=== PATIENT | male | born 1955 | race Caucasian/White ===

== ENCOUNTER 2018-08-30 21:04 | Inpatient (IN) | payer MEDICARE ==
[2018-08-30] MEDS ORDERED: IPRATROPIUM-ALBUTEROL 3 ML NEB INHALATION STA (21:11)
[2018-08-30] MEDS ORDERED: SODIUM CHLORIDE 0.9% 1,000 ML IV STA (21:11)
[2018-08-30] MEDS ORDERED: LORazepam 2 MG/ML INJ IV STA (21:30)
[2018-08-30] MEDS ORDERED: ENALAPRILAT 1.25 MG/ML 1 ML VIAL IVP STA (21:30)
[2018-08-30] MEDS ORDERED: NITROGLYCERIN SL TABS 0.4 MG TAB SUBLINGUAL STA (21:30)
[2018-08-30] MEDS ORDERED: MORPHINE SULFATE 2 MG/ML SYRINGE IVP STA (21:30)
[2018-08-30 21:33] LABS: Basophils # (A) 0.1 k/uL (0-0.2); Basophils % (A) 0 %; Eosinophils # (A) 0.4 k/uL (0-0.7); Eosinophils % (A) 1 %; HCT 41.5 % (39.0-53.0); HGB 13.2 gm/dL (13.0-17.5); Hypochromasia Slight; Lymphocytes # (A) 2.8 k/uL (1.0-4.8); Lymphocytes % (A) 11 %; MCH 28.7 pg (25.0-35.0); MCHC 31.8 g/dL (31.0-37.0); MCV 90.4 fL (80.0-100.0); Mean Platelet Volume 6.2; Monocytes % (A) 4 %; Neutrophils # (A) 21.7 k/uL (1.3-7.7); Neutrophils % (A) 83 %; Platelet Count 512 k/uL (150-450); RBC 4.59 m/uL (4.30-5.90); WBC 26.2 k/uL (3.8-10.6)
--- NOTE | 2018-08-30 21:33 | XR ---
EXAMINATION TYPE: XR chest 1V portable DATE OF EXAM: 08/30/2018 COMPARISON: NONE HISTORY: History of hypertension and diabetes with cough for 2 days and difficulty breathing today. TECHNIQUE: Single AP portable frontal upright view of the chest is obtained. FINDINGS: There is reticular interstitial prominence bilaterally with right hilar and left infrahila r opacities, there is silhouetting of both right and left heart borders. No large pleural effusion o r pneumothorax is present bilaterally. The osseous structures are intact. IMPRESSION: Suspect mild to moderate interstitial edema with multifocal bilateral alveolar edema and /or infiltrates. Correlate clinically. Progress study should be considered.
[2018-08-30 21:41] LABS: Partial Thromboplastin Time 22.1 sec (22.0-30.0); Prothrombin Time 9.7 sec (9.0-12.0)
[2018-08-30 21:46] LABS: ALT 41 U/L (21-72); AST 41 U/L (17-59); Albumin 3.9 g/dL (3.5-5.0); Alkaline Phosphatase 77 U/L (38-126); Anion Gap 12 mmol/L; Blood Urea Nitrogen 14 mg/dL (9-20); Calcium 8.7 mg/dL (8.4-10.2); Carbon Dioxide 22 mmol/L (22-30); Chloride 107 mmol/L (98-107); Glucose 240 mg/dL (74-99); Magnesium 1.8 mg/dL (1.6-2.3); Potassium 4.4 mmol/L (3.5-5.1); Sodium 141 mmol/L (137-145); Total Bilirubin 0.6 mg/dL (0.2-1.3); Total Protein 7.6 g/dL (6.3-8.2)
[2018-08-30 21:58] LABS: Creatine Kinase MB 2.9 ng/mL (0.0-2.4); Troponin I 0.02 ng/mL (0.000-0.034)
--- NOTE | 2018-08-30 22:10 | ED ---
SOB HPI - General Chief Complaint: Shortness of Breath Stated Complaint: MARIANA Time Seen by Provider: 08/30/18 21:09 Source: EMS, RN notes reviewed, old records reviewed Mode of arrival: EMS Limitations: no limitations, physical limitation (Clinical condition) - History of Present Illness Initial Comments: This is a 63-year-old male to the ER for evaluation. Patient is today for evaluation regarding significant shortness of breath. Shortness of breath some progressive worsening of shortness of breath. Patient has history of high blood pressure heart disease. Will be severely hypoxic. Patient admits cough 2 days, no fever. No current chest MD Complaint: shortness of breath, cough, pain with inspiration -: hour(s) (2) Severity: severe Severity scale (1-10): 10 Consistency: constant Improves With: oxygen, bronchodilators Worsens With: movement Associated Symptoms: cough, diaphoresis Treatments Prior to Arrival: oxygen, bronchodilator - Related Data Allergies Allergy/AdvReac Type Severity Reaction Status Date / Time Latex, Natural Rubber Allergy Rash/Hives Verified 08/30/18 22:03 Penicillins Allergy Unknown Verified 08/30/18 22:03 Childhood Review of Systems ROS Statement: Those systems with pertinent positive or pertinent negative responses have been documented in the HPI. ROS Other: All systems not noted in ROS Statement are negative. Past Medical History Past Medical History: Diabetes Mellitus, Hypertension History of Any Multi-Drug Resistant Organisms: None Reported Past Psychological History: No Psychological Hx Reported Smoking Status: Former smoker Past Alcohol Use History: None Reported Past Drug Use History: None Reported General Exam Limitations: no limitations General appearance: alert, anxious, in distress, obese Head exam: Present: atraumatic, normocephalic, normal inspection Eye exam: Present: normal appearance, PERRL, EOMI. Absent: scleral icterus, conjunctival injection, periorbital swelling ENT exam: Present: normal exam, mucous membranes moist Neck exam: Present: normal inspection. Absent: tenderness, meningismus, lymphadenopathy Respiratory exam: Present: respiratory distress, wheezes, rales, accessory muscle use, decreased breath sounds, prolonged expiratory. Absent: normal lung sounds bilaterally, rhonchi, stridor Cardiovascular Exam: Present: normal rhythm, tachycardia, normal heart sounds. Absent: systolic murmur, diastolic murmur, rubs, gallop, clicks GI/Abdominal exam: Present: soft, normal bowel sounds. Absent: distended, tenderness, guarding, rebound, rigid Extremities exam: Present: normal inspection, full ROM, normal capillary refill. Absent: tenderness, pedal edema, joint swelling, calf tenderness Back exam: Present: normal inspection Neurological exam: Present: alert, oriented X3, CN II-XII intact Psychiatric exam: Present: normal affect, normal mood Skin exam: Present: warm, dry, intact, normal color. Absent: rash Course Vital Signs 08/30/18 08/30/18 08/30/18 21:05 21:15 21:17 Pulse Rate 92 89 Respiratory 32 H 28 H 32 H Rate Blood Pressure 168/110 O2 Sat by Pulse Oximetry 08/30/18 08/30/18 21:39 21:49 Pulse Rate 86 76 Respiratory 27 H 28 H Rate Blood Pressure 173/115 O2 Sat by Pulse 98 Oximetry - Reevaluation(s) Reevaluation #1: 08/30/18 22:09 Patient is in severe respiratory distress, will given breathing treatment, placed on BiPAP multiple medications and help with significant pulmonary edema secondary to the Reevaluation #2: 08/30/18 22:09 Patient's prior medical records thoroughly reviewed Medical Decision Making - Medical Decision Making 63 male the ER for evaluation, patient comes in hypertensive emergency, CHF. Patient be admitted for diuresis, continued BiPAP and monitoring of cardiopulmonary status - Lab Data Result diagrams: 08/30/18 21:20 08/30/18 21:20 Lab Results 08/30/18 08/30/18 08/30/18 Range/Units 21:20 21:20 21:20 WBC 26.2 H (3.8-10.6) k/uL RBC 4.59 (4.30-5.90) m/uL Hgb 13.2 (13.0-17.5) gm/dL Hct 41.5 (39.0-53.0) % MCV 90.4 (80.0-100.0) fL MCH 28.7 (25.0-35.0) pg MCHC 31.8 (31.0-37.0) g/dL RDW 14.0 (11.5-15.5) % Plt Count 512 H (150-450) k/uL Neutrophils % 83 % Lymphocytes % 11 % Monocytes % 4 % Eosinophils % 1 % Basophils % 0 % Neutrophils # 21.7 H (1.3-7.7) k/uL Lymphocytes # 2.8 (1.0-4.8) k/uL Monocytes # 1.0 (0-1.0) k/uL Eosinophils # 0.4 (0-0.7) k/uL Basophils # 0.1 (0-0.2) k/uL Hypochromasia Slight PT (9.0-12.0) sec INR (<1.2) APTT (22.0-30.0) sec Sodium 141 (137-145) mmol/L Potassium 4.4 (3.5-5.1) mmol/L Chloride 107 (98-107) mmol/L Carbon Dioxide 22 (22-30) mmol/L Anion Gap 12 mmol/L BUN 14 (9-20) mg/dL Creatinine 0.72 (0.66-1.25) mg/dL Est GFR (CKD-EPI)AfAm >90 (>60 ml/min/1.73 sqM) Est GFR (CKD-EPI)NonAf >90 (>60 ml/min/1.73 sqM) Glucose 240 H (74-99) mg/dL Calcium 8.7 (8.4-10.2) mg/dL Magnesium 1.8 (1.6-2.3) mg/dL Total Bilirubin 0.6 (0.2-1.3) mg/dL AST 41 (17-59) U/L ALT 41 (21-72) U/L Alkaline Phosphatase 77 (38-126) U/L Total Creatine Kinase 201 H (55-170) U/L CK-MB (CK-2) 2.9 H (0.0-2.4) ng/mL CK-MB (CK-2) Rel Index 1.4 Troponin I 0.020 (0.000-0.034) ng/mL Total Protein 7.6 (6.3-8.2) g/dL Albumin 3.9 (3.5-5.0) g/dL 08/30/18 Range/Units 21:20 WBC (3.8-10.6) k/uL RBC (4.30-5.90) m/uL Hgb (13.0-17.5) gm/dL Hct (39.0-53.0) % MCV (80.0-100.0) fL MCH (25.0-35.0) pg MCHC (31.0-37.0) g/dL RDW (11.5-15.5) % Plt Count (150-450) k/uL Neutrophils % % Lymphocytes % % Monocytes % % Eosinophils % % Basophils % % Neutrophils # (1.3-7.7) k/uL Lymphocytes # (1.0-4.8) k/uL Monocytes # (0-1.0) k/uL Eosinophils # (0-0.7) k/uL Basophils # (0-0.2) k/uL Hypochromasia PT 9.7 (9.0-12.0) sec INR 1.0 (<1.2) APTT 22.1 (22.0-30.0) sec Sodium (137-145) mmol/L Potassium (3.5-5.1) mmol/L Chloride (98-107) mmol/L Carbon Dioxide (22-30) mmol/L Anion Gap mmol/L BUN (9-20) mg/dL Creatinine (0.66-1.25) mg/dL Est GFR (CKD-EPI)AfAm (>60 ml/min/1.73 sqM) Est GFR (CKD-EPI)NonAf (>60 ml/min/1.73 sqM) Glucose (74-99) mg/dL Calcium (8.4-10.2) mg/dL Magnesium (1.6-2.3) mg/dL Total Bilirubin (0.2-1.3) mg/dL AST (17-59) U/L ALT (21-72) U/L Alkaline Phosphatase (38-126) U/L Total Creatine Kinase (55-170) U/L CK-MB (CK-2) (0.0-2.4) ng/mL CK-MB (CK-2) Rel Index Troponin I (0.000-0.034) ng/mL Total Protein (6.3-8.2) g/dL Albumin (3.5-5.0) g/dL - Radiology Data Radiology results: report reviewed (Chest x-ray is positive for CHF), image reviewed Critical Care Time Critical Care Time: Yes Total Critical Care Time: 31 Disposition Clinical Impression: Congestive heart failure, Acute pulmonary edema, Hypoxia, Acute respiratory failure, Hypertensive emergency Disposition: ADMITTED IP TO THIS [facility] Condition: Serious Is patient prescribed a controlled substance at d/c from ED?: No Referrals: Nonstaff,Physician [Primary Care Provider] - 1-2 days
[2018-08-31] MEDS ORDERED: IPRATROPIUM-ALBUTEROL 3 ML NEB INHALATION PRN (00:27)
[2018-08-31] MEDS ORDERED: VANCOMYCIN IV PER PHARMACY 1 EACH MISC MISCELLANE PRN (00:58)
[2018-08-31] MEDS ORDERED: LEVOFLOXACIN 750MG-D5W PMX 750 MG in DEXTROSE/WATER 1 150ML.BAG IVPB SCH (01:00)
--- NOTE | 2018-08-31 01:04 | P.HPIM ---
History of Present Illness H&P Date: 08/31/18 Chief Complaint: Shortness of air and cough The patient is a 63-year-old morbidly obese male with a past with a history of essential hypertension, type 2 diabetes with peripheral neuropathy who presents to the ER via EMS with chief complaint of shortness of breath. The patient reports increasing shortness of breath over the last 2 days with a nonproductive cough during this time, with subjective fevers and chills. The patient denies any chest pain, nausea vomiting or diaphoresis. Patient denies any sick contacts, he reports being up-to-date on his flu and pneumonia shot which she took approximately 2 weeks ago. The patient denies any history of smoking, or COPD. He denies history of heart failure Patient reports a history of chronic lower extremity lymphedema and reports increasing redness and swelling with weeping of his lower extremities over the last 3-4 weeks. Per ER records it appears the patient was noted to be severely hypoxic with saturations in the 80s on arrival of the EMS he was subsequently placed on supplemental oxygen and brought to the ER where he was placed on BiPAP. And given Lasix and recommended for admission. Admission labs WBC count of 26.4, chest x-ray suggesting mild to moderate incisional edema with multiple focal bilateral alveolar edema and/or infiltrates. Review of Systems Pertinent positives per HPI, all other review of systems are otherwise negative Past Medical History Past Medical History: Diabetes Mellitus, Hypertension History of Any Multi-Drug Resistant Organisms: None Reported Past Psychological History: No Psychological Hx Reported Smoking Status: Former smoker Past Alcohol Use History: None Reported Past Drug Use History: None Reported - Past Family History Mother Family Medical History: Cancer Medications and Allergies Home Medications Medication Instructions Recorded Confirmed Type Aspirin EC [Ecotrin] 325 mg PO DAILY 08/30/18 08/30/18 History Ergocalciferol [Vitamin D2] 50,000 unit PO FR 08/30/18 08/30/18 History Gabapentin [Neurontin] 100 mg PO BID 08/30/18 08/30/18 History Insulin Aspart [NovoLOG 31 units IM AC-TID 08/30/18 08/30/18 History (formulary)] Insulin Glargine,Hum.rec.anlog 46 units IM DAILY 08/30/18 08/30/18 History [Lantus Solostar] Lisinopril 40 mg PO DAILY 08/30/18 08/30/18 History Multivitamins, Thera [Multivitamin 1 tab PO DAILY 08/30/18 08/30/18 History (formulary)] [place]-3 Fatty Acids/Fish Oil [Fish 1 cap PO DAILY 08/30/18 08/30/18 History Oil 1,000 mg Softgel] Vitamin E 1,000 units PO BID 08/30/18 08/30/18 History amLODIPine [Norvasc] 10 mg PO DAILY 08/30/18 08/30/18 History cloNIDine HCL [Catapres] 0.2 mg PO TID 08/30/18 08/30/18 History metFORMIN HCL 1,000 mg PO BID 08/30/18 08/30/18 History Allergies Allergy/AdvReac Type Severity Reaction Status Date / Time Latex, Natural Rubber Allergy Rash/Hives Verified 08/30/18 22:03 Penicillins Allergy Unknown Verified 08/30/18 22:03 Childhood Physical Exam Vitals: Vital Signs Temp Pulse Resp BP Pulse Ox 08/30/18 23:03 92 26 H 158/65 97 08/30/18 22:02 90 26 H 153/64 99 08/30/18 21:49 76 28 H 173/115 98 08/30/18 21:39 86 27 H 08/30/18 21:17 32 H 08/30/18 21:15 89 28 H 08/30/18 21:05 98.7 F 92 32 H 168/110 Intake and Output 08/30/18 08/30/18 08/31/18 14:59 22:59 06:59 Intake Total 100 Balance 100 Intake: Amount of Fluid Infused ( 100 ml) Other: Weight 121.109 kg Constitutional: Mild to moderate respiratory distress, conversant, pleasant Eyes: Anicteric sclerae, moist conjunctiva, no lid-lag, PERRLA ENMT: NC/AT,Oropharynx clear, no erythema, exudates Neck:Supple, FROM, no masses, or JVD, No carotid bruits; No thyromegaly Lungs: Clear to auscultation, faint wheezes, Clear to percussion, Normal respiratory effort, tachypnea increased work of breathing when off, speaking in incomplete sentences without BiPAP Cardiovascular: Heart regular in rate and rhythm, No murmurs, gallops, or rubs no peripheral edema Abdominal: Soft Nontender, nom distended, no guarding, no rebound or rigidity, Normoactive bowel sounds No hepatomegaly, No splenomegaly, No palpable mass No abdominal wall hernia noted Skin: Erythematous weeping vesicles, warmth to touch on bilateral lower extremities from ankles to the proximal one third of the tibia bilaterally Extremities:No digital cyanosis No clubbing, Pedal pulses intact and symmetrical Radial pulses intact and symmetrical Normal gait and station, No calf tenderness Psychiatric: Alert and oriented to person, place and time, Appropriate affect Intact judgement Neuro: Muscles Strength 5/5 in all 4 extremities, Sensation to light touch grossly present throughout, Cranial nerves II-XII grossly intact. No focal sensory deficits Results CBC & Chem 7: 08/31/18 09:10 08/31/18 09:10 Labs: Abnormal Lab Results - Last 24 Hours (Table) 08/30/18 08/30/18 08/30/18 Range/Units 21:20 21:20 21:20 WBC 26.2 H (3.8-10.6) k/uL Plt Count 512 H (150-450) k/uL Neutrophils # 21.7 H (1.3-7.7) k/uL Glucose 240 H (74-99) mg/dL Total Creatine Kinase 201 H (55-170) U/L CK-MB (CK-2) 2.9 H (0.0-2.4) ng/mL Assessment and Plan (1) Acute respiratory failure with hypoxia Current Visit: Yes Status: Acute Code(s): J96.01 - ACUTE RESPIRATORY FAILURE WITH HYPOXIA SNOMED Code(s): 46668830 (2) Sepsis Current Visit: Yes Status: Acute Code(s): A41.9 - SEPSIS, UNSPECIFIED ORGANISM SNOMED Code(s): 03386009 (3) Bilateral lower leg cellulitis Current Visit: Yes Status: Acute Code(s): L03.116 - CELLULITIS OF LEFT LOWER LIMB; L03.115 - CELLULITIS OF RIGHT LOWER LIMB SNOMED Code(s): 068620851 (4) Type 2 diabetes mellitus with hyperglycemia Current Visit: Yes Status: Chronic Code(s): E11.65 - TYPE 2 DIABETES MELLITUS WITH HYPERGLYCEMIA SNOMED Code(s): 902272008883120 (5) Hypertensive emergency Current Visit: Yes Status: Resolved Code(s): I16.1 - HYPERTENSIVE EMERGENCY SNOMED Code(s): 938557595639446 (6) Pneumonia Current Visit: Yes Status: Acute Code(s): J18.9 - PNEUMONIA, UNSPECIFIED ORGANISM SNOMED Code(s): 689879612 Plan: The patient is admitted to the telemetry unit anticipated greater than 2 midnight stay with acute respiratory failure with hypoxia multifactorial etiology secondary to pulmonary edema versus underlying CHF superimposed on possible sepsis and pneumonia/cellulitis. Patient is continued on Bipap therapy with plans to consult pulmonology, initiate DuoNeb bronchodilator breathing treatments Q4/PRN with antibiotic coverage Levaquin and vancomycin, given patient's profound leukocytosis of 26.2. Attempt to obtain pancultures of blood and urine and sputum. proceed with diruesis with IV lasix. We'll order d-dimer, TSH, A1c and plan to consult ID for antibiotic guidance and wound care minal wraps for LE edema/cellulitis. Patient also noted to be in hypertensive emergency on arrival, blood pressure much improved now we'll resume his home antihypertensive regimen. Patient placed on DVT prophylaxis. Continue to follow his clinical course Discussed plan of care with the patient CODE STATUS full Anticipated discharge 3-5 days
[2018-08-31] MEDS ORDERED: INSULIN DETEMIR 100 UNIT/ML 10 ML VIAL SQ ONE (01:45)
[2018-08-31] MEDS ORDERED: VANCOMYCIN 1,750 MG in SODIUM CHLORIDE 0.9% 500 ML IVPB SCH (02:00)
[2018-08-31] MEDS: FUROSEMIDE 10 MG/ML 4 ML VIAL IV SCH ×4 (02:36→22:23)
[2018-08-31] MEDS ORDERED: HEPARIN SOD,PORK IN 0.45% NACL 25,000 UNIT in 0.45% NACL 1 500ML.BAG IV SCH (03:00)
[2018-08-31] MEDS: IPRATROPIUM-ALBUTEROL 3 ML NEB INHALATION SCH ×5 (03:27→19:32)
[2018-08-31 05:51] LABS: Glucose,Whole Blood 238 mg/dL (75-99)
[2018-08-31] MEDS: INSULIN ASPART 100 UNIT/ML 1 ML 10 ML VIAL SQ SCH ×7 (06:44→22:33)
--- NOTE | 2018-08-31 08:22 | P.PN ---
Progress Note - Text Progress Note Date: 08/31/18 63-year-old male with PMH of diabetes mellitus, hypertension, peripheral neuropathy presents to the ED for shortness of breath associated with fever, chills and a nonproductive cough for the past 2 days. Of note patient reports a history of chronic lower extremity lymphedema with increased redness, swelling and weeping over the past 3-4 weeks. In the ED was found to be severely hypoxic saturating in the 80s, pleasant BiPAP. CBC is remarkable for leukocytosis of 26.2, platelet of 512. D-dimer was elevated at 1.86. CMP showed a glucose of 240. Initial troponin was negative at 0.02 with a mildly elevated CK-MB of 2.9. His second troponin was slightly elevated at 0.091. BNP was 584. Chest x-ray showed mild to moderate interstitial edema with multifocal bilateral alveolar edema, with concerns for infiltrate. Patient was seen and examined this morning. No acute events overnight. Patient is currently on BiPAP, speaking in full sentences. Patient reports sudden onset of shortness of breath 2-3 days ago while he was sitting watching football. He does endorse a cough at that time as well productive of clear mucus. He has a history of chronic lower extremity swelling left greater than right. Patient also reports a history of polio in the past with lower extremity weakness as a result. He endorses getting his flu shot and pneumonia shot 2 weeks ago. He denies any chest pain, dizziness, nausea, vomiting, changes in urination or bowel habits. General: [non toxic], [no distress], [appears at stated age], [obese], [ speaking in full sentences on BiPAP ] Derm: [warm], [dry] Head: [atraumatic], [normocephalic], [symmetric] Eyes: [EOMI], [no lid lag], [anicteric sclera] Mouth: [no lip lesion], [mucus membranes moist] Cardiovascular: [S1S2 reg], [no murmur], [positiv DP pulse bilateral] Lungs: Decreased breath sounds bilateral], [no rhonchi, no rales] , [no accessory muscle use] Abdominal: [soft], [ nontender to palpation], [no guarding], [no appreciable organomegaly] Ext: [no gross muscle atrophy], 2+ pitting edema bilaterally, left greater than right], [no contractures], [lower extremity erythema bilaterally with crusted lesions] Psych: [Alert], [oriented], [appropriate affect] Assessment and Plan 1. Acute respiratory failure with hypoxia - CXR with mild to moderate interstitial edema, multifocal bilateral alveolar edema with concerns for infiltrate. - BiPAP settings: RR 10, IPAP 12, EPAP 6, FiO2 35% - r/o PNA - Plan: Continue Levofloxacin 750 mg IV QD, Vancomycin 1750 mg IV BID. FU Sputum Cx, BCx, ID consult - r/o PE - D-Dimer: 1.86 - Plan: Heparin drip, Telemetry monitoring. FU CTA PE - r/o CHF - BNP 584 with no baseline to compare. - Plan: Continue Lasix 40 mg IV TID. FU Echocardiogram, Cardiology consult - r/o ACS - Trop 0.02, 0.09; EKG showing SR with supraventricular complexes and LBBB. - Likely from demand ischemia from sepsis, CHF exacerbation or HTN urgency. Concerns for ACS or PE. - Plan: Heparin drip. Telemetry monitoring. FU Trop/EKG, CTA PE, Cardiology, Pulmonology - Continue IV Lasix, IV Abx, and Heparin drip. O2 per NC or BiPAP as tolerated, low threshold for intubation. DuoNeb scheduled and PRN for SOB/wheezing. 2. Sepsis: Source of infection from cellulitis or PNA. Leukocytosis of 26.2, RR > 20, though afebrile. Continue IV Abx for coverage of G+ and G- organisms. FU Lactic acid, Sputum Cx, BCx, ID consult 3. Troponemia: Trop 0.02, 0.09. EKG showing SR with supraventricular complexes, LBBB. Possibly due to demand ischemia (from sepsis, HTN urgency, CHF exacerbation) vs. ACS or PE (less likely). Telemetry monitoring. Continue to trend Trop/EKG. FU Echo, CTA Chest, Cardiology 4. LE edema: Chronic with venous stasis skin changes. CHF and cellulitis could be a contributing cause. Advised LE elevation. FU Duplex 5. HTN: BP 143/52. Continue Amlodipine 10 mg PO QD, Clonidine 0.2 mg PO TID, Lisinopril 40 mg PO QD. Monitor vitals, adjust medications as necessary. 6. DM: POC glucose 238. Continue Lantus 46 units QHS, Lispro 31 units TID. ISS. Accuchecks QID. Hypoglycemic precautions. FU A1c 7. Peripheral neuropathy: Gabapentin 100 mg PO BID. 8. ASCVD risk: ASA 325 mg PO QD. 9. DVT/GI Prophylaxis: Lovenox 40 mg SUBCUT QD. Pepcid 20 mg PO BID.
[2018-08-31] MEDS ORDERED: NON-FORMULARY DRUG (Omega-3 Fatty Acids/Fish Oil [Fish Oil 1,000 Mg Softgel] 1 CAP) PO SCH (09:00)
[2018-08-31] MEDS ORDERED: ASPIRIN 325 MG TAB PO SCH (09:00)
[2018-08-31] MEDS ORDERED: ENOXAPARIN 40 MG/0.4 ML SYRINGE SQ SCH (09:00)
[2018-08-31] MEDS: amLODIPine 10 MG TAB PO SCH (09:09)
[2018-08-31] MEDS: LISINOPRIL 20 MG TAB PO SCH (09:10)
[2018-08-31] MEDS: VITAMIN E (DL,TOCOPHERYL ACET) 400 UNIT CAP PO SCH ×2 (09:10→21:00)
[2018-08-31] MEDS: cloNIDine HCL 0.2 MG TAB PO SCH ×3 (09:10→20:54)
[2018-08-31] MEDS: FAMOTIDINE 20 MG TAB PO SCH ×2 (09:10→20:54)
[2018-08-31] MEDS: GABAPENTIN 100 MG CAP PO SCH ×2 (09:10→20:54)
--- NOTE | 2018-08-31 09:59 | US ---
EXAMINATION TYPE: US venous doppler duplex LE BI DATE OF EXAM: 08/31/2018 9:17 AM COMPARISON: NONE CLINICAL HISTORY: 63-year-old male swelling. SIDE PERFORMED: Bilateral TECHNIQUE: The lower extremity deep venous system is examined utilizing real time linear array sonog anurag with graded compression, doppler sonography and color-flow sonography. FINDINGS: VESSELS IMAGED: External Iliac Vein (EIV), not visualized Common Femoral Vein, not visualized on right Deep Femoral Vein, not visualized Greater Saphenous Vein * Femoral Vein Popliteal Vein Small Saphenous Vein * Proximal Calf Veins (* superficial vessels) Float Remover notes: Morbidly obese patient carrying weight in abdomen, lymph edema, patient paralyzed, unable to scan groin. Right Leg: Negative for DVT, as visualized, limited views Left Leg: Negative for DVT, as visualized, limited views IMPRESSION: Due to patient condition and large size, unable to scan the external iliac, common femoral, and deep femoral veins. No evidence for DVT within the bilateral lower extremities imaged from the upper thigh s to the upper calves.
[2018-08-31 10:03] LABS: Anion Gap 10 mmol/L; Blood Urea Nitrogen 14 mg/dL (9-20); Calcium 8.3 mg/dL (8.4-10.2); Carbon Dioxide 22 mmol/L (22-30); Chloride 108 mmol/L (98-107); Glucose 176 mg/dL (74-99); Potassium 4.1 mmol/L (3.5-5.1); Sodium 140 mmol/L (137-145)
[2018-08-31 10:08] LABS: Basophils % (A) 0 %; Eosinophils # (A) 0.2 k/uL (0-0.7); Eosinophils % (A) 1 %; HCT 38.4 % (39.0-53.0); HGB 11.7 gm/dL (13.0-17.5); Hypochromasia Marked; Lymphocytes # (A) 1.5 k/uL (1.0-4.8); Lymphocytes % (A) 11 %; MCH 28.6 pg (25.0-35.0); MCHC 30.5 g/dL (31.0-37.0); MCV 93.8 fL (80.0-100.0); Mean Platelet Volume 7.2; Monocytes # (A) 0.7 k/uL (0-1.0); Monocytes % (A) 5 %; Neutrophils # (A) 11.2 k/uL (1.3-7.7); Neutrophils % (A) 81 %; Platelet Count 378 k/uL (150-450); RBC 4.09 m/uL (4.30-5.90); WBC 13.8 k/uL (3.8-10.6)
[2018-08-31 11:26] LABS: Appearance,Urine Clear (Clear); Bilirubin,Urine Negative (Negative); Blood,Urine Negative (Negative); Color,Urine Light Yellow; Glucose,Urine (UA) 1+ (Negative); Ketones,Urine Negative (Negative); Leukocyte Esterase,Urine Negative (Negative); Nitrite,Urine Negative (Negative); Protein,Urine Trace (Negative); Specific Gravity,Urine 1.008 (1.001-1.035); Urobilinogen,Urine <2.0 mg/dL (<2.0)
--- NOTE | 2018-08-31 11:41 | CONS ---
GUILLE Caldwell is a 63-year-old gentleman with history of hypertension, type 2 diabetes, peripheral neuropathy, history of polio who presents to hospital complaining of shortness of breath. The shortness of breath has been getting progressively worse over the last 2 days. He also has nonproductive cough, did not have any fever, chills, but had episodes of sweating. There is no history of nausea, vomiting, chest pain. Patient apparently had a flu and pneumonia shot about 2 weeks ago. He has bilateral lower extremity cellulitis with lymphedema and his legs appear erythematous. This has worsened over the last 3 to 4 weeks. When he first presented to the ER, he was severely hypoxic and had been placed on BiPAP. He was given Lasix and his symptoms have improved. He had a chest x-ray that showed bilateral interstitial changes that could either be due to edema or infiltrate. At the time of my evaluation, he is looking better. He no longer requires BiPAP. On his initial presentation, his labs show that the D-dimer was elevated at 1.8 and the troponin up at 0.09. His BNP is normal at 584. Patient is to undergo a CTA of the lung to rule out pulmonary embolism. This will be done sometime this morning and then we can decide on what to do with the heparin. I will also obtain another set of troponin on him. His EKG showed sinus rhythm with nonspecific ST-T wave changes and frequent PVCs and there was quite a bit of artifact. I will obtain a 2D echo to document his LV function. The patient had a venous Doppler study that did not reveal any DVT. PAST MEDICAL HISTORY: Past medical history is significant for diabetes, hypertension, peripheral neuropathy, and questionable history of congestive heart failure. MEDICATIONS: The patient is currently on metformin 1000 b.i.d., Catapres 0.2 t.i.d., Norvasc 10 q. daily, fish oil, lisinopril, insulin, Neurontin, aspirin. ALLERGIES: The patient is allergic to PENICILLIN. FAMILY HISTORY: Family history is negative for premature coronary artery disease. SOCIAL HISTORY: Social history is negative for smoking, EtOH abuse, or drug abuse. REVIEW OF SYSTEMS: HEENT is unremarkable. CARDIAC: As described above. RESPIRATORY: Significant for shortness of breath. GI: Negative. GENITOURINARY: Negative. ALLERGY/IMMUNOLOGY: Negative. SKIN: Significant for bilateral lower extremity cellulitis, erythema. PSYCHOSOCIAL: Negative. ENDOCRINE: Negative. HEMATOLOGIC: Negative. DERM: As described above. Rest of the system review is not relevant. PHYSICAL EXAMINATION: On exam, patient is afebrile. Heart rate is 77 beats per minute, blood pressure is 154/76. Respiratory rate is 20. There is no jugular venous distention. Chest exam reveals diminished air entry bilaterally. Heart exam reveals first and second heart sounds. No gallop. No murmur. Abdomen is soft, nontender. Examination of the extremities reveals bilateral pitting edema and cellulitis. LABS: Labs show a white cell count of 13.8, platelet count of 378. D-dimer is 1.8. Potassium is 4.1. Creatinine is 0.71. Troponin is 0.09. BNP is 584. TSH is normal at 4. ASSESSMENT: 1. Acute onset shortness of breath. 2. Cellulitis. 3. Elevated D-dimer. 4. Elevated troponins. PLAN: The patient's clinical presentation could be related to cellulitis with sepsis or new onset congestive heart failure. It could also be due to a pulmonary embolism. We will first obtain a CT scan of the chest to rule out PE. The elevated troponin could certainly be due to non ST-segment elevation [place]. I will obtain a 2D echo to evaluate his LV function and wall motion. He is not a candidate for invasive angiography at the moment, does not have any chest pain and appears fairly stable hemodynamically and depending upon the test results, I will further optimize his therapies. He is currently on aspirin, Catapres, intravenous Lasix, lisinopril, and I am going to hold off on a beta jacqui given the bradycardia. MMODL / IJN: [id number] /
[2018-08-31 11:45] LABS: Glucose,Whole Blood 169 mg/dL (75-99)
[2018-08-31] MEDS: MULTIVITAMINS, THERA 1 EACH TAB PO SCH (12:27)
--- NOTE | 2018-08-31 13:03 | ECHOF ---
Referral Reason:Heart Failure MEASUREMENTS -------- HEIGHT: 162.6 cm WEIGHT: 132.4 kg BP: 143/52 RVIDd: 3.3 cm (< 3.3) IVSd: 1.5 cm (0.6 - 1.1) LVIDd: 3.9 cm (3.9 - 5.3) LVPWd: 2.0 cm (0.6 - 1.1) IVSs: 1.5 cm LVIDs: 1.7 cm LVPWs: 1.8 cm Ao Diam: 3.3 cm (2.0 - 3.7) AV Cusp: 1.5 cm (1.5 - 2.6) LA Diam: 3.6 cm (2.7 - 3.8) MV EXCURSION: 10.412 mm (> 18.000) MV EF SLOPE: 153 mm/s (70 - 150) EPSS: 0.4 cm MV E Mansoor: 1.18 m/s MV DecT: 255 ms MV A Mansoor: 0.60 m/s MV E/A Ratio: 1.95 AV maxP.92 mmHg AV meanP.60 mmHg RAP: 5.00 mmHg RVSP: 9.42 mmHg FINDINGS -------- Undetermined rhythm. This was a technically difficult study with suboptimal views. The left ventricular size is normal. There is moderate concentric left ventricular hypertrophy. O verall left ventricular systolic function is normal with, an EF between 55 - 60 %. The right ventricle is mildly enlarged. The left atrium was not well visualized. The right atrium was not well visualized. Lumason used Aortic valve is trileaflet and is mildly thickened. There is mild aortic stenosis present. Peak/m elijah gradient across the Aortic Valve is 18.92mmHg / 8.60mmHg. The mitral valve leaflets are mildly thickened. There is trace mitral regurgitation. Trace tricuspid regurgitation present. There is no evidence of pulmonary hypertension. The right ventricular systolic pressure, as measured by Doppler, is 9.42mmHg. The pulmonic valve was not well visualized. The aortic root size is normal. There is no pericardial effusion. CONCLUSIONS -------- 1. Undetermined rhythm. 2. This was a technically difficult study with suboptimal views. 3. There is moderate concentric left ventricular hypertrophy. 4. Overall left ventricular systolic function is normal with, an EF between 55 - 60 %. 5. The right ventricle is mildly enlarged. 6. The left atrium was not well visualized. 7. The right atrium was not well visualized. 8. Lumason used 9. Aortic valve is trileaflet and is mildly thickened. 10. There is mild aortic stenosis present. 11. Peak/mean gradient across the Aortic Valve is 18.92mmHg / 8.60mmHg. 12. The mitral valve leaflets are mildly thickened. 13. There is trace mitral regurgitation. 14. Trace tricuspid regurgitation present. 15. There is no evidence of pulmonary hypertension. 16. The pulmonic valve was not well visualized. 17. The aortic root size is normal. 18. There is no pericardial effusion. SURGICAL SUPERVISOR: Shante Bowen RDCS
--- NOTE | 2018-08-31 14:28 | P.CNPUL ---
History of Present Illness Consult date: 08/31/18 Reason for consult: dyspnea, cough, hypoxemia, pneumonia, abnormal CXR/CT Chief complaint: Dyspnea, chest congestion, leukocytosis History of present illness: This is a 63-year-old white male patient that we relocated to [facility] from [facility], and has not yet established himself with a primary care physician. Patient presented to the emergency department on 2017 at 2200 were evaluation of worsening shortness of breath, increased chest congestion, cough with production of yellow sputum, sweating. His she'll onset of symptoms was last week, and became progressively worse. Patient states 2 weeks ago he received the influenza and pneumococcal vaccine at his doctor's office in [place]. His son has also had the symptoms of cold. Patient denied any chest pain. Is positive for orthopnea. No hemoptysis. No chest wall pain. 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 Patient is able to ambulate with crutches. Has never been diagnosed with any chronic lung condition, no history of COPD, has never been diagnosed with obstructive sleep apnea, but does snore. Chest x-ray was taken in the emergency department and showed mild to moderate interstitial edema with multifocal bilateral alveolar edema and/or infiltrates. EKG showed sinus rhythm with frequent runs of PVCs, and left bundle branch block. Lab work showed significant leukocytosis with WBC of 26.2, hemoglobin of 13.2, platelet count was 512, d-dimer was 1.86, and electrocerebral profile were all within normal limits. Troponins were 0.020, 0.091, 0.094. ProBNP was within normal limits at 584. Patient has mild lactic acidosis with lactic acid of 2.3. This morning's lab work shows WBC is down to 13.8. Patient has been afebrile, in the emergency department he was placed on BiPAP support for significant respiratory distress, this morning he seen on selective care unit, still on BiPAP, with pressures of 12/6, and FiO2 of 35%. He was started on IV diuretics at 40 mg every 8 hours, breathing easier. Patient has chronic lower extremity edema, cellulitis, and there are open areas with drainage of clear yellow fluid from his bilateral lower extremities that are quite erythematous. Patient states he was on vancomycin for the treatment of bilateral lower extreme cellulitis, but denies history of MRSA. He was started on Levaquin and vancomycin. Nebulized bronchodilators. Patient is scheduled for CT angios of the chest this afternoon. Review of Systems All systems: negative Constitutional: Denies chills, Denies fever Eyes: denies blurred vision, denies pain Ears, nose, mouth and throat: Denies headache, Denies sore throat Cardiovascular: Reports edema, Denies chest pain, Denies shortness of breath Respiratory: Reports congestion, Reports dyspnea, Reports excessive sputum, Denies cough Gastrointestinal: Denies abdominal pain, Denies diarrhea, Denies nausea, Denies vomiting Musculoskeletal: Reports gait dysfunction, Reports leg numbness/tingling, Reports limitation of motion, Denies myalgias Integumentary: Reports foot/leg ulcers, Reports rash, Reports sores, Reports wounds, Denies pruritus Neurological: Reports balance difficulties, Reports gait dysfunction, Reports paresthesias, Denies numbness, Denies weakness Psychiatric: Denies anxiety, Denies depression Endocrine: Denies fatigue, Denies weight change Past Medical History Past Medical History: Diabetes Mellitus, Hypertension Additional Past Medical History / Comment(s): pt. 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 states he had a small heart attack did not need any stents Last Myocardial Infarction Date:: unknown History of Any Multi-Drug Resistant Organisms: None Reported Past Surgical History: Orthopedic Surgery Additional Past Surgical History / Comment(s): pt. had muscle tazken from his back and put into his leg Past Anesthesia/Blood Transfusion Reactions: No Reported Reaction Past Psychological History: No Psychological Hx Reported Smoking Status: Former smoker Past Alcohol Use History: None Reported Past Drug Use History: None Reported - Past Family History Mother Family Medical History: Cancer Medications and Allergies Home Medications Medication Instructions Recorded Confirmed Type Aspirin EC [Ecotrin] 325 mg PO DAILY 08/30/18 08/30/18 History Ergocalciferol [Vitamin D2] 50,000 unit PO FR 08/30/18 08/30/18 History Gabapentin [Neurontin] 100 mg PO BID 08/30/18 08/30/18 History Insulin Aspart [NovoLOG 31 units IM AC-TID 08/30/18 08/30/18 History (formulary)] Insulin Glargine,Hum.rec.anlog 46 units IM DAILY 08/30/18 08/30/18 History [Lantus Solostar] Lisinopril 40 mg PO DAILY 08/30/18 08/30/18 History Multivitamins, Thera [Multivitamin 1 tab PO DAILY 08/30/18 08/30/18 History (formulary)] Somers-3 Fatty Acids/Fish Oil [Fish 1 cap PO DAILY 08/30/18 08/30/18 History Oil 1,000 mg Softgel] Vitamin E 1,000 units PO BID 08/30/18 08/30/18 History amLODIPine [Norvasc] 10 mg PO DAILY 08/30/18 08/30/18 History cloNIDine HCL [Catapres] 0.2 mg PO TID 08/30/18 08/30/18 History metFORMIN HCL 1,000 mg PO BID 08/30/18 08/30/18 History Allergies Allergy/AdvReac Type Severity Reaction Status Date / Time Latex, Natural Rubber Allergy Rash/Hives Verified 08/30/18 22:03 Penicillins Allergy Unknown Verified 08/30/18 22:03 Childhood Physical Exam Vitals: Vital Signs Temp Pulse Pulse Pulse Resp BP BP 08/31/18 11:05 88 18 08/31/18 10:54 86 18 08/31/18 09:00 97.0 F L 77 20 154/76 08/31/18 07:29 80 08/31/18 07:16 82 21 08/31/18 04:10 77 24 08/31/18 04:00 98 F 54 L 24 143/52 08/31/18 03:49 92 08/31/18 03:29 90 08/31/18 00:45 26 H 08/31/18 00:30 97.5 F L 74 25 H 134/55 08/30/18 23:03 92 26 H 158/65 08/30/18 22:02 90 26 H 153/64 08/30/18 21:49 76 28 H 173/115 08/30/18 21:39 86 27 H 08/30/18 21:17 32 H 08/30/18 21:15 89 28 H 08/30/18 21:05 98.7 F 92 32 H 168/110 Pulse Ox 08/31/18 11:05 08/31/18 10:54 08/31/18 09:00 97 08/31/18 07:29 08/31/18 07:16 08/31/18 04:10 08/31/18 04:00 100 08/31/18 03:49 08/31/18 03:29 08/31/18 00:45 08/31/18 00:30 95 08/30/18 23:03 97 08/30/18 22:02 99 08/30/18 21:49 98 08/30/18 21:39 08/30/18 21:17 08/30/18 21:15 08/30/18 21:05 Intake and Output 08/30/18 08/31/18 08/31/18 22:59 06:59 14:59 Intake Total 890 0 Balance 890 0 Intake: Amount of Fluid Infused ( 100 ml) Intake, IV Titration 790 Amount Heparin Sod,Pork in 0.45% 140 NaCl 25,000 unit In 0.45 % NaCl 1 500ml.bag @ 20 mls/hr IV .Q24H LUIS F Rx#: [id number] Levofloxacin 750Mg-D5w 150 Pmx 750 mg In Dextrose/ Water 1 150ml.bag @ 100 mls/hr IVPB Q24H LUIS F Rx#: [id number] Vancomycin 1,750 mg In 500 Sodium Chloride 0.9% 500 ml @ 167 mls/hr IVPB Q12H LUIS F Rx#:[id number] Oral 0 Other: # Voids 0 Weight 121.109 kg 132.5 kg GENERAL EXAM: Alert, pleasant 63-year-old obese white male, on BiPAP support, with pressures of 12 and 6, and 35%, dyspneic with conversation . HEAD: Normocephalic/atraumatic. EYES: Normal reaction of pupils, equal size. Conjunctiva pink, sclera white. NOSE: Clear with pink turbinates. THROAT: No erythema or exudates. NECK: No masses, no JVD, no thyroid enlargement, no adenopathy. CHEST: No chest wall deformity. Symmetrical expansion. LUNGS: Equal air entry with fine rales at bilateral bases CVS: Regular rate and rhythm, normal S1 and S2, no gallops, no murmurs, no rubs ABDOMEN: Soft, nontender. No hepatosplenomegaly, normal bowel sounds, no guarding or rigidity. EXTREMITIES: No clubbing, patient has nonpitting edema, bilateral lower extremity cellulitis, and open weeping areas on bilateral lower extremities MUSCULOSKELETAL: Muscle strength and tone normal. SPINE: No scoliosis or deformity SKIN: No rashes CENTRAL NERVOUS SYSTEM: Alert and oriented -3. No focal deficits, tone is normal in all 4 extremities. PSYCHIATRIC: Alert and oriented -3. Appropriate affect. Intact judgment and insight. Results - Laboratory Findings CBC and BMP: 08/31/18 09:10 08/31/18 09:10 PT/INR, D-dimer PT 9.7 sec (9.0-12.0) 08/30/18 21:20 INR 1.0 (<1.2) 08/30/18 21:20 D-Dimer 1.86 mg/L FEU (<0.60) H 08/31/18 01:09 Abnormal lab findings: Abnormal Labs 08/30/18 08/30/18 08/30/18 21:20 21:20 21:20 WBC 26.2 H RBC Hgb Hct MCHC Plt Count 512 H Neutrophils # 21.7 H APTT D-Dimer Chloride Glucose 240 H POC Glucose (mg/dL) Plasma Lactic Acid Tom Calcium Total Creatine Kinase 201 H CK-MB (CK-2) 2.9 H Troponin I Urine Protein Urine Glucose (UA) 08/31/18 08/31/18 08/31/18 01:09 01:09 05:50 WBC RBC Hgb Hct MCHC Plt Count Neutrophils # APTT D-Dimer 1.86 H Chloride Glucose POC Glucose (mg/dL) 238 H Plasma Lactic Acid Tom Calcium Total Creatine Kinase CK-MB (CK-2) Troponin I 0.091 H* Urine Protein Urine Glucose (UA) 08/31/18 08/31/18 08/31/18 09:10 09:10 09:10 WBC 13.8 H RBC 4.09 L Hgb 11.7 L Hct 38.4 L MCHC 30.5 L Plt Count Neutrophils # 11.2 H APTT D-Dimer Chloride 108 H Glucose 176 H POC Glucose (mg/dL) Plasma Lactic Acid Tom Calcium 8.3 L Total Creatine Kinase CK-MB (CK-2) Troponin I 0.094 H* Urine Protein Urine Glucose (UA) 08/31/18 08/31/18 08/31/18 09:10 09:10 11:00 WBC RBC Hgb Hct MCHC Plt Count Neutrophils # APTT 49.3 H D-Dimer Chloride Glucose POC Glucose (mg/dL) Plasma Lactic Acid Tom 2.3 H* Calcium Total Creatine Kinase CK-MB (CK-2) Troponin I Urine Protein Trace H Urine Glucose (UA) 1+ H 08/31/18 11:40 WBC RBC Hgb Hct MCHC Plt Count Neutrophils # APTT D-Dimer Chloride Glucose POC Glucose (mg/dL) 169 H Plasma Lactic Acid Tom Calcium Total Creatine Kinase CK-MB (CK-2) Troponin I Urine Protein Urine Glucose (UA) - Diagnostic Findings Chest x-ray: report reviewed, image reviewed Additional studies: EKG reviewed, echocardiogram results reviewed Assessment and Plan Plan: Assessment: #1. Acute hypoxemic respiratory failure, requiring BiPAP support, chest x-ray showed moderate interstitial edema, and multifocal bilateral alveolar infiltrates, and the possibilities include community-acquired pneumonia and fluid overload related to new onset congestive heart failure #2. Dyspnea, chest congestion, cough with sputum production, leukocytosis related to a possibility of pneumonia #3. Lactic acidosis, possibly related to sepsis, source is under investigation #4. Leukocytosis #5. Open weeping cellulitis and wounds on bilateral lower extremities #6. Elevated troponins, could be related to sepsis #7. Elevated d-dimer, CT angios is pending #8. Previous episode of myocardial infarction #9. Diabetes mellitus, with diabetic neuropathy #10. Hypertension, hyperlipidemia #11. Morbid obesity #12. History of polio syndrome as a child #13. Remote history of smoking, patient quit at age of 26, smoked a pack a day for 10 years. Plan: Continue Levaquin and Vancomycin, blood cultures sputum cultures have been ordered, pending. We will give the patient a trial on nasal cannula, his breathing is improved. CT angios is pending this afternoon. Patient has been initiated on heparin drip. GI and DVT prophylaxis. Will await the results of the CT angios. Continue monitoring fever pattern, vital signs, mentation, daily labs, electrolytes and renal profile. Accurate I and O's. I performed a history & physical examination of the patient and discussed their management with my nurse practitioner, Kandy Kelley. I reviewed the nurse practitioner's note and agree with the documented findings and plan of care. Lung sounds are positive for bibasilar crackles. The findings and the impression was discussed with the patient. I attest to the documentation by the nurse practitioner. Time with Patient: Greater than 30
[2018-08-31] MEDS: VANCOMYCIN 2,000 MG in SODIUM CHLORIDE 0.9% 500 ML IVPB SCH (14:41)
--- NOTE | 2018-08-31 14:43 | CT ---
EXAMINATION TYPE: CT chest angio for PE DATE OF EXAM: 08/31/2018 COMPARISON: Radiographs 08/30/2018 HISTORY: 63-year-old male shortness of breath, on bi-pap. Difficulty breathing. TECHNIQUE: Contiguous axial scanning of the chest performed with IV Contrast, patient injected with 1 00 mL of Isovue 370. Coronal/sagittal MIP reconstructions performed. CT DLP: 1134.9 mGycm Automated exposure control for dose reduction was used. FINDINGS: Mild prominence to the left atrium and left ventricle but with overall normal heart size. Small anter ior pericardial effusion. Coronary vessel calcifications are present. Aorta normal caliber with bovine configuration to the aortic arch. Satisfactory opacification of the pulmonary arterial system but with respiratory motion artifact. No pulmonary embolus seen to the segmental level. There is mediastinal lymphadenopathy measuring up to 1.4 cm in the paratracheal region and up to 2.6 cm in the subcarinal region. This is nonspecific. Diffuse septal lines and patchy and confluent groundglass in the right greater than left lungs. Diffu se bronchial wall thickening is present with small to moderate right and small left pleural effusions with adjacent atelectasis. Visualized upper abdomen shows no gross abnormal body. Bones: Endplate spondylosis mid to lower thoracic spine. IMPRESSION: 1. ASSESSMENT FOR PULMONARY EMBOLUS LIMITED DUE TO RESPIRATORY MOTION. NO DEFINITE PULMONARY EMBOLUS TO THE SEGMENTAL LEVEL. 2. CORRELATE FOR FLUID OVERLOAD AND DEVELOPING PULMONARY EDEMA GIVEN SEPTAL LINES, PATCHY AND CONFLUE NT GROUNDGLASS, AND [id number] RIGHT WITH SMALL LEFT PLEURAL EFFUSIONS.
[2018-08-31 16:00] LABS: Hemoglobin A1C 9.7 % (4.0-6.0)
[2018-08-31 16:39] LABS: Glucose,Whole Blood 327 mg/dL (75-99)
[2018-08-31 20:51] LABS: Glucose,Whole Blood 108 mg/dL (75-99)
[2018-08-31] MEDS: HEPARIN SODIUM,PORCINE 5,000 UNIT/ML 1 ML VIAL SQ SCH (20:54)
[2018-08-31] MEDS: INSULIN DETEMIR 100 UNIT/ML 10 ML VIAL SQ SCH (22:33)
[2018-08-31 22:40] LABS: Glucose,Whole Blood 148 mg/dL (75-99)
--- NOTE | 2018-08-31 23:05 | CONS ---
CONSULTATION DATE OF SERVICE: 08/31/2018 REASON FOR CONSULTATION: Antibiotic recommendation. HISTORY OF PRESENT ILLNESS: The patient is a 63-year-old male presenting to the ER at [facility] yesterday with the chief complaint of increasing shortness of breath. Apparently his symptom had been going on for the last 2 days prior to presentation to hospital. The patient did have increasing shortness of breath. He also had a cough, bringing up some sputum, but denies any hemoptysis. No significant chest pain. The patient did have some chills and subjective fever but denies having any URI symptoms. No nausea, vomiting or any choking on food. No sick contacts. The patient also had increased swelling in his lower extremities with some weeping edema and redness. With these symptoms, the patient presented to the [facility] ER, where the patient was evaluated by the ER physician. On arrival in the ER, the patient was afebrile. However, his white count was elevated at 26.2. Repeat this morning is 13.8. Lactic acid was 1.9. Troponin is slightly elevated. His urine was negative. The patient did have a chest x-ray followed by a CT angiogram that has been suggestive of no PE; however it did show fluid overload and developing pulmonary edema given septal lines, patchy and confluent ground-glass, and small to moderate effusion. The patient also had lower extremity Dopplers. Those have been negative for DVT. Infectious Disease was consulted for further recommendation regarding antibiotic therapy. REVIEW OF SYSTEMS: CONSTITUTIONAL: Positive for weakness along with some chills. No high-grade fever. EYES: No complaint. ENT: No complaint. RESPIRATORY: As per HPI. CARDIOVASCULAR: As per HPI. GENITOURINARY: No complaint. GASTROINTESTINAL: No complaint. MUSCULOSKELETAL: No complaint. INTEGUMENTARY: As per HPI. PSYCHOLOGICAL: No complaint. ENDOCRINE: No complaint. NEUROLOGICAL: No complaint. PAST MEDICAL HISTORY: 1. Hypertension. 2. Diabetes mellitus. PAST SURGICAL HISTORY: Denies any major surgery. SOCIAL HISTORY: Remote history of smoking. No drinking or drug use. FAMILY HISTORY: No pertinent findings noticed. ALLERGIES: PENICILLIN. CURRENT MEDICATIONS: 1. DuoNeb. 2. Norvasc. 3. Aspirin. 4. Catapres. 5. Vitamin D2. 6. Pepcid. 7. Lasix. 8. Neurontin. 9. Heparin. 10.NovoLog. 11.Levemir. 12.Levaquin. 13.Zestril. 14.Vancomycin, Pharmacy to dose. PHYSICAL EXAMINATION: Blood pressure is 157/63 with a pulse of 65, temperature 98.2. He is 98% on BiPAP. General description is a middle-aged male lying in bed in no distress. No tachypnea or accessory muscle for respiration use. HEENT examination shows no pallor or scleral icterus. Oral mucosa membrane is dry. NECK: Trachea is central. No thyromegaly. LUNGS: Unlabored breathing with decreased intensity of breath sounds. No significant wheeze. HEART: S1, S2. Regular rate and rhythm. ABDOMEN: Soft. No tenderness. No guarding or rigidity. EXTREMITIES: Diffuse swelling and redness. No significant skin breakdown; however, slough tissue was noticed. Neurologically the patient is awake, alert, oriented x3. Mood and affect normal. LABS: Hemoglobin 11.7, white count 13.8 with a BUN of 14, creatinine 0.71. DIAGNOSTIC IMPRESSION AND PLAN: 1. Patient admitted to hospital with increasing shortness of breath which is more likely secondary to underlying cardiac condition. Concern about possible fluid overload and congestive heart failure. Pneumonia less likely but not entirely excluded. 2. Patient with evidence of diffuse swelling and redness of the legs with evidence of cellulitis, more likely a gram-positive skin christal. 3. Patient known to have PENICILLIN ALLERGY, which limits the number of antibiotics that could be safely used. PLAN: 1. Vancomycin, Pharmacy to dose. Target of 15 while watching his kidney function closely. 2. Levaquin 750 p.o. daily. 3. Will obtain sputum for Gram stain and culture and sensitivity. 4. Will follow up on clinical condition and culture to further adjust medication if needed. Thank you for this consultation. We will follow the patient along with you. MMODL / IJN: [id number] /
[2018-09-01] MEDS: IPRATROPIUM-ALBUTEROL 3 ML NEB INHALATION SCH ×7 (02:10→23:03)
[2018-09-01] MEDS: VANCOMYCIN 2,000 MG in SODIUM CHLORIDE 0.9% 500 ML IVPB SCH (03:27)
[2018-09-01 06:08] LABS: Glucose,Whole Blood 182 mg/dL (75-99)
[2018-09-01 06:49] LABS: Basophils % (A) 0 %; Eosinophils # (A) 0.1 k/uL (0-0.7); Eosinophils % (A) 1 %; HCT 36.6 % (39.0-53.0); HGB 11.4 gm/dL (13.0-17.5); Hypochromasia Slight; Lymphocytes % (A) 8 %; MCH 28.9 pg (25.0-35.0); MCHC 31.1 g/dL (31.0-37.0); MCV 92.7 fL (80.0-100.0); Mean Platelet Volume 7.4; Monocytes # (A) 0.6 k/uL (0-1.0); Monocytes % (A) 5 %; Neutrophils # (A) 10.5 k/uL (1.3-7.7); Neutrophils % (A) 85 %; Platelet Count 365 k/uL (150-450); RBC 3.95 m/uL (4.30-5.90); RDW 14.3 % (11.5-15.5); WBC 12.4 k/uL (3.8-10.6)
[2018-09-01] MEDS: INSULIN ASPART 100 UNIT/ML 1 ML 10 ML VIAL SQ SCH ×7 (06:57→22:12)
[2018-09-01 06:58] LABS: Anion Gap 12 mmol/L; Blood Urea Nitrogen 12 mg/dL (9-20); Calcium 8.5 mg/dL (8.4-10.2); Carbon Dioxide 22 mmol/L (22-30); Chloride 106 mmol/L (98-107); Glucose 152 mg/dL (74-99); Potassium 4.3 mmol/L (3.5-5.1); Sodium 140 mmol/L (137-145)
[2018-09-01] MEDS: FUROSEMIDE 10 MG/ML 4 ML VIAL IV SCH ×3 (07:00→22:02)
[2018-09-01] MEDS: FAMOTIDINE 20 MG TAB PO SCH ×2 (08:17→22:01)
[2018-09-01] MEDS: ASPIRIN 81 MG PO SCH (08:17)
[2018-09-01] MEDS: cloNIDine HCL 0.2 MG TAB PO SCH ×3 (08:17→22:02)
[2018-09-01] MEDS: amLODIPine 10 MG TAB PO SCH (08:17)
[2018-09-01] MEDS: LISINOPRIL 20 MG TAB PO SCH (08:18)
[2018-09-01] MEDS: VITAMIN E (DL,TOCOPHERYL ACET) 400 UNIT CAP PO SCH ×2 (08:18→22:02)
[2018-09-01] MEDS: LEVOFLOXACIN 750 MG TAB PO SCH (08:18)
[2018-09-01] MEDS: HEPARIN SODIUM,PORCINE 5,000 UNIT/ML 1 ML VIAL SQ SCH ×2 (08:18→22:01)
[2018-09-01] MEDS: GABAPENTIN 100 MG CAP PO SCH ×2 (08:18→22:01)
[2018-09-01] MEDS ORDERED: BISACODYL 10 MG SUPP RECTAL STA (09:46)
[2018-09-01 10:06] VITALS: BMI 46.2
--- NOTE | 2018-09-01 11:30 | P.PN ---
Subjective Progress Note Date: 09/01/18 This is a 63-year-old white male patient that we relocated to [facility] from [facility], and has not yet established himself with a primary care physician. Patient presented to the emergency department on 2017 at 2200 were evaluation of worsening shortness of breath, increased chest congestion, cough with production of yellow sputum, sweating. His she'll onset of symptoms was last week, and became progressively worse. Patient states 2 weeks ago he received the influenza and pneumococcal vaccine at his doctor's office in [place]. His son has also had the symptoms of cold. Patient denied any chest pain. Is positive for orthopnea. No hemoptysis. No chest wall pain. Past medical history is significant for diabetes mellitus, morbid obesity , remote history of smoking, retention, hyperlipidemia, previous episode of [place], patient had the polio syndrome in his childhood, has affected his lower extremity strength. Patient is able to ambulate with crutches. EKG on admission here showed normal sinus rhythm with runs of PVCs, left bundle-branch block pattern. White blood cell count on admission 26.2, hemoglobin 13.2, platelet count 512, d-dimer 1.86, troponins 0.02, 0.09, 0.09. BNP 584. Mild lactic acidosis with lactic acid 2.3. CTA of the chest was negative for pulmonary embolism. Patient has chronic lower extremity edema, cellulitis, and open areas of drainage. He he was on vancomycin in the past for this. The patient was initiated on IV Lasix in the hospital, he's been diuresing well from that. Sitting up at the side of bed this morning, states that he has been putting out a significant amount of urine overall. Let pressure 150/60 with a heart rate in the 50s, 95% on 3 L of oxygen. White blood cell count 12.4, hemoglobin 11.4, platelet count 365. Sodium 140, potassium 4.3, BUN 12, creatinine 0.8. Objective - Vital Signs Vital signs: Vital Signs Temp 98.2 F 09/01/18 08:20 Pulse 68 09/01/18 08:29 Resp 20 09/01/18 08:20 BP 150/68 09/01/18 08:20 Pulse Ox 95 09/01/18 08:20 Intake & Output 08/31/18 09/01/1818 18:59 06:59 18:59 Intake Total 120 Output Total 600 1200 400 Balance -480 1200 -400 Weight 122.1 kg 122.1 kg Intake: Oral 120 Output: Urine 600 1200 400 Other: Voiding Method Urinal # Voids 3 - Exam GENERAL EXAM: Alert, pleasant 63-year-old obese white male, on BiPAP support, with pressures of 12 and 6, and 35%, dyspneic with conversation . HEAD: Normocephalic/atraumatic. EYES: Normal reaction of pupils, equal size. Conjunctiva pink, sclera white. NOSE: Clear with pink turbinates. THROAT: No erythema or exudates. NECK: No masses, no JVD, no thyroid enlargement, no adenopathy. CHEST: No chest wall deformity. Symmetrical expansion. LUNGS: Equal air entry with fine rales at bilateral bases CVS: Regular rate and rhythm, normal S1 and S2, no gallops, no murmurs, no rubs ABDOMEN: Soft, nontender. No hepatosplenomegaly, normal bowel sounds, no guarding or rigidity. EXTREMITIES: No clubbing, patient has nonpitting edema, bilateral lower extremity cellulitis, and open weeping areas on bilateral lower extremities MUSCULOSKELETAL: Muscle strength and tone normal. SPINE: No scoliosis or deformity SKIN: No rashes CENTRAL NERVOUS SYSTEM: Alert and oriented -3. No focal deficits, tone is normal in all 4 extremities. PSYCHIATRIC: Alert and oriented -3. Appropriate affect. Intact judgment and insight. - Labs CBC & Chem 7: 09/01/18 05:45 09/01/18 05:45 Labs: Abnormal Lab Results - Last 24 Hours (Table) 08/30/18 08/31/18 08/31/18 Range/Units 21:20 11:00 11:40 WBC (3.8-10.6) k/uL RBC (4.30-5.90) m/uL Hgb (13.0-17.5) gm/dL Hct (39.0-53.0) % Neutrophils # (1.3-7.7) k/uL Glucose (74-99) mg/dL POC Glucose (mg/dL) 169 H (75-99) mg/dL Hemoglobin A1c 9.7 H (4.0-6.0) % Troponin I (0.000-0.034) ng/mL Urine Protein Trace H (Negative) Urine Glucose (UA) 1+ H (Negative) 08/31/18 08/31/18 08/31/18 Range/Units 15:12 16:38 20:49 WBC (3.8-10.6) k/uL RBC (4.30-5.90) m/uL Hgb (13.0-17.5) gm/dL Hct (39.0-53.0) % Neutrophils # (1.3-7.7) k/uL Glucose (74-99) mg/dL POC Glucose (mg/dL) 327 H 108 H (75-99) mg/dL Hemoglobin A1c (4.0-6.0) % Troponin I 0.076 H* (0.000-0.034) ng/mL Urine Protein (Negative) Urine Glucose (UA) (Negative) 08/31/18 09/01/18 09/01/18 Range/Units 22:28 05:45 05:45 WBC 12.4 H (3.8-10.6) k/uL RBC 3.95 L (4.30-5.90) m/uL Hgb 11.4 L (13.0-17.5) gm/dL Hct 36.6 L (39.0-53.0) % Neutrophils # 10.5 H (1.3-7.7) k/uL Glucose 152 H (74-99) mg/dL POC Glucose (mg/dL) 148 H (75-99) mg/dL Hemoglobin A1c (4.0-6.0) % Troponin I (0.000-0.034) ng/mL Urine Protein (Negative) Urine Glucose (UA) (Negative) 09/01/18 Range/Units 06:07 WBC (3.8-10.6) k/uL RBC (4.30-5.90) m/uL Hgb (13.0-17.5) gm/dL Hct (39.0-53.0) % Neutrophils # (1.3-7.7) k/uL Glucose (74-99) mg/dL POC Glucose (mg/dL) 182 H (75-99) mg/dL Hemoglobin A1c (4.0-6.0) % Troponin I (0.000-0.034) ng/mL Urine Protein (Negative) Urine Glucose (UA) (Negative) Microbiology - Last 24 Hours (Table) 08/31/18 01:09 Blood Culture - Preliminary Blood No Growth after 24 hours 08/31/18 01:09 Blood Culture - Preliminary Blood No Growth after 24 hours Assessment and Plan Plan: Assessment #1. Acute hypoxemic respiratory failure, requiring BiPAP support, chest x-ray showed moderate interstitial edema, and multifocal bilateral alveolar infiltrates, and the possibilities include community-acquired pneumonia and fluid overload related to new onset congestive heart failure diastolic, acute on chronic. Ejection fraction by echo 55-60%. #2. Dyspnea, chest congestion, cough with sputum production, leukocytosis, possible pneumonia. #3. Lactic acidosis, possibly related to sepsis #4. Leukocytosis #5. Open weeping cellulitis and wounds on bilateral lower extremities #6. Elevated troponins, could be related to sepsis, not suggestive of acute coronary syndrome, LV function normal #7. Elevated d-dimer, CT angios is pending #8. Previous hx of myocardial infarction #9. Diabetes mellitus, with diabetic neuropathy #10. Hypertension, hyperlipidemia #11. Morbid obesity #12. History of polio syndrome as a child #13. Remote history of smoking, patient quit at age of 26, smoked a pack a day for 10 years. Plan Cardiology's perspective, we'll recommend to continue the patient on current dose of IV Lasix. Monitor intake and output along with daily weights, daily lytes BUN and creatinine. DNP note has been reviewed, I agree with a documented findings and plan of care. Patient was seen and examined.
[2018-09-01 11:44] LABS: Glucose,Whole Blood 160 mg/dL (75-99)
--- NOTE | 2018-09-01 11:46 | P.PN ---
Subjective Progress Note Date: 09/01/18 Principal diagnosis: shortness of breath Patient is a 63-year-old morbidly obese male with a past medical history of hypertension, diabetes with peripheral neuropathy, and prior tobacco abuse who presented to the ER via EMS with chief complaint of shortness of breath. In the ER he was found to be severely hypoxic with saturations in the 80s. He was placed on supplemental oxygen and then eventually BiPAP. The ER he was given a dose of Lasix after a chest x-ray was obtained which showed pulmonary edema. He was admitted for further monitoring. He has been seen by pulmonary who felt that his interstitial edema was likely related to community- acquired pneumonia versus fluid overload. They recommended keeping patient on nasal cannula, a CTA of the chest which was negative for pulmonary embolism, and continue with Levaquin and vancomycin. He was evaluated by cardiology. He underwent an echocardiogram which showed a preserved ejection fraction of 55-60 % but did show LVH. Bilateral lower extremity venous Dopplers were negative. He was seen by Dr. Campuzano of infectious disease. He recommended continuing Levaquin and vancomycin for bilateral lower extremity cellulitis likely secondary to gram-positive skin christal. Patient does have a penicillin ALLERGY which was limited his choice of antibiotics. They also placed bilateral Mik wraps. Patient seen and examined at bedside. He states his breathing is much better. He is taking the BiPAP off because he was starting to feel anxious and having some chest wall pain. He denies any nausea or vomiting. He states his lower extremity swelling is much better. He still feels short of breath when laying back and develops a cough however when he sits for his cough resolves as well as shortness of breath. He complains of constipation though he did have a bowel movement yesterday. He also has recently moved here from [place] and is in search for primary care physician. Objective - Vital Signs Vital signs: Vital Signs Temp 98.2 F 09/01/18 08:20 Pulse 68 09/01/18 08:29 Resp 20 09/01/18 08:20 BP 150/68 09/01/18 08:20 Pulse Ox 95 09/01/18 08:20 Intake & Output 08/31/18 09/01/18 09/01/18 18:59 06:59 18:59 Intake Total 120 Output Total 600 1200 400 Balance -480 -1200 -400 Weight 122.1 kg 122.1 kg Intake: Oral 120 Output: Urine 600 1200 400 Other: Voiding Method Urinal # Voids 3 - Exam General: non toxic, mild distress secondary to shortness of breath, obesity, appears older than stated age, Derm: + erythema, no warmth, no drainage b/l LE, warm, dry Head: atraumatic, normocephalic, symmetric Eyes: EOMI, no lid lag, anicteric sclera Mouth: no lip lesion, mucus membranes moist Cardiovascular: S1S2 reg, no murmur, positive posterior tibial pulse bilateral, Lungs: Crackles bilateral bases, no rhonchi, no rales , no accessory muscle use , 4-word conversational dyspnea Abdominal: soft, nontender to palpation, no guarding, no appreciable organomegaly Ext: no gross muscle atrophy, 1+ edema b/l le, no contractures Neuro: CN II-XI grossly intact, no focal neuro deficits Psych: Alert, oriented, appropriate affect - Labs CBC & Chem 7: 09/01/18 05:45 09/01/18 05:45 Labs: Abnormal Lab Results - Last 24 Hours (Table) 08/30/18 08/31/18 08/31/18 Range/Units 21:20 11:40 15:12 WBC (3.8-10.6) k/uL RBC (4.30-5.90) m/uL Hgb (13.0-17.5) gm/dL Hct (39.0-53.0) % Neutrophils # (1.3-7.7) k/uL Glucose (74-99) mg/dL POC Glucose (mg/dL) 169 H (75-99) mg/dL Hemoglobin A1c 9.7 H (4.0-6.0) % Troponin I 0.076 H* (0.000-0.034) ng/mL 08/31/18 08/31/18 08/31/18 Range/Units 16:38 20:49 22:28 WBC (3.8-10.6) k/uL RBC (4.30-5.90) m/uL Hgb (13.0-17.5) gm/dL Hct (39.0-53.0) % Neutrophils # (1.3-7.7) k/uL Glucose (74-99) mg/dL POC Glucose (mg/dL) 327 H 108 H 148 H (75-99) mg/dL Hemoglobin A1c (4.0-6.0) % Troponin I (0.000-0.034) ng/mL 09/01/18 09/01/18 09/01/18 Range/Units 05:45 05:45 06:07 WBC 12.4 H (3.8-10.6) k/uL RBC 3.95 L (4.30-5.90) m/uL Hgb 11.4 L (13.0-17.5) gm/dL Hct 36.6 L (39.0-53.0) % Neutrophils # 10.5 H (1.3-7.7) k/uL Glucose 152 H (74-99) mg/dL POC Glucose (mg/dL) 182 H (75-99) mg/dL Hemoglobin A1c (4.0-6.0) % Troponin I (0.000-0.034) ng/mL Microbiology - Last 24 Hours (Table) 08/31/18 01:09 Blood Culture - Preliminary Blood No Growth after 24 hours 08/31/18 01:09 Blood Culture - Preliminary Blood No Growth after 24 hours Assessment and Plan Assessment: Acute pulmonary edema due to Acute exacerbation of diastolic congestive heart failure with ejection fraction 50-55% -Lasix IV push, strict I's and O's, daily weights -Cardiology recommendations appreciated -Repeat chest x-ray in a.m. Lisinopril -Possible component of community-acquired pneumonia, though less likely and doubt this - ideally switch with norvasc or catapress to betablocker once acute exacerbation improved Acute hypoxic respiratory failure -Wean O2 as able -Pulmonary recommendations appreciated -Outpatient PSG Constipation - dulcolax X 1 Bilateral lower extremity cellulitis -Manish Cunningham -ID recommendations appreciated -Maintain Mik wrap Elevated troponin, likely stress induced - cardio recs Diabetes mellitus with diabetic neuropathy -Sliding-scale insulin, fixed dose NovoLog, and Levemir -Check A1C -Neurontin Hypertension -Norvasc, clonidine - Follow BP Dyslipidemia - fish oil Morbid obesity with BMI 46.2 - structure outpatient weight loss. History of coronary artery disease with prior myocardial infarction - ASA Sepsis with elevated lactic acid, improved DVT prophylaxis: Heparin Discussed with: Patient, nursing Anticipated discharge: 48-[address]: home with home health A total of 35 minutes was spent on the care of this complex patient more than 50 % of the time was spent in counseling and care coordination.
[2018-09-01] MEDS: MULTIVITAMINS, THERA 1 EACH TAB PO SCH (12:22)
--- NOTE | 2018-09-01 13:03 | PN ---
PROGRESS NOTE DATE OF SERVICE: 09/01/2018 REASON FOR FOLLOW UP: 1. Bilateral lower extremity wound cellulitis. 2. Possible pneumonia. INTERVAL HISTORY: The patient is currently afebrile. He seemed to be breathing more comfortably. He did have occasional cough, not bringing up any sputum. No chest pain. No abdominal pain. The leg swelling and redness has improved. Did have some dull aching pain to it but no worsening and no drainage. PHYSICAL EXAMINATION: Blood pressure 150/68 with a pulse of 68, temperature 98.2, he is 95% on 3 L nasal cannula. General description is a middle aged male up in the bed in no distress. RESPIRATORY SYSTEM: Unlabored breathing, clear to auscultation anteriorly. HEART: S1, S2. Regular rate and rhythm. ABDOMEN: Soft, no tenderness. Bilateral leg with swelling, mostly in the left leg with some superficial ulceration, redness, warm to tough, but no foul smelling drainage. Did have evidence of athlete's foot involving the right toe . DIAGNOSTIC IMPRESSION AND PLAN: 1. Patient admitted to the hospital with increasing shortness of breath, which is likely multifactorial, source of fluid overload, less likely pneumonia, but not . Currently on oral Levaquin. 2. Patient with bilateral leg cellulitis and wound with diffuse cellulitis likely streptococcal disease. The patient did have a history of PENICILLIN allergy but not very clear. We will switch the antibiotic therapy Cefazolin 2 g q.8. Mik wrap to the leg, to continue supportive care. MMODL / IJN: [id number] /
--- NOTE | 2018-09-01 15:01 | P.PN ---
Subjective Progress Note Date: 09/01/18 Principal diagnosis: Acute hypoxemic respiratory failure, secondary to acute onset of congestive heart failure, and possibility of community acquired pneumonia This is a 63-year-old white male patient that we relocated to [facility] from [facility], and has not yet established himself with a primary care physician. Patient presented to the emergency department on 2017 at 2200 were evaluation of worsening shortness of breath, increased chest congestion, cough with production of yellow sputum, sweating. His she'll onset of symptoms was last week, and became progressively worse. Patient states 2 weeks ago he received the influenza and pneumococcal vaccine at his doctor's office in [place]. His son has also had the symptoms of cold. Patient denied any chest pain. Is positive for orthopnea. No hemoptysis. No chest wall pain. Past medical history is significant for diabetes mellitus, morbid obesity , remote history of smoking, retention, hyperlipidemia, previous episode of [place], patient had the polio syndrome in his childhood, has affected his lower extremity strength. Patient is able to ambulate with crutches. Has never been diagnosed with any chronic lung condition, no history of COPD, has never been diagnosed with obstructive sleep apnea, but does snore. Chest x-ray was taken in the emergency department and showed mild to moderate interstitial edema with multifocal bilateral alveolar edema and/or infiltrates. EKG showed sinus rhythm with frequent runs of PVCs, and left bundle branch block. Lab work showed significant leukocytosis with WBC of 26.2, hemoglobin of 13.2, platelet count was 512, d-dimer was 1.86, and electrocerebral profile were all within normal limits. Troponins were 0.020, 0.091, 0.094. ProBNP was within normal limits at 584. Patient has mild lactic acidosis with lactic acid of 2.3. This morning's lab work shows WBC is down to 13.8. Patient has been afebrile, in the emergency department he was placed on BiPAP support for significant respiratory distress, this morning he seen on selective care unit, still on BiPAP, with pressures of 12/6, and FiO2 of 35%. He was started on IV diuretics at 40 mg every 8 hours, breathing easier. Patient has chronic lower extremity edema, cellulitis, and there are open areas with drainage of clear yellow fluid from his bilateral lower extremities that are quite erythematous. Patient states he was on vancomycin for the treatment of bilateral lower extreme cellulitis, but denies history of MRSA. He was started on Levaquin and vancomycin. Nebulized bronchodilators. Patient is scheduled for CT angios of the chest this afternoon. On 09/01/2018 patient seen in follow-up on selective care unit. He was off the BiPAP support, currently on 3 L per nasal cannula his pulse ox is 92%, he is afebrile, slightly tachycardic at times, with heart rate ranging from 99 to 115 BPM. Denies any chest pain, breathing easier today, lung sounds are clear on today's exam. He continues to diurese, remains on Lasix at 40 mg every 8 hours. Bilateral lower extremity edema is improving, blood cultures remain negative, no fever or chills. ID service is following, patient is currently on combination of Levaquin, vancomycin, and kefzol was added. Overall doing better , feeling better, he sitting up in a chair, no acute complaints at this time. Objective - Vital Signs Vital signs: Vital Signs Temp 98.5 F 09/01/18 12:00 Pulse 115 H 09/01/18 12:00 Resp 22 09/01/18 12:00 BP 162/62 09/01/18 12:00 Pulse Ox 92 L 09/01/18 12:00 Intake & Output 08/31/18 09/01/18 09/01/18 18:59 06:59 18:59 Intake Total 120 Output Total 600 1200 400 Balance -480 -1200 -400 Weight 122.1 kg 122.1 kg Intake: Oral 120 Output: Urine 600 1200 400 Other: Voiding Method Urinal # Voids 3 - Exam GENERAL EXAM: Alert, pleasant 63-year-old obese white male, on nasal cannula at 3 L HEAD: Normocephalic/atraumatic. EYES: Normal reaction of pupils, equal size. Conjunctiva pink, sclera white. NOSE: Clear with pink turbinates. THROAT: No erythema or exudates. NECK: No masses, no JVD, no thyroid enlargement, no adenopathy. CHEST: No chest wall deformity. Symmetrical expansion. LUNGS: Equal air entry with clear lung sounds, no rales, no rhonchi, no wheezes CVS: Regular rate and rhythm, normal S1 and S2, no gallops, no murmurs, no rubs ABDOMEN: Soft, nontender. No hepatosplenomegaly, normal bowel sounds, no guarding or rigidity. EXTREMITIES: No clubbing, patient has nonpitting edema, bilateral lower extremity cellulitis, and open weeping areas on bilateral lower extremities MUSCULOSKELETAL: Muscle strength and tone normal. SPINE: No scoliosis or deformity SKIN: No rashes CENTRAL NERVOUS SYSTEM: Alert and oriented -3. No focal deficits, tone is normal in all 4 extremities. PSYCHIATRIC: Alert and oriented -3. Appropriate affect. Intact judgment and insight. - Labs CBC & Chem 7: 09/01/18 05:45 09/01/18 05:45 Labs: Abnormal Lab Results - Last 24 Hours (Table) 08/30/18 08/31/18 08/31/18 Range/Units 21:20 15:12 16:38 WBC (3.8-10.6) k/uL RBC (4.30-5.90) m/uL Hgb (13.0-17.5) gm/dL Hct (39.0-53.0) % Neutrophils # (1.3-7.7) k/uL Glucose (74-99) mg/dL POC Glucose (mg/dL) 327 H (75-99) mg/dL Hemoglobin A1c 9.7 H (4.0-6.0) % Troponin I 0.076 H* (0.000-0.034) ng/mL 08/31/18 08/31/18 09/01/18 Range/Units 20:49 22:28 05:45 WBC 12.4 H (3.8-10.6) k/uL RBC 3.95 L (4.30-5.90) m/uL Hgb 11.4 L (13.0-17.5) gm/dL Hct 36.6 L (39.0-53.0) % Neutrophils # 10.5 H (1.3-7.7) k/uL Glucose (74-99) mg/dL POC Glucose (mg/dL) 108 H 148 H (75-99) mg/dL Hemoglobin A1c (4.0-6.0) % Troponin I (0.000-0.034) ng/mL 09/01/18 09/01/18 09/01/18 Range/Units 05:45 06:07 11:40 WBC (3.8-10.6) k/uL RBC (4.30-5.90) m/uL Hgb (13.0-17.5) gm/dL Hct (39.0-53.0) % Neutrophils # (1.3-7.7) k/uL Glucose 152 H (74-99) mg/dL POC Glucose (mg/dL) 182 H 160 H (75-99) mg/dL Hemoglobin A1c (4.0-6.0) % Troponin I (0.000-0.034) ng/mL Microbiology - Last 24 Hours (Table) 08/31/18 01:09 Blood Culture - Preliminary Blood No Growth after 24 hours 08/31/18 01:09 Blood Culture - Preliminary Blood No Growth after 24 hours Assessment and Plan Plan: Assessment: #1. Acute hypoxemic respiratory failure, requiring BiPAP support, chest x-ray showed moderate interstitial edema, and multifocal bilateral alveolar infiltrates, and the possibilities include community-acquired pneumonia and fluid overload related to new onset congestive heart failure #2. Dyspnea, chest congestion, cough with sputum production, leukocytosis related to a possibility of pneumonia #3. Lactic acidosis, possibly related to sepsis, source is under investigation #4. Leukocytosis #5. Open weeping cellulitis and wounds on bilateral lower extremities #6. Elevated troponins, could be related to sepsis #7. Elevated d-dimer, CT angios is pending #8. Previous episode of myocardial infarction #9. Diabetes mellitus, with diabetic neuropathy #10. Hypertension, hyperlipidemia #11. Morbid obesity #12. History of polio syndrome as a child #13. Remote history of smoking, patient quit at age of 26, smoked a pack a day for 10 years. Plan: Continue IV diuretics, continue antibiotics per ID service recommendation, patient is feeling better, breathing easier, continue BiPAP support at bedtime and as needed. Currently on nasal cannula, tolerating it well. His lung sounds are clear, no complaints of shortness of breath or chest pain today. Most of the patient will need an outpatient sleep study for evaluation of underlying obstructive sleep apnea. I performed a history & physical examination of the patient and discussed their management with my nurse practitioner, Kandy Kelley. I reviewed the nurse practitioner's note and agree with the documented findings and plan of care. Lung sounds are clear. The findings and the impression was discussed with the patient. I attest to the documentation by the nurse practitioner. Time with Patient: Less than 30
[2018-09-01 16:44] LABS: Glucose,Whole Blood 104 mg/dL (75-99)
[2018-09-01] MEDS: ceFAZolin IN SWFI 2 GM/20 ML SYRINGE IVP SCH ×2 (18:13→23:22)
[2018-09-01 20:23] LABS: Glucose,Whole Blood 193 mg/dL (75-99)
[2018-09-01] MEDS: INSULIN DETEMIR 100 UNIT/ML 10 ML VIAL SQ SCH (22:13)
[2018-09-01] MEDS: NYSTATIN 100,000 UNIT/GM POWD 15 GM TOPICAL SCH (23:22)
[2018-09-02] MEDS ORDERED: IPRATROPIUM-ALBUTEROL 3 ML NEB INHALATION PRN (00:26)
[2018-09-02 05:55] LABS: Glucose,Whole Blood 153 mg/dL (75-99)
[2018-09-02 06:15] LABS: HCT 35.1 % (39.0-53.0); HGB 11.3 gm/dL (13.0-17.5); MCH 28.7 pg (25.0-35.0); MCHC 32.1 g/dL (31.0-37.0); MCV 89.5 fL (80.0-100.0); Mean Platelet Volume 6.8; Platelet Count 399 k/uL (150-450); RBC 3.92 m/uL (4.30-5.90); RDW 14.2 % (11.5-15.5); WBC 11.9 k/uL (3.8-10.6)
[2018-09-02] MEDS: FUROSEMIDE 10 MG/ML 4 ML VIAL IV SCH ×3 (06:18→22:54)
[2018-09-02 06:31] LABS: Anion Gap 10 mmol/L; Calcium 8.4 mg/dL (8.4-10.2); Carbon Dioxide 25 mmol/L (22-30); Chloride 104 mmol/L (98-107); Glucose 128 mg/dL (74-99); Sodium 139 mmol/L (137-145)
[2018-09-02 06:37] LABS: Blood Urea Nitrogen 14 mg/dL (9-20); Potassium 4.3 mmol/L (3.5-5.1)
[2018-09-02] MEDS: INSULIN ASPART 100 UNIT/ML 1 ML 10 ML VIAL SQ SCH ×7 (06:58→21:12)
[2018-09-02] MEDS: IPRATROPIUM-ALBUTEROL 3 ML NEB INHALATION SCH ×4 (07:46→20:03)
--- NOTE | 2018-09-02 08:23 | P.PN ---
Subjective Progress Note Date: 09/02/18 Principal diagnosis: shortness of breath Patient is a 63-year-old morbidly obese male with a past medical history of hypertension, diabetes with peripheral neuropathy, and prior tobacco abuse who presented to the ER via EMS with chief complaint of shortness of breath. In the ER he was found to be severely hypoxic with saturations in the 80s. He was placed on supplemental oxygen and then eventually BiPAP. The ER he was given a dose of Lasix after a chest x-ray was obtained which showed pulmonary edema. He was admitted for further monitoring. He has been seen by pulmonary who felt that his interstitial edema was likely related to community- acquired pneumonia versus fluid overload. They recommended keeping patient on nasal cannula, a CTA of the chest which was negative for pulmonary embolism, and continue with Levaquin and vancomycin. He was evaluated by cardiology. He underwent an echocardiogram which showed a preserved ejection fraction of 55-60 % but did show LVH and diastolic dysfunction. Bilateral lower extremity venous Dopplers were negative. He was seen by Dr. Campuzano of infectious disease. He recommended continuing Levaquin and vancomycin for bilateral lower extremity cellulitis likely secondary to gram-positive skin christal. Patient does have a penicillin ALLERGY which was limited his choice of antibiotics, keflex was also added. They also placed bilateral Mik wraps to help with edema. He has been slowly diuresing. Patient seen and examined at bedside. Still feeling SOB when laying flat, less cough when laying flat. No chest pain, appetite still decreased. No nausea, no vomiting. Still with early satiety. Had a small BM yesterday but still feels constipated. States bipap helps with breathing. Objective - Vital Signs Vital signs: Vital Signs Temp 97.4 F L 09/02/18 04:00 Pulse 64 09/02/18 08:04 Resp 20 09/02/18 04:00 BP 129/56 09/02/18 04:00 Pulse Ox 95 09/02/18 04:00 Intake & Output 09/01/18 09/02/18 09/02/18 18:59 06:59 18:59 Intake Total 118 20 Output Total 400 350 Balance -282 -330 Weight 122.1 kg 121.6 kg Intake: IV 20 0.9 20 Oral 118 Output: Urine 400 350 Other: # Voids 2 1 # Bowel Movements 1 - Exam General: non toxic, mild distress secondary to shortness of breath, obesity, appears older than stated age, Derm:b/l LE with dressing in place. warm, dry Head: atraumatic, normocephalic, symmetric Eyes: EOMI, no lid lag, anicteric sclera Mouth: no lip lesion, mucus membranes moist Cardiovascular: S1S2 reg, no murmur, positive posterior tibial pulse bilateral, Lungs: Faint Crackles bilateral bases, no rhonchi, no rales , no accessory muscle use Abdominal: soft, nontender to palpation, no guarding, no appreciable organomegaly Ext: no gross muscle atrophy, 1+ edema b/l le, no contractures Neuro: CN II-XI grossly intact, no focal neuro deficits Psych: Alert, oriented, appropriate affect - Labs CBC & Chem 7: 09/02/18 05:40 09/02/18 05:40 Labs: Abnormal Lab Results - Last 24 Hours (Table) 09/01/18 09/01/18 09/01/18 Range/Units 11:40 16:43 20:21 WBC (3.8-10.6) k/uL RBC (4.30-5.90) m/uL Hgb (13.0-17.5) gm/dL Hct (39.0-53.0) % Glucose (74-99) mg/dL POC Glucose (mg/dL) 160 H 104 H 193 H (75-99) mg/dL 09/02/18 09/02/18 09/02/18 Range/Units 05:40 05:40 05:53 WBC 11.9 H (3.8-10.6) k/uL RBC 3.92 L (4.30-5.90) m/uL Hgb 11.3 L (13.0-17.5) gm/dL Hct 35.1 L (39.0-53.0) % Glucose 128 H (74-99) mg/dL POC Glucose (mg/dL) 153 H (75-99) mg/dL Microbiology - Last 24 Hours (Table) 08/31/18 01:09 Blood Culture - Preliminary Blood No Growth after 48 hours 08/31/18 01:09 Blood Culture - Preliminary Blood No Growth after 48 hours Assessment and Plan Assessment: Acute pulmonary edema due to Acute exacerbation of diastolic congestive heart failure with ejection fraction 50-55% -Lasix IV push, strict I's and O's, daily weights -Cardiology recommendations appreciated -Lisinopril -Possible component of community-acquired pneumonia, though less likely and doubt this - ideally switch with norvasc or catapress to betablocker once acute exacerbation improved Acute hypoxic respiratory failure -Wean O2 as able -Pulmonary recommendations appreciated -Outpatient PSG Constipation, improving - colace BID Bilateral lower extremity cellulitis -Vanco, Levaquin, keflex -ID recommendations appreciated -Maintain Mik wrap Elevated troponin, likely stress induced - cardio recs Diabetes mellitus with diabetic neuropathy -Sliding-scale insulin, fixed dose NovoLog, and Levemir -A1C 9.7, but sugars well controlled in the hospital on current regiment. -Neurontin Hypertension - Norvasc, clonidine, lisinopril - Follow BP Dyslipidemia - fish oil Morbid obesity with BMI 46.2 - structure outpatient weight loss. History of coronary artery disease with prior myocardial infarction - ASA Sepsis with elevated lactic acid, improved DVT prophylaxis: Heparin Discussed with: Patient, nursing Anticipated discharge: [address]: home with home health A total of 35 minutes was spent on the care of this complex patient more than 50 % of the time was spent in counseling and care coordination.
[2018-09-02] MEDS: HEPARIN SODIUM,PORCINE 5,000 UNIT/ML 1 ML VIAL SQ SCH ×2 (08:30→20:50)
[2018-09-02] MEDS: LISINOPRIL 20 MG TAB PO SCH (08:30)
[2018-09-02] MEDS: amLODIPine 10 MG TAB PO SCH (08:30)
[2018-09-02] MEDS: MULTIVITAMINS, THERA 1 EACH TAB PO SCH (08:31)
[2018-09-02] MEDS: VITAMIN E (DL,TOCOPHERYL ACET) 400 UNIT CAP PO SCH ×2 (08:31→20:51)
[2018-09-02] MEDS: ASPIRIN 81 MG PO SCH (08:31)
[2018-09-02] MEDS: FAMOTIDINE 20 MG TAB PO SCH ×2 (08:31→20:50)
[2018-09-02] MEDS: DOCUSATE 100 MG CAP PO PRN (08:32)
[2018-09-02] MEDS: GABAPENTIN 100 MG CAP PO SCH ×2 (08:32→20:50)
[2018-09-02] MEDS: cloNIDine HCL 0.2 MG TAB PO SCH ×3 (08:32→20:51)
[2018-09-02] MEDS: LEVOFLOXACIN 750 MG TAB PO SCH (08:32)
[2018-09-02] MEDS: NYSTATIN 100,000 UNIT/GM POWD 15 GM TOPICAL SCH ×2 (08:33→20:51)
[2018-09-02] MEDS: ceFAZolin IN SWFI 2 GM/20 ML SYRINGE IVP SCH ×3 (09:08→22:54)
--- NOTE | 2018-09-02 11:24 | P.PN ---
Subjective Progress Note Date: 09/02/18 This is a 63-year-old white male patient that we relocated to [facility] from [facility], and has not yet established himself with a primary care physician. Patient presented to the emergency department on 2017 at 2200 were evaluation of worsening shortness of breath, increased chest congestion, cough with production of yellow sputum, sweating. His she'll onset of symptoms was last week, and became progressively worse. Patient states 2 weeks ago he received the influenza and pneumococcal vaccine at his doctor's office in [place]. His son has also had the symptoms of cold. Patient denied any chest pain. Is positive for orthopnea. No hemoptysis. No chest wall pain. 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 Patient is able to ambulate with crutches. EKG on admission here showed normal sinus rhythm with runs of PVCs, left bundle-branch block pattern. White blood cell count on admission 26.2, hemoglobin 13.2, platelet count 512, d-dimer 1.86, troponins 0.02, 0.09, 0.09. BNP 584. Mild lactic acidosis with lactic acid 2.3. CTA of the chest was negative for pulmonary embolism. Patient has chronic lower extremity edema, cellulitis, and open areas of drainage. He he was on vancomycin in the past for this. The patient was initiated on IV Lasix in the hospital, he's been diuresing well from that. Sitting up at the side of bed this morning, states that he has been putting out a significant amount of urine overall. Blood pressure 150/60 with a heart rate in the 50s, 95% on 3 L of oxygen. White blood cell count 12.4, hemoglobin 11.4, platelet count 365. Sodium 140, potassium 4.3, BUN 12, creatinine 0.8. 09/02/2018 Patient seen and examined this morning, still complains of feeling short of breath, continues to have cough although he says is improved from yesterday. Denies any chest discomfort. Blood pressure 132/70 with a heart rate in the 60s , 93% on 3 L of oxygen. White blood cell count 11.9, hemoglobin 11.3, platelet count 399. Sodium 139, potassium 4.3, BUN 14, creatinine 0.8. Magnesium 2.0. Weight is down 1 kg today. And tinnitus to be on IV Lasix 40 mg every 8 hourly. We will get a repeat chest x-ray tomorrow. Echocardiogram with Doppler study revealed an ejection fraction of 55-60%. Objective - Vital Signs Vital signs: Vital Signs Temp 98.9 F 09/02/18 11:08 Pulse 65 09/02/18 11:10 Resp 18 09/02/18 11:10 BP 133/73 09/02/18 11:08 Pulse Ox 93 L 09/02/18 11:08 Intake & Output 09/01/18 09/02/18 09/02/18 18:59 06:59 18:59 Intake Total 118 20 280 Output Total 400 350 Balance -282 -330 280 Weight 122.1 kg 121.6 kg Intake: IV 20 20 0.9 20 Invasive Line 3 20 Oral 118 260 Output: Urine 400 350 Other: Voiding Method Urinal # Voids 2 1 # Bowel Movements 1 - Exam GENERAL EXAM: Alert, pleasant 63-year-old obese white male, on BiPAP support, with pressures of 12 and 6, and 35%, dyspneic with conversation . HEAD: Normocephalic/atraumatic. EYES: Normal reaction of pupils, equal size. Conjunctiva pink, sclera white. NOSE: Clear with pink turbinates. THROAT: No erythema or exudates. NECK: No masses, no JVD, no thyroid enlargement, no adenopathy. CHEST: No chest wall deformity. Symmetrical expansion. LUNGS: Equal air entry with fine rales at bilateral bases CVS: Regular rate and rhythm, normal S1 and S2, no gallops, no murmurs, no rubs ABDOMEN: Soft, nontender. No hepatosplenomegaly, normal bowel sounds, no guarding or rigidity. EXTREMITIES: No clubbing, patient has nonpitting edema, bilateral lower extremity cellulitis, and open weeping areas on bilateral lower extremities MUSCULOSKELETAL: Muscle strength and tone normal. SPINE: No scoliosis or deformity SKIN: No rashes CENTRAL NERVOUS SYSTEM: Alert and oriented -3. No focal deficits, tone is normal in all 4 extremities. PSYCHIATRIC: Alert and oriented -3. Appropriate affect. Intact judgment and insight. - Labs CBC & Chem 7: 09/02/18 05:40 09/02/18 05:40 Labs: Abnormal Lab Results - Last 24 Hours (Table) 09/01/18 09/01/18 09/01/18 Range/Units 11:40 16:43 20:21 WBC (3.8-10.6) k/uL RBC (4.30-5.90) m/uL Hgb (13.0-17.5) gm/dL Hct (39.0-53.0) % Glucose (74-99) mg/dL POC Glucose (mg/dL) 160 H 104 H 193 H (75-99) mg/dL 09/02/18 09/02/18 09/02/18 Range/Units 05:40 05:40 05:53 WBC 11.9 H (3.8-10.6) k/uL RBC 3.92 L (4.30-5.90) m/uL Hgb 11.3 L (13.0-17.5) gm/dL Hct 35.1 L (39.0-53.0) % Glucose 128 H (74-99) mg/dL POC Glucose (mg/dL) 153 H (75-99) mg/dL Microbiology - Last 24 Hours (Table) 08/31/18 01:09 Blood Culture - Preliminary Blood No Growth after 48 hours 08/31/18 01:09 Blood Culture - Preliminary Blood No Growth after 48 hours Assessment and Plan Plan: Assessment #1. Acute hypoxemic respiratory failure, requiring BiPAP support, chest x-ray showed moderate interstitial edema, and multifocal bilateral alveolar infiltrates, and the possibilities include community-acquired pneumonia and fluid overload related to new onset congestive heart failure diastolic, acute on chronic. Ejection fraction by echo 55-60%. #2. Dyspnea, chest congestion, cough with sputum production, leukocytosis, possible pneumonia. #3. Lactic acidosis, possibly related to sepsis #4. Leukocytosis #5. Open weeping cellulitis and wounds on bilateral lower extremities #6. Elevated troponins, could be related to sepsis, not suggestive of acute coronary syndrome, LV function normal #7. Elevated d-dimer, CT angios is pending #8. Previous hx of myocardial infarction #9. Diabetes mellitus, with diabetic neuropathy #10. Hypertension, hyperlipidemia #11. Morbid obesity #12. History of polio syndrome as a child #13. Remote history of smoking, patient quit at age of 26, smoked a pack a day for 10 years. Plan Cardiology's perspective, we'll recommend to continue the patient on current dose of IV Lasix. Monitor intake and output along with daily weights, daily lytes BUN and creatinine. We will repeat a chest x-ray today. DNP note has been reviewed, I agree with a documented findings and plan of care. Patient was seen and examined.
[2018-09-02 11:37] LABS: Glucose,Whole Blood 154 mg/dL (75-99)
--- NOTE | 2018-09-02 12:46 | P.PN ---
Subjective Progress Note Date: 09/02/18 Principal diagnosis: Acute hypoxemic respiratory failure, secondary to acute onset of congestive heart failure, and possibility of community acquired pneumonia This is a 63-year-old white male patient that we relocated to [facility] from [facility], and has not yet established himself with a primary care physician. Patient presented to the emergency department on 2017 at 2200 were evaluation of worsening shortness of breath, increased chest congestion, cough with production of yellow sputum, sweating. His she'll onset of symptoms was last week, and became progressively worse. Patient states 2 weeks ago he received the influenza and pneumococcal vaccine at his doctor's office in [place]. His son has also had the symptoms of cold. Patient denied any chest pain. Is positive for orthopnea. No hemoptysis. No chest wall pain. Past medical history is significant for diabetes mellitus, morbid obesity , remote history of smoking, retention, hyperlipidemia, previous episode of [place], patient had the polio syndrome in his childhood, has affected his lower extremity strength. Patient is able to ambulate with crutches. Has never been diagnosed with any chronic lung condition, no history of COPD, has never been diagnosed with obstructive sleep apnea, but does snore. Chest x-ray was taken in the emergency department and showed mild to moderate interstitial edema with multifocal bilateral alveolar edema and/or infiltrates. EKG showed sinus rhythm with frequent runs of PVCs, and left bundle branch block. Lab work showed significant leukocytosis with WBC of 26.2, hemoglobin of 13.2, platelet count was 512, d-dimer was 1.86, and electrocerebral profile were all within normal limits. Troponins were 0.020, 0.091, 0.094. ProBNP was within normal limits at 584. Patient has mild lactic acidosis with lactic acid of 2.3. This morning's lab work shows WBC is down to 13.8. Patient has been afebrile, in the emergency department he was placed on BiPAP support for significant respiratory distress, this morning he seen on selective care unit, still on BiPAP, with pressures of 12/6, and FiO2 of 35%. He was started on IV diuretics at 40 mg every 8 hours, breathing easier. Patient has chronic lower extremity edema, cellulitis, and there are open areas with drainage of clear yellow fluid from his bilateral lower extremities that are quite erythematous. Patient states he was on vancomycin for the treatment of bilateral lower extreme cellulitis, but denies history of MRSA. He was started on Levaquin and vancomycin. Nebulized bronchodilators. Patient is scheduled for CT angios of the chest this afternoon. On 09/01/2018 patient seen in follow-up on selective care unit. He was off the BiPAP support, currently on 3 L per nasal cannula his pulse ox is 92%, he is afebrile, slightly tachycardic at times, with heart rate ranging from 99 to 115 BPM. Denies any chest pain, breathing easier today, lung sounds are clear on today's exam. He continues to diurese, remains on Lasix at 40 mg every 8 hours. Bilateral lower extremity edema is improving, blood cultures remain negative, no fever or chills. ID service is following, patient is currently on combination of Levaquin, vancomycin, and kefzol was added. Overall doing better , feeling better, he sitting up in a chair, no acute complaints at this time. On 09/02/2018 patient seen in follow-up. Breathing easier, however still complains of orthopnea. He has been wearing his BiPAP machine at bedtime. Currently sitting up in the chair, on 3 L per nasal cannula his pulse ox is 93% , he is afebrile. Reveal fine crackles at the bases, no significant wheezing, no cough, no sputum production. Blood cultures remain negative, fluid balance is negative, still has bilateral lower extremity edema, although it's improving , bilateral lower legs are wrapped with dry dressing, ID service is following. Current antibiotic coverage includes Levaquin, vancomycin and Kefzol. No acute events overnight. He remains on IV Lasix at 40 mg every 8 hours, continues improved. Objective - Vital Signs Vital signs: Vital Signs Temp 98.9 F 09/02/18 11:08 Pulse 68 09/02/18 11:40 Resp 18 09/02/18 11:10 BP 133/73 09/02/18 11:08 Pulse Ox 93 L 09/02/18 11:08 Intake & Output 09/01/18 09/02/18 09/02/18 18:59 06:59 18:59 Intake Total 118 20 280 Output Total 400 350 Balance -282 -330 280 Weight 122.1 kg 121.6 kg Intake: IV 20 20 0.9 20 Invasive Line 3 20 Oral 118 260 Output: Urine 400 350 Other: Voiding Method Urinal # Voids 2 1 # Bowel Movements 1 - Exam GENERAL EXAM: Alert, pleasant 63-year-old obese white male, on nasal cannula at 3 L HEAD: Normocephalic/atraumatic. EYES: Normal reaction of pupils, equal size. Conjunctiva pink, sclera white. NOSE: Clear with pink turbinates. THROAT: No erythema or exudates. NECK: No masses, no JVD, no thyroid enlargement, no adenopathy. CHEST: No chest wall deformity. Symmetrical expansion. LUNGS: Equal air entry with fine bibasilar rales, but no rhonchi, no wheezes CVS: Regular rate and rhythm, normal S1 and S2, no gallops, no murmurs, no rubs ABDOMEN: Soft, nontender. No hepatosplenomegaly, normal bowel sounds, no guarding or rigidity. EXTREMITIES: No clubbing, patient has nonpitting edema, bilateral lower extremity cellulitis, and open weeping areas on bilateral lower extremities, legs are covered with dressings, and Mik wraps. MUSCULOSKELETAL: Muscle strength and tone normal. SPINE: No scoliosis or deformity SKIN: No rashes CENTRAL NERVOUS SYSTEM: Alert and oriented -3. No focal deficits, tone is normal in all 4 extremities. PSYCHIATRIC: Alert and oriented -3. Appropriate affect. Intact judgment and insight. - Labs CBC & Chem 7: 09/02/18 05:40 09/02/18 05:40 Labs: Abnormal Lab Results - Last 24 Hours (Table) 09/01/18 09/01/18 09/02/18 Range/Units 16:43 20:21 05:40 WBC 11.9 H (3.8-10.6) k/uL RBC 3.92 L (4.30-5.90) m/uL Hgb 11.3 L (13.0-17.5) gm/dL Hct 35.1 L (39.0-53.0) % Glucose (74-99) mg/dL POC Glucose (mg/dL) 104 H 193 H (75-99) mg/dL 09/02/18 09/02/18 09/02/18 Range/Units 05:40 05:53 11:35 WBC (3.8-10.6) k/uL RBC (4.30-5.90) m/uL Hgb (13.0-17.5) gm/dL Hct (39.0-53.0) % Glucose 128 H (74-99) mg/dL POC Glucose (mg/dL) 153 H 154 H (75-99) mg/dL Microbiology - Last 24 Hours (Table) 08/31/18 01:09 Blood Culture - Preliminary Blood No Growth after 48 hours 08/31/18 01:09 Blood Culture - Preliminary Blood No Growth after 48 hours Assessment and Plan Plan: Assessment: #1. Acute hypoxemic respiratory failure, requiring BiPAP support, chest x-ray showed moderate interstitial edema, and multifocal bilateral alveolar infiltrates, and the possibilities include community-acquired pneumonia and fluid overload related to new onset congestive heart failure #2. Dyspnea, chest congestion, cough with sputum production, leukocytosis related to a possibility of pneumonia #3. Lactic acidosis, possibly related to sepsis, source is under investigation #4. Leukocytosis #5. Open weeping cellulitis and wounds on bilateral lower extremities #6. Elevated troponins, could be related to sepsis #7. Elevated d-dimer, CT angios is pending #8. Previous episode of myocardial infarction #9. Diabetes mellitus, with diabetic neuropathy #10. Hypertension, hyperlipidemia #11. Morbid obesity #12. History of polio syndrome as a child #13. Remote history of smoking, patient quit at age of 26, smoked a pack a day for 10 years. Plan: We'll continue current antibiotic coverage, ID service is following, cultures remain negative patient is afebrile, patient is diuresing, maintaining negative fluid balance, still has residual bilateral lower extremity edema, still remains orthopneic, but overall improving. Continue IV diuretics. The possibility of currently acquired pneumonia is less likely, then congestive heart failure and fluid overload. Continue to follow I performed a history & physical examination of the patient and discussed their management with my nurse practitioner, Kandy Kelley. I reviewed the nurse practitioner's note and agree with the documented findings and plan of care. Lung sounds are positive for fine rales. The findings and the impression was discussed with the patient. I attest to the documentation by the nurse practitioner. Time with Patient: Less than 30
[2018-09-02] MEDS ORDERED: VANCOMYCIN TROUGH DUE 1 EACH MISC MISCELLANE ONE (13:00)
--- NOTE | 2018-09-02 15:43 | PN ---
PROGRESS NOTE DATE OF SERVICE: 09/02/2018. REASON FOR FOLLOWUP: 1. Possible pneumonia. 2. Bilateral lower extremity cellulitis. INTERVAL HISTORY: The patient is currently afebrile. His breathing seems to have more improved. Denies significant chest pain. Occasional cough. No abdominal pain. Leg swelling has decreased. No pain in the legs or any wound drainage. No diarrhea with antibiotic therapy. EXAMINATION: Blood pressure is 133/73 with a pulse of 55, temperature 98.9, he is 93% on 3 L nasal cannula. General description is a middle aged male up in the chair in no distress. Respiratory system: Unlabored breathing, clear to auscultation anteriorly. Heart S1, S2. Regular rate and rhythm. ABDOMEN: Soft, no tenderness. LABS: Hemoglobin 11.8, white count 11.9, BUN of 14 and creatinine 0.85. DIAGNOSTIC IMPRESSION AND PLAN: Patient with bilateral extremity cellulitis in a patient who did have diffuse swelling, redness likely streptococcal disease. PLAN: 1. At this time is to continue the patient on cefazolin to finish therapy with oral Keflex. 2. Patient with difficulty breathing more likely congestive heart failure, less likely pneumonia, Levaquin can be discontinued on discharge. 3. Continue supportive care. MMODL / IJN: [id number] /
[2018-09-02 16:53] LABS: Glucose,Whole Blood 100 mg/dL (75-99)
[2018-09-02 18:30] LABS: Glucose,Whole Blood 224 mg/dL (75-99)
--- NOTE | 2018-09-02 20:00 | XR ---
EXAMINATION TYPE: XR chest 2V DATE OF EXAM: 09/02/2018 COMPARISON: 08/30/2018 HISTORY: Follow-up heart failure. Short of breath. TECHNIQUE: Frontal and lateral views of the chest are obtained. FINDINGS: There is some airspace 10 cm area of infiltrate in the lateral right upper lobe. There is also some minimal left perihilar infiltrate. Heart size is normal. I see no definite pleural effusion . There are chest leads. IMPRESSION: Increased right upper lobe infiltrate compared to last exam. There is probably improveme nt in left lower lobe infiltrate compared to last exam. No definite heart failure. Pulmonary congesti on is improved compared to last exam with clearing of the interstitial septal lines.
[2018-09-02 21:07] LABS: Glucose,Whole Blood 231 mg/dL (75-99)
[2018-09-02] MEDS: INSULIN DETEMIR 100 UNIT/ML 10 ML VIAL SQ SCH (21:14)
[2018-09-03 05:46] LABS: Glucose,Whole Blood 166 mg/dL (75-99)
[2018-09-03 06:14] LABS: HCT 36.1 % (39.0-53.0); HGB 11.5 gm/dL (13.0-17.5); MCH 28.8 pg (25.0-35.0); MCHC 31.8 g/dL (31.0-37.0); MCV 90.6 fL (80.0-100.0); Mean Platelet Volume 6.7; Platelet Count 448 k/uL (150-450); RBC 3.98 m/uL (4.30-5.90); RDW 14.3 % (11.5-15.5); WBC 12.8 k/uL (3.8-10.6)
[2018-09-03 06:21] LABS: Anion Gap 8 mmol/L; Blood Urea Nitrogen 20 mg/dL (9-20); Calcium 8.9 mg/dL (8.4-10.2); Carbon Dioxide 28 mmol/L (22-30); Glucose 148 mg/dL (74-99); Potassium 4.2 mmol/L (3.5-5.1); Sodium 139 mmol/L (137-145)
[2018-09-03 06:27] LABS: Chloride 103 mmol/L (98-107)
[2018-09-03] MEDS: INSULIN ASPART 100 UNIT/ML 1 ML 10 ML VIAL SQ SCH ×7 (06:48→21:26)
[2018-09-03] MEDS: FUROSEMIDE 10 MG/ML 4 ML VIAL IV SCH (06:49)
[2018-09-03] MEDS: IPRATROPIUM-ALBUTEROL 3 ML NEB INHALATION SCH ×4 (07:57→19:50)
--- NOTE | 2018-09-03 08:28 | P.PN ---
Subjective Progress Note Date: 09/03/18 Principal diagnosis: shortness of breath Patient is a 63-year-old morbidly obese male with a past medical history of hypertension, diabetes with peripheral neuropathy, and prior tobacco abuse who presented to the ER via EMS with chief complaint of shortness of breath. In the ER he was found to be severely hypoxic with saturations in the 80s. He was placed on supplemental oxygen and then eventually BiPAP. The ER he was given a dose of Lasix after a chest x-ray was obtained which showed pulmonary edema. He was admitted for further monitoring. He has been seen by pulmonary who felt that his interstitial edema was likely related to community- acquired pneumonia versus fluid overload. They recommended keeping patient on nasal cannula, a CTA of the chest which was negative for pulmonary embolism, and continue with Levaquin and vancomycin. He was evaluated by cardiology. He underwent an echocardiogram which showed a preserved ejection fraction of 55-60 % but did show LVH and diastolic dysfunction. Bilateral lower extremity venous Dopplers were negative. He was seen by Dr. Campuzano of infectious disease. He recommended continuing Levaquin and vancomycin for bilateral lower extremity cellulitis likely secondary to gram-positive skin christal. Patient does have a penicillin ALLERGY which was limited his choice of antibiotics, cefazolin was also added. They also placed bilateral Mik wraps to help with edema. He has been slowly diuresing. His blood sugars has been going up and A1C is 9.1 Patient seen and examined at bedside. Feeling better today, breathing is better but still unable to lay flat. No chest pain, Legs improving. Constipation better. Trying to make life style changes and motivated to change. Objective - Vital Signs Vital signs: Vital Signs Temp 97.6 F 09/03/18 03:34 Pulse 112 H 09/03/18 03:34 Resp 20 09/03/18 03:34 BP 149/82 09/03/18 03:34 Pulse Ox 94 L 09/03/18 07:59 Intake & Output 09/02/18 09/03/18 09/03/18 18:59 06:59 18:59 Intake Total 770 100 Output Total 1300 850 Balance -530 -750 Weight 121.3 kg Intake: IV 30 100 0.9 20 Invasive Line 3 30 Invasive Line 4 80 Oral 740 Output: Urine 1300 850 Other: Voiding Method Urinal Urinal # Voids 3 # Bowel Movements 1 - Exam General: non toxic, no distress, obesity, appears older than stated age, Derm:b/l LE with dressing in place. warm, dry Head: atraumatic, normocephalic, symmetric Eyes: EOMI, no lid lag, anicteric sclera Mouth: no lip lesion, mucus membranes moist Cardiovascular: S1S2 reg, no murmur, positive posterior tibial pulse bilateral, Lungs: decreased breath sounds bilateral bases, no rhonchi, no rales , no accessory muscle use Abdominal: soft, nontender to palpation, no guarding, no appreciable organomegaly Ext: no gross muscle atrophy, 1+ edema b/l le, no contractures Neuro: CN II-XI grossly intact, no focal neuro deficits Psych: Alert, oriented, appropriate affect - Labs CBC & Chem 7: 09/03/18 05:36 09/03/18 05:36 Labs: Abnormal Lab Results - Last 24 Hours (Table) 09/02/18 09/02/18 09/02/18 Range/Units 11:35 16:49 18:27 WBC (3.8-10.6) k/uL RBC (4.30-5.90) m/uL Hgb (13.0-17.5) gm/dL Hct (39.0-53.0) % Glucose (74-99) mg/dL POC Glucose (mg/dL) 154 H 100 H 224 H (75-99) mg/dL 09/02/18 09/03/18 09/03/18 Range/Units 21:06 05:36 05:36 WBC 12.8 H (3.8-10.6) k/uL RBC 3.98 L (4.30-5.90) m/uL Hgb 11.5 L (13.0-17.5) gm/dL Hct 36.1 L (39.0-53.0) % Glucose 148 H (74-99) mg/dL POC Glucose (mg/dL) 231 H (75-99) mg/dL 09/03/18 Range/Units 05:44 WBC (3.8-10.6) k/uL RBC (4.30-5.90) m/uL Hgb (13.0-17.5) gm/dL Hct (39.0-53.0) % Glucose (74-99) mg/dL POC Glucose (mg/dL) 166 H (75-99) mg/dL Microbiology - Last 24 Hours (Table) 08/31/18 01:09 Blood Culture - Preliminary Blood No Growth after 72 hours 08/31/18 01:09 Blood Culture - Preliminary Blood No Growth after 72 hours Assessment and Plan Assessment: Acute pulmonary edema due to Acute exacerbation of diastolic congestive heart failure with ejection fraction 50-55% -Lasix IV push, strict I's and O's, daily weights -Cardiology recommendations appreciated -Lisinopril -Patient med list verified from home on lopressor and will resume RUL infiltrate that appears more consolidated - levaquin - ID and pulm recs - follow CBC - breathing treatment Acute hypoxic respiratory failure -Wean O2 as able -Pulmonary recommendations appreciated -Outpatient PSG Bilateral lower extremity cellulitis -Vanco discontinued on 09/01 - Levaquin, kefzol -ID recommendations appreciated -Maintain Mik wrap Elevated troponin, likely stress induced - cardio recs Diabetes mellitus with diabetic neuropathy -Sliding-scale insulin, fixed dose NovoLog, Levemir increased to 50 units if needs more then may benefit from split dose -A1C 9.7 -Neurontin Hypertension - Norvasc, clonidine, lisinopril, lopressor - Follow BP Dyslipidemia - fish oil Morbid obesity with BMI 46.2 - structure outpatient weight loss. History of coronary artery disease with prior myocardial infarction - ASA Sepsis with elevated lactic acid, improved Constipation, resolved Hope to D/C home in AM if WBC is decreasing DVT prophylaxis: Heparin Discussed with: Patient, nursing Anticipated discharge: [address]: home with home health A total of 35 minutes was spent on the care of this complex patient more than 50 % of the time was spent in counseling and care coordination.
[2018-09-03] MEDS: GABAPENTIN 100 MG CAP PO SCH ×2 (08:49→20:15)
[2018-09-03] MEDS: VITAMIN E (DL,TOCOPHERYL ACET) 400 UNIT CAP PO SCH ×2 (08:50→20:16)
[2018-09-03] MEDS: cloNIDine HCL 0.2 MG TAB PO SCH ×3 (08:50→20:16)
[2018-09-03] MEDS: LEVOFLOXACIN 750 MG TAB PO SCH (08:50)
[2018-09-03] MEDS: ASPIRIN 81 MG PO SCH (08:50)
[2018-09-03] MEDS: amLODIPine 10 MG TAB PO SCH (08:51)
[2018-09-03] MEDS: MULTIVITAMINS, THERA 1 EACH TAB PO SCH (08:51)
[2018-09-03] MEDS: HEPARIN SODIUM,PORCINE 5,000 UNIT/ML 1 ML VIAL SQ SCH ×2 (08:51→20:15)
[2018-09-03] MEDS: FAMOTIDINE 20 MG TAB PO SCH ×2 (08:51→20:15)
[2018-09-03] MEDS: NYSTATIN 100,000 UNIT/GM POWD 15 GM TOPICAL SCH ×2 (08:52→20:16)
[2018-09-03] MEDS: METOPROLOL TARTRATE 25 MG TAB PO SCH ×2 (08:56→20:16)
[2018-09-03] MEDS: LISINOPRIL 20 MG TAB PO SCH (08:56)
[2018-09-03] MEDS: ceFAZolin IN SWFI 2 GM/20 ML SYRINGE IVP SCH ×3 (08:56→22:40)
[2018-09-03] MEDS ORDERED: ERGOCALCIFEROL 50,000 UNIT CAP PO SCH (09:00)
[2018-09-03] MEDS: ACETAMINOPHEN TAB 325 MG TAB PO PRN (10:47)
[2018-09-03] MEDS: DOCUSATE 100 MG CAP PO PRN (10:47)
--- NOTE | 2018-09-03 11:14 | P.PN ---
Subjective Progress Note Date: 09/03/18 This is a 63-year-old white male patient that relocated to [facility] from [facility], and has not yet established himself with a primary care physician. Patient presented to the emergency department on 08/30/2018 at 2200 for evaluation of worsening shortness of breath, increased chest congestion, cough with production of yellow sputum, sweating. Initial onset of symptoms was last week and became progressively worse. Patient states 2 weeks ago he received t she is okay and felthe only alert andinfluenza and pneumococcal vaccine at his doctor's office in [place]. His son has also had the symptoms of cold. Patient denied any chest pain. Is positive for orthopnea. No hemoptysis. No chest wall pain. Past medical history is significant for diabetes mellitus, morbid obesity, remote history of smoking, hypertension, hyperlipidemia, previous episode of [place], patient had polio syndrome in his childhood, has affected his lower extremity strength. Patient is able to ambulate with crutches. EKG on admission here showed normal sinus rhythm with runs of PVCs, left bundle-branch block pattern. White blood cell count on admission 26.2, hemoglobin 13.2, platelet count 512, d-dimer 1.86, troponins 0.02, 0.09, 0.09. BNP 584. Mild lactic acidosis with lactic acid 2.3. CTA of the chest was negative for pulmonary embolism. Patient has chronic lower extremity edema, cellulitis, and open areas of drainage. He he was on vancomycin in the past for this. The patient was initiated on IV Lasix in the hospital, he's been diuresing well. His weight is down over 10 kg since admission. Renal function is stable with a creatinine of 0.86 and BUN of 20. Most recent chest x-ray showed increase in right upper lobe infiltrate with improving pulmonary congestion. Upon examination, a sitting up in a chair at the side of the bed. He continues to complain of some lower extremity edema which he feels is better, he's been encouraged to elevate his legs while sitting. He feels his breathing has improved. Objective - Vital Signs Vital signs: Vital Signs Temp 99.8 F H 09/03/18 08:00 Pulse 60 09/03/18 08:00 Resp 18 09/03/18 08:00 BP 142/60 09/03/18 08:00 Pulse Ox 93 L 09/03/18 08:00 Intake & Output 09/02/18 09/03/18 09/03/18 18:59 06:59 18:59 Intake Total 770 100 310 Output Total 1300 850 Balance -530 -750 310 Weight 121.3 kg Intake: IV 30 100 10 0.9 20 Invasive Line 3 30 Invasive Line 4 80 10 Oral 740 300 Output: Urine 1300 850 Other: Voiding Method Urinal Urinal Urinal # Voids 3 # Bowel Movements 1 - Exam PHYSICAL EXAMINATION: HEENT: Head is atraumatic, normocephalic. Pupils equal, round. Neck is supple. There is no elevated jugular venous pressure. HEART EXAMINATION: Heart sounds regular, S1 and S2 normal. No murmur or gallop heard. CHEST EXAMINATION: Lungs reveal Fine crackles bilateral bases. No chest wall tenderness is noted on palpation or with deep breathing] ABDOMEN:[ Soft, obese, nontender. Bowel sounds are heard. No organomegaly note] . EXTREMITIES[ 2+ peripheral pulses with no evidence of lower extremity pitting edema, bilateral lower extremity cellulitis, open weeping areas on bilateral lower extremities.. NEUROLOGIC[patient is awake, alert and oriented x3. . - Labs CBC & Chem 7: 09/03/18 05:36 09/03/18 05:36 Labs: Abnormal Lab Results - Last 24 Hours (Table) 09/02/18 09/02/18 09/02/18 Range/Units 11:35 16:49 18:27 WBC (3.8-10.6) k/uL RBC (4.30-5.90) m/uL Hgb (13.0-17.5) gm/dL Hct (39.0-53.0) % Glucose (74-99) mg/dL POC Glucose (mg/dL) 154 H 100 H 224 H (75-99) mg/dL 09/02/18 09/03/18 09/03/18 Range/Units 21:06 05:36 05:36 WBC 12.8 H (3.8-10.6) k/uL RBC 3.98 L (4.30-5.90) m/uL Hgb 11.5 L (13.0-17.5) gm/dL Hct 36.1 L (39.0-53.0) % Glucose 148 H (74-99) mg/dL POC Glucose (mg/dL) 231 H (75-99) mg/dL 09/03/18 Range/Units 05:44 WBC (3.8-10.6) k/uL RBC (4.30-5.90) m/uL Hgb (13.0-17.5) gm/dL Hct (39.0-53.0) % Glucose (74-99) mg/dL POC Glucose (mg/dL) 166 H (75-99) mg/dL Microbiology - Last 24 Hours (Table) 08/31/18 01:09 Blood Culture - Preliminary Blood No Growth after 72 hours 08/31/18 01:09 Blood Culture - Preliminary Blood No Growth after 72 hours Assessment and Plan Assessment: #1. Acute hypoxemic respiratory failure, requiring BiPAP support, chest x-ray showed moderate interstitial edema, and multifocal bilateral alveolar infiltrates, and the possibilities include community-acquired pneumonia and fluid overload related to new onset congestive heart failure diastolic, acute on chronic. Ejection fraction by echo 55-60%. #2. Dyspnea, chest congestion, cough with sputum production, leukocytosis, possible pneumonia. #3. Lactic acidosis, possibly related to sepsis #4. Leukocytosis #5. Open weeping cellulitis and wounds on bilateral lower extremities #6. Elevated troponins, could be related to sepsis, not suggestive of acute coronary syndrome, LV function normal #7. Elevated d-dimer, CT angios is pending #8. Previous hx of myocardial infarction #9. Diabetes mellitus, with diabetic neuropathy #10. Hypertension, hyperlipidemia #11. Morbid obesity #12. History of polio syndrome as a child #13. Remote history of smoking, patient quit at age of 26, smoked a pack a day for 10 years. Plan: From cardiology's perspective, we will switch the patient to by mouth Lasix today. Continue to monitor daily weights, intake and output and renal function. Continue to follow the patient and provide further recommendations accordingly. The above dictated assessment and findings were discussed with signing physician. The impression and plan of care have been directed as dictated. Radha Hendrickson, Nurse Practitioner, acting as scribe for signing physician.
[2018-09-03 11:38] LABS: Glucose,Whole Blood 191 mg/dL (75-99)
--- NOTE | 2018-09-03 14:26 | PN ---
PROGRESS NOTE DATE OF SERVICE: 09/03/2018 REASON FOR FOLLOWUP: Bilateral extremity wound cellulitis. INTERVAL HISTORY: The patient is currently afebrile. He seemed to be breathing more comfortably, denies significant chest pain. Very minimal cough. No sputum production. No abdominal pain, swelling and redness to the leg has improved. No significant pain. PHYSICAL EXAMINATION: Blood pressure 129/59 with a pulse of 55, temperature 99. He is 93% on 3 L nasal cannula. General description is a middle aged male up in the chair in no distress. RESPIRATORY SYSTEM: Unlabored breathing, clear to auscultation anteriorly. HEART: S1, S2. Regular rate and rhythm. ABDOMEN: Soft, no tenderness. Legs were currently wrapped up, no obvious drainage on the dressing. LABS: BUN of 20, creatinine 0.86, hemoglobin 11.5, white count 12.8. DIAGNOSTIC IMPRESSION AND PLAN: Patient with bilateral lower extremity cellulitis in a patient who did have significant swelling and superficial ulceration. Local care to continue with Aquacel Silver dressing and an Mik wrap to keep the swelling down. On IV cefazolin. Finish therapy with oral Keflex. Continue supportive care. MMODL / IJN: [id number] /
--- NOTE | 2018-09-03 15:52 | P.PN ---
Subjective Progress Note Date: 09/03/18 Principal diagnosis: Acute hypoxemic respiratory failure, secondary to acute onset of congestive heart failure, and possibility of community acquired pneumonia This is a 63-year-old white male patient that we relocated to [facility] from [facility], and has not yet established himself with a primary care physician. Patient presented to the emergency department on 2017 at 2200 were evaluation of worsening shortness of breath, increased chest congestion, cough with production of yellow sputum, sweating. His she'll onset of symptoms was last week, and became progressively worse. Patient states 2 weeks ago he received the influenza and pneumococcal vaccine at his doctor's office in [place]. His son has also had the symptoms of cold. Patient denied any chest pain. Is positive for orthopnea. No hemoptysis. No chest wall pain. Past medical history is significant for diabetes mellitus, morbid obesity , remote history of smoking, retention, hyperlipidemia, previous episode of [place], patient had the polio syndrome in his childhood, has affected his lower extremity strength. Patient is able to ambulate with crutches. Has never been diagnosed with any chronic lung condition, no history of COPD, has never been diagnosed with obstructive sleep apnea, but does snore. Chest x-ray was taken in the emergency department and showed mild to moderate interstitial edema with multifocal bilateral alveolar edema and/or infiltrates. EKG showed sinus rhythm with frequent runs of PVCs, and left bundle branch block. Lab work showed significant leukocytosis with WBC of 26.2, hemoglobin of 13.2, platelet count was 512, d-dimer was 1.86, and electrocerebral profile were all within normal limits. Troponins were 0.020, 0.091, 0.094. ProBNP was within normal limits at 584. Patient has mild lactic acidosis with lactic acid of 2.3. This morning's lab work shows WBC is down to 13.8. Patient has been afebrile, in the emergency department he was placed on BiPAP support for significant respiratory distress, this morning he seen on selective care unit, still on BiPAP, with pressures of 12/6, and FiO2 of 35%. He was started on IV diuretics at 40 mg every 8 hours, breathing easier. Patient has chronic lower extremity edema, cellulitis, and there are open areas with drainage of clear yellow fluid from his bilateral lower extremities that are quite erythematous. Patient states he was on vancomycin for the treatment of bilateral lower extreme cellulitis, but denies history of MRSA. He was started on Levaquin and vancomycin. Nebulized bronchodilators. Patient is scheduled for CT angios of the chest this afternoon. On 09/01/2018 patient seen in follow-up on selective care unit. He was off the BiPAP support, currently on 3 L per nasal cannula his pulse ox is 92%, he is afebrile, slightly tachycardic at times, with heart rate ranging from 99 to 115 BPM. Denies any chest pain, breathing easier today, lung sounds are clear on today's exam. He continues to diurese, remains on Lasix at 40 mg every 8 hours. Bilateral lower extremity edema is improving, blood cultures remain negative, no fever or chills. ID service is following, patient is currently on combination of Levaquin, vancomycin, and kefzol was added. Overall doing better , feeling better, he sitting up in a chair, no acute complaints at this time. On 09/02/2018 patient seen in follow-up. Breathing easier, however still complains of orthopnea. He has been wearing his BiPAP machine at bedtime. Currently sitting up in the chair, on 3 L per nasal cannula his pulse ox is 93% , he is afebrile. Reveal fine crackles at the bases, no significant wheezing, no cough, no sputum production. Blood cultures remain negative, fluid balance is negative, still has bilateral lower extremity edema, although it's improving , bilateral lower legs are wrapped with dry dressing, ID service is following. Current antibiotic coverage includes Levaquin, vancomycin and Kefzol. No acute events overnight. He remains on IV Lasix at 40 mg every 8 hours, continues improved. On 09/03/2018 patient seen in follow-up on selective care unit. He sitting up in the chair, reading is improved, he is on 3 L per nasal cannula, his pulse ox is 93%, he is afebrile, vital signs are stable, his blood cultures remain negative. Today's labs were reviewed, there PVCs 12.8, hemoglobin is 11.5, electrolytes and renal profile are all within normal limits. Very minimal cough , no sputum production, lung and redness to his leg is improving, no significant pain. And is receiving local wound care was also over, and Mik wrap. On IV Cefazolin and levaquin, his IV diuretics have been transitioned to oral. In negative fluid balance. Objective - Vital Signs Vital signs: Vital Signs Temp 99.0 F 09/03/18 11:45 Pulse 76 09/03/18 15:42 Resp 24 09/03/18 12:00 BP 129/59 09/03/18 11:45 Pulse Ox 93 L 09/03/18 11:45 Intake & Output 09/02/18 09/03/18 09/03/18 18:59 06:59 18:59 Intake Total 770 100 550 Output Total 7047 615 4803 Balance -530 -750 -450 Weight 121.3 kg Intake: IV 30 100 10 0.9 20 Invasive Line 3 30 Invasive Line 4 80 10 Oral 740 540 Output: Urine 8902 270 1066 Other: Voiding Method Urinal Urinal Urinal # Voids 3 2 # Bowel Movements 1 1 - Exam GENERAL EXAM: Alert, pleasant 63-year-old obese white male, on nasal cannula at 3 L HEAD: Normocephalic/atraumatic. EYES: Normal reaction of pupils, equal size. Conjunctiva pink, sclera white. NOSE: Clear with pink turbinates. THROAT: No erythema or exudates. NECK: No masses, no JVD, no thyroid enlargement, no adenopathy. CHEST: No chest wall deformity. Symmetrical expansion. LUNGS: Equal air entry with fine bibasilar rales, but no rhonchi, no wheezes CVS: Regular rate and rhythm, normal S1 and S2, no gallops, no murmurs, no rubs ABDOMEN: Soft, nontender. No hepatosplenomegaly, normal bowel sounds, no guarding or rigidity. EXTREMITIES: No clubbing, patient has nonpitting edema, bilateral lower extremity cellulitis, and open weeping areas on bilateral lower extremities, legs are covered with dressings, and Mik wraps. MUSCULOSKELETAL: Muscle strength and tone normal. SPINE: No scoliosis or deformity SKIN: No rashes CENTRAL NERVOUS SYSTEM: Alert and oriented -3. No focal deficits, tone is normal in all 4 extremities. PSYCHIATRIC: Alert and oriented -3. Appropriate affect. Intact judgment and insight. - Labs CBC & Chem 7: 09/03/18 05:36 09/03/18 05:36 Labs: Abnormal Lab Results - Last 24 Hours (Table) 09/02/18 09/02/1809/02/18 Range/Units 16:49 18:27 21:06 WBC (3.8-10.6) k/uL RBC (4.30-5.90) m/uL Hgb (13.0-17.5) gm/dL Hct (39.0-53.0) % Glucose (74-99) mg/dL POC Glucose (mg/dL) 100 H 224 H 231 H (75-99) mg/dL 09/03/18 09/03/18 09/03/18 Range/Units 05:36 05:36 05:44 WBC 12.8 H (3.8-10.6) k/uL RBC 3.98 L (4.30-5.90) m/uL Hgb 11.5 L (13.0-17.5) gm/dL Hct 36.1 L (39.0-53.0) % Glucose 148 H (74-99) mg/dL POC Glucose (mg/dL) 166 H (75-99) mg/dL 09/03/18 Range/Units 11:36 WBC (3.8-10.6) k/uL RBC (4.30-5.90) m/uL Hgb (13.0-17.5) gm/dL Hct (39.0-53.0) % Glucose (74-99) mg/dL POC Glucose (mg/dL) 191 H (75-99) mg/dL Microbiology - Last 24 Hours (Table) 08/31/18 01:09 Blood Culture - Preliminary Blood No Growth after 72 hours 08/31/18 01:09 Blood Culture - Preliminary Blood No Growth after 72 hours Assessment and Plan Plan: Assessment: #1. Acute hypoxemic respiratory failure, requiring BiPAP support, chest x-ray showed moderate interstitial edema, and multifocal bilateral alveolar infiltrates, and the possibilities include community-acquired pneumonia and fluid overload related to new onset congestive heart failure #2. Dyspnea, chest congestion, cough with sputum production, leukocytosis related to a possibility of pneumonia #3. Lactic acidosis, possibly related to sepsis, source is under investigation #4. Leukocytosis #5. Open weeping cellulitis and wounds on bilateral lower extremities #6. Elevated troponins, could be related to sepsis #7. Elevated d-dimer, CT angios is pending #8. Previous episode of myocardial infarction #9. Diabetes mellitus, with diabetic neuropathy #10. Hypertension, hyperlipidemia #11. Morbid obesity #12. History of polio syndrome as a child #13. Remote history of smoking, patient quit at age of 26, smoked a pack a day for 10 years. Plan: Continue current antibiotic coverage, no ongoing fever or chills, no worsening shortness of breath, IV diuresis have been transitioned to oral, local wound care to lower extremity cellulitis. ID service is following, no acute issues overnight. From pulmonary standpoint he is improving, and could be considered for discharge in the next 24 hours. He will need outpatient sleep study to rule out possibility of obstructive sleep apnea. I performed a history & physical examination of the patient and discussed their management with my nurse practitioner, Kandy Kelley. I reviewed the nurse practitioner's note and agree with the documented findings and plan of care. Lung sounds are positive for fine rales. The findings and the impression was discussed with the patient. I attest to the documentation by the nurse practitioner. Time with Patient: Less than 30
[2018-09-03] MEDS: FUROSEMIDE 80 MG TAB PO SCH (17:56)
[2018-09-03 17:57] LABS: Glucose,Whole Blood 169 mg/dL (75-99)
[2018-09-03 20:59] LABS: Glucose,Whole Blood 249 mg/dL (75-99)
[2018-09-03] MEDS: INSULIN DETEMIR 100 UNIT/ML 10 ML VIAL SQ SCH (21:26)
[2018-09-04 06:22] LABS: Glucose,Whole Blood 166 mg/dL (75-99)
[2018-09-04] MEDS: INSULIN ASPART 100 UNIT/ML 1 ML 10 ML VIAL SQ SCH ×7 (06:53→21:17)
[2018-09-04 07:08] LABS: HCT 32.9 % (39.0-53.0); HGB 11.1 gm/dL (13.0-17.5); MCH 29.7 pg (25.0-35.0); MCHC 33.9 g/dL (31.0-37.0); MCV 87.7 fL (80.0-100.0); Mean Platelet Volume 6.7; Platelet Count 452 k/uL (150-450); RBC 3.75 m/uL (4.30-5.90); RDW 13.9 % (11.5-15.5); WBC 13.7 k/uL (3.8-10.6)
[2018-09-04 07:29] LABS: Anion Gap 9 mmol/L; Blood Urea Nitrogen 22 mg/dL (9-20); Calcium 8.9 mg/dL (8.4-10.2); Carbon Dioxide 29 mmol/L (22-30); Chloride 103 mmol/L (98-107); Glucose 148 mg/dL (74-99); Potassium 4.6 mmol/L (3.5-5.1); Sodium 141 mmol/L (137-145)
[2018-09-04] MEDS: IPRATROPIUM-ALBUTEROL 3 ML NEB INHALATION SCH ×4 (07:38→21:41)
[2018-09-04] MEDS: VITAMIN E (DL,TOCOPHERYL ACET) 400 UNIT CAP PO SCH ×2 (08:02→19:42)
[2018-09-04] MEDS: MULTIVITAMINS, THERA 1 EACH TAB PO SCH (08:02)
[2018-09-04] MEDS: ceFAZolin IN SWFI 2 GM/20 ML SYRINGE IVP SCH ×2 (08:02→15:30)
[2018-09-04] MEDS: HEPARIN SODIUM,PORCINE 5,000 UNIT/ML 1 ML VIAL SQ SCH ×2 (08:03→19:42)
[2018-09-04] MEDS: LISINOPRIL 20 MG TAB PO SCH ×2 (08:03→09:00)
[2018-09-04] MEDS: ASPIRIN 81 MG PO SCH (08:03)
[2018-09-04] MEDS: LEVOFLOXACIN 750 MG TAB PO SCH (08:03)
[2018-09-04] MEDS: GABAPENTIN 100 MG CAP PO SCH ×2 (08:03→19:41)
[2018-09-04] MEDS: FAMOTIDINE 20 MG TAB PO SCH ×2 (08:03→19:41)
[2018-09-04] MEDS: NYSTATIN 100,000 UNIT/GM POWD 15 GM TOPICAL SCH ×2 (08:05→19:42)
--- NOTE | 2018-09-04 08:57 | P.PN ---
Subjective Progress Note Date: 09/04/18 Principal diagnosis: Gwendolyn seen today in follow up for Acute hypoxic respiratory failure due to acute / chronic diastolic CHF and CAP, and leg cellulitis Patient was seen and examined today, continues to report some lung congestion and coughing, patient had subclinical fevers, denies any chest pain or trouble breathing at this point while resting. He reports generalized weakness. Patient had many questions regarding his current medications, voiced concerns regarding possible extractions, sulfa ALLERGY, and penicillin ALLERGIES. I went over his medications with him and patiently explained and answered all his questions. Objective - Vital Signs Vital signs: Vital Signs Temp 97.2 F L 09/04/18 00:00 Pulse 72 09/04/18 07:48 Resp 18 09/04/18 04:00 BP 108/65 09/04/18 04:00 Pulse Ox 97 09/04/18 04:00 Intake & Output 09/03/18 09/04/18 09/04/18 18:59 06:59 18:59 Intake Total 800 150 260 Output Total 1600 2450 Balance -800 -2300 260 Weight 121.2 kg Intake: IV 20 30 Invasive Line 4 10 Invasive Line 5 10 30 Oral 780 120 260 Output: Urine 1600 2450 Other: Voiding Method Urinal Urinal # Voids 2 1 # Bowel Movements 1 1 - Exam Constitutional: vital signs stable, Not in acute distress, pleasant, conversant, oxygen saturation 90% on room air while resting Lungs: Clear to auscultation bilaterally, clear to percussion, normal respiratory effort no use of accessory muscles Cardiovascular: Regular rate and rhythm, no murmurs, no gallops, no rubs, +2 peripheral edema Gastrointestinal: Soft, no tenderness to palpation, no palpable hepatosplenomegally, bowel sounds positive, no abdominal wall hernias Extremities: left leg larger than right (due to history of polio) No digital cyanosis or clubbing, peripheral pulses palpable and equal over bilateral radial arteries and dorsalis pedis artery, dressing over bilateral legs, no visible drainage Psych: Alert, oriented to place, person and time, appropriate affect, intact judgment Neuro: Cranial nerves II-XII grossly intact, no focal sensory deficits to touch - Labs CBC & Chem 7: 09/04/18 06:30 09/04/18 06:30 Labs: Abnormal Lab Results - Last 24 Hours (Table) 09/03/18 09/03/18 09/03/18 Range/Units 11:36 17:54 20:57 WBC (3.8-10.6) k/uL RBC (4.30-5.90) m/uL Hgb (13.0-17.5) gm/dL Hct (39.0-53.0) % Plt Count (150-450) k/uL BUN (9-20) mg/dL Glucose (74-99) mg/dL POC Glucose (mg/dL) 191 H 169 H 249 H (75-99) mg/dL 09/04/18 09/04/18 09/04/18 Range/Units 06:21 06:30 06:30 WBC 13.7 H (3.8-10.6) k/uL RBC 3.75 L (4.30-5.90) m/uL Hgb 11.1 L (13.0-17.5) gm/dL Hct 32.9 L (39.0-53.0) % Plt Count 452 H (150-450) k/uL BUN 22 H (9-20) mg/dL Glucose 148 H (74-99) mg/dL POC Glucose (mg/dL) 166 H (75-99) mg/dL Microbiology - Last 24 Hours (Table) 08/31/18 01:09 Blood Culture - Preliminary Blood No Growth after 96 hours 08/31/18 01:09 Blood Culture - Preliminary Blood No Growth after 96 hours Assessment and Plan Assessment: Patient is a 63-year-old morbidly obese male with a past medical history of hypertension, diabetes with peripheral neuropathy, and prior tobacco abuse who presented to the ER via EMS with chief complaint of shortness of breath. In the ER he was found to be severely hypoxic with saturations in the 80s. He was placed on supplemental oxygen and then eventually BiPAP. The ER he was given a dose of Lasix after a chest x-ray was obtained which showed pulmonary edema. He was admitted for further monitoring. He has been seen by pulmonary who felt that his interstitial edema was likely related to community- acquired pneumonia versus fluid overload. They recommended keeping patient on nasal cannula, a CTA of the chest which was negative for pulmonary embolism, and continue with Levaquin and vancomycin. He was evaluated by cardiology. He underwent an echocardiogram which showed a preserved ejection fraction of 55-60 % but did show LVH and diastolic dysfunction. Bilateral lower extremity venous Dopplers were negative. He was seen by Dr. Campuzano of infectious disease. He recommended continuing Levaquin and vancomycin for bilateral lower extremity cellulitis likely secondary to gram-positive skin christal. Patient does have a penicillin ALLERGY which was limited his choice of antibiotics, cefazolin was also added. They also placed bilateral Mik wraps to help with edema. He has been slowly diuresing. His blood sugars has been going up and A1C is 9.1 09/04 patient is seen and examined, he had subclinical fever overnight, white count with slight bump, still reports some congestion, he did not feel that he is ready to go home. He will be evaluated for ambulatory oxygen saturation, if this is low on room air, he would probably benefit from another day in the hospital , while diuresing and to continue close observation of his vital signs and temp. patient is feeling generalized weakness and fatigue since he has been in the hospital , however, declined the offer for JUSTIN evaluation, and preferred to go home. He is to continue his current medications without any modification today. Plan: Acute hypoxic respiratory failure , multifactorial due to Acute pulmonary edema due to Acute exacerbation of diastolic congestive heart failure with ejection fraction 50-55%, and possible component of CAP -Lasix IV push, strict I's and O's, daily weights -Cardiology recommendations appreciated -Lisinopril, lopressor -Patient med list verified from home on lopressor and will resume - levaquin - ID and pulm recs - follow CBC, and temp - breathing treatment PRN evaluate ambulatory oxygen saturation Acute hypoxic respiratory failure -Wean O2 as able -Pulmonary recommendations appreciated -Outpatient PSG Bilateral lower extremity cellulitis -Vanco discontinued on 09/01 - Levaquin, kefzol -ID recommendations appreciated -Maintain Mik wrap Elevated troponin, likely stress induced cardiology following no chest pain reported Diabetes mellitus with diabetic neuropathy -Sliding-scale insulin, fixed dose NovoLog, Levemir increased to 50 units if needs more then may benefit from split dose -A1C 9.7 -Neurontin Hypertension - Norvasc, clonidine, lisinopril, lopressor - Follow BP Dyslipidemia - fish oil Morbid obesity with BMI 46.2 - structure outpatient weight loss. History of coronary artery disease with prior myocardial infarction - ASA Patient not currently on statin Sepsis with elevated lactic acid, improved Constipation, resolved possible DC home tomorrow , pending evaluation of ambulatory oxygen saturation , follow up on WBC and temps (today had subclinical fevers) DVT prophylaxis: Heparin Anticipated discharge place: home with home health A total of 45 minutes was spent on the care of this complex patient more than 50 % of the time was spent in counseling and care coordination.
[2018-09-04] MEDS: amLODIPine 10 MG TAB PO SCH (09:00)
[2018-09-04] MEDS: METOPROLOL TARTRATE 25 MG TAB PO SCH ×2 (09:00→19:44)
[2018-09-04] MEDS: FUROSEMIDE 80 MG TAB PO SCH ×2 (09:00→15:31)
[2018-09-04] MEDS: cloNIDine HCL 0.2 MG TAB PO SCH ×3 (09:00→19:42)
--- NOTE | 2018-09-04 11:18 | P.PN ---
Subjective Progress Note Date: 09/04/18 This is a 63-year-old white male patient that we relocated to [facility] from [facility], and has not yet established himself with a primary care physician. Patient presented to the emergency department on 2017 at 2200 were evaluation of worsening shortness of breath, increased chest congestion, cough with production of yellow sputum, sweating. His she'll onset of symptoms was last week, and became progressively worse. Patient states 2 weeks ago he received the influenza and pneumococcal vaccine at his doctor's office in [place]. His son has also had the symptoms of cold. Patient denied any chest pain. Is positive for orthopnea. No hemoptysis. No chest wall pain. Past medical history is significant for diabetes mellitus, morbid obesity , remote history of smoking, retention, hyperlipidemia, previous episode of VA, patient had the polio syndrome in his childhood, has affected his lower extremity strength. Patient is able to ambulate with crutches. EKG on admission here showed normal sinus rhythm with runs of PVCs, left bundle-branch block pattern. White blood cell count on admission 26.2, hemoglobin 13.2, platelet count 512, d-dimer 1.86, troponins 0.02, 0.09, 0.09. BNP 584. Mild lactic acidosis with lactic acid 2.3. CTA of the chest was negative for pulmonary embolism. Patient has chronic lower extremity edema, cellulitis, and open areas of drainage. He he was on vancomycin in the past for this. The patient was initiated on IV Lasix in the hospital, he's been diuresing well from that. Sitting up at the side of bed this morning, states that he has been putting out a significant amount of urine overall. Blood pressure 150/60 with a heart rate in the 50s, 95% on 3 L of oxygen. White blood cell count 12.4, hemoglobin 11.4, platelet count 365. Sodium 140, potassium 4.3, BUN 12, creatinine 0.8. 09/02/2018 Patient seen and examined this morning, still complains of feeling short of breath, continues to have cough although he says is improved from yesterday. Denies any chest discomfort. Blood pressure 132/70 with a heart rate in the 60s , 93% on 3 L of oxygen. White blood cell count 11.9, hemoglobin 11.3, platelet count 399. Sodium 139, potassium 4.3, BUN 14, creatinine 0.8. Magnesium 2.0. Weight is down 1 kg today. And tinnitus to be on IV Lasix 40 mg every 8 hourly. We will get a repeat chest x-ray tomorrow. Echocardiogram with Doppler study revealed an ejection fraction of 55-60%. 09/04/2018 Patient seen and examined this morning, overall states that his breathing is improving. Continues to have cough however much improved. Denies any chest discomfort, still feels weak. Continues to run low-grade temperatures. Currently on by mouth diuretics. Objective - Vital Signs Vital signs: Vital Signs Temp 99.1 F 09/04/18 08:00 Pulse 60 09/04/18 08:00 Resp 18 09/04/18 08:00 BP 188/74 09/04/18 08:00 Pulse Ox 92 L 09/04/18 08:00 Intake & Output 09/03/18 09/04/18 09/04/18 18:59 06:59 18:59 Intake Total 800 150 265 Output Total 1600 2450 Balance -800 -2300 265 Weight 121.2 kg Intake: IV 20 30 5 Invasive Line 4 10 Invasive Line 5 10 30 5 Oral 780 120 260 Output: Urine 1600 2450 Other: Voiding Method Urinal Urinal Urinal # Voids 2 1 # Bowel Movements 1 1 - Exam GENERAL EXAM: Alert, pleasant 63-year-old obese white male, on BiPAP support, with pressures of 12 and 6, and 35%, dyspneic with conversation . HEAD: Normocephalic/atraumatic. EYES: Normal reaction of pupils, equal size. Conjunctiva pink, sclera white. NOSE: Clear with pink turbinates. THROAT: No erythema or exudates. NECK: No masses, no JVD, no thyroid enlargement, no adenopathy. CHEST: No chest wall deformity. Symmetrical expansion. LUNGS: Equal air entry with fine rales at bilateral bases CVS: Regular rate and rhythm, normal S1 and S2, no gallops, no murmurs, no rubs ABDOMEN: Soft, nontender. No hepatosplenomegaly, normal bowel sounds, no guarding or rigidity. EXTREMITIES: No clubbing, patient has nonpitting edema, bilateral lower extremity cellulitis, and open weeping areas on bilateral lower extremities MUSCULOSKELETAL: Muscle strength and tone normal. SPINE: No scoliosis or deformity SKIN: No rashes CENTRAL NERVOUS SYSTEM: Alert and oriented -3. No focal deficits, tone is normal in all 4 extremities. PSYCHIATRIC: Alert and oriented -3. Appropriate affect. Intact judgment and insight. - Labs CBC & Chem 7: 09/04/18 06:30 09/04/18 06:30 Labs: Abnormal Lab Results - Last 24 Hours (Table) 09/03/18 09/03/18 09/03/18 Range/Units 11:36 17:54 20:57 WBC (3.8-10.6) k/uL RBC (4.30-5.90) m/uL Hgb (13.0-17.5) gm/dL Hct (39.0-53.0) % Plt Count (150-450) k/uL BUN (9-20) mg/dL Glucose (74-99) mg/dL POC Glucose (mg/dL) 191 H 169 H 249 H (75-99) mg/dL 09/04/18 09/04/18 09/04/18 Range/Units 06:21 06:30 06:30 WBC 13.7 H (3.8-10.6) k/uL RBC 3.75 L (4.30-5.90) m/uL Hgb 11.1 L (13.0-17.5) gm/dL Hct 32.9 L (39.0-53.0) % Plt Count 452 H (150-450) k/uL BUN 22 H (9-20) mg/dL Glucose 148 H (74-99) mg/dL POC Glucose (mg/dL) 166 H (75-99) mg/dL Microbiology - Last 24 Hours (Table) 08/31/18 01:09 Blood Culture - Preliminary Blood No Growth after 96 hours 08/31/18 01:09 Blood Culture - Preliminary Blood No Growth after 96 hours Assessment and Plan Plan: Assessment #1. Acute hypoxemic respiratory failure, requiring BiPAP support, chest x-ray showed moderate interstitial edema, and multifocal bilateral alveolar infiltrates, and the possibilities include community-acquired pneumonia and fluid overload related to new onset congestive heart failure diastolic, acute on chronic. Ejection fraction by echo 55-60%. #2. Dyspnea, chest congestion, cough with sputum production, leukocytosis, possible pneumonia. #3. Lactic acidosis, possibly related to sepsis #4. Leukocytosis #5. Open weeping cellulitis and wounds on bilateral lower extremities #6. Elevated troponins, could be related to sepsis, not suggestive of acute coronary syndrome, LV function normal #7. Elevated d-dimer, CT angios is pending #8. Previous hx of myocardial infarction #9. Diabetes mellitus, with diabetic neuropathy #10. Hypertension, hyperlipidemia #11. Morbid obesity #12. History of polio syndrome as a child #13. Remote history of smoking, patient quit at age of 26, smoked a pack a day for 10 years. Plan Cardiology's perspective, we'll recommend to continue the patient on current dose of PO Lasix. Blood pressure was elevated earlier this morning the patient was quite agitated, we'll recheck the blood pressure, if necessary make medication adjustments otherwise continue current medications. DNP note has been reviewed, I agree with a documented findings and plan of care. Patient was seen and examined.
[2018-09-04 12:18] LABS: Glucose,Whole Blood 193 mg/dL (75-99)
[2018-09-04] MEDS: DOCUSATE 100 MG CAP PO PRN (12:38)
--- NOTE | 2018-09-04 15:20 | P.PN ---
Subjective Progress Note Date: 09/04/18 Principal diagnosis: Acute hypoxic respiratory failure secondary to an acute exacerbation of diastolic congestive heart failure. This is a 63-year-old white male patient that we relocated to [facility] from [facility], and has not yet established himself with a primary care physician. Patient presented to the emergency department on 2017 at 2200 were evaluation of worsening shortness of breath, increased chest congestion, cough with production of yellow sputum, sweating. His she'll onset of symptoms was last week, and became progressively worse. Patient states 2 weeks ago he received the influenza and pneumococcal vaccine at his doctor's office in [place]. His son has also had the symptoms of cold. Patient denied any chest pain. Is positive for orthopnea. No hemoptysis. No chest wall pain. Past medical history is significant for diabetes mellitus, morbid obesity , remote history of smoking, retention, hyperlipidemia, previous episode of PR, patient had the polio syndrome in his childhood, has affected his lower extremity strength. Patient is able to ambulate with crutches. Has never been diagnosed with any chronic lung condition, no history of COPD, has never been diagnosed with obstructive sleep apnea, but does snore. Chest x-ray was taken in the emergency department and showed mild to moderate interstitial edema with multifocal bilateral alveolar edema and/or infiltrates. EKG showed sinus rhythm with frequent runs of PVCs, and left bundle branch block. Lab work showed significant leukocytosis with WBC of 26.2, hemoglobin of 13.2, platelet count was 512, d-dimer was 1.86, and electrocerebral profile were all within normal limits. Troponins were 0.020, 0.091, 0.094. ProBNP was within normal limits at 584. Patient has mild lactic acidosis with lactic acid of 2.3. This morning's lab work shows WBC is down to 13.8. Patient has been afebrile, in the emergency department he was placed on BiPAP support for significant respiratory distress, this morning he seen on selective care unit, still on BiPAP, with pressures of 12/6, and FiO2 of 35%. He was started on IV diuretics at 40 mg every 8 hours, breathing easier. Patient has chronic lower extremity edema, cellulitis, and there are open areas with drainage of clear yellow fluid from his bilateral lower extremities that are quite erythematous. Patient states he was on vancomycin for the treatment of bilateral lower extreme cellulitis, but denies history of MRSA. He was started on Levaquin and vancomycin. Nebulized bronchodilators. Patient is scheduled for CT angios of the chest this afternoon. On 09/01/2018 patient seen in follow-up on selective care unit. He was off the BiPAP support, currently on 3 L per nasal cannula his pulse ox is 92%, he is afebrile, slightly tachycardic at times, with heart rate ranging from 99 to 115 BPM. Denies any chest pain, breathing easier today, lung sounds are clear on today's exam. He continues to diurese, remains on Lasix at 40 mg every 8 hours. Bilateral lower extremity edema is improving, blood cultures remain negative, no fever or chills. ID service is following, patient is currently on combination of Levaquin, vancomycin, and kefzol was added. Overall doing better , feeling better, he sitting up in a chair, no acute complaints at this time. On 09/02/2018 patient seen in follow-up. Breathing easier, however still complains of orthopnea. He has been wearing his BiPAP machine at bedtime. Currently sitting up in the chair, on 3 L per nasal cannula his pulse ox is 93% , he is afebrile. Reveal fine crackles at the bases, no significant wheezing, no cough, no sputum production. Blood cultures remain negative, fluid balance is negative, still has bilateral lower extremity edema, although it's improving , bilateral lower legs are wrapped with dry dressing, ID service is following. Current antibiotic coverage includes Levaquin, vancomycin and Kefzol. No acute events overnight. He remains on IV Lasix at 40 mg every 8 hours, continues improved. On 09/03/2018 patient seen in follow-up on selective care unit. He sitting up in the chair, reading is improved, he is on 3 L per nasal cannula, his pulse ox is 93%, he is afebrile, vital signs are stable, his blood cultures remain negative. Today's labs were reviewed, there PVCs 12.8, hemoglobin is 11.5, electrolytes and renal profile are all within normal limits. Very minimal cough , no sputum production, lung and redness to his leg is improving, no significant pain. And is receiving local wound care was also over, and Mik wrap. On IV Cefazolin and levaquin, his IV diuretics have been transitioned to oral. In negative fluid balance. The patient is seen again today 09/04/2018 in follow-up on the selective care unit. He is currently sitting up in a chair at the bedside. He is breathing easier today as compared to yesterday. No worsening shortness of breath, cough or congestion. Maintaining good O2 saturations in the low 90s on room air. Blood cultures negative. White count 13.7. Hemoglobin 11.1. Creatinine 0.88. His currently on oral Lasix. He remains in a negative balance. Less peripheral edema. Objective - Vital Signs Vital signs: Vital Signs Temp 99.2 F 09/04/18 12:00 Pulse 70 09/04/18 12:00 Resp 18 09/04/18 12:00 BP 135/67 09/04/18 12:00 Pulse Ox 92 L 09/04/18 12:00 Intake & Output 09/03/18 09/04/18 09/04/18 18:59 06:59 18:59 Intake Total 800 150 935 Output Total 1600 2450 600 Balance -800 -2300 335 Weight 121.2 kg Intake: IV 20 30 15 Invasive Line 4 10 Invasive Line 5 10 30 5 Invasive Line 6 10 Oral 780 120 920 Output: Urine 1600 2450 600 Other: Voiding Method Urinal Urinal Urinal # Voids 2 1 2 # Bowel Movements 1 1 - Exam - Exam GENERAL EXAM: Alert, pleasant 63-year-old obese white male, on room air. Improved. HEAD: Normocephalic/atraumatic. EYES: Normal reaction of pupils, equal size. Conjunctiva pink, sclera white. NOSE: Clear with pink turbinates. THROAT: No erythema or exudates. NECK: No masses, no JVD, no thyroid enlargement, no adenopathy. CHEST: No chest wall deformity. Symmetrical expansion. LUNGS: Equal air entry with fine bibasilar rales, but no rhonchi, no wheezes CVS: Regular rate and rhythm, normal S1 and S2, no gallops, no murmurs, no rubs ABDOMEN: Soft, nontender. No hepatosplenomegaly, normal bowel sounds, no guarding or rigidity. EXTREMITIES: No clubbing, patient has nonpitting edema, bilateral lower extremity cellulitis, and open weeping areas on bilateral lower extremities, legs are covered with dressings, and Mik wraps. MUSCULOSKELETAL: Muscle strength and tone normal. SPINE: No scoliosis or deformity SKIN: No rashes CENTRAL NERVOUS SYSTEM: Alert and oriented -3. No focal deficits, tone is normal in all 4 extremities. PSYCHIATRIC: Alert and oriented -3. Appropriate affect. Intact judgment and insight. - Labs CBC & Chem 7: 09/04/18 06:30 09/04/18 06:30 Labs: Abnormal Lab Results - Last 24 Hours (Table) 09/03/18 09/03/18 09/04/18 Range/Units 17:54 20:57 06:21 WBC (3.8-10.6) k/uL RBC (4.30-5.90) m/uL Hgb (13.0-17.5) gm/dL Hct (39.0-53.0) % Plt Count (150-450) k/uL BUN (9-20) mg/dL Glucose (74-99) mg/dL POC Glucose (mg/dL) 169 H 249 H 166 H (75-99) mg/dL 09/04/18 09/04/18 09/04/18 Range/Units 06:30 06:30 11:53 WBC 13.7 H (3.8-10.6) k/uL RBC 3.75 L (4.30-5.90) m/uL Hgb 11.1 L (13.0-17.5) gm/dL Hct 32.9 L (39.0-53.0) % Plt Count 452 H (150-450) k/uL BUN 22 H (9-20) mg/dL Glucose 148 H (74-99) mg/dL POC Glucose (mg/dL) 193 H (75-99) mg/dL Microbiology - Last 24 Hours (Table) 08/31/18 01:09 Blood Culture - Preliminary Blood No Growth after 96 hours 08/31/18 01:09 Blood Culture - Preliminary Blood No Growth after 96 hours Assessment and Plan Assessment: Assessment: #1. Acute hypoxemic respiratory failure, requiring BiPAP support, chest x-ray showed moderate interstitial edema, and multifocal bilateral alveolar infiltrates, and the possibilities include community-acquired pneumonia and fluid overload related to new onset diastolic congestive heart failure #2. Dyspnea, chest congestion, cough with sputum production, leukocytosis related to a possibility of pneumonia and improved. #3. Lactic acidosis, possibly related to sepsis, source is under investigation , blood cultures reveal no growth. #4. Leukocytosis, recovered. #5. Open weeping cellulitis and wounds on bilateral lower extremities #6. Elevated troponins, could be related to sepsis #7. Elevated d-dimer, CT angios is pending #8. Previous episode of myocardial infarction #9. Diabetes mellitus, with diabetic neuropathy #10. Hypertension, hyperlipidemia #11. Morbid obesity #12. History of polio syndrome as a child #13. Remote history of smoking, patient quit at age of 26, smoked a pack a day for 10 years. Plan: The patient was seen and evaluated by Dr. Carrion. He is currently stable from the pulmonary standpoint. Maintaining O2 saturations in the 90s on room air. He remains on a negative balance. Less peripheral edema. Less shortness of breath. We will increase his activity as tolerated. We'll continue to follow. I, the cosigning physician, performed a history & physical examination of the patient. Lungs sounds with faint crackles in the chair crackles. Maintaining good O2 saturations in the 90s on room air. I discussed the assessment and plan of care with my nurse practitioner, Jayshree Nice. I attest to the above note as dictated by her.
[2018-09-04 17:18] LABS: Glucose,Whole Blood 187 mg/dL (75-99)
[2018-09-04] MEDS: ACETAMINOPHEN TAB 325 MG TAB PO PRN (19:41)
[2018-09-04 20:51] LABS: Glucose,Whole Blood 153 mg/dL (75-99)
[2018-09-04] MEDS: INSULIN DETEMIR 100 UNIT/ML 10 ML VIAL SQ SCH (21:59)
[2018-09-05] MEDS: ceFAZolin IN SWFI 2 GM/20 ML SYRINGE IVP SCH ×3 (00:33→11:54)
[2018-09-05 05:55] LABS: Glucose,Whole Blood 181 mg/dL (75-99)
[2018-09-05] MEDS: INSULIN ASPART 100 UNIT/ML 1 ML 10 ML VIAL SQ SCH ×7 (06:59→22:35)
[2018-09-05] MEDS: IPRATROPIUM-ALBUTEROL 3 ML NEB INHALATION SCH ×4 (07:37→19:49)
[2018-09-05] MEDS: METOPROLOL TARTRATE 25 MG TAB PO SCH ×2 (08:19→20:48)
[2018-09-05] MEDS: ASPIRIN 81 MG PO SCH (08:19)
[2018-09-05] MEDS: FAMOTIDINE 20 MG TAB PO SCH ×2 (08:19→20:47)
[2018-09-05] MEDS: FUROSEMIDE 80 MG TAB PO SCH ×2 (08:19→16:28)
[2018-09-05] MEDS: VITAMIN E (DL,TOCOPHERYL ACET) 400 UNIT CAP PO SCH ×2 (08:20→20:47)
[2018-09-05] MEDS: cloNIDine HCL 0.2 MG TAB PO SCH ×3 (08:20→20:47)
[2018-09-05] MEDS: LISINOPRIL 20 MG TAB PO SCH (08:20)
[2018-09-05] MEDS: GABAPENTIN 100 MG CAP PO SCH ×2 (08:21→20:47)
[2018-09-05] MEDS: amLODIPine 10 MG TAB PO SCH (08:21)
[2018-09-05] MEDS: HEPARIN SODIUM,PORCINE 5,000 UNIT/ML 1 ML VIAL SQ SCH ×2 (08:22→20:47)
[2018-09-05] MEDS: LEVOFLOXACIN 750 MG TAB PO SCH (08:22)
[2018-09-05] MEDS: MULTIVITAMINS, THERA 1 EACH TAB PO SCH (08:26)
[2018-09-05 09:10] LABS: Basophils # (A) 0.1 k/uL (0-0.2); Basophils % (A) 0 %; Eosinophils # (A) 0.7 k/uL (0-0.7); Eosinophils % (A) 5 %; HGB 11.4 gm/dL (13.0-17.5); Lymphocytes # (A) 1.5 k/uL (1.0-4.8); Lymphocytes % (A) 10 %; MCH 29.5 pg (25.0-35.0); MCHC 33.6 g/dL (31.0-37.0); MCV 87.9 fL (80.0-100.0); Mean Platelet Volume 6.3; Monocytes # (A) 0.7 k/uL (0-1.0); Monocytes % (A) 5 %; Neutrophils # (A) 11.4 k/uL (1.3-7.7); Neutrophils % (A) 79 %; Platelet Count 481 k/uL (150-450); RBC 3.87 m/uL (4.30-5.90); RDW 13.9 % (11.5-15.5); WBC 14.5 k/uL (3.8-10.6)
[2018-09-05] MEDS: DOCUSATE 100 MG CAP PO PRN (10:49)
[2018-09-05] MEDS: NYSTATIN 100,000 UNIT/GM POWD 15 GM TOPICAL SCH ×2 (10:50→20:48)
[2018-09-05 11:44] LABS: Glucose,Whole Blood 198 mg/dL (75-99)
--- NOTE | 2018-09-05 12:06 | P.PN ---
Subjective This is a 63-year-old white male patient that we relocated to [facility] from [facility], and has not yet established himself with a primary care physician. Patient presented to the emergency department on 2017 at 2200 were evaluation of worsening shortness of breath, increased chest congestion, cough with production of yellow sputum, sweating. His she'll onset of symptoms was last week, and became progressively worse. Patient states 2 weeks ago he received the influenza and pneumococcal vaccine at his doctor's office in [place]. His son has also had the symptoms of cold. Patient denied any chest pain. Is positive for orthopnea. No hemoptysis. No chest wall pain. Past medical history is significant for diabetes mellitus, morbid obesity , remote history of smoking, retention, hyperlipidemia, previous episode of MD, patient had the polio syndrome in his childhood, has affected his lower extremity strength. Patient is able to ambulate with crutches. EKG on admission here showed normal sinus rhythm with runs of PVCs, left bundle-branch block pattern. White blood cell count on admission 26.2, hemoglobin 13.2, platelet count 512, d-dimer 1.86, troponins 0.02, 0.09, 0.09. BNP 584. Mild lactic acidosis with lactic acid 2.3. CTA of the chest was negative for pulmonary embolism. Patient has chronic lower extremity edema, cellulitis, and open areas of drainage. He he was on vancomycin in the past for this. The patient was initiated on IV Lasix in the hospital, he's been diuresing well from that. Sitting up at the side of bed this morning, states that he has been putting out a significant amount of urine overall. Blood pressure 150/60 with a heart rate in the 50s, 95% on 3 L of oxygen. White blood cell count 12.4, hemoglobin 11.4, platelet count 365. Sodium 140, potassium 4.3, BUN 12, creatinine 0.8. 09/02/2018 Patient seen and examined this morning, still complains of feeling short of breath, continues to have cough although he says is improved from yesterday. Denies any chest discomfort. Blood pressure 132/70 with a heart rate in the 60s , 93% on 3 L of oxygen. White blood cell count 11.9, hemoglobin 11.3, platelet count 399. Sodium 139, potassium 4.3, BUN 14, creatinine 0.8. Magnesium 2.0. Weight is down 1 kg today. And tinnitus to be on IV Lasix 40 mg every 8 hourly. We will get a repeat chest x-ray tomorrow. Echocardiogram with Doppler study revealed an ejection fraction of 55-60%. 09/04/2018 Patient seen and examined this morning, overall states that his breathing is improving. Continues to have cough however much improved. Denies any chest discomfort, still feels weak. Continues to run low-grade temperatures. Currently on by mouth diuretics. 09/05/2018. The patient was seen and examined. Breathing has improved. Continues to have lower extremity edema. He is keeping his legs wrapped and elevated. Denies any chest pain or shortness of breath at rest. Continues on oral Lasix. Hemodynamically stable. Objective - Vital Signs Vital signs: Vital Signs Temp 99.1 F 09/05/18 11:13 Pulse 62 09/05/18 11:24 Resp 19 09/05/18 11:15 BP 138/80 09/05/18 11:13 Pulse Ox 94 L 09/05/18 11:13 Intake & Output 09/04/18 09/05/18 09/05/18 18:59 06:59 18:59 Intake Total 1205 270 260 Output Total 600 2200 650 Balance 605 -1930 -390 Weight 119.3 kg Intake: IV 25 30 20 Invasive Line 5 5 Invasive Line 6 20 30 20 Oral 1180 240 240 Output: Urine 600 2200 650 Other: Voiding Method Urinal Urinal Urinal # Voids 2 1 1 # Bowel Movements 1 1 - Exam GENERAL EXAM: Alert, pleasant 63-year-old obese white male. HEAD: Normocephalic/atraumatic. EYES: Normal reaction of pupils, equal size. Conjunctiva pink, sclera white. NOSE: Clear with pink turbinates. THROAT: No erythema or exudates. NECK: No masses, no JVD, no thyroid enlargement, no adenopathy. CHEST: No chest wall deformity. Symmetrical expansion. LUNGS: Equal air entry with diminished breath sounds at the bases posteriorly. CVS: Regular rate and rhythm, normal S1 and S2, no gallops, no murmurs, no rubs ABDOMEN: Soft, nontender. No hepatosplenomegaly, normal bowel sounds, no guarding or rigidity. EXTREMITIES: No clubbing, patient has nonpitting edema, bilateral lower extremity cellulitis, and open weeping areas on bilateral lower extremities MUSCULOSKELETAL: Muscle strength and tone normal. SPINE: No scoliosis or deformity SKIN: No rashes CENTRAL NERVOUS SYSTEM: Alert and oriented -3. No focal deficits, tone is normal in all 4 extremities. PSYCHIATRIC: Alert and oriented -3. Appropriate affect. Intact judgment and insight. - Labs CBC & Chem 7: 09/05/18 08:45 09/04/18 06:30 Labs: Abnormal Lab Results - Last 24 Hours (Table) 09/04/18 09/04/18 09/04/18 Range/Units 11:53 17:00 20:46 WBC (3.8-10.6) k/uL RBC (4.30-5.90) m/uL Hgb (13.0-17.5) gm/dL Hct (39.0-53.0) % Plt Count (150-450) k/uL Neutrophils # (1.3-7.7) k/uL POC Glucose (mg/dL) 193 H 187 H 153 H (75-99) mg/dL 09/05/18 09/05/18 09/05/18 Range/Units 05:51 08:45 11:42 WBC 14.5 H (3.8-10.6) k/uL RBC 3.87 L (4.30-5.90) m/uL Hgb 11.4 L (13.0-17.5) gm/dL Hct 34.0 L (39.0-53.0) % Plt Count 481 H (150-450) k/uL Neutrophils # 11.4 H (1.3-7.7) k/uL POC Glucose (mg/dL) 181 H 198 H (75-99) mg/dL Microbiology - Last 24 Hours (Table) 08/31/18 01:09 Blood Culture - Preliminary Blood No Growth after 120 hours 08/31/18 01:09 Blood Culture - Preliminary Blood No Growth after 120 hours Assessment and Plan Assessment: #1. Acute hypoxemic respiratory failure, requiring BiPAP support, chest x-ray showed moderate interstitial edema, and multifocal bilateral alveolar infiltrates, and the possibilities include community-acquired pneumonia and fluid overload related to new onset congestive heart failure diastolic, acute on chronic. Ejection fraction by echo 55-60%. #2. Dyspnea, chest congestion, cough with sputum production, leukocytosis, possible pneumonia. #3. Lactic acidosis, possibly related to sepsis #4. Leukocytosis #5. Open weeping cellulitis and wounds on bilateral lower extremities #6. Elevated troponins, could be related to sepsis, not suggestive of acute coronary syndrome, LV function normal #7. Elevated d-dimer, CT angios is pending #8. Previous hx of myocardial infarction #9. Diabetes mellitus, with diabetic neuropathy #10. Hypertension, hyperlipidemia #11. Morbid obesity #12. History of polio syndrome as a child #13. Remote history of smoking, patient quit at age of 26, smoked a pack a day for 10 years. Plan: Continue with current dose of oral Lasix. Continue to encourage leg elevation and wrap with Mik wrap. Increase activity as tolerated. Patient's blood pressure is better controlled today and no further recommendations at this time. We will continue to follow him closely. PYROTECHNICIAN note has been reviewed, I agree with a documented findings and plan of care. Patient was seen and examined.
--- NOTE | 2018-09-05 12:58 | P.PN ---
Subjective Progress Note Date: 09/05/18 Principal diagnosis: Gwendolyn seen today in follow up for Acute hypoxic respiratory failure due to acute / chronic diastolic CHF and CAP, and leg cellulitis Patient was seen and examined today, patient reports breathing better today, however he is concerned regarding allergen side effect from his IV antibiotic as he reported that he is ALLERGIC to penicillin and he's feeling hot flashes every time he gets the IV antibiotic and he has been refusing further doses since yesterday. He was noted to have subclinical fevers and his white count has been trending up. He continues to report generalized weakness and deconditioning Objective - Vital Signs Vital signs: Vital Signs Temp 99.1 F 09/05/18 11:13 Pulse 62 09/05/18 11:24 Resp 19 09/05/18 11:15 BP 138/80 09/05/18 11:13 Pulse Ox 94 L 09/05/18 11:13 Intake & Output 09/04/18 09/05/18 09/05/18 18:59 06:59 18:59 Intake Total 1205 270 260 Output Total 600 2200 650 Balance 605 -1930 -390 Weight 119.3 kg Intake: IV 25 30 20 Invasive Line 5 5 Invasive Line 6 20 30 20 Oral 1180 240 240 Output: Urine 600 2200 650 Other: Voiding Method Urinal Urinal Urinal # Voids 2 1 1 # Bowel Movements 1 1 - Exam Constitutional: vital signs stable, Not in acute distress, pleasant, conversant Lungs: Clear to auscultation bilaterally, clear to percussion, normal respiratory effort no use of accessory muscles Cardiovascular: Regular rate and rhythm, no murmurs, no gallops, no rubs, +1 peripheral edema Gastrointestinal: Soft, no tenderness to palpation, no palpable hepatosplenomegally, bowel sounds positive, no abdominal wall hernias Extremities: left leg larger than right (due to history of polio) , there is small ulcer at the proximal part on the dorsum of the right second toe erythema and swelling of the feet and chronic skin changes of bilateral legs, Mik wrap in place Psych: Alert, oriented to place, person and time, appropriate affect, intact judgment - Labs CBC & Chem 7: 09/05/18 08:45 09/04/18 06:30 Labs: Abnormal Lab Results - Last 24 Hours (Table) 09/04/18 09/04/18 09/05/18 Range/Units 17:00 20:46 05:51 WBC (3.8-10.6) k/uL RBC (4.30-5.90) m/uL Hgb (13.0-17.5) gm/dL Hct (39.0-53.0) % Plt Count (150-450) k/uL Neutrophils # (1.3-7.7) k/uL POC Glucose (mg/dL) 187 H 153 H 181 H (75-99) mg/dL 09/05/18 09/05/18 Range/Units 08:45 11:42 WBC 14.5 H (3.8-10.6) k/uL RBC 3.87 L (4.30-5.90) m/uL Hgb 11.4 L (13.0-17.5) gm/dL Hct 34.0 L (39.0-53.0) % Plt Count 481 H (150-450) k/uL Neutrophils # 11.4 H (1.3-7.7) k/uL POC Glucose (mg/dL) 198 H (75-99) mg/dL Microbiology - Last 24 Hours (Table) 08/31/18 01:09 Blood Culture - Preliminary Blood No Growth after 120 hours 08/31/18 01:09 Blood Culture - Preliminary Blood No Growth after 120 hours Assessment and Plan Assessment: Patient is a 63-year-old morbidly obese male with a past medical history of hypertension, diabetes with peripheral neuropathy, and prior tobacco abuse who presented to the ER via EMS with chief complaint of shortness of breath. In the ER he was found to be severely hypoxic with saturations in the 80s. He was placed on supplemental oxygen and then eventually BiPAP. The ER he was given a dose of Lasix after a chest x-ray was obtained which showed pulmonary edema. He was admitted for further monitoring. He has been seen by pulmonary who felt that his interstitial edema was likely related to community- acquired pneumonia versus fluid overload. They recommended keeping patient on nasal cannula, a CTA of the chest which was negative for pulmonary embolism, and continue with Levaquin and vancomycin. He was evaluated by cardiology. He underwent an echocardiogram which showed a preserved ejection fraction of 55-60 % but did show LVH and diastolic dysfunction. Bilateral lower extremity venous Dopplers were negative. He was seen by Dr. Campuzano of infectious disease. He recommended continuing Levaquin and vancomycin for bilateral lower extremity cellulitis likely secondary to gram-positive skin christal. Patient does have a penicillin ALLERGY which was limited his choice of antibiotics, cefazolin was also added. They also placed bilateral Mik wraps to help with edema. He has been slowly diuresing. His blood sugars has been going up and A1C is 9.1 09/04 patient is seen and examined, he had subclinical fever overnight, white count with slight bump, still reports some congestion, he did not feel that he is ready to go home. He will be evaluated for ambulatory oxygen saturation, if this is low on room air, he would probably benefit from another day in the hospital , while diuresing and to continue close observation of his vital signs and temp. patient is feeling generalized weakness and fatigue since he has been in the hospital , however, declined the offer for JUSTIN evaluation, and preferred to go home. He is to continue his current medications without any modification today. 09/05 Patient reporting breathing is better however he continues to have subclinical fevers. Patient is reporting hot flashes whenever he gets the IV antibiotics and he has been refusing further doses since yesterday. His white count has elevated today. Cardiology recommending to continue current dose of Lasix no further recommendations at this time. Patient will be kept in the hospital today for further evaluation tomorrow by infectious disease specialist and follow-up on his temperature and white count. I switched his IV cephalosporin to Bactrim due to patient's concerns regarding ALLERGIC reaction Plan: Acute hypoxic respiratory failure , multifactorial due to Acute pulmonary edema due to Acute exacerbation of diastolic congestive heart failure with ejection fraction 50-55%, and possible component of CAP -Continue with by mouth Lasix and daily weights strict I's and O's -Cardiology following -Lisinopril, lopressor - levaquin - ID and pulm following - breathing treatment PRN evaluate ambulatory oxygen saturation Acute hypoxic respiratory failure -Wean O2 as able -Pulmonary recommendations appreciated -Outpatient PSG Bilateral lower extremity cellulitis -Vanco discontinued on 09/01 Discontinue kefzol (patient has been refusing further doses since yesterday due to hot flashes and concerns for ALLERGIC reaction), patient started on Bactrim today -ID follow-up -Maintain Mik wrap, leg elevation Subclinical fevers and trending up leukocytosis, Elevated troponin, likely stress induced cardiology following no chest pain reported Diabetes mellitus with diabetic neuropathy -Sliding-scale insulin, fixed dose NovoLog, Levemir increased to 50 units if needs more then may benefit from split dose -A1C 9.7 -Neurontin Hypertension - Norvasc, clonidine, lisinopril, lopressor - Follow BP Dyslipidemia - fish oil Morbid obesity with BMI 46.2 - structure outpatient weight loss. History of coronary artery disease with prior myocardial infarction - ASA Patient not currently on statin Sepsis with elevated lactic acid, improved Constipation, resolved possible DC home tomorrow , pending evaluation of ambulatory oxygen saturation , follow up on WBC and temps and further ID input DVT prophylaxis: Heparin Anticipated discharge place: home with home health
--- NOTE | 2018-09-05 13:45 | P.PN ---
Subjective Progress Note Date: 09/05/18 Principal diagnosis: Acute hypoxemic respiratory failure, secondary to acute onset of congestive heart failure, and possibility of community acquired pneumonia This is a 63-year-old white male patient that we relocated to [facility] from [facility], and has not yet established himself with a primary care physician. Patient presented to the emergency department on 2017 at 2200 were evaluation of worsening shortness of breath, increased chest congestion, cough with production of yellow sputum, sweating. His she'll onset of symptoms was last week, and became progressively worse. Patient states 2 weeks ago he received the influenza and pneumococcal vaccine at his doctor's office in [place]. His son has also had the symptoms of cold. Patient denied any chest pain. Is positive for orthopnea. No hemoptysis. No chest wall pain. Past medical history is significant for diabetes mellitus, morbid obesity , remote history of smoking, retention, hyperlipidemia, previous episode of PR, patient had the polio syndrome in his childhood, has affected his lower extremity strength. Patient is able to ambulate with crutches. Has never been diagnosed with any chronic lung condition, no history of COPD, has never been diagnosed with obstructive sleep apnea, but does snore. Chest x-ray was taken in the emergency department and showed mild to moderate interstitial edema with multifocal bilateral alveolar edema and/or infiltrates. EKG showed sinus rhythm with frequent runs of PVCs, and left bundle branch block. Lab work showed significant leukocytosis with WBC of 26.2, hemoglobin of 13.2, platelet count was 512, d-dimer was 1.86, and electrocerebral profile were all within normal limits. Troponins were 0.020, 0.091, 0.094. ProBNP was within normal limits at 584. Patient has mild lactic acidosis with lactic acid of 2.3. This morning's lab work shows WBC is down to 13.8. Patient has been afebrile, in the emergency department he was placed on BiPAP support for significant respiratory distress, this morning he seen on selective care unit, still on BiPAP, with pressures of 12/6, and FiO2 of 35%. He was started on IV diuretics at 40 mg every 8 hours, breathing easier. Patient has chronic lower extremity edema, cellulitis, and there are open areas with drainage of clear yellow fluid from his bilateral lower extremities that are quite erythematous. Patient states he was on vancomycin for the treatment of bilateral lower extreme cellulitis, but denies history of MRSA. He was started on Levaquin and vancomycin. Nebulized bronchodilators. Patient is scheduled for CT angios of the chest this afternoon. On 09/01/2018 patient seen in follow-up on selective care unit. He was off the BiPAP support, currently on 3 L per nasal cannula his pulse ox is 92%, he is afebrile, slightly tachycardic at times, with heart rate ranging from 99 to 115 BPM. Denies any chest pain, breathing easier today, lung sounds are clear on today's exam. He continues to diurese, remains on Lasix at 40 mg every 8 hours. Bilateral lower extremity edema is improving, blood cultures remain negative, no fever or chills. ID service is following, patient is currently on combination of Levaquin, vancomycin, and kefzol was added. Overall doing better , feeling better, he sitting up in a chair, no acute complaints at this time. On 09/02/2018 patient seen in follow-up. Breathing easier, however still complains of orthopnea. He has been wearing his BiPAP machine at bedtime. Currently sitting up in the chair, on 3 L per nasal cannula his pulse ox is 93% , he is afebrile. Reveal fine crackles at the bases, no significant wheezing, no cough, no sputum production. Blood cultures remain negative, fluid balance is negative, still has bilateral lower extremity edema, although it's improving , bilateral lower legs are wrapped with dry dressing, ID service is following. Current antibiotic coverage includes Levaquin, vancomycin and Kefzol. No acute events overnight. He remains on IV Lasix at 40 mg every 8 hours, continues improved. On 09/03/2018 patient seen in follow-up on selective care unit. He sitting up in the chair, reading is improved, he is on 3 L per nasal cannula, his pulse ox is 93%, he is afebrile, vital signs are stable, his blood cultures remain negative. Today's labs were reviewed, there PVCs 12.8, hemoglobin is 11.5, electrolytes and renal profile are all within normal limits. Very minimal cough , no sputum production, lung and redness to his leg is improving, no significant pain. And is receiving local wound care was also over, and Mik wrap. On IV Cefazolin and levaquin, his IV diuretics have been transitioned to oral. In negative fluid balance. On 09/05/2018 patient seen in follow-up on selective care unit. He is sitting up in the chair, in no acute distress, he is currently on 2 L per nasal cannula , his pulse ox is 94%, he is afebrile, respirations are even and nonlabored. Lung sounds positive for a few rhonchi, no rales, no wheezes. Denies to diuresis, he is maintaining negative fluid balance. Blood cultures remain negative, no fever or chills. Edema in bilateral lower extremities is improving , and antibiotic coverage includes Levaquin and Bactrim. Objective - Vital Signs Vital signs: Vital Signs Temp 99.1 F 09/05/18 11:13 Pulse 62 09/05/18 11:24 Resp 19 09/05/18 11:15 BP 138/80 09/05/18 11:13 Pulse Ox 94 L 09/05/18 11:13 Intake & Output 09/04/18 09/05/18 09/05/18 18:59 06:59 18:59 Intake Total 1205 270 260 Output Total 600 2200 650 Balance 605 -1930 -390 Weight 119.3 kg Intake: IV 25 30 20 Invasive Line 5 5 Invasive Line 6 20 30 20 Oral 1180 240 240 Output: Urine 600 2200 650 Other: Voiding Method Urinal Urinal Urinal # Voids 2 1 1 # Bowel Movements 1 1 - Exam GENERAL EXAM: Alert, pleasant 63-year-old obese white male, on nasal cannula at 3 L HEAD: Normocephalic/atraumatic. EYES: Normal reaction of pupils, equal size. Conjunctiva pink, sclera white. NOSE: Clear with pink turbinates. THROAT: No erythema or exudates. NECK: No masses, no JVD, no thyroid enlargement, no adenopathy. CHEST: No chest wall deformity. Symmetrical expansion. LUNGS: Equal air entry with a few rhonchi, no wheezes CVS: Regular rate and rhythm, normal S1 and S2, no gallops, no murmurs, no rubs ABDOMEN: Soft, nontender. No hepatosplenomegaly, normal bowel sounds, no guarding or rigidity. EXTREMITIES: No clubbing, patient has nonpitting edema, bilateral lower extremity cellulitis, and open weeping areas on bilateral lower extremities, legs are covered with dressings, and Mik wraps. MUSCULOSKELETAL: Muscle strength and tone normal. SPINE: No scoliosis or deformity SKIN: No rashes CENTRAL NERVOUS SYSTEM: Alert and oriented -3. No focal deficits, tone is normal in all 4 extremities. PSYCHIATRIC: Alert and oriented -3. Appropriate affect. Intact judgment and insight. - Labs CBC & Chem 7: 09/05/18 08:45 09/04/18 06:30 Labs: Abnormal Lab Results - Last 24 Hours (Table) 09/04/18 09/04/18 09/05/18 Range/Units 17:00 20:46 05:51 WBC (3.8-10.6) k/uL RBC (4.30-5.90) m/uL Hgb (13.0-17.5) gm/dL Hct (39.0-53.0) % Plt Count (150-450) k/uL Neutrophils # (1.3-7.7) k/uL POC Glucose (mg/dL) 187 H 153 H 181 H (75-99) mg/dL 09/05/18 09/05/18 Range/Units 08:45 11:42 WBC 14.5 H (3.8-10.6) k/uL RBC 3.87 L (4.30-5.90) m/uL Hgb 11.4 L (13.0-17.5) gm/dL Hct 34.0 L (39.0-53.0) % Plt Count 481 H (150-450) k/uL Neutrophils # 11.4 H (1.3-7.7) k/uL POC Glucose (mg/dL) 198 H (75-99) mg/dL Microbiology - Last 24 Hours (Table) 08/31/18 01:09 Blood Culture - Preliminary Blood No Growth after 120 hours 08/31/18 01:09 Blood Culture - Preliminary Blood No Growth after 120 hours Assessment and Plan Plan: Assessment: #1. Acute hypoxemic respiratory failure, requiring BiPAP support, chest x-ray showed moderate interstitial edema, and multifocal bilateral alveolar infiltrates, and the possibilities include community-acquired pneumonia and fluid overload related to new onset congestive heart failure #2. Dyspnea, chest congestion, cough with sputum production, leukocytosis related to a possibility of pneumonia #3. Lactic acidosis, possibly related to sepsis, source is under investigation #4. Leukocytosis #5. Open weeping cellulitis and wounds on bilateral lower extremities #6. Elevated troponins, could be related to sepsis #7. Elevated d-dimer, CT angios is pending #8. Previous episode of myocardial infarction #9. Diabetes mellitus, with diabetic neuropathy #10. Hypertension, hyperlipidemia #11. Morbid obesity #12. History of polio syndrome as a child #13. Remote history of smoking, patient quit at age of 26, smoked a pack a day for 10 years. Plan: Continue oral diuretics, maintaining negative fluid balance, no ongoing fever or chills, antibiotics per ID service recommendations. Continue bronchodilators. From pulmonary standpoint patient could be considered for discharge in the next 24 hours. I performed a history & physical examination of the patient and discussed their management with my nurse practitioner, Kandy Kelley. I reviewed the nurse practitioner's note and agree with the documented findings and plan of care. Lung sounds are positive for a few rhonchi. The findings and the impression was discussed with the patient. I attest to the documentation by the nurse practitioner. Time with Patient: Less than 30
[2018-09-05] MEDS: SULFAMETHOX-TMP 800-160MG 1 EACH TAB PO SCH ×2 (16:29→20:48)
[2018-09-05 17:09] LABS: Glucose,Whole Blood 156 mg/dL (75-99)
[2018-09-05 20:44] LABS: Glucose,Whole Blood 194 mg/dL (75-99)
[2018-09-05] MEDS: INSULIN DETEMIR 100 UNIT/ML 10 ML VIAL SQ SCH (22:36)
[2018-09-06] MEDS: ACETAMINOPHEN TAB 325 MG TAB PO PRN (00:34)
--- NOTE | 2018-09-06 00:52 | PN ---
PROGRESS NOTE DATE OF SERVICE: 09/05/2018. REASON FOR FOLLOWUP: Bilateral lower extremity cellulitis. INTERVAL HISTORY: The patient is currently afebrile. He has been breathing comfortably. Denies having any chest pain. Breathing has slightly improved. No nausea, no vomiting, No abdominal pain or any pain to the leg area. Apparently the patient was complaining of some everytime he gets IV antibiotic, hence antibiotic has been switched to Bactrim DS. EXAMINATION: Blood pressure is 146/67 with a pulse of 92, temperature 98.9, he is 96% on 2 L nasal cannula. GENERAL DESCRIPTION: A middle-aged male up in the chair in no distress. RESPIRATORY SYSTEM: Unlabored breathing. Decreased breath sounds in the base. HEART: S1 and S2. Regular rate and rhythm. ABDOMEN: Soft. EXTREMITIES: Legs with no obvious drainage on the dressing. LABS: Hemoglobin 11.4, white count 14.5. DIAGNOSTIC IMPRESSION AND PLAN: Patient with bilateral extremity cellulitis, more likely streptococcal disease. Unfortunately, the patient has been refusing cefazolin and has been switched to p.o. Bactrim. We can continue for about a week. Continue with lower extremity Mik wrap to keep the swelling down. Continue supportive care. MMODL / IJN: [id number] /
[2018-09-06 02:53] LABS: Glucose,Whole Blood 129 mg/dL (75-99)
[2018-09-06] MEDS: INSULIN ASPART 100 UNIT/ML 1 ML 10 ML VIAL SQ SCH ×4 (06:38→12:21)
[2018-09-06 07:04] LABS: Basophils % (A) 0 %; Eosinophils # (A) 0.7 k/uL (0-0.7); Eosinophils % (A) 6 %; HCT 36.7 % (39.0-53.0); HGB 11.7 gm/dL (13.0-17.5); Lymphocytes % (A) 16 %; MCH 28.5 pg (25.0-35.0); MCHC 31.8 g/dL (31.0-37.0); MCV 89.5 fL (80.0-100.0); Mean Platelet Volume 6.8; Monocytes # (A) 0.8 k/uL (0-1.0); Monocytes % (A) 6 %; Neutrophils # (A) 9.1 k/uL (1.3-7.7); Neutrophils % (A) 71 %; Platelet Count 561 k/uL (150-450); WBC 12.9 k/uL (3.8-10.6)
[2018-09-06 07:14] LABS: Anion Gap 10 mmol/L; Blood Urea Nitrogen 24 mg/dL (9-20); Calcium 9.4 mg/dL (8.4-10.2); Carbon Dioxide 29 mmol/L (22-30); Chloride 102 mmol/L (98-107); Glucose 113 mg/dL (74-99); Potassium 4.7 mmol/L (3.5-5.1); Sodium 141 mmol/L (137-145)
[2018-09-06] MEDS: IPRATROPIUM-ALBUTEROL 3 ML NEB INHALATION SCH ×3 (07:30→15:22)
[2018-09-06 08:28] VITALS: RESP 16
[2018-09-06] MEDS: FUROSEMIDE 80 MG TAB PO SCH (08:31)
[2018-09-06] MEDS: MULTIVITAMINS, THERA 1 EACH TAB PO SCH (08:31)
[2018-09-06] MEDS: VITAMIN E (DL,TOCOPHERYL ACET) 400 UNIT CAP PO SCH (08:32)
[2018-09-06] MEDS: ASPIRIN 81 MG PO SCH (08:32)
[2018-09-06] MEDS: METOPROLOL TARTRATE 25 MG TAB PO SCH (08:32)
[2018-09-06] MEDS: HEPARIN SODIUM,PORCINE 5,000 UNIT/ML 1 ML VIAL SQ SCH (08:32)
[2018-09-06] MEDS: GABAPENTIN 100 MG CAP PO SCH (08:32)
[2018-09-06] MEDS: cloNIDine HCL 0.2 MG TAB PO SCH (08:32)
[2018-09-06] MEDS: LEVOFLOXACIN 750 MG TAB PO SCH (08:32)
[2018-09-06] MEDS: SULFAMETHOX-TMP 800-160MG 1 EACH TAB PO SCH (08:32)
[2018-09-06] MEDS: LISINOPRIL 20 MG TAB PO SCH (08:33)
[2018-09-06] MEDS: FAMOTIDINE 20 MG TAB PO SCH (08:33)
[2018-09-06] MEDS: amLODIPine 10 MG TAB PO SCH (08:33)
[2018-09-06] MEDS: NYSTATIN 100,000 UNIT/GM POWD 15 GM TOPICAL SCH (08:35)
--- NOTE | 2018-09-06 10:41 | P.DS ---
Providers Date of admission: 08/30/18 22:06 Expected date of discharge: 09/06/18 Attending physician: Chato Tilley MD Consults: 08/30/18 22:06 Consult Physician Routine Consulting Provider: Parth Mckeon Consult Reason/Comments: chf Do you want consulting provider notified?: Yes 08/31/18 00:55 Consult Physician Routine Consulting Provider: Toby Carrion Consult Reason/Comments: acute resp failure Do you want consulting provider notified?: Yes, Notify in am 08/31/18 00:56 Consult Physician Routine Consulting Provider: Nena Campuzano Consult Reason/Comments: Antibiotic guidance, wound care Do you want consulting provider notified?: Yes Primary care physician: Physician Nonstaff Hospital Course: Discharge Diagnosis: Acute pulmonary edema secondary to acute exacerbation of diastolic congestive heart failure with ejection fraction 50-55% Community-acquired pneumonia Acute hypoxic respiratory failure Bilateral lower extremity cellulitis with peripheral vascular disease Elevated troponin, stress-induced Diabetes mellitus type 2, poorly controlled hyperglycemia and diabetic neuropathy Hypertension Dyslipidemia Morbid obesity with BMI 44.8 Coronary artery disease with history of prior myocardial infarction Sepsis with elevated lactic acid Post polio syndrome Remote history of tobacco abuse Hospital Course: Patient is a 63-year-old morbidly obese male with a past medical history of hypertension, diabetes with peripheral neuropathy, and prior tobacco abuse who presented to the ER via EMS with chief complaint of shortness of breath. In the ER he was found to be severely hypoxic with saturations in the 80s. He was placed on supplemental oxygen and then eventually BiPAP. The ER he was given a dose of Lasix after a chest x-ray was obtained which showed pulmonary edema. He was admitted for further monitoring. He has been seen by pulmonary who felt that his interstitial edema was likely related to community- acquired pneumonia versus fluid overload. They recommended keeping patient on nasal cannula, a CTA of the chest which was negative for pulmonary embolism, and continue with Levaquin and vancomycin. He was evaluated by cardiology. He underwent an echocardiogram which showed a preserved ejection fraction of 55-60 % but did show LVH and diastolic dysfunction. Bilateral lower extremity venous Dopplers were negative. He was seen by Dr. Campuzano of infectious disease. He recommended continuing Levaquin and vancomycin for bilateral lower extremity cellulitis likely secondary to gram-positive skin christal. Patient does have a penicillin ALLERGY which was limited his choice of antibiotics, cefazolin was also added. They also placed bilateral Mik wraps to help with edema. He slowly diuresised. His blood sugars has been going up and A1C is 9.1 his long acting insulin was increased. He was having episodes of hot flashes but secondary to consult it is penicillin ALLERGY. He was therefore transition to Bactrim and Levaquin only. He is breathing was much improved and cardiology and pulmonary felt he was appropriate for discharge. Dr. Campuzano felt he could finish up course of oral antibiotics with Levaquin and Bactrim. He was subsequently discharged home. Arrangements were made to have home health with [facility]. He was given a prescription to refill all of his home medications and for new medications. He will complete an additional 7 days of Levaquin and Bactrim. He is also given a prescription to have home health draw a basic metabolic profile and complete blood count to ensure that he was not developing hyperkalemia due to the Bactrim and MIK inhibitor. He is aware of the importance of following up on this blood work. We also discussed continuing his Mik wraps at home and then transitioning to a compression stocking once swelling has decreased. Have also informed him I think he would benefit from evaluation for possible peripheral vascular disease. He will follow-up in [address] Carrion for outpatient sleep study, he will follow up with Dr. Britt cardiology, he will follow up with Dr. Campuzano of infectious disease. He is currently following with Dr. Campuzano out of [place] as his primary care physician he plans to transition to Dr. Cid here since he has moved. Patient seen and examined at bedside. He is feeling much better. No chest pain , shortness of breath is greatly improved. He is able to lay flat now. No nausea or vomiting. He is still concerned about some burning in his legs which appears to be consistent with his chronic neuropathy. We discussed the importance of continued follow-up and his homework as listed above. Vital signs reviewed and stable. General: non toxic, no distress, his older than stated age, obese Derm: Dry skin with areas of peeling on face, lower extremities within dusky violaceous appearance and scale consistent with chronic venous stasis changes, warm, dry Head: atraumatic, normocephalic, symmetric Eyes: EOMI, no lid lag, anicteric sclera Mouth: no lip lesion, mucus membranes moist Cardiovascular: S1S2 reg, no murmur, positive posterior tibial pulse bilateral, Lungs: Decreased breath sounds bilateral bases, no rhonchi, no rales , no accessory muscle use Abdominal: soft, nontender to palpation, no guarding, no appreciable organomegaly Ext: no gross muscle atrophy, 1+ edema, no contractures Neuro: CN II-XI grossly intact, no focal neuro deficits Psych: Alert, oriented, appropriate affect A total of 45 minutes of time were spent preparing this complex discharge summary . Pertinent Studies: CTA-fluid overload with pulmonary edema, groundglass confluence opacities, small to moderate right and left pleural effusions Echocardiogram-ejection fraction 55-60%, moderate LVH Venous Dopplers-no evidence of DVT but limited secondary to body habitus Patient Condition at Discharge: Stable Plan - Discharge Summary Discharge Rx Participant: No New Discharge Prescriptions: New Aspirin 81 mg PO DAILY #30 chew Furosemide [Lasix] 60 mg PO BID #180 tab Hydrocortisone Cream [Hydrocortisone 1% Cream] 1 applic TOPICAL BID 15 Days # 1 tube Ipratropium/Albuterol Sulfate [Combivent Respimat Inhaler] 2 puff INHALATION QID #1 inhaler Levofloxacin [Levaquin] 750 mg PO DAILY #7 tab Metoprolol Tartrate [Lopressor] 25 mg PO BID #60 tab Sulfamethox-Tmp 800-160Mg [Bactrim DS 800-160 mg] 1 each PO BID #14 tab Continue [place]-3 Fatty Acids/Fish Oil [Fish Oil 1,000 mg Softgel] 1 cap PO DAILY Vitamin E 1,000 units PO BID Multivitamins, Thera [Multivitamin (formulary)] 1 tab PO DAILY Insulin Aspart [NovoLOG (formulary)] 31 units IM AC-TID amLODIPine [Norvasc] 10 mg PO DAILY #30 tab cloNIDine HCL [Catapres] 0.2 mg PO TID #90 tab Ergocalciferol [Vitamin D2 (DRISDOL)] 50,000 unit PO FR #4 cap Gabapentin [Neurontin] 100 mg PO BID #60 cap Lisinopril 40 mg PO DAILY #30 tablet metFORMIN HCL 1,000 mg PO BID #60 tablet Changed Insulin Glargine,Hum.rec.anlog [Lantus Solostar] 50 units IM DAILY #0 Discontinued Aspirin EC [Ecotrin] 325 mg PO DAILY Metoprolol Succinate (ER) [Toprol Xl] 50 mg PO BID Discharge Medication List Insulin Aspart [NovoLOG (formulary)] 31 units IM AC-TID 08/30/18 [History] Multivitamins, Thera [Multivitamin (formulary)] 1 tab PO DAILY 08/30/18 [History ] [place]-3 Fatty Acids/Fish Oil [Fish Oil 1,000 mg Softgel] 1 cap PO DAILY [History] Vitamin E 1,000 units PO BID 08/30/18 [History] Aspirin 81 mg PO DAILY #30 chew 09/06/18 [Rx] Ergocalciferol [Vitamin D2 (DRISDOL)] 50,000 unit PO FR #4 cap 09/06/18 [Rx] Furosemide [Lasix] 60 mg PO BID #180 tab 09/06/18 [Rx] Gabapentin [Neurontin] 100 mg PO BID #60 cap 09/06/18 [Rx] Hydrocortisone Cream [Hydrocortisone 1% Cream] 1 applic TOPICAL BID 15 Days #1 tube 09/06/18 [Rx] Insulin Glargine,Hum.rec.anlog [Lantus Solostar] 50 units IM DAILY #0 09/06/18 [ Rx] Ipratropium/Albuterol Sulfate [Combivent Respimat Inhaler] 2 puff INHALATION QID #1 inhaler 09/06/18 [Rx] Levofloxacin [Levaquin] 750 mg PO DAILY #7 tab 09/06/18 [Rx] Lisinopril 40 mg PO DAILY #30 tablet 09/06/18 [Rx] Metoprolol Tartrate [Lopressor] 25 mg PO BID #60 tab 09/06/18 [Rx] Sulfamethox-Tmp 800-160Mg [Bactrim DS 800-160 mg] 1 each PO BID #14 tab [Rx] amLODIPine [Norvasc] 10 mg PO DAILY #30 tab 09/06/18 [Rx] cloNIDine HCL [Catapres] 0.2 mg PO TID #90 tab 09/06/18 [Rx] metFORMIN HCL 1,000 mg PO BID #60 tablet 09/06/18 [Rx] Follow up Appointment(s)/Referral(s): Ángel Cid MD [STAFF PHYSICIAN] - 1-2 Days (Before appointment can be made you have to call your insurance and switch your PCP listed to Dr. Cid) [facility], [NON-STAFF] - Nena Campuzano MD [STAFF PHYSICIAN] - 1 Week Sheldon Britt MD [STAFF PHYSICIAN] - 09/15/18 2:45 pm Toby Carrion MD [STAFF PHYSICIAN] - 2 Weeks Ambulatory/Diagnostic Orders: Basic Metabolic Panel [LAB.AMB] Time Frame: 1 Week, Location: None Selected Complete Blood Count w/diff [LAB.AMB] Time Frame: 1 Week, Location: None Selected Patient Instructions/Handouts: Heart Failure (ER), Heart Healthy Diet (ED), Low -Sodium Diet (ED) Activity/Diet/Wound Care/Special Instructions: Low sodium carb consistent diet , 2L fluid restriction Activity as tolerated Please increased lantus to 50 units daily. Apply eucerin or Aquaphor cream to areas of dry skin. Continue MIK wrapping of both legs once fluid more improved then consider compression stockings. [place] [facility] are able to place the ramp, #[phone] Discharge Disposition: HOME WITH HOME HEALTH SERVICES
--- NOTE | 2018-09-06 11:01 | P.PN ---
Subjective Progress Note Date: 09/06/18 Principal diagnosis: Acute hypoxemic respiratory failure, secondary to acute onset of congestive heart failure, and possibility of community acquired pneumonia This is a 63-year-old white male patient that we relocated to [facility] from [facility], and has not yet established himself with a primary care physician. Patient presented to the emergency department on 2017 at 2200 were evaluation of worsening shortness of breath, increased chest congestion, cough with production of yellow sputum, sweating. His she'll onset of symptoms was last week, and became progressively worse. Patient states 2 weeks ago he received the influenza and pneumococcal vaccine at his doctor's office in [place]. His son has also had the symptoms of cold. Patient denied any chest pain. Is positive for orthopnea. No hemoptysis. No chest wall pain. Past medical history is significant for diabetes mellitus, morbid obesity , remote history of smoking, retention, hyperlipidemia, previous episode of UT, patient had the polio syndrome in his childhood, has affected his lower extremity strength. Patient is able to ambulate with crutches. Has never been diagnosed with any chronic lung condition, no history of COPD, has never been diagnosed with obstructive sleep apnea, but does snore. Chest x-ray was taken in the emergency department and showed mild to moderate interstitial edema with multifocal bilateral alveolar edema and/or infiltrates. EKG showed sinus rhythm with frequent runs of PVCs, and left bundle branch block. Lab work showed significant leukocytosis with WBC of 26.2, hemoglobin of 13.2, platelet count was 512, d-dimer was 1.86, and electrocerebral profile were all within normal limits. Troponins were 0.020, 0.091, 0.094. ProBNP was within normal limits at 584. Patient has mild lactic acidosis with lactic acid of 2.3. This morning's lab work shows WBC is down to 13.8. Patient has been afebrile, in the emergency department he was placed on BiPAP support for significant respiratory distress, this morning he seen on selective care unit, still on BiPAP, with pressures of 12/6, and FiO2 of 35%. He was started on IV diuretics at 40 mg every 8 hours, breathing easier. Patient has chronic lower extremity edema, cellulitis, and there are open areas with drainage of clear yellow fluid from his bilateral lower extremities that are quite erythematous. Patient states he was on vancomycin for the treatment of bilateral lower extreme cellulitis, but denies history of MRSA. He was started on Levaquin and vancomycin. Nebulized bronchodilators. Patient is scheduled for CT angios of the chest this afternoon. On 09/01/2018 patient seen in follow-up on selective care unit. He was off the BiPAP support, currently on 3 L per nasal cannula his pulse ox is 92%, he is afebrile, slightly tachycardic at times, with heart rate ranging from 99 to 115 BPM. Denies any chest pain, breathing easier today, lung sounds are clear on today's exam. He continues to diurese, remains on Lasix at 40 mg every 8 hours. Bilateral lower extremity edema is improving, blood cultures remain negative, no fever or chills. ID service is following, patient is currently on combination of Levaquin, vancomycin, and kefzol was added. Overall doing better , feeling better, he sitting up in a chair, no acute complaints at this time. On 09/02/2018 patient seen in follow-up. Breathing easier, however still complains of orthopnea. He has been wearing his BiPAP machine at bedtime. Currently sitting up in the chair, on 3 L per nasal cannula his pulse ox is 93% , he is afebrile. Reveal fine crackles at the bases, no significant wheezing, no cough, no sputum production. Blood cultures remain negative, fluid balance is negative, still has bilateral lower extremity edema, although it's improving , bilateral lower legs are wrapped with dry dressing, ID service is following. Current antibiotic coverage includes Levaquin, vancomycin and Kefzol. No acute events overnight. He remains on IV Lasix at 40 mg every 8 hours, continues improved. On 09/03/2018 patient seen in follow-up on selective care unit. He sitting up in the chair, reading is improved, he is on 3 L per nasal cannula, his pulse ox is 93%, he is afebrile, vital signs are stable, his blood cultures remain negative. Today's labs were reviewed, there PVCs 12.8, hemoglobin is 11.5, electrolytes and renal profile are all within normal limits. Very minimal cough , no sputum production, lung and redness to his leg is improving, no significant pain. And is receiving local wound care was also over, and Mik wrap. On IV Cefazolin and levaquin, his IV diuretics have been transitioned to oral. In negative fluid balance. On 09/05/2018 patient seen in follow-up on selective care unit. He is sitting up in the chair, in no acute distress, he is currently on 2 L per nasal cannula , his pulse ox is 94%, he is afebrile, respirations are even and nonlabored. Lung sounds positive for a few rhonchi, no rales, no wheezes. Denies to diuresis, he is maintaining negative fluid balance. Blood cultures remain negative, no fever or chills. Edema in bilateral lower extremities is improving , and antibiotic coverage includes Levaquin and Bactrim. On 09/06/2018 patient seen in follow-up on selective care unit. He is sitting up in the chair, in no acute distress, no worsening shortness of breath no chest pain. Room air pulse ox 93%, he is hemodynamically stable. Lung sounds are positive for a few crackles at the left base, he is in negative fluid balance -1740 over last 24 hours, continues to diurese, no febrile episodes. Bilateral lower extremity edema is improving. Wound status has improved. Patient has been ambulating to the bathroom with a walker, tolerating activity well, cultures remain negative, from pulmonary standpoint patient is stable for discharge home today. Objective - Vital Signs Vital signs: Vital Signs Temp 98.2 F 09/06/18 08:00 Pulse 70 09/06/18 08:00 Resp 16 09/06/18 08:00 BP 159/59 09/06/18 08:00 Pulse Ox 93 L 09/06/18 08:00 Intake & Output 09/05/18 09/06/18 09/06/18 18:59 06:59 18:59 Intake Total 960 250 Output Total 1250 1450 Balance -290 -1450 250 Weight 118.3 kg Intake: IV 30 10 Invasive Line 6 30 10 Oral 930 240 Output: Urine 1250 1450 Other: Voiding Method Urinal Urinal Urinal # Voids 1 # Bowel Movements 1 - Exam GENERAL EXAM: Alert, pleasant 63-year-old obese white male, on nasal cannula at 3 L HEAD: Normocephalic/atraumatic. EYES: Normal reaction of pupils, equal size. Conjunctiva pink, sclera white. NOSE: Clear with pink turbinates. THROAT: No erythema or exudates. NECK: No masses, no JVD, no thyroid enlargement, no adenopathy. CHEST: No chest wall deformity. Symmetrical expansion. LUNGS: Equal air entry with a few rhonchi, no wheezes CVS: Regular rate and rhythm, normal S1 and S2, no gallops, no murmurs, no rubs ABDOMEN: Soft, nontender. No hepatosplenomegaly, normal bowel sounds, no guarding or rigidity. EXTREMITIES: No clubbing, patient has nonpitting edema, bilateral lower extremity cellulitis, and open weeping areas on bilateral lower extremities, legs are covered with dressings, and Mik wraps. MUSCULOSKELETAL: Muscle strength and tone normal. SPINE: No scoliosis or deformity SKIN: No rashes CENTRAL NERVOUS SYSTEM: Alert and oriented -3. No focal deficits, tone is normal in all 4 extremities. PSYCHIATRIC: Alert and oriented -3. Appropriate affect. Intact judgment and insight. - Labs CBC & Chem 7: 09/06/18 06:30 09/06/18 06:30 Labs: Abnormal Lab Results - Last 24 Hours (Table) 09/05/18 09/05/18 09/05/18 Range/Units 11:42 17:03 20:42 WBC (3.8-10.6) k/uL RBC (4.30-5.90) m/uL Hgb (13.0-17.5) gm/dL Hct (39.0-53.0) % Plt Count (150-450) k/uL Neutrophils # (1.3-7.7) k/uL BUN (9-20) mg/dL Glucose (74-99) mg/dL POC Glucose (mg/dL) 198 H 156 H 194 H (75-99) mg/dL 09/06/18 09/06/18 09/06/18 Range/Units 02:34 06:30 06:30 WBC 12.9 H (3.8-10.6) k/uL RBC 4.10 L (4.30-5.90) m/uL Hgb 11.7 L (13.0-17.5) gm/dL Hct 36.7 L (39.0-53.0) % Plt Count 561 H (150-450) k/uL Neutrophils # 9.1 H (1.3-7.7) k/uL BUN 24 H (9-20) mg/dL Glucose 113 H (74-99) mg/dL POC Glucose (mg/dL) 129 H (75-99) mg/dL Microbiology - Last 24 Hours (Table) 08/31/18 01:09 Blood Culture - Final Blood No Growth after 144 hours 08/31/18 01:09 Blood Culture - Final Blood No Growth after 144 hours 09/05/18 16:00 Gram Stain - Preliminary Sputum Sputum Culture - Preliminary Assessment and Plan Plan: Assessment: #1. Acute hypoxemic respiratory failure, requiring BiPAP support, chest x-ray showed moderate interstitial edema, and multifocal bilateral alveolar infiltrates, and the possibilities include community-acquired pneumonia and fluid overload related to new onset congestive heart failure #2. Dyspnea, chest congestion, cough with sputum production, leukocytosis related to a possibility of pneumonia #3. Lactic acidosis, possibly related to sepsis, source is under investigation #4. Leukocytosis #5. Open weeping cellulitis and wounds on bilateral lower extremities #6. Elevated troponins, could be related to sepsis #7. Elevated d-dimer, CT angios is pending #8. Previous episode of myocardial infarction #9. Diabetes mellitus, with diabetic neuropathy #10. Hypertension, hyperlipidemia #11. Morbid obesity #12. History of polio syndrome as a child #13. Remote history of smoking, patient quit at age of 26, smoked a pack a day for 10 years. Plan: Volume status has improved, patient is breathing easier, room air pulse ox is 93 %, he is afebrile, cultures remain negative. From pulmonary standpoint patient is stable for discharge home today on oral diuretics, oral antibiotics, and Combivent inhaler. Follow-up with Dr. Nice in the office I performed a history & physical examination of the patient and discussed their management with my nurse practitioner, Kandy Kelley. I reviewed the nurse practitioner's note and agree with the documented findings and plan of care. Lung sounds are positive for a few rhonchi. The findings and the impression was discussed with the patient. I attest to the documentation by the nurse practitioner. Time with Patient: Less than 30
[2018-09-06 11:09] LABS: Glucose,Whole Blood 243 mg/dL (75-99)
--- NOTE | 2018-09-06 11:26 | P.PN ---
Subjective Progress Note Date: 09/06/18 This is a 63-year-old white male patient that we relocated to [facility] from [facility], and has not yet established himself with a primary care physician. Patient presented to the emergency department on 2017 at 2200 were evaluation of worsening shortness of breath, increased chest congestion, cough with production of yellow sputum, sweating. His she'll onset of symptoms was last week, and became progressively worse. Patient states 2 weeks ago he received the influenza and pneumococcal vaccine at his doctor's office in [place]. His son has also had the symptoms of cold. Patient denied any chest pain. Is positive for orthopnea. No hemoptysis. No chest wall pain. Past medical history is significant for diabetes mellitus, morbid obesity , remote history of smoking, retention, hyperlipidemia, previous episode of OK, patient had the polio syndrome in his childhood, has affected his lower extremity strength. Patient is able to ambulate with crutches. EKG on admission here showed normal sinus rhythm with runs of PVCs, left bundle-branch block pattern. White blood cell count on admission 26.2, hemoglobin 13.2, platelet count 512, d-dimer 1.86, troponins 0.02, 0.09, 0.09. BNP 584. Mild lactic acidosis with lactic acid 2.3. CTA of the chest was negative for pulmonary embolism. Patient has chronic lower extremity edema, cellulitis, and open areas of drainage. He he was on vancomycin in the past for this. The patient was initiated on IV Lasix in the hospital, he's been diuresing well from that. Sitting up at the side of bed this morning, states that he has been putting out a significant amount of urine overall. Blood pressure 150/60 with a heart rate in the 50s, 95% on 3 L of oxygen. White blood cell count 12.4, hemoglobin 11.4, platelet count 365. Sodium 140, potassium 4.3, BUN 12, creatinine 0.8. 09/02/2018 Patient seen and examined this morning, still complains of feeling short of breath, continues to have cough although he says is improved from yesterday. Denies any chest discomfort. Blood pressure 132/70 with a heart rate in the 60s , 93% on 3 L of oxygen. White blood cell count 11.9, hemoglobin 11.3, platelet count 399. Sodium 139, potassium 4.3, BUN 14, creatinine 0.8. Magnesium 2.0. Weight is down 1 kg today. And tinnitus to be on IV Lasix 40 mg every 8 hourly. We will get a repeat chest x-ray tomorrow. Echocardiogram with Doppler study revealed an ejection fraction of 55-60%. 09/04/2018 Patient seen and examined this morning, overall states that his breathing is improving. Continues to have cough however much improved. Denies any chest discomfort, still feels weak. Continues to run low-grade temperatures. Currently on by mouth diuretics. Patient seen and examined this morning, sitting up in the chair at bedside, breathing stable. 93% on room air. Hemodynamically stable. Negative fluid balance over the past 24 hours. Bilateral lower extremity edema is improving. Patient does ambulate to the bathroom with a walker. Blood pressure 136/60 with a heart rate in the 80s, 94% on 2 L of oxygen. Potassium is 4.7 today, BUN 24 and creatinine 0.9. Objective - Vital Signs Vital signs: Vital Signs Temp 98.2 F 09/06/18 08:00 Pulse 70 09/06/18 08:00 Resp 16 09/06/18 08:00 BP 159/59 09/06/18 08:00 Pulse Ox 93 L 09/06/18 08:00 Intake & Output 09/05/18 09/06/18 09/06/18 18:59 06:59 18:59 Intake Total 960 250 Output Total 1250 1450 Balance -290 -1450 250 Weight 118.3 kg Intake: IV 30 10 Invasive Line 6 30 10 Oral 930 240 Output: Urine 1250 1450 Other: Voiding Method Urinal Urinal Urinal # Voids 1 # Bowel Movements 1 - Exam GENERAL EXAM: Alert, pleasant 63-year-old obese white male, on BiPAP support, with pressures of 12 and 6, and 35%, dyspneic with conversation . HEAD: Normocephalic/atraumatic. EYES: Normal reaction of pupils, equal size. Conjunctiva pink, sclera white. NOSE: Clear with pink turbinates. THROAT: No erythema or exudates. NECK: No masses, no JVD, no thyroid enlargement, no adenopathy. CHEST: No chest wall deformity. Symmetrical expansion. LUNGS: Equal air entry with fine rales at bilateral bases CVS: Regular rate and rhythm, normal S1 and S2, no gallops, no murmurs, no rubs ABDOMEN: Soft, nontender. No hepatosplenomegaly, normal bowel sounds, no guarding or rigidity. EXTREMITIES: No clubbing, patient has nonpitting edema, bilateral lower extremity cellulitis, and open weeping areas on bilateral lower extremities MUSCULOSKELETAL: Muscle strength and tone normal. SPINE: No scoliosis or deformity SKIN: No rashes CENTRAL NERVOUS SYSTEM: Alert and oriented -3. No focal deficits, tone is normal in all 4 extremities. PSYCHIATRIC: Alert and oriented -3. Appropriate affect. Intact judgment and insight. - Labs CBC & Chem 7: 09/06/18 06:30 09/06/18 06:30 Labs: Abnormal Lab Results - Last 24 Hours (Table) 09/05/18 09/05/18 09/05/18 Range/Units 11:42 17:03 20:42 WBC (3.8-10.6) k/uL RBC (4.30-5.90) m/uL Hgb (13.0-17.5) gm/dL Hct (39.0-53.0) % Plt Count (150-450) k/uL Neutrophils # (1.3-7.7) k/uL BUN (9-20) mg/dL Glucose (74-99) mg/dL POC Glucose (mg/dL) 198 H 156 H 194 H (75-99) mg/dL 09/06/18 09/06/18 09/06/18 Range/Units 02:34 06:30 06:30 WBC 12.9 H (3.8-10.6) k/uL RBC 4.10 L (4.30-5.90) m/uL Hgb 11.7 L (13.0-17.5) gm/dL Hct 36.7 L (39.0-53.0) % Plt Count 561 H (150-450) k/uL Neutrophils # 9.1 H (1.3-7.7) k/uL BUN 24 H (9-20) mg/dL Glucose 113 H (74-99) mg/dL POC Glucose (mg/dL) 129 H (75-99) mg/dL 09/06/18 Range/Units 11:06 WBC (3.8-10.6) k/uL RBC (4.30-5.90) m/uL Hgb (13.0-17.5) gm/dL Hct (39.0-53.0) % Plt Count (150-450) k/uL Neutrophils # (1.3-7.7) k/uL BUN (9-20) mg/dL Glucose (74-99) mg/dL POC Glucose (mg/dL) 243 H (75-99) mg/dL Microbiology - Last 24 Hours (Table) 08/31/18 01:09 Blood Culture - Final Blood No Growth after 144 hours 08/31/18 01:09 Blood Culture - Final Blood No Growth after 144 hours 09/05/18 16:00 Gram Stain - Preliminary Sputum Sputum Culture - Preliminary Assessment and Plan Plan: Assessment #1. Acute hypoxemic respiratory failure, requiring BiPAP support, chest x-ray showed moderate interstitial edema, and multifocal bilateral alveolar infiltrates, and the possibilities include community-acquired pneumonia and fluid overload related to new onset congestive heart failure diastolic, acute on chronic. Ejection fraction by echo 55-60%. #2. Dyspnea, chest congestion, cough with sputum production, leukocytosis, possible pneumonia. #3. Lactic acidosis, possibly related to sepsis #4. Leukocytosis #5. Open weeping cellulitis and wounds on bilateral lower extremities #6. Elevated troponins, could be related to sepsis, not suggestive of acute coronary syndrome, LV function normal #7. Elevated d-dimer, CT angios is pending #8. Previous hx of myocardial infarction #9. Diabetes mellitus, with diabetic neuropathy #10. Hypertension, hyperlipidemia #11. Morbid obesity #12. History of polio syndrome as a child #13. Remote history of smoking, patient quit at age of 26, smoked a pack a day for 10 years. Plan Cardiology's perspective, we'll recommend to continue the patient on current dose of PO Lasix. He may be able to be discharged home from our perspective once cleared by primary. DNP note has been reviewed, I agree with a documented findings and plan of care. Patient was seen and examined.
[2018-09-06 12:28] VITALS: BP 150/58; TEMP 98.6
--- NOTE | 2018-09-06 12:38 | PN ---
PROGRESS NOTE DATE OF SERVICE: 09/06/2018. REASON FOR FOLLOWUP: Bilateral leg cellulitis. INTERVAL HISTORY: The patient is currently afebrile. He is breathing comfortably. Denies significant chest pain, no cough, no abdominal pain and any worsening pain in the leg area. Overall, redness has improved and the wounds have dried. PHYSICAL EXAMINATION: Blood pressure is 129/59 with a pulse of 73, temperature 98.2. He is 93% on room air. General description is a middle-aged male, up in the chair in no distress. RESPIRATORY SYSTEM: Unlabored breathing, clear to auscultation anteriorly. HEART: S1, S2. Regular rate and rhythm. ABDOMEN: Soft, no tenderness. Legs have dried out. No open wounds and the redness seems to have resolved. LABS: Hemoglobin 11.7, white count 12.9, BUN of 24, creatinine 0.91. DIAGNOSTIC IMPRESSION AND PLAN: 1. Patient with bilateral extremity cellulitis. Patient has refused cefazolin. Currently on Bactrim DS 2 for another 5 days to finish a course of therapy. 2. Patient with possible pneumonia, adequately treated. No need for antibiotic on discharge. Continue supportive care. MMODL / IJN: [id number] /
[2018-09-06 15:48] VITALS: PULSE 88
== END 2018-09-06 16:46 | disposition home health service (06) | DRG 871 ==
LOC: EC 21:04 → 6SEL 22:06
PROVIDERS: ADMIT Family Medicine; ATTEND Family Medicine
PROC: 5A09357 Assistance with Respiratory Ventilation, Less than 24 Consecutive Hours, Continuous Positive Airway Pressure (ICD-10-PCS; principal; 2018-08-30)
DX: A41.9 Sepsis, unspecified organism (principal); I50.33 Acute on chronic diastolic (congestive) heart failure; J18.9 Pneumonia, unspecified organism; J96.01 Acute respiratory failure with hypoxia; E87.2 Acidosis; I16.1 Hypertensive emergency; L03.115 Cellulitis of right lower limb; L03.116 Cellulitis of left lower limb; Z68.41 Body mass index [BMI] 40.0-44.9, adult; Z68.42 Body mass index [BMI] 45.0-49.9, adult; E11.42 Type 2 diabetes mellitus with diabetic polyneuropathy; E11.51 Type 2 diabetes mellitus with diabetic peripheral angiopathy without gangrene; I11.0 Hypertensive heart disease with heart failure; E11.65 Type 2 diabetes mellitus with hyperglycemia; E66.01 Morbid (severe) obesity due to excess calories; B95.5 Unspecified streptococcus as the cause of diseases classified elsewhere; G83.89 Other specified paralytic syndromes; E78.5 Hyperlipidemia, unspecified; G14 Postpolio syndrome; I25.10 Atherosclerotic heart disease of native coronary artery without angina pectoris; I25.2 Old myocardial infarction; I44.7 Left bundle-branch block, unspecified; I89.0 Lymphedema, not elsewhere classified; K59.00 Constipation, unspecified; R79.1 Abnormal coagulation profile; R77.9 Abnormality of plasma protein, unspecified; I49.3 Ventricular premature depolarization; Z79.4 Long term (current) use of insulin; Z79.82 Long term (current) use of aspirin; Z79.899 Other long term (current) drug therapy; Z87.891 Personal history of nicotine dependence; Z88.0 Allergy status to penicillin; Z91.040 Latex allergy status
CPT/HCPCS: 36415; 71045; 71046; 71275; 80048; 80053; 81003; 82550; 82553; 83036; 83605; 83735; 83880; 84443; 84484; 85025; 85027; 85379; 85610; 85730; 87040; 87070; 87205; 93005; 93306; 93970; 94640; 94660; 94760; 96361; 96374; 96375; 99291

== ENCOUNTER 2018-09-09 13:24 | Emergency (ER) | payer MEDICARE ==
[2018-09-09 13:33] VITALS: RESP 18; TEMP 98.5
--- NOTE | 2018-09-09 15:18 | ED ---
General Adult HPI - General Chief complaint: Neuro Symptoms/Deficit Stated complaint: blurred vision,light headed Time Seen by Provider: 09/09/18 14:56 Source: patient Mode of arrival: wheelchair Limitations: no limitations - History of Present Illness Initial comments: 63-year-old male with past medical history of newly diagnosed congestive heart failure, previous PR, hypertension, type 2 diabetes insulin dependence, recurrent cellulitis of the lower extremities, polio syndrome-ambulates with crutches who was recently discharged from the hospital on 09/06/18. Patient states he is taking Bactrim and levoquin. Patient states that he woke up around 4:30AM this morning noticing he was sensitivity to light, he described it as when he looks at the light there is increased brightness around it he denies any headaches, neck stiffness, loss of vision or flashing lights. He does admit to a lightheaded feeling and generalized weakness at times, however not currently. Patient states that there was increase his Lasix is not sure if this is causing it. Patient denies any chest pain/pressure, shortness of breath increased from baseline, abdominal pain, nausea, vomiting, facial droop, speech or gait changes weakness of upper or lower extremities-pt states he has baseline lower extremity weakness from polio syndrome with R>L, eye pain, diplopia, redness of the eyes, fever, night sweats. Patient states the symptoms resolved around 10 AM, they called patients home nursing staff who told pt to present to the ER for evaluation. Pt did state that this has happened multiple times in the past. Upon arrival pt is wearing oxygen supplement, he does not appear to he in acute distress/respiratory distress. Upon arrival to the emergency department pt is afebrile. Remainder of ROS (-) patient denies any recent back pain, abdominal pain, nausea or vomiting, numbness or tingling increased from baseline lower extremity neuropathy, dysuria or hematuria, constipation or diarrhea, or any other complaints. - Related Data Home Medications Medication Instructions Recorded Confirmed Insulin Aspart [NovoLOG 31 units IM AC-TID 08/30/18 09/09/18 (formulary)] Sulfamethox-Tmp 800-160Mg [Bactrim 1 tab PO BID 09/09/18 09/09/18 DS 800-160 mg] Previous Rx's Medication Instructions Recorded Aspirin 81 mg PO DAILY #30 chew 09/06/18 Ergocalciferol [Vitamin D2 50,000 unit PO FR #4 cap 09/06/18 (DRISDOL)] Furosemide [Lasix] 60 mg PO BID #180 tab 09/06/18 Gabapentin [Neurontin] 100 mg PO BID #60 cap 09/06/18 Hydrocortisone Cream 1 applic TOPICAL BID 15 Days #1 09/06/18 [Hydrocortisone 1% Cream] tube Insulin Glargine,Hum.rec.anlog 50 units IM DAILY #0 09/06/18 [Lantus Solostar] Ipratropium/Albuterol Sulfate 2 puff INHALATION QID #1 inhaler 09/06/18 [Combivent Respimat Inhaler] Levofloxacin [Levaquin] 750 mg PO DAILY #7 tab 09/06/18 Lisinopril 40 mg PO DAILY #30 tablet 09/06/18 Metoprolol Tartrate [Lopressor] 25 mg PO BID #60 tab 09/06/18 amLODIPine [Norvasc] 10 mg PO DAILY #30 tab 09/06/18 cloNIDine HCL [Catapres] 0.2 mg PO TID #90 tab 09/06/18 metFORMIN HCL 1,000 mg PO BID #60 tablet 09/06/18 Allergies Allergy/AdvReac Type Severity Reaction Status Date / Time Latex, Natural Rubber Allergy Rash/Hives Verified 09/09/18 14:25 Penicillins Allergy Unknown Verified 09/09/18 14:25 Childhood Review of Systems ROS Statement: Those systems with pertinent positive or pertinent negative responses have been documented in the HPI. ROS Other: All systems not noted in ROS Statement are negative. Constitutional: Denies: fever, chills, night sweats Eyes: Reports: vision change (li). Denies: eye pain ENT: Denies: ear pain, throat pain Respiratory: Denies: cough, dyspnea, wheezes, hemoptysis, stridor Cardiovascular: Reports: dyspnea on exertion (pt states he has baseline dyspnea upon exertion, no increase today). Denies: chest pain, palpitations, edema Gastrointestinal: Denies: abdominal pain, nausea, vomiting, diarrhea, constipation Genitourinary: Denies: urgency, dysuria, frequency, hematuria Musculoskeletal: Denies: back pain Skin: Reports: rash (b/l lower extremity cellulitis). Denies: lesions Neurological: Reports: weakness (generalized since lasix therapy). Denies: headache, numbness, paresthesias, confusion Past Medical History Past Medical History: Diabetes Mellitus, Hypertension Additional Past Medical History / Comment(s): pt. 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 states he had a small heart attack did not need any stents Last Myocardial Infarction Date:: unknown History of Any Multi-Drug Resistant Organisms: None Reported Past Surgical History: Orthopedic Surgery Additional Past Surgical History / Comment(s): pt. had muscle tazken from his back and put into his leg Past Anesthesia/Blood Transfusion Reactions: No Reported Reaction Past Psychological History: No Psychological Hx Reported Smoking Status: Former smoker Past Alcohol Use History: None Reported Past Drug Use History: None Reported - Past Family History Mother Family Medical History: Cancer General Exam - General Exam Comments Initial Comments: General: The patient is awake and alert, in no distress, and does not appear acutely ill. Eye: VA intact grossly. VF intact to confrontaction. IOP 12 OS, 13 OD. +3 mm pupils are equal, round and reactive to light, extra-ocular movements are intact. No nystagmus. There is normal conjunctiva bilaterally. No signs of photophobia with eye exam. No signs of icterus. Ears, nose, mouth and throat: There are moist mucous membranes and no oral lesions. Neck: The neck is supple, there is no tenderness or JVD. Cardiovascular: There is a regular rate and rhythm. No murmur, rub or gallop is appreciated. Respiratory: Lungs are clear to auscultation, respirations are non-labored, breath sounds are equal. No wheezes, stridor, rales, or rhonchi. Gastrointestinal: Soft, non-distended, non-tender abdomen without masses or organomegaly noted. There is no rebound or guarding present. No CVA tenderness. Bowel sounds are unremarkable. Musculoskeletal: Normal ROM, no tenderness. Strength 5/5. Sensation intact. Radial pulses equal bilaterally 2+. Neurological: A&O x 3. CN II-XII intact, There are no obvious motor or sensory deficits. Coordination appears grossly intact. Speech is normal. No pronator drift. Skin: Skin is warm and dry and no rashes or lesions are noted. Erythema of the lower extremities, no noted pitting edema. Psychiatric: Cooperative, appropriate mood & affect, normal judgment. Limitations: no limitations Course Vital Signs 09/09/18 09/09/18 13:30 16:46 Temperature 98.5 F Pulse Rate 94 71 Respiratory 18 18 Rate Blood Pressure 122/61 96/46 O2 Sat by Pulse 98 98 Oximetry EKG Findings - EKG Comments: EKG Findings:: EKG compared to that of August 30 is 18. Ventricular rate 85 bpm , WA interval 194 ms, QRS 176 ms, QT/QTC 450/535 ms. This was normal sinus rhythm. No acute changes in QRS complexes, ST segments or T waves. No ST elevation or specific T wave inversions concerning for ACS at this time. Medical Decision Making - Medical Decision Making EKG obtained compared to previous no acute changes concerning for new heart block, arrythmia or ACS. EKG reviewed by Dr. Amor. CT without contrast obtained due to history of dizziness, nonspecific symptoms. (-) for acute intracranial process. No focal neurological deficits on exam. Pt states he is no longer having the light sensitivity. There is no nuchal irritations signs (- ) brudzinski, kernig signs. Pt denies any headaches concerning for SAH. Pt IOP WNL b/l, no erythema or pupil abnormalities. Pt denies current vision changes, symptoms do no appear consistent with retinal detachment. Pt cellulitis evaluated, bandages removed. Pt stated that they appears much better as well as his . Pt was evaluated [id number] by Dr. Amor at this time it is unclear the cause of his photophobia, pt did state he has experienced this multiple times throughout his life this is not the first time. We do not feel symptoms are consistent with CVA/TIA at this time. Pt Labs unremarkable with a down trending WBC from admission. Trop (-). At this this we feel pt is stable for d/c with primary care f/u in the next 1-2 days. Pt agreed with plan requesting d/c. Case discussed in detail with Dr. Amor and at this time we feel pt is stable with d/c. - Lab Data Result diagrams: 09/09/18 15:35 09/09/18 15:35 Lab Results 09/09/18 09/09/18 09/09/18 Range/Units 15:35 15:35 15:35 WBC 10.8 H (3.8-10.6) k/uL RBC 4.33 (4.30-5.90) m/uL Hgb 12.3 L (13.0-17.5) gm/dL Hct 38.7 L (39.0-53.0) % MCV 89.2 (80.0-100.0) fL MCH 28.4 (25.0-35.0) pg MCHC 31.8 (31.0-37.0) g/dL RDW 13.6 (11.5-15.5) % Plt Count 655 H (150-450) k/uL Neutrophils % 75 % Lymphocytes % 13 % Monocytes % 6 % Eosinophils % 4 % Basophils % 1 % Neutrophils # 8.1 H (1.3-7.7) k/uL Lymphocytes # 1.4 (1.0-4.8) k/uL Monocytes # 0.7 (0-1.0) k/uL Eosinophils # 0.4 (0-0.7) k/uL Basophils # 0.1 (0-0.2) k/uL Sodium 140 (137-145) mmol/L Potassium 4.8 (3.5-5.1) mmol/L Chloride 102 (98-107) mmol/L Carbon Dioxide 28 (22-30) mmol/L Anion Gap 10 mmol/L BUN 19 (9-20) mg/dL Creatinine 1.04 (0.66-1.25) mg/dL Est GFR (CKD-EPI)AfAm 89 (>60 ml/min/1.73 sqM) Est GFR (CKD-EPI)NonAf 77 (>60 ml/min/1.73 sqM) Glucose 97 (74-99) mg/dL Calcium 9.8 (8.4-10.2) mg/dL Total Bilirubin 0.4 (0.2-1.3) mg/dL AST 38 (17-59) U/L ALT 28 (21-72) U/L Alkaline Phosphatase 75 (38-126) U/L Troponin I <0.012 (0.000-0.034) ng/mL Total Protein 7.6 (6.3-8.2) g/dL Albumin 3.7 (3.5-5.0) g/dL Urine Color Urine Appearance (Clear) Urine pH (5.0-8.0) Ur Specific Veteran (1.001-1.035) Urine Protein (Negative) Urine Glucose (UA) (Negative) Urine Ketones (Negative) Urine Blood (Negative) Urine Nitrite (Negative) Urine Bilirubin (Negative) Urine Urobilinogen (<2.0) mg/dL Ur Leukocyte Esterase (Negative) 09/09/18 Range/Units 15:59 WBC (3.8-10.6) k/uL RBC (4.30-5.90) m/uL Hgb (13.0-17.5) gm/dL Hct (39.0-53.0) % MCV (80.0-100.0) fL MCH (25.0-35.0) pg MCHC (31.0-37.0) g/dL RDW (11.5-15.5) % Plt Count (150-450) k/uL Neutrophils % % Lymphocytes % % Monocytes % % Eosinophils % % Basophils % % Neutrophils # (1.3-7.7) k/uL Lymphocytes # (1.0-4.8) k/uL Monocytes # (0-1.0) k/uL Eosinophils # (0-0.7) k/uL Basophils # (0-0.2) k/uL Sodium (137-145) mmol/L Potassium (3.5-5.1) mmol/L Chloride (98-107) mmol/L Carbon Dioxide (22-30) mmol/L Anion Gap mmol/L BUN (9-20) mg/dL Creatinine (0.66-1.25) mg/dL Est GFR (CKD-EPI)AfAm (>60 ml/min/1.73 sqM) Est GFR (CKD-EPI)NonAf (>60 ml/min/1.73 sqM) Glucose (74-99) mg/dL Calcium (8.4-10.2) mg/dL Total Bilirubin (0.2-1.3) mg/dL AST (17-59) U/L ALT (21-72) U/L Alkaline Phosphatase (38-126) U/L Troponin I (0.000-0.034) ng/mL Total Protein (6.3-8.2) g/dL Albumin (3.5-5.0) g/dL Urine Color Light Yellow Urine Appearance Clear (Clear) Urine pH 6.5 (5.0-8.0) Ur Specific Veteran 1.006 (1.001-1.035) Urine Protein Negative (Negative) Urine Glucose (UA) Negative (Negative) Urine Ketones Negative (Negative) Urine Blood Negative (Negative) Urine Nitrite Negative (Negative) Urine Bilirubin Negative (Negative) Urine Urobilinogen <2.0 (<2.0) mg/dL Ur Leukocyte Esterase Negative (Negative) Disposition Clinical Impression: Changes in vision Disposition: HOME SELF-CARE Condition: Good Additional Instructions: Please use previously prescribed medication as discussed. Please follow-up with family doctor in the next 2 days. Please return to emergency room if the symptoms increase or worsen or for any other concerns. Is patient prescribed a controlled substance at d/c from ED?: No Referrals: Ángel Cid MD [Primary Care Provider] - 1-2 days Time of Disposition: 17:03
[2018-09-09 15:48] LABS: Basophils # (A) 0.1 k/uL (0-0.2); Basophils % (A) 1 %; Eosinophils # (A) 0.4 k/uL (0-0.7); Eosinophils % (A) 4 %; HCT 38.7 % (39.0-53.0); HGB 12.3 gm/dL (13.0-17.5); Lymphocytes # (A) 1.4 k/uL (1.0-4.8); Lymphocytes % (A) 13 %; MCH 28.4 pg (25.0-35.0); MCHC 31.8 g/dL (31.0-37.0); MCV 89.2 fL (80.0-100.0); Mean Platelet Volume 6.2; Monocytes # (A) 0.7 k/uL (0-1.0); Monocytes % (A) 6 %; Neutrophils # (A) 8.1 k/uL (1.3-7.7); Neutrophils % (A) 75 %; Platelet Count 655 k/uL (150-450); RBC 4.33 m/uL (4.30-5.90); RDW 13.6 % (11.5-15.5); WBC 10.8 k/uL (3.8-10.6)
[2018-09-09 15:58] LABS: Albumin 3.7 g/dL (3.5-5.0); Calcium 9.8 mg/dL (8.4-10.2); Potassium 4.8 mmol/L (3.5-5.1); Total Bilirubin 0.4 mg/dL (0.2-1.3); Total Protein 7.6 g/dL (6.3-8.2)
--- NOTE | 2018-09-09 16:02 | CT ---
EXAMINATION TYPE: CT brain wo con DATE OF EXAM: 09/09/2018 COMPARISON: None HISTORY: Visual changes, bright light sensation to eyes CT DLP: 1159 mGycm Automated exposure control for dose reduction was used. Helical imaging through the brain. FINDINGS: Calvarium is intact. Paranasal sinuses and mastoid air cells as visualized are normal. Orbits show sy mmetric appearance. There is no hemorrhage or hydrocephalus. Cerebral vascular calcifications are not ed. Periventricular white matter shows patchy low attenuation. There is cortical atrophy. IMPRESSION: NO ACUTE ABNORMALITY. AGE-RELATED CHANGES OF ATROPHY AND PROBABLE CHRONIC SMALL VESSEL ISCHEMIA
[2018-09-09 16:10] LABS: Appearance,Urine Clear (Clear); Bilirubin,Urine Negative (Negative); Blood,Urine Negative (Negative); Color,Urine Light Yellow; Glucose,Urine (UA) Negative (Negative); Ketones,Urine Negative (Negative); Leukocyte Esterase,Urine Negative (Negative); Nitrite,Urine Negative (Negative); PH, Urine 6.5 (5.0-8.0); Protein,Urine Negative (Negative); Specific Gravity,Urine 1.006 (1.001-1.035); Urobilinogen,Urine <2.0 mg/dL (<2.0)
[2018-09-09] MEDS ORDERED: SODIUM CHLORIDE 0.9% 500 ML IV ONE (16:30)
[2018-09-09 16:48] VITALS: BP 96/46; PULSE 71
== END 2018-09-09 17:23 | disposition home or self-care (01) ==
LOC: EC 13:24
DX: H53.9 Unspecified visual disturbance (principal); R42 Dizziness and giddiness; R53.1 Weakness; E11.9 Type 2 diabetes mellitus without complications; I10 Essential (primary) hypertension; I25.2 Old myocardial infarction; Z87.891 Personal history of nicotine dependence; Z98.890 Other specified postprocedural states; Z79.4 Long term (current) use of insulin
CPT/HCPCS: 36415; 70450; 80053; 81003; 84484; 85025; 93005; 96360; 99284

== ENCOUNTER 2018-12-02 15:38 | Inpatient (IN) | payer MEDICARE ==
--- NOTE | 2018-12-02 16:09 | ED ---
Wound/Laceration HPI - General Source: patient, RN notes reviewed Mode of arrival: wheelchair Limitations: no limitations <Chencho Mitchell - Last Filed: 12/02/18 16:06> <Mitch Ford - Last Filed: 12/02/18 19:01> - General Chief Complaint: Wound/Laceration Stated Complaint: Leg pain Time Seen by Provider: 12/02/18 15:55 - History of Present Illness Initial Comments: 63-year-old male presents emergency Department chief complaint of right leg wound. Patient states he's had some blisters on his right leg and states that it ruptured today states the bleeding has been consistent to large blister areas. Patient states he is a diabetic states she has multiple issues with infections to his right leg. Patient states he sees his PCP for wound care for his right leg has not seen at the wound center. Patient reports no fever or chills. Patient states he has had increased redness to his foot. Patient denies any recent antibiotic use. Patient has not checked his blood sugar recently. (Chencho Mitchell) - Related Data Home Medications Medication Instructions Recorded Confirmed Insulin Aspart [NovoLOG 31 units SQ AC-TID 08/30/18 12/02/18 (formulary)] Furosemide [Lasix] 20 mg PO BID 12/02/18 12/02/18 Insulin Glargine,Hum.rec.anlog 25 units SQ DAILY 12/02/18 12/02/18 [Lantus Solostar] Ipratropium/Albuterol Sulfate 2 puff INHALATION RT-QID PRN 12/02/18 12/02/18 [Combivent Respimat Inhaler] Previous Rx's Medication Instructions Recorded Aspirin 81 mg PO DAILY #30 chew 09/06/18 Ergocalciferol [Vitamin D2 50,000 unit PO FR #4 cap 09/06/18 (DRISDOL)] Gabapentin [Neurontin] 100 mg PO BID #60 cap 09/06/18 Lisinopril 40 mg PO DAILY #30 tablet 09/06/18 Metoprolol Tartrate [Lopressor] 25 mg PO BID #60 tab 09/06/18 amLODIPine [Norvasc] 10 mg PO DAILY #30 tab 09/06/18 cloNIDine HCL [Catapres] 0.2 mg PO TID #90 tab 09/06/18 metFORMIN HCL 1,000 mg PO BID #60 tablet 09/06/18 Allergies Allergy/AdvReac Type Severity Reaction Status Date / Time Latex, Natural Rubber Allergy Rash/Hives Verified 12/02/18 16:18 Penicillins Allergy Unknown Verified 12/02/18 16:18 Childhood Sulfa (Sulfonamide Allergy Rash/Hives Verified 12/02/18 16:18 Antibiotics) Review of Systems ROS Other: All systems not noted in ROS Statement are negative. <Chencho Mitchell - Last Filed: 12/02/18 16:06> ROS Other: All systems not noted in ROS Statement are negative. <Mitch Ford - Last Filed: 12/02/18 19:01> ROS Statement: Those systems with pertinent positive or pertinent negative responses have been documented in the HPI. Past Medical History Past Medical History: Diabetes Mellitus, Hypertension Additional Past Medical History / Comment(s): pt. 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 states he had a small heart attack did not need any stents Last Myocardial Infarction Date:: unknown History of Any Multi-Drug Resistant Organisms: None Reported Past Surgical History: Orthopedic Surgery Additional Past Surgical History / Comment(s): pt. had muscle tazken from his back and put into his leg Past Anesthesia/Blood Transfusion Reactions: No Reported Reaction Past Psychological History: No Psychological Hx Reported Smoking Status: Former smoker Past Alcohol Use History: None Reported Past Drug Use History: None Reported - Past Family History Mother Family Medical History: Cancer <Chencho Mitchell - Last Filed: 12/02/18 16:06> General Exam Limitations: no limitations General appearance: alert, in no apparent distress Respiratory exam: Present: normal lung sounds bilaterally. Absent: respiratory distress, wheezes, rales, rhonchi, stridor Cardiovascular Exam: Present: regular rate, normal rhythm, normal heart sounds. Absent: systolic murmur, diastolic murmur, rubs, gallop, clicks Extremities exam: Present: other (Right lower extremities there are 2 large open areas 1 approximately 5 cm in diameter, second noted on the foot approximately 4 cm in diameter. Patient has surrounding erythema, mild venous ooze. pulses are palpable) Skin exam: Present: warm, dry <Chencho Mitchell - Last Filed: 12/02/18 16:06> Vital Signs 12/02/18 15:41 Temperature 98.3 F Pulse Rate 109 H Respiratory 20 Rate Blood Pressure 170/69 O2 Sat by Pulse 99 Oximetry Medical Decision Making <Chencho Mitchell - Last Filed: 12/02/18 16:06> - Lab Data Result diagrams: 12/02/18 16:55 12/02/18 16:55 <Mitch Ford - Last Filed: 12/02/18 19:01> - Medical Decision Making 63 male the ER for evaluation of significant right lower Shorty cellulitis with drainage, purulent drainage, patient be admitted for IV antibiotics blood sugar control. (Mitch Ford) - Lab Data Lab Results 12/02/18 12/02/18 12/02/18 Range/Units 16:55 16:55 16:55 WBC 13.4 H (3.8-10.6) k/uL RBC 4.57 (4.30-5.90) m/uL Hgb 12.6 L (13.0-17.5) gm/dL Hct 40.0 (39.0-53.0) % MCV 87.5 (80.0-100.0) fL MCH 27.5 (25.0-35.0) pg MCHC 31.4 (31.0-37.0) g/dL RDW 15.6 H (11.5-15.5) % Plt Count 549 H (150-450) k/uL Neutrophils % 81 % Lymphocytes % 11 % Monocytes % 5 % Eosinophils % 2 % Basophils % 0 % Neutrophils # 10.8 H (1.3-7.7) k/uL Lymphocytes # 1.5 (1.0-4.8) k/uL Monocytes # 0.6 (0-1.0) k/uL Eosinophils # 0.2 (0-0.7) k/uL Basophils # 0.0 (0-0.2) k/uL PT 9.4 (9.0-12.0) sec INR 0.8 (<1.2) APTT 23.8 (22.0-30.0) sec Sodium 139 (137-145) mmol/L Potassium 4.9 (3.5-5.1) mmol/L Chloride 102 (98-107) mmol/L Carbon Dioxide 25 (22-30) mmol/L Anion Gap 12 mmol/L BUN 22 H (9-20) mg/dL Creatinine 0.72 (0.66-1.25) mg/dL Est GFR (CKD-EPI)AfAm >90 (>60 ml/min/1.73 sqM) Est GFR (CKD-EPI)NonAf >90 (>60 ml/min/1.73 sqM) Glucose 114 H (74-99) mg/dL Plasma Lactic Acid Tom (0.7-2.0) mmol/L Calcium 10.6 H (8.4-10.2) mg/dL 12/02/18 Range/Units 16:55 WBC (3.8-10.6) k/uL RBC (4.30-5.90) m/uL Hgb (13.0-17.5) gm/dL Hct (39.0-53.0) % MCV (80.0-100.0) fL MCH (25.0-35.0) pg MCHC (31.0-37.0) g/dL RDW (11.5-15.5) % Plt Count (150-450) k/uL Neutrophils % % Lymphocytes % % Monocytes % % Eosinophils % % Basophils % % Neutrophils # (1.3-7.7) k/uL Lymphocytes # (1.0-4.8) k/uL Monocytes # (0-1.0) k/uL Eosinophils # (0-0.7) k/uL Basophils # (0-0.2) k/uL PT (9.0-12.0) sec INR (<1.2) APTT (22.0-30.0) sec Sodium (137-145) mmol/L Potassium (3.5-5.1) mmol/L Chloride (98-107) mmol/L Carbon Dioxide (22-30) mmol/L Anion Gap mmol/L BUN (9-20) mg/dL Creatinine (0.66-1.25) mg/dL Est GFR (CKD-EPI)AfAm (>60 ml/min/1.73 sqM) Est GFR (CKD-EPI)NonAf (>60 ml/min/1.73 sqM) Glucose (74-99) mg/dL Plasma Lactic Acid Tom 2.0 (0.7-2.0) mmol/L Calcium (8.4-10.2) mg/dL Disposition <Chencho Mitchell - Last Filed: 12/02/18 16:06> Is patient prescribed a controlled substance at d/c from ED?: No <Mitch Ford - Last Filed: 12/02/18 19:01> Clinical Impression: Type 2 diabetes mellitus with hyperglycemia, Cellulitis of right lower extremity Disposition: ADMITTED IP TO THIS HOSP Condition: Fair Referrals: Ángel Cid MD [Primary Care Provider] - 1-2 days
--- NOTE | 2018-12-02 16:26 | XR ---
EXAMINATION TYPE: XR tibia fibula RT DATE OF EXAM: 12/02/2018 CLINICAL HISTORY: pain TECHNIQUE: AP and lateral images of the right tibia and fibula are obtained. COMPARISON: None. FINDINGS: There is no acute fracture/dislocation evident. The joint spaces appear within normal mcacllum its. Soft tissue edema may reflect underlying cellulitis. IMPRESSION: There is no acute fracture or dislocation seen. ICD 10 NO FRACTURE, INITIAL EVALUATION
[2018-12-02 17:18] LABS: Anion Gap 12 mmol/L; Blood Urea Nitrogen 22 mg/dL (9-20); Calcium 10.6 mg/dL (8.4-10.2); Carbon Dioxide 25 mmol/L (22-30); Chloride 102 mmol/L (98-107); Glucose 114 mg/dL (74-99); Potassium 4.9 mmol/L (3.5-5.1); Sodium 139 mmol/L (137-145)
[2018-12-02 17:19] LABS: INR 0.8 (<1.2); Partial Thromboplastin Time 23.8 sec (22.0-30.0); Prothrombin Time 9.4 sec (9.0-12.0)
[2018-12-02 17:32] LABS: Basophils % (A) 0 %; Eosinophils # (A) 0.2 k/uL (0-0.7); Eosinophils % (A) 2 %; HGB 12.6 gm/dL (13.0-17.5); Lymphocytes # (A) 1.5 k/uL (1.0-4.8); Lymphocytes % (A) 11 %; MCH 27.5 pg (25.0-35.0); MCHC 31.4 g/dL (31.0-37.0); MCV 87.5 fL (80.0-100.0); Mean Platelet Volume 6.4; Monocytes # (A) 0.6 k/uL (0-1.0); Monocytes % (A) 5 %; Neutrophils # (A) 10.8 k/uL (1.3-7.7); Neutrophils % (A) 81 %; Platelet Count 549 k/uL (150-450); RBC 4.57 m/uL (4.30-5.90); RDW 15.6 % (11.5-15.5); WBC 13.4 k/uL (3.8-10.6)
[2018-12-02] MEDS ORDERED: SODIUM CHLORIDE 0.9% 1,000 ML IV ONE (18:55)
[2018-12-02] MEDS ORDERED: VANCOMYCIN IV PER PHARMACY 1 EACH MISC MISCELLANE PRN (18:55)
[2018-12-02] MEDS ORDERED: HYDROmorphone 1 MG/ML 1 ML SYRINGE IVP STA (18:58)
[2018-12-02] MEDS ORDERED: HYDROmorphone 1 MG/ML 1 ML SYRINGE IVP PRN (18:58)
[2018-12-02] MEDS ORDERED: cefTRIAXone 2,000 MG in SODIUM CHLORIDE 0.9% 100 ML IVPB STA (19:04)
[2018-12-02] MEDS ORDERED: VANCOMYCIN 2,000 MG in SODIUM CHLORIDE 0.9% 500 ML 500 ML IVPB ONE (20:00)
[2018-12-02] MEDS ORDERED: LEVOFLOXACIN 750MG-D5W PMX 750 MG in DEXTROSE/WATER 1 150ML.BAG IVPB STA (20:09)
[2018-12-02 21:56] LABS: Glucose,Whole Blood 138 mg/dL (75-99)
[2018-12-02] MEDS ORDERED: IPRATROPIUM-ALBUTEROL 3 ML NEB INHALATION PRN (22:51)
[2018-12-02] MEDS: GABAPENTIN 100 MG CAP PO SCH (23:52)
[2018-12-03 07:38] LABS: Glucose,Whole Blood 153 mg/dL (75-99)
[2018-12-03] MEDS: INSULIN DETEMIR 100 UNIT/ML 10 ML VIAL SQ SCH (07:47)
[2018-12-03] MEDS: VANCOMYCIN 1,750 MG in SODIUM CHLORIDE 0.9% 500 ML 500 ML IVPB SCH ×2 (07:48→21:53)
[2018-12-03] MEDS: ASPIRIN 81 MG PO SCH (07:48)
[2018-12-03] MEDS: METOPROLOL TARTRATE 25 MG TAB PO SCH ×2 (07:48→21:55)
[2018-12-03] MEDS: INSULIN ASPART 100 UNIT/ML 1 ML 10 ML VIAL SQ SCH ×3 (07:48→17:24)
[2018-12-03] MEDS: ENOXAPARIN 40 MG/0.4 ML SYRINGE SQ SCH (07:48)
[2018-12-03] MEDS: LISINOPRIL 20 MG TAB PO SCH (07:48)
[2018-12-03] MEDS: metFORMIN 500 MG TAB PO SCH ×2 (07:49→21:55)
[2018-12-03] MEDS: GABAPENTIN 100 MG CAP PO SCH ×2 (07:49→21:54)
[2018-12-03] MEDS: FUROSEMIDE 20 MG TAB PO SCH ×2 (07:49→21:54)
[2018-12-03] MEDS: cloNIDine HCL 0.2 MG TAB PO SCH ×3 (07:49→21:55)
[2018-12-03] MEDS: amLODIPine 10 MG TAB PO SCH (07:49)
[2018-12-03] MEDS ORDERED: ERGOCALCIFEROL 50,000 UNIT CAP PO SCH (09:00)
[2018-12-03 09:50] LABS: Basophils % (A) 0 %; Eosinophils # (A) 0.2 k/uL (0-0.7); Eosinophils % (A) 2 %; HCT 35.3 % (39.0-53.0); HGB 11.3 gm/dL (13.0-17.5); Lymphocytes # (A) 1.2 k/uL (1.0-4.8); Lymphocytes % (A) 12 %; MCH 28.2 pg (25.0-35.0); MCHC 31.9 g/dL (31.0-37.0); MCV 88.4 fL (80.0-100.0); Mean Platelet Volume 6.2; Monocytes # (A) 0.5 k/uL (0-1.0); Monocytes % (A) 5 %; Neutrophils # (A) 8.2 k/uL (1.3-7.7); Neutrophils % (A) 81 %; Platelet Count 443 k/uL (150-450); RBC 3.99 m/uL (4.30-5.90); RDW 15.7 % (11.5-15.5); WBC 10.2 k/uL (3.8-10.6)
[2018-12-03 10:01] LABS: Anion Gap 8 mmol/L; Blood Urea Nitrogen 17 mg/dL (9-20); Calcium 9.1 mg/dL (8.4-10.2); Carbon Dioxide 25 mmol/L (22-30); Chloride 105 mmol/L (98-107); Glucose 244 mg/dL (74-99); Potassium 4.6 mmol/L (3.5-5.1); Sodium 138 mmol/L (137-145)
[2018-12-03 12:24] LABS: Glucose,Whole Blood 214 mg/dL (75-99)
[2018-12-03 17:13] LABS: Glucose,Whole Blood 179 mg/dL (75-99)
[2018-12-03] MEDS ORDERED: VANCOMYCIN IV PER PHARMACY 1 EACH MISC MISCELLANE PRN (19:49)
--- NOTE | 2018-12-03 20:20 | P.HPIM ---
History of Present Illness this is a pleasant 63 years old female with past medical history of hypertension , diabetes mellitus, congestive heart failure, diabetic neuropathy, polycystic childhood and with right hemiparesis.Presents with right lower extremity cellulitis.he said that his redness in his right lower extremity was going on for about a week associated with 2 blisters on the medial side of the right lower leg and on the torn dorsum of the foot. His foods and leg are rate, hot and very tender to touch.patient already received levofloxacin, ceftriaxone and vancomycin. On admission she has mild leukocytosis which is improved.currently she is on vancomycinand oral Levaquin. patient has negative x-ray of the right tibia and fibula Review of Systems CONSTITUTIONAL: No fever, no malaise, no fatigue. HEENT: No recent visual problems or hearing problems. Denied any sore throat. CARDIOVASCULAR: No orthopnea, PND, no palpitations, no syncope. PULMONARY: No shortness of breath, no cough, no hemoptysis. GASTROINTESTINAL: No diarrhea, no nausea, no vomiting, no abdominal pain. Normoactive bowel sounds. NEUROLOGICAL: No headaches, no weakness, no numbness. HEMATOLOGICAL: Denies any bleeding or petechiae. GENITOURINARY: Denies any burning micturition, frequency, or urgency. MUSCULOSKELETAL/RHEUMATOLOGICAL: Denies any joint pain, swelling, or any muscle pain. ENDOCRINE: Denies any polyuria or polydipsia. Past Medical History Past Medical History: Heart Failure, Diabetes Mellitus, Hypertension, Pneumonia , Vascular Disorder Additional Past Medical History / Comment(s): pt. 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 states he had a small heart attack did not need any stents, diabetic neuropathy, 02 2 liters n/c as needed Last Myocardial Infarction Date:: unknown History of Any Multi-Drug Resistant Organisms: None Reported Past Surgical History: Orthopedic Surgery Additional Past Surgical History / Comment(s): pt. had muscle taken from his back and put into his leg Past Anesthesia/Blood Transfusion Reactions: Motion Sickness Additional Past Anesthesia/Blood Transfusion Reaction / Comment(s): clausterphobia Smoking Status: Former smoker - Past Family History Mother Family Medical History: Cancer Father Family Medical History: Diabetes Mellitus, Renal Disease Medications and Allergies Home Medications Medication Instructions Recorded Confirmed Type Insulin Aspart [NovoLOG 31 units SQ AC-TID 08/30/18 12/02/18 History (formulary)] Aspirin 81 mg PO DAILY #30 chew 09/06/18 12/02/18 Rx Ergocalciferol [Vitamin D2 50,000 unit PO FR #4 cap 09/06/18 12/02/18 Rx (DRISDOL)] Gabapentin [Neurontin] 100 mg PO BID #60 cap 09/06/18 12/02/18 Rx Lisinopril 40 mg PO DAILY #30 tablet 09/06/18 12/02/18 Rx Metoprolol Tartrate [Lopressor] 25 mg PO BID #60 tab 09/06/18 12/02/18 Rx amLODIPine [Norvasc] 10 mg PO DAILY #30 tab 09/06/18 12/02/18 Rx cloNIDine HCL [Catapres] 0.2 mg PO TID #90 tab 09/06/18 12/02/18 Rx metFORMIN HCL 1,000 mg PO BID #60 tablet 09/06/18 12/02/18 Rx Furosemide [Lasix] 20 mg PO BID 12/02/18 12/02/18 History Insulin Glargine,Hum.rec.anlog 25 units SQ DAILY 12/02/18 12/02/18 History [Lantus Solostar] Ipratropium/Albuterol Sulfate 2 puff INHALATION RT-QID PRN 12/02/18 12/02/18 History [Combivent Respimat Inhaler] Allergies Allergy/AdvReac Type Severity Reaction Status Date / Time Latex, Natural Rubber Allergy Rash/Hives Verified 12/02/18 16:18 Penicillins Allergy Unknown Verified 12/02/18 16:18 Childhood Sulfa (Sulfonamide Allergy Rash/Hives Verified 12/02/18 16:18 Antibiotics) Physical Exam Vitals: Vital Signs Temp Pulse Pulse Resp BP Pulse Ox 12/03/18 14:40 97.7 F 98 18 100/68 96 12/03/18 07:00 99.0 F 111 H 20 155/64 97 12/02/18 23:00 98.0 F 97 20 113/60 95 Intake and Output 12/03/18 12/03/18 12/03/18 06:59 14:59 22:59 Intake Total 700 850 Output Total 1800 Balance -1100 850 Intake: Oral 700 850 Output: Urine 1800 Other: # Voids 3 GENERAL: The patient is alert and oriented x3, not in any acute distress. Well developed, well nourished. HEENT: Pupils are round and equally reacting to light. EOMI. No scleral icterus. No conjunctival pallor. Normocephalic, atraumatic. No pharyngeal erythema. No thyromegaly. CARDIOVASCULAR: S1 and S2 present. No murmurs, rubs, or gallops. PULMONARY: Chest is clear to auscultation, no wheezing or crackles. ABDOMEN: Soft, nontender, nondistended, normoactive bowel sounds. No palpable organomegaly. MUSCULOSKELETAL: No joint swelling or deformity. -EXTREMITIES: No cyanosis, clubbing, or pedal edema. right lower extremity cellulitis NEUROLOGICAL: Gross neurological examination did not reveal any focal deficits. SKIN: No rashes. Results CBC & Chem 7: 12/03/18 09:08 12/03/18 09:08 Labs: Abnormal Lab Results - Last 24 Hours (Table) 12/02/18 12/03/18 12/03/18 Range/Units 21:53 07:35 09:08 RBC 3.99 L (4.30-5.90) m/uL Hgb 11.3 L (13.0-17.5) gm/dL Hct 35.3 L (39.0-53.0) % RDW 15.7 H (11.5-15.5) % Neutrophils # 8.2 H (1.3-7.7) k/uL Glucose (74-99) mg/dL POC Glucose (mg/dL) 138 H 153 H (75-99) mg/dL 12/03/18 12/03/18 12/03/18 Range/Units 09:08 12:22 17:10 RBC (4.30-5.90) m/uL Hgb (13.0-17.5) gm/dL Hct (39.0-53.0) % RDW (11.5-15.5) % Neutrophils # (1.3-7.7) k/uL Glucose 244 H (74-99) mg/dL POC Glucose (mg/dL) 214 H 179 H (75-99) mg/dL Microbiology - Last 24 Hours (Table) 12/02/18 16:55 Blood Culture - Preliminary Blood No Growth after 24 hours Thrombosis Risk Factor Assmnt - Choose All That Apply Any of the Below Risk Factors Present?: Yes Each Factor Represents 1 point: Obesity (BMI >25), Swollen legs (current) Other Risk Factors: Yes Each Risk Factor Represents 2 Points: Age 61-74 years Other congenital or acquired thrombophilia - If yes, enter type in comment: No Thrombosis Risk Factor Assessment Total Risk Factor Score: 4 Thrombosis Risk Factor Assessment Level: Moderate Risk Assessment and Plan Assessment: right lower extremity cellulitis Diabetes mellitus Hypertension, essential Diabetic neuropathy History of polio since childhood with right hemiparesis History of congestive heart failure Plan: this is a pleasant 63 years old female presents with right lower extremity cellulitis. Continue with antibiotic. Change vancomycin to pharmacy to dose. Call infectious disease consult. start IV fluidsLabs and medication were reviewed.. Continue same treatment. wound culture. Continue with symptomatic treatment. Resume home medication. Monitor lytes and vitals. DVT and GI prophylaxis. Further recommendations of the clinical course of the patient DVT prophylaxis: Subcutaneous heparin GI Prophylaxis: Pepcid Prognosis is guarded
[2018-12-03 20:45] LABS: Glucose,Whole Blood 243 mg/dL (75-99)
[2018-12-03] MEDS ORDERED: LEVOFLOXACIN 750MG-D5W PMX 750 MG in DEXTROSE/WATER 1 150ML.BAG IVPB SCH (21:00)
[2018-12-03] MEDS: SODIUM CHLORIDE 0.9% 1,000 ML IV SCH (21:54)
[2018-12-03] MEDS: LEVOFLOXACIN 750 MG TAB PO SCH (21:54)
[2018-12-04] MEDS: SODIUM CHLORIDE 0.9% 1,000 ML IV SCH ×3 (04:52→21:56)
[2018-12-04 07:33] LABS: Glucose,Whole Blood 177 mg/dL (75-99)
[2018-12-04] MEDS: VANCOMYCIN 1,750 MG in SODIUM CHLORIDE 0.9% 500 ML 500 ML IVPB SCH ×2 (08:00→21:55)
[2018-12-04] MEDS: FUROSEMIDE 20 MG TAB PO SCH ×2 (08:01→21:58)
[2018-12-04] MEDS: GABAPENTIN 100 MG CAP PO SCH ×2 (08:01→21:58)
[2018-12-04] MEDS: METOPROLOL TARTRATE 25 MG TAB PO SCH ×2 (08:01→21:58)
[2018-12-04] MEDS: metFORMIN 500 MG TAB PO SCH ×2 (08:01→21:58)
[2018-12-04] MEDS: ASPIRIN 81 MG PO SCH (08:01)
[2018-12-04] MEDS: cloNIDine HCL 0.2 MG TAB PO SCH ×3 (08:01→21:58)
[2018-12-04] MEDS: amLODIPine 10 MG TAB PO SCH (08:01)
[2018-12-04] MEDS: LISINOPRIL 20 MG TAB PO SCH (08:01)
[2018-12-04] MEDS: ENOXAPARIN 40 MG/0.4 ML SYRINGE SQ SCH (08:02)
[2018-12-04] MEDS: INSULIN ASPART 100 UNIT/ML 1 ML 10 ML VIAL SQ SCH ×3 (08:02→17:27)
[2018-12-04] MEDS: INSULIN DETEMIR 100 UNIT/ML 10 ML VIAL SQ SCH (08:02)
[2018-12-04 12:06] LABS: Basophils # (A) 0.1 k/uL (0-0.2); Basophils % (A) 0 %; Eosinophils # (A) 0.3 k/uL (0-0.7); Eosinophils % (A) 2 %; HCT 37.7 % (39.0-53.0); HGB 11.7 gm/dL (13.0-17.5); Lymphocytes # (A) 1.5 k/uL (1.0-4.8); Lymphocytes % (A) 12 %; MCH 27.9 pg (25.0-35.0); MCHC 31.1 g/dL (31.0-37.0); MCV 89.8 fL (80.0-100.0); Monocytes # (A) 0.7 k/uL (0-1.0); Monocytes % (A) 5 %; Neutrophils # (A) 10.3 k/uL (1.3-7.7); Neutrophils % (A) 79 %; Platelet Count 486 k/uL (150-450); RDW 15.4 % (11.5-15.5)
[2018-12-04 12:19] LABS: Anion Gap 12 mmol/L; Blood Urea Nitrogen 16 mg/dL (9-20); Calcium 9.5 mg/dL (8.4-10.2); Carbon Dioxide 25 mmol/L (22-30); Chloride 102 mmol/L (98-107); Glucose 226 mg/dL (74-99); Potassium 4.4 mmol/L (3.5-5.1); Sodium 139 mmol/L (137-145)
[2018-12-04 12:40] LABS: Glucose,Whole Blood 238 mg/dL (75-99)
--- NOTE | 2018-12-04 16:38 | P.PN ---
Subjective this is a pleasant 63 years old female with past medical history of hypertension , diabetes mellitus, congestive heart failure, diabetic neuropathy, polycystic childhood and with right hemiparesis.Presents with right lower extremity cellulitis.he said that his redness in his right lower extremity was going on for about a week associated with 2 blisters on the medial side of the right lower leg and on the torn dorsum of the foot. His foods and leg are rate, hot and very tender to touch.patient already received levofloxacin, ceftriaxone and vancomycin. On admission she has mild leukocytosis which is improved.currently she is on vancomycinand oral Levaquin. patient has negative x-ray of the right tibia and fibula 12/04/2018 Patient's looks better than yesterday. His able to move his right lower extremity better than yesterday, compared to severe sensitivity to touch yesterday is less tender today. Less erythematous and swollen. Continue with the same antibiotics as per infectious disease recommendation for consult. Continue with IV fluids. His WBC trended up slightly to 13 K. Creatinine 0.9. Sugar is 179 238. Objective - Vital Signs Vital signs: Vital Signs Temp 97.9 F 12/04/18 15:00 Pulse 56 L 12/04/18 15:00 Resp 16 12/04/18 15:41 BP 156/69 12/04/18 15:00 Pulse Ox 97 12/04/18 15:00 Intake & Output 12/03/18 12/04/18 12/04/18 18:59 06:59 18:59 Intake Total 850 Output Total 1250 600 Balance 850 -1250 -600 Weight 104.468 kg Intake: Oral 850 Output: Urine 1250 600 Other: # Voids 3 - Exam GENERAL: The patient is alert and oriented x3, not in any acute distress. Well developed, well nourished. HEENT: Pupils are round and equally reacting to light. EOMI. No scleral icterus. No conjunctival pallor. Normocephalic, atraumatic. No pharyngeal erythema. No thyromegaly. CARDIOVASCULAR: S1 and S2 present. No murmurs, rubs, or gallops. PULMONARY: Chest is clear to auscultation, no wheezing or crackles. ABDOMEN: Soft, nontender, nondistended, normoactive bowel sounds. No palpable organomegaly. MUSCULOSKELETAL: No joint swelling or deformity. -EXTREMITIES: No cyanosis, clubbing, or pedal edema. right lower extremity cellulitis, less redness and swelling or tenderness. He still has 2 ruptured blisters on the medial lower leg and on the dorsum of the foot NEUROLOGICAL: Gross neurological examination did not reveal any focal deficits. SKIN: No rashes. - Labs CBC & Chem 7: 12/04/18 11:37 12/04/18 11:37 Labs: Abnormal Lab Results - Last 24 Hours (Table) 12/03/18 12/03/18 12/04/18 Range/Units 17:10 20:45 07:23 WBC (3.8-10.6) k/uL RBC (4.30-5.90) m/uL Hgb (13.0-17.5) gm/dL Hct (39.0-53.0) % Plt Count (150-450) k/uL Neutrophils # (1.3-7.7) k/uL Glucose (74-99) mg/dL POC Glucose (mg/dL) 179 H 243 H 177 H (75-99) mg/dL 12/04/18 12/04/18 12/04/18 Range/Units 11:37 11:37 12:35 WBC 13.0 H (3.8-10.6) k/uL RBC 4.20 L (4.30-5.90) m/uL Hgb 11.7 L (13.0-17.5) gm/dL Hct 37.7 L (39.0-53.0) % Plt Count 486 H (150-450) k/uL Neutrophils # 10.3 H (1.3-7.7) k/uL Glucose 226 H (74-99) mg/dL POC Glucose (mg/dL) 238 H (75-99) mg/dL Microbiology - Last 24 Hours (Table) 12/04/18 05:30 Gram Stain - Preliminary Leg - Left Wound Culture - Preliminary 12/04/18 05:30 Anaerobic Culture - Preliminary Foot - Right 12/04/18 05:30 Wound Culture - Preliminary Ankle - Right 12/04/18 05:30 Wound Culture - Preliminary Foot - Right 12/04/18 05:30 Anaerobic Culture - Preliminary Leg - Left 12/04/18 05:30 Anaerobic Culture - Preliminary Ankle - Right 12/02/18 16:55 Blood Culture - Preliminary Blood No Growth after 24 hours Assessment and Plan Assessment: right lower extremity cellulitis Diabetes mellitus Hypertension, essential Diabetic neuropathy History of polio since childhood with right hemiparesis History of congestive heart failure Plan: this is a pleasant 63 years old female presents with right lower extremity cellulitis. Continue with antibiotic. Change vancomycin to pharmacy to dose. Call infectious disease consult. start IV fluidsLabs and medication were reviewed.. Continue same treatment. wound culture. Continue with symptomatic treatment. Resume home medication. Monitor lytes and vitals. DVT and GI prophylaxis. Further recommendations of the clinical course of the patient DVT prophylaxis: Subcutaneous heparin GI Prophylaxis: Pepcid Prognosis is guarded
[2018-12-04 16:51] LABS: Glucose,Whole Blood 182 mg/dL (75-99)
[2018-12-04 21:25] LABS: Glucose,Whole Blood 224 mg/dL (75-99)
[2018-12-04] MEDS: LEVOFLOXACIN 750 MG TAB PO SCH (21:58)
[2018-12-05] MEDS ORDERED: VANCOMYCIN TROUGH DUE 1 EACH MISC MISCELLANE ONE (07:00)
[2018-12-05 07:22] LABS: Glucose,Whole Blood 201 mg/dL (75-99)
[2018-12-05 07:34] LABS: Basophils % (A) 0 %; Eosinophils # (A) 0.3 k/uL (0-0.7); Eosinophils % (A) 3 %; HCT 35.8 % (39.0-53.0); HGB 11.4 gm/dL (13.0-17.5); Lymphocytes # (A) 1.3 k/uL (1.0-4.8); Lymphocytes % (A) 10 %; MCH 27.9 pg (25.0-35.0); MCHC 31.8 g/dL (31.0-37.0); MCV 87.7 fL (80.0-100.0); Mean Platelet Volume 6.1; Monocytes # (A) 0.7 k/uL (0-1.0); Monocytes % (A) 5 %; Neutrophils # (A) 10.2 k/uL (1.3-7.7); Neutrophils % (A) 81 %; Platelet Count 421 k/uL (150-450); RBC 4.08 m/uL (4.30-5.90); RDW 15.3 % (11.5-15.5); WBC 12.6 k/uL (3.8-10.6)
[2018-12-05] MEDS: ENOXAPARIN 40 MG/0.4 ML SYRINGE SQ SCH (07:46)
[2018-12-05] MEDS: VANCOMYCIN 1,750 MG in SODIUM CHLORIDE 0.9% 500 ML 500 ML IVPB SCH ×2 (07:46→22:45)
[2018-12-05] MEDS: ASPIRIN 81 MG PO SCH (07:47)
[2018-12-05] MEDS: LISINOPRIL 20 MG TAB PO SCH (07:47)
[2018-12-05] MEDS: FUROSEMIDE 20 MG TAB PO SCH ×2 (07:47→22:46)
[2018-12-05] MEDS: amLODIPine 10 MG TAB PO SCH (07:47)
[2018-12-05] MEDS: GABAPENTIN 100 MG CAP PO SCH ×2 (07:47→22:46)
[2018-12-05] MEDS: INSULIN ASPART 100 UNIT/ML 1 ML 10 ML VIAL SQ SCH ×3 (07:48→17:28)
[2018-12-05] MEDS: METOPROLOL TARTRATE 25 MG TAB PO SCH ×2 (07:48→22:47)
[2018-12-05] MEDS: metFORMIN 500 MG TAB PO SCH ×2 (07:48→22:47)
[2018-12-05] MEDS: cloNIDine HCL 0.2 MG TAB PO SCH ×3 (07:48→22:47)
[2018-12-05] MEDS: ACETAMINOPHEN TAB 325 MG TAB PO PRN (07:50)
[2018-12-05 07:55] LABS: Anion Gap 9 mmol/L; Blood Urea Nitrogen 15 mg/dL (9-20); Calcium 9.1 mg/dL (8.4-10.2); Carbon Dioxide 26 mmol/L (22-30); Chloride 103 mmol/L (98-107); Glucose 195 mg/dL (74-99); Potassium 4.6 mmol/L (3.5-5.1); Sodium 138 mmol/L (137-145)
[2018-12-05] MEDS: INSULIN DETEMIR 100 UNIT/ML 10 ML VIAL SQ SCH (08:11)
--- NOTE | 2018-12-05 11:09 | CONS ---
CONSULTATION DATE OF SERVICE: December 04, 2018 REASON FOR CONSULTATION: Right lower extremity wound cellulitis. HISTORY OF PRESENT ILLNESS: The patient is a 63-year-old male with past medical history significant for childhood with right hemiparesis. The patient did mention that for the last week or so, the patient noticed to have more swelling in his leg. He has subsequently developed a blister formation or superficial ulceration. The patient has been complaining of pain to the right leg, more of a dull aching pain 4 to 5 out of 10 and no radiation. The patient did have mild drainage which is mostly clear with tenderness, surrounding swelling and redness. The patient has been complaining of some rigors and chills. With these symptoms, the patient presented to the [facility] ER where the patient has been evaluated by the ER physician. On arrival to the ER, the patient did have a low-grade fever of 99. His white count was elevated at 13.4 1000. The patient did have x-rays of the leg which were negative for any fracture. The patient was started on vancomycin and Levaquin. Infectious disease was consulted for further recommendation regarding antibiotic therapy. REVIEW OF SYSTEMS: CONSTITUTIONAL: Positive for weakness and some chills. EYES: No complaint. ENT: No complaint. RESPIRATORY: No complaint. CARDIOVASCULAR no complaint. Genitourinary no complaint. Gastrointestinal: No complaint. MUSCULOSKELETAL: No complaint. INTEGUMENTARY: As per HPI. PSYCHOLOGICAL no complaint. ENDOCRINE: No complaint. NEUROLOGIC: No complaint. PAST MEDICAL HISTORY: Heart failure, diabetes mellitus, hypertension, pneumonia, polio, lower extremity cellulitis and diabetic neuropathy. PAST SURGICAL HISTORY: Orthopedic surgery on the right leg. SOCIAL HISTORY: Remote history of smoking. No drinking or drug use. FAMILY HISTORY: Father has diabetes and disease. ALLERGIES: PENICILLIN, SULFA. MEDICATION: The patient is currently on: 1. Tylenol. 2. DuoNeb. 3. Norvasc. 4. Aspirin. 5. Catapres. 6. Lovenox. 7. Vitamin D2. 8. Lasix. 9. Neurontin. 10.Dilaudid. 11.NovoLog. 12.Levemir. 13.Levaquin. 14.Zestril. 15.Glucophage. 16.Vancomycin . PHYSICAL EXAMINATION: VITAL SIGNS: Blood pressure is 156/59 with a pulse of 83. Temperature 97.9. He is 97% on 2 L nasal cannula. GENERAL DESCRIPTION is a middle-aged male lying in bed in no distress with no tachypnea or accessory muscles of respiration use. HEENT: Shows pallor. No scleral icterus. Oral mucosa membranes are dry. No pharyngeal erythema or thrush. NECK: Trachea central. No thyromegaly. LUNGS: Unlabored breathing. Clear to auscultation anteriorly. No wheeze or crackles. HEART: S1, S2. Regular rate and rhythm. ABDOMEN: Soft. No tenderness. No guarding or rigidity. EXTREMITIES: Right leg with multiple superficial ulcerations with no slough tissue. Did have some surrounding swelling and minimal redness. No foul smelling drainage. Left posterior neck did have some right leg wound but no cellulitis. NEUROLOGICAL: Patient is awake, alert, oriented x3. Mood and affect normal. LABS: Hemoglobin is 11.7, white count 13, with a BUN of 16, creatinine 0.90. Wound culture is currently pending. Blood culture has been negative so far. DIAGNOSTIC IMPRESSION AND PLAN: 1. Patient with acute right lower extremity cellulitis in this patient who did have diffuse swelling and redness with some superficial ulceration from the ruptured blister. The likely organism will to cover will be gram-positive skin christal less likely gram-negative infection. 2. Patient who does have a PENICILLIN and SULFA ALLERGY that will limit the number of antibiotics that can be safely used. PLAN: 1. Vancomycin 250 mg IV q.12 hours while watching his vanco trough and kidney function closely. 2. Levaquin 750 b.i.d. 3. Local wound care with Aquacel Silver dressing and an Mik wrap from just above to below the knee. 4. We will follow up on clinical condition and culture to further adjust medication if needed. Thank you for this consultation. I will follow this patient along with you. MMODL / IJN: [id number] /
[2018-12-05 12:03] LABS: Glucose,Whole Blood 350 mg/dL (75-99)
[2018-12-05 17:23] LABS: Glucose,Whole Blood 128 mg/dL (75-99)
[2018-12-05] MEDS: SODIUM CHLORIDE 0.9% 1,000 ML IV SCH (17:32)
[2018-12-05 21:06] LABS: Glucose,Whole Blood 238 mg/dL (75-99)
--- NOTE | 2018-12-05 21:36 | P.PN ---
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 His foods and leg are rate, hot and very tender to touch.patient already received levofloxacin, ceftriaxone and vancomycin. On admission she has mild leukocytosis which is improved.currently she is on vancomycinand oral Levaquin. patient has negative x-ray of the right tibia and fibula 12/04/2018 Patient's looks better than yesterday. His able to move his right lower extremity better than yesterday, compared to severe sensitivity to touch yesterday is less tender today. Less erythematous and swollen. Continue with the same antibiotics as per infectious disease recommendation for consult. Continue with IV fluids. His WBC trended up slightly to 13 K. Creatinine 0.9. Sugar is 179 238. 12/05/2018 pt continue to improve as redness is regressing , with less tenderness and swelling , local treatment is applied as per ID team . pt remains on vancomcin and levaquin as per ID team who are following the case closely , pt creatinine is 0.7. culture results showing strept agalactiaeWbc and gram negative bacilli , wbc IS trending down. no fever . pending the final results of the culture sensitivity Objective - Vital Signs Vital signs: Vital Signs Temp 98.1 F 12/05/18 15:00 Pulse 107 H 12/05/18 15:00 Resp 16 12/05/18 15:36 BP 165/80 12/05/18 15:00 Pulse Ox 98 12/05/18 15:00 Intake & Output 12/05/18 12/05/18 12/06/18 06:59 18:59 06:59 Output Total 400 Balance -400 Output: Urine 400 Other: # Voids 2 3 # Bowel Movements 1 - Exam GENERAL: The patient is alert and oriented x3, not in any acute distress. Well developed, well nourished. HEENT: Pupils are round and equally reacting to light. EOMI. No scleral icterus. No conjunctival pallor. Normocephalic, atraumatic. No pharyngeal erythema. No thyromegaly. CARDIOVASCULAR: S1 and S2 present. No murmurs, rubs, or gallops. PULMONARY: Chest is clear to auscultation, no wheezing or crackles. ABDOMEN: Soft, nontender, nondistended, normoactive bowel sounds. No palpable organomegaly. MUSCULOSKELETAL: No joint swelling or deformity. -EXTREMITIES: No cyanosis, clubbing, or pedal edema. right lower extremity cellulitis, less redness and swelling or tenderness. He still has 2 ruptured blisters on the medial lower leg and on the dorsum of the foot NEUROLOGICAL: Gross neurological examination did not reveal any focal deficits. SKIN: No rashes. - Labs CBC & Chem 7: 12/05/18 07:15 12/05/18 07:15 Labs: Abnormal Lab Results - Last 24 Hours (Table) 12/05/18 12/05/18 12/05/18 Range/Units 07:15 07:15 07:20 WBC 12.6 H (3.8-10.6) k/uL RBC 4.08 L (4.30-5.90) m/uL Hgb 11.4 L (13.0-17.5) gm/dL Hct 35.8 L (39.0-53.0) % Neutrophils # 10.2 H (1.3-7.7) k/uL Glucose 195 H (74-99) mg/dL POC Glucose (mg/dL) 201 H (75-99) mg/dL 12/05/18 12/05/18 12/05/18 Range/Units 12:01 17:21 20:46 WBC (3.8-10.6) k/uL RBC (4.30-5.90) m/uL Hgb (13.0-17.5) gm/dL Hct (39.0-53.0) % Neutrophils # (1.3-7.7) k/uL Glucose (74-99) mg/dL POC Glucose (mg/dL) 350 H 128 H 238 H (75-99) mg/dL Microbiology - Last 24 Hours (Table) 12/02/18 16:55 Blood Culture - Preliminary Blood No Growth after 72 hours 12/04/18 05:30 Gram Stain - Preliminary Foot - Right Wound Culture - Preliminary Gram Neg Bacilli 12/04/18 05:30 Gram Stain - Final Leg - Left Wound Culture - Final 12/04/18 05:30 Gram Stain - Preliminary Ankle - Right Wound Culture - Preliminary Strep agalactiae - (group b) Gram Neg Bacilli Assessment and Plan Assessment: right lower extremity cellulitis Diabetes mellitus Hypertension, essential Diabetic neuropathy History of polio since childhood with right hemiparesis History of congestive heart failure Plan: this is a pleasant 63 years old female presents with right lower extremity cellulitis. Continue with antibiotic. Change vancomycin to pharmacy to dose. Call infectious disease consult. start IV fluids Labs and medication were reviewed.. Continue same treatment. wound culture. Continue with symptomatic treatment. Resume home medication. Monitor lytes and vitals. DVT and GI prophylaxis. Further recommendations of the clinical course of the patient DVT prophylaxis: Subcutaneous heparin GI Prophylaxis: Pepcid Prognosis is guarded will resume the care of the pt tomorrow
[2018-12-05] MEDS: LEVOFLOXACIN 750 MG TAB PO SCH (22:46)
--- NOTE | 2018-12-05 23:06 | PN ---
PROGRESS NOTE DATE OF SERVICE: 12/05/2018. REASON FOR FOLLOWUP: Right lower extremity wound cellulitis. INTERVAL HISTORY: The patient is currently afebrile. He has been breathing comfortably. Denies having any chest pain, ho shortness of breath or cough. No abdominal pain. Overall pain and swelling in his back has decreased. PHYSICAL EXAMINATION: Blood pressure 135/80 with a pulse of 107, temperature of 98.1, he is 98% on room air. GENERAL DESCRIPTION: A middle-aged male lying in bed in no distress. RESPIRATORY SYSTEM: Unlabored breathing. Clear to auscultation anteriorly. HEART: S1, S2. Regular rate and rhythm. ABDOMEN: Soft. EXTREMITIES: Right leg wound is currently dressed up. No obvious drainage on the dressing. The redness has decreased. LABS: Hemoglobin 11.4, white count 4.2, BUN of 15, creatinine 0.74. The leg wound cultures with group B strep and gram-negative bacilli. DIAGNOSTIC IMPRESSION AND PLAN: Patient with right lower extremity wound with secondary cellulitis, culture with group B strep. The patient has PENICILLIN allergy and is refusing cefazolin. Currently on vancomycin, to continue while watching closely. Hopefully finish therapy with oral clindamycin. Wound culture showing gram-negative, currently covered with Levaquin. Waiting for the ID with gram-negative. Transition to oral antibiotics. Local care to continue with Aquacel Silver dressing and light Mik wrap to keep the swelling down. Continue supportive care. MMODL / IJN: [id number] /
[2018-12-06] MEDS: SODIUM CHLORIDE 0.9% 1,000 ML IV SCH ×2 (04:11→17:53)
[2018-12-06 07:36] LABS: Glucose,Whole Blood 180 mg/dL (75-99)
[2018-12-06] MEDS: INSULIN ASPART 100 UNIT/ML 1 ML 10 ML VIAL SQ SCH ×3 (08:07→17:42)
[2018-12-06] MEDS: amLODIPine 10 MG TAB PO SCH (08:07)
[2018-12-06] MEDS: cloNIDine HCL 0.2 MG TAB PO SCH ×2 (08:08→17:43)
[2018-12-06] MEDS: ASPIRIN 81 MG PO SCH (08:08)
[2018-12-06] MEDS: ENOXAPARIN 40 MG/0.4 ML SYRINGE SQ SCH (08:08)
[2018-12-06] MEDS: FUROSEMIDE 20 MG TAB PO SCH ×2 (08:08→20:50)
[2018-12-06] MEDS: GABAPENTIN 100 MG CAP PO SCH ×2 (08:09→20:49)
[2018-12-06] MEDS: metFORMIN 500 MG TAB PO SCH ×2 (08:10→20:49)
[2018-12-06] MEDS: LISINOPRIL 20 MG TAB PO SCH (08:10)
[2018-12-06] MEDS: METOPROLOL TARTRATE 25 MG TAB PO SCH ×2 (08:12→20:49)
[2018-12-06] MEDS: VANCOMYCIN 1,750 MG in SODIUM CHLORIDE 0.9% 500 ML 500 ML IVPB SCH ×2 (08:17→20:46)
[2018-12-06] MEDS: ACETAMINOPHEN TAB 325 MG TAB PO PRN (08:18)
[2018-12-06] MEDS: INSULIN DETEMIR 100 UNIT/ML 10 ML VIAL SQ SCH (08:18)
[2018-12-06 10:17] LABS: Anion Gap 9 mmol/L; Blood Urea Nitrogen 12 mg/dL (9-20); Calcium 9.1 mg/dL (8.4-10.2); Carbon Dioxide 26 mmol/L (22-30); Chloride 105 mmol/L (98-107); Glucose 208 mg/dL (74-99); Potassium 4.5 mmol/L (3.5-5.1); Sodium 140 mmol/L (137-145)
[2018-12-06 10:20] LABS: Basophils % (A) 0 %; Eosinophils # (A) 0.3 k/uL (0-0.7); Eosinophils % (A) 3 %; HCT 34.7 % (39.0-53.0); HGB 10.9 gm/dL (13.0-17.5); Lymphocytes # (A) 1.1 k/uL (1.0-4.8); Lymphocytes % (A) 8 %; MCH 27.7 pg (25.0-35.0); MCHC 31.3 g/dL (31.0-37.0); MCV 88.3 fL (80.0-100.0); Mean Platelet Volume 6.6; Monocytes # (A) 0.7 k/uL (0-1.0); Monocytes % (A) 5 %; Neutrophils # (A) 11.4 k/uL (1.3-7.7); Neutrophils % (A) 83 %; Platelet Count 540 k/uL (150-450); RBC 3.93 m/uL (4.30-5.90); RDW 15.4 % (11.5-15.5); WBC 13.8 k/uL (3.8-10.6)
[2018-12-06 11:58] LABS: Glucose,Whole Blood 150 mg/dL (75-99)
[2018-12-06 17:12] LABS: Glucose,Whole Blood 182 mg/dL (75-99)
--- NOTE | 2018-12-06 20:25 | PN ---
PROGRESS NOTE DATE OF SERVICE: 12/06/2018 PRESENTING COMPLAINT: Right lower extremity cellulitis. INTERVAL HISTORY: Patient admitted with right lower extremity cellulitis also had blisters, on IV vancomycin. Redness is going down. Cultures have been noted. Patient had some diarrhea. Did tolerate a diet. Sitting up in a chair. REVIEW OF SYSTEMS: Done for constitutional, cardiovascular, GI, pulmonary, dermatological; relevant findings as above. CURRENT MEDICATIONS: Reviewed. They include IV vancomycin. PHYSICAL EXAMINATION: Temperature 98.4, pulse 100, respiration 20, blood pressure 140/62, pulse ox 95% on room air. GENERAL APPEARANCE: Well built. BMI 37.8. Sitting up, awake, on a chair. EYES: Pupils equal. Conjunctivae normal. NECK: JVD unable to assess. Mass not palpable. RESPIRATORY: Effort normal. Lungs are clear. LUNGS: Slightly decreased breath sounds. CARDIOVASCULAR: First and second sounds normal. Some edema present. ABDOMEN: Distended, soft. Liver and spleen not palpable. PSYCHIATRY: Alert and oriented x3. Mood and affect normal. INVESTIGATIONS: White count 13.8, hemoglobin 10.9, platelets 540. Potassium 4.5. BUN and creatinine are normal. Right leg wound culture is growing Enterobacter cloacae and gram-negative bacilli. ASSESSMENT: 1. Acute right lower extremity cellulitis with blisters that have burst, growing Enterobacter cloacae and Streptococcus agalactiae. 2. Obesity; body mass index 37.8. 3. Diabetes mellitus, type 2, chronically on insulin. 4. Essential hypertension. 5. Chronic right lower extremity paralysis. 6. Peripheral neuropathy secondary to diabetes. PLAN: Continue current medication and treatment plan. Will discontinue the IV fluids. Care was discussed with the patient. Questions were answered. MMODL / IJN: [id number] /
[2018-12-06] MEDS: LEVOFLOXACIN 750 MG TAB PO SCH (20:49)
[2018-12-06 21:00] LABS: Glucose,Whole Blood 220 mg/dL (75-99)
--- NOTE | 2018-12-06 23:23 | PN ---
PROGRESS NOTE DATE OF SERVICE: 12/06/2018 REASON FOR FOLLOWUP: Right leg wound and cellulitis. INTERVAL HISTORY: The patient is currently afebrile. He has been breathing comfortably. Patient denies having any chest pain. No shortness of breath or cough. No abdominal pain or any worsening pain to the right leg area. PHYSICAL EXAMINATION: Blood pressure is 140/62 with a pulse of 100, temperature 98.4. He is 95% on room air. General description is a middle-aged male up in the chair in no distress. RESPIRATORY SYSTEM: Unlabored breathing. Clear to auscultation anteriorly. HEART: S1, S2. Regular rate and rhythm. ABDOMEN: Soft. No tenderness. Right leg wound with good granulation tissue. Surrounding swelling and redness have improved. No drainage. LABS: Hemoglobin is 10.9, hematocrit 13.8, BUN of 12, creatinine 0.90. Wound culture grew enterobacter and Streptococcus agalactiae. DIAGNOSTIC IMPRESSION AND PLAN: Patient with right leg wound with secondary cellulitis, culture positive for enterobacter and Streptococcus agalactiae. Levaquin will be switched to oral Cipro. The patient was offered Keflex; however, he is refusing and would like to go on clindamycin. Keep the patient on vancomycin here with the plan to finish therapy with oral Cipro and clindamycin for about a week. Local care with Aquacel Silver dressing and followup in the outpatient setting in one week. Continue supportive care. All his questions and concerns were answered. MMODL / IJN: [id number] /
[2018-12-07] MEDS: cloNIDine HCL 0.2 MG TAB PO SCH ×3 (01:26→15:04)
[2018-12-07 07:53] LABS: Glucose,Whole Blood 178 mg/dL (75-99)
[2018-12-07] MEDS: INSULIN ASPART 100 UNIT/ML 1 ML 10 ML VIAL SQ SCH ×3 (08:06→17:49)
[2018-12-07] MEDS: VANCOMYCIN 1,750 MG in SODIUM CHLORIDE 0.9% 500 ML 500 ML IVPB SCH (08:06)
[2018-12-07] MEDS: ENOXAPARIN 40 MG/0.4 ML SYRINGE SQ SCH (08:07)
[2018-12-07] MEDS: metFORMIN 500 MG TAB PO SCH (08:07)
[2018-12-07] MEDS: LISINOPRIL 20 MG TAB PO SCH (08:07)
[2018-12-07] MEDS: FUROSEMIDE 20 MG TAB PO SCH (08:08)
[2018-12-07] MEDS: amLODIPine 10 MG TAB PO SCH (08:08)
[2018-12-07] MEDS: METOPROLOL TARTRATE 25 MG TAB PO SCH (08:08)
[2018-12-07] MEDS: GABAPENTIN 100 MG CAP PO SCH (08:08)
[2018-12-07] MEDS: ASPIRIN 81 MG PO SCH (08:08)
[2018-12-07] MEDS: INSULIN DETEMIR 100 UNIT/ML 10 ML VIAL SQ SCH (08:10)
[2018-12-07 09:55] LABS: Basophils % (A) 0 %; Eosinophils # (A) 0.4 k/uL (0-0.7); Eosinophils % (A) 3 %; HCT 37.3 % (39.0-53.0); Lymphocytes # (A) 1.2 k/uL (1.0-4.8); Lymphocytes % (A) 8 %; MCH 28.5 pg (25.0-35.0); MCHC 32.3 g/dL (31.0-37.0); MCV 88.3 fL (80.0-100.0); Mean Platelet Volume 6.4; Monocytes # (A) 0.6 k/uL (0-1.0); Monocytes % (A) 4 %; Neutrophils % (A) 83 %; Platelet Count 557 k/uL (150-450); RBC 4.22 m/uL (4.30-5.90); RDW 15.4 % (11.5-15.5); WBC 14.5 k/uL (3.8-10.6)
[2018-12-07 10:15] LABS: Anion Gap 12 mmol/L; Blood Urea Nitrogen 12 mg/dL (9-20); Carbon Dioxide 25 mmol/L (22-30); Chloride 103 mmol/L (98-107); Glucose 303 mg/dL (74-99); Potassium 4.4 mmol/L (3.5-5.1); Sodium 140 mmol/L (137-145)
[2018-12-07 12:10] LABS: Glucose,Whole Blood 209 mg/dL (75-99)
[2018-12-07 15:27] VITALS: RESP 16
[2018-12-07 16:31] VITALS: BP 178/68; PULSE 106; TEMP 98.1
--- NOTE | 2018-12-07 17:15 | PN ---
PROGRESS NOTE DATE OF SERVICE: 12/07/2018 REASON FOR FOLLOWUP: Right lower extremity wound cellulitis. INTERVAL HISTORY: The patient is currently afebrile. He is breathing comfortably. Right leg pain and swelling has improved. Denies any chest pain or shortness of breath or cough. No abdominal pain. No diarrhea. PHYSICAL EXAMINATION: Blood pressure 178/88 with a pulse of 106, temperature 98.1. He is 96% on room air. General description is a middle aged male up in the bed in no distress. Respiratory system: Unlabored breathing. Clear to auscultation, anteriorly. Heart S1, S2. Regular rate and rhythm. Abdomen soft. Right leg swelling and redness has improved. No drainage. LABS: White count slightly elevated at 14.5. BUN of 12, creatinine 0.77. Wound culture now also showing . DIAGNOSTIC IMPRESSION/PLAN: Patient with right leg wound with secondary cellulitis. Culture with multiple pathogen. Patient has shown clinical improvement on the vancomycin and Levaquin. Recommend to finish therapy with oral Clinda and Cipro. Local care with Aquacel packing along with Mik wrap and close outpatient followup. Continue with supportive care. MMODL / IJN: [id number] /
[2018-12-07 17:33] LABS: Glucose,Whole Blood 150 mg/dL (75-99)
[2018-12-08] MEDS ORDERED: VANCOMYCIN TROUGH DUE 1 EACH MISC MISCELLANE ONE (07:00)
--- NOTE | 2018-12-08 15:18 | CDI ---
Documentation Clarification Form Date: 12/08/18 From: Lindsay Wang Phone: If you have a question regarding this query, please contact Jaja Sparks at [phone] between 8am and 5pm. Admit Date: 12/02/2018 6:55:00 PM Patient Name: Javi Duff Visit Number: [id number] Discharge Date: 12/07/2018 6:40:00 PM ATTENTION: The Clinical Documentation Specialists (CDI) and [facility] Coding Staff appreciate your assistance in clarifying documentation. Please respond to the clarification below the line at the bottom and electronically sign. The CDI & [facility] Coding staff will review the response and follow-up if needed. Please note: Queries are made part of the Legal Health Record. If you have any questions, please contact the author of this message via ITS. Dr. Nayan Mathews The patient presented with blisters on the right lower leg and dorsum of the right foot. The patient also had cellulitis of the right lower extremity. History/Risk Factors: Patient is a diabetic and also has a history of hypertension, diabetic neuropathy and right lower extremity paralysis due to polio as a child. Clinical Indicators: Right lower extremity redness and swelling associated with blisters. Wound Cultures: Enterobacter cloacae and Strep agalactiae Treatment: Ceftriaxone sodium IV, levofloxacin IV, Vancomycin IV In your professional opinion, can you please clarify if the cellulitis is associated with? Diabetes mellitus Other, please specify Unable to determine acute cellulitis not associated with diabetis mellitus MTDD
--- NOTE | 2018-12-09 01:09 | DS ---
DISCHARGE SUMMARY DATE OF ADMISSION: 12/02/2018. DATE OF DISCHARGE: 12/07/2018. FINAL DIAGNOSES: 1. Acute right lower extremity cellulitis with blisters growing Enterobacter cloacae and Streptococcus agalactiae. 2. Obesity, BMI index 37.8. 3. Diabetes mellitus type 2, chronically on insulin. 4. Essential hypertension. 5. Chronic right lower extremity paralysis. 6. Peripheral neuropathy secondary to diabetes. HOSPITAL COURSE: This patient presented with blisters of the right lower extremity with acute presentation with secondary cellulitis growing the above organisms. The patient was treated with antibiotics including IV vancomycin and Mik wraps and topical treatment to which he responded well. Seen by Dr. Campuzano. Doing much better at the time of discharge. Care was discussed the patient, questions were answered. Also discussed with Dr. Campuzano. The patient will [facility]. Discussion and discharge planning and coordination more than 35 minutes. PHYSICAL EXAMINATION: Temperature 98.1, pulse 106, respiratory rate 20, blood pressure 146/72, pulse 95 percent on room air. INVESTIGATIONS: White count 14.5, hemoglobin 12, potassium 4.4. DISCHARGE MEDICATIONS: 1. NovoLog 31 units subcu with meals t.i.d. 2. Aspirin 81 mg p.o. daily. 3. Vitamin D2, 50,000 units. 4. Neurontin 100 mg b.i.d. 5. Lisinopril 40 mg a day. 6. Lopressor 25 p.o. b.i.d. 7. Norvasc 10 mg a day. 8. Catapres 0.2 mg p.o. t.i.d. 9. Metformin 1000 mg b.i.d. 10.Lasix 20 mg b.i.d. 11.Lantus 25 units subcu daily. 12.Combivent 2 puffs q.i.d. p.r.n. 13.Cipro 5 mg p.o. every 12 hours, 14 tablets. 14.Clindamycin 450 mg every 8 hours for 7 days. 15.Local care with Aquacel packing along with Mik wrap to continue. FOLLOWUP: 1. Follow up with Dr. Cid in 1 week. 2. Follow up with Dr. Campuzano in 1 week. 3. [facility] to do wound care. DISCUSSION AND DISCHARGE PLANNING: More than 35 minutes. MMODL / IJN: [id number] /
== END 2018-12-07 18:40 | disposition home health service (06) | DRG 603 ==
LOC: EC 15:38 → 4MS4W 18:55
PROVIDERS: ADMIT Hospitalist; ATTEND Hospitalist
DX: L03.115 Cellulitis of right lower limb (principal); G81.91 Hemiplegia, unspecified affecting right dominant side; E11.65 Type 2 diabetes mellitus with hyperglycemia; E66.9 Obesity, unspecified; E11.42 Type 2 diabetes mellitus with diabetic polyneuropathy; I11.0 Hypertensive heart disease with heart failure; I25.2 Old myocardial infarction; I50.9 Heart failure, unspecified; S90.821A Blister (nonthermal), right foot, initial encounter; S80.821A Blister (nonthermal), right lower leg, initial encounter; B95.1 Streptococcus, group B, as the cause of diseases classified elsewhere; B96.89 Other specified bacterial agents as the cause of diseases classified elsewhere; R19.7 Diarrhea, unspecified; Z68.37 Body mass index [BMI] 37.0-37.9, adult; Z79.4 Long term (current) use of insulin; Z79.82 Long term (current) use of aspirin; Z79.899 Other long term (current) drug therapy; Z88.2 Allergy status to sulfonamides; Z88.0 Allergy status to penicillin; Z91.040 Latex allergy status; Z87.891 Personal history of nicotine dependence; Z86.12 Personal history of poliomyelitis; Z87.01 Personal history of pneumonia (recurrent); Z83.3 Family history of diabetes mellitus; Z80.9 Family history of malignant neoplasm, unspecified; Z84.1 Family history of disorders of kidney and ureter
CPT/HCPCS: 36415; 80048; 80202; 83605; 85025; 85610; 85730; 87040; 87070; 87075; 87077; 87186; 87205; 94640; 96365; 96375; 99284

== ENCOUNTER 2019-01-18 12:41 | Inpatient (IN) | payer MEDICARE ==
[2019-01-18] MEDS ORDERED: NITROGLYCERIN OINT 1 INCH/GM PACKET TOPICAL STA (12:52)
[2019-01-18] MEDS ORDERED: FUROSEMIDE 10 MG/ML 4 ML VIAL IV STA (12:52)
--- NOTE | 2019-01-18 13:05 | ED ---
General Adult HPI - General Stated complaint: MARIANA Time Seen by Provider: 01/18/19 12:51 - History of Present Illness Initial comments: Dictation was produced using [employer] dictation software. please excuse any grammatical, word or spelling errors. Chief Complaint: 63-year-old male past medical history of heart rate, diabetes, pneumonia, vascular disease, polio syndrome presents with acute onset dyspnea. History of Present Illness: Patient 63-year-old male presents chief complaint dyspnea. Patient states that his symptoms started today. Patient has history of congestive heart failure. States that he a bullae on soup earlier today. After that he began to experience symptoms. Patient denies any pain complaints at this time. Patient is aware that he is not supposed being any salty foods. This evaluated patient states that he had mild external wheezes. He was giving a breathing treatment. The ROS documented in this emergency department record has been reviewed and confirmed by me. Those systems with pertinent positive or negative responses have been documented in the HPI. All other systems are other negative and/or noncontributory. PHYSICAL EXAM: General Impression: Alert and oriented x3, acute distress secondary to dyspnea HEENT: Normocephalic atraumatic, extra-ocular movements intact, pupils equal and reactive to light bilaterally, mucous membranes moist. Cardiovascular: Heart regular rate and rhythm, S1&S2 audible, no murmurs, rubs or gallops Chest: Mild wheezing Abdomen: Bowel sounds present, abdomen soft, non-tender, non-distended, no organomegaly, obese Musculoskeletal: Mild 1+ peripheral edema, lower extremities are wrapped with Mik wrapped and bandages Motor:no focal deficits noted Neurological: CN II-XII grossly intact, no focal motor or sensory deficits noted Skin: Intact with no visualized rashes Psych: Normal affect and mood ED course: 63-year-old male with chief complaint of dyspnea. He has history of CHF. Point of care bedside ultrasound was performed rapidly. Patient has long Deandra seen in the upper lung youssef suggestive of pulmonary edema. Patient placed on BiPAP. Clinical presentation likely secondary to acute decompensated heart failure. Patient given sublingual nitroglycerin. Nitropaste applied. Patient given 40 mg IV Lasix.Laboratory evaluation obtained. Leukocytosis of 18.3. Rest of CBC unremarkable. Coag panel is unremarkable. Chemistry panel shows potassium 5.3. Rest of labs unremarkable. However there is an elevated brain natruretic peptide. Chest x-ray obtained showing acute decompensated heart failure there is also a right mid lung opacity which could represent pulmonary edema versus pneumonia. Given x-ray findings and leukocytosis patient be given 1 dose of antibiotics to treat pneumonia. Patient reevaluated found to be in stable medical condition. Patient be admitted. EKG interpretation: Ventricular rate she 9, sinus bradycardia, ID interval 170, QS 170, QTc 507. No ID prolongation, no QTC prolongation, no ST or T-wave changes noted. EKG compared to 09/09/2013 showing no changes. Overall, this EKG is unremarkable - Related Data Home Medications Medication Instructions Recorded Confirmed INSULIN ASPART (NovoLOG) [NovoLOG 31 units SQ AC-TID 08/30/18 12/02/18 (formulary)] Furosemide [Lasix] 20 mg PO BID 12/02/18 12/02/18 Insulin Glargine,Hum.rec.anlog 25 units SQ DAILY 12/02/18 12/02/18 [Lantus Solostar] Ipratropium/Albuterol Sulfate 2 puff INHALATION RT-QID PRN 12/02/18 12/02/18 [Combivent Respimat Inhaler] Previous Rx's Medication Instructions Recorded Aspirin 81 mg PO DAILY #30 chew 09/06/18 Ergocalciferol [Vitamin D2 50,000 unit PO FR #4 cap 09/06/18 (DRISDOL)] Gabapentin [Neurontin] 100 mg PO BID #60 cap 09/06/18 Lisinopril 40 mg PO DAILY #30 tablet 09/06/18 Metoprolol Tartrate [Lopressor] 25 mg PO BID #60 tab 09/06/18 amLODIPine [Norvasc] 10 mg PO DAILY #30 tab 09/06/18 cloNIDine HCL [Catapres] 0.2 mg PO TID #90 tab 09/06/18 metFORMIN HCL 1,000 mg PO BID #60 tablet 09/06/18 Ciprofloxacin HCl [Cipro] 500 mg PO Q12HR #14 tablet 12/07/18 Clindamycin [Cleocin] 450 mg PO Q8H 7 Days #63 capsule 12/07/18 Allergies Allergy/AdvReac Type Severity Reaction Status Date / Time Latex, Natural Rubber Allergy Rash/Hives Verified 01/18/19 13:04 Penicillins Allergy Unknown Verified 01/18/19 13:04 Childhood Sulfa (Sulfonamide Allergy Rash/Hives Verified 01/18/19 13:04 Antibiotics) Review of Systems ROS Statement: Those systems with pertinent positive or pertinent negative responses have been documented in the HPI. ROS Other: All systems not noted in ROS Statement are negative. Past Medical History Past Medical History: Heart Failure, Diabetes Mellitus, Hypertension, Pneumonia , Vascular Disorder Additional Past Medical History / Comment(s): pt. 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 states he had a small heart attack did not need any stents, diabetic neuropathy, 02 2 liters n/c as needed Last Myocardial Infarction Date:: unknown History of Any Multi-Drug Resistant Organisms: None Reported Past Surgical History: Orthopedic Surgery Additional Past Surgical History / Comment(s): pt. had muscle taken from his back and put into his leg Past Anesthesia/Blood Transfusion Reactions: Motion Sickness Additional Past Anesthesia/Blood Transfusion Reaction / Comment(s): clausterphobia Smoking Status: Former smoker - Past Family History Mother Family Medical History: Cancer Father Family Medical History: Diabetes Mellitus, Renal Disease Course Vital Signs 01/18/19 01/18/19 01/18/19 12:41 12:52 13:15 Temperature 98.8 F Pulse Rate 65 69 Respiratory 30 H 30 H 30 H Rate Blood Pressure 164/98 151/90 O2 Sat by Pulse 92 L 97 Oximetry Medical Decision Making - Lab Data Result diagrams: 01/18/19 12:57 01/18/19 12:57 Lab Results 01/18/19 01/18/19 01/18/19 Range/Units 12:57 12:57 12:57 WBC 18.3 H (3.8-10.6) k/uL RBC 4.01 L (4.30-5.90) m/uL Hgb 11.7 L (13.0-17.5) gm/dL Hct 36.8 L (39.0-53.0) % MCV 91.6 (80.0-100.0) fL MCH 29.2 (25.0-35.0) pg MCHC 31.8 (31.0-37.0) g/dL RDW 15.2 (11.5-15.5) % Plt Count 442 (150-450) k/uL Neutrophils % 90 % Lymphocytes % 5 % Monocytes % 4 % Eosinophils % 0 % Basophils % 0 % Neutrophils # 16.5 H (1.3-7.7) k/uL Lymphocytes # 0.9 L (1.0-4.8) k/uL Monocytes # 0.7 (0-1.0) k/uL Eosinophils # 0.1 (0-0.7) k/uL Basophils # 0.0 (0-0.2) k/uL Hypochromasia Slight PT (9.0-12.0) sec INR (<1.2) APTT (22.0-30.0) sec Sodium 136 L (137-145) mmol/L Potassium 5.3 H (3.5-5.1) mmol/L Chloride 102 (98-107) mmol/L Carbon Dioxide 19 L (22-30) mmol/L Anion Gap 15 mmol/L BUN 23 H (9-20) mg/dL Creatinine 0.99 (0.66-1.25) mg/dL Est GFR (CKD-EPI)AfAm >90 (>60 ml/min/1.73 sqM) Est GFR (CKD-EPI)NonAf 81 (>60 ml/min/1.73 sqM) Glucose 392 H (74-99) mg/dL Calcium 9.8 (8.4-10.2) mg/dL Magnesium 1.9 (1.6-2.3) mg/dL Total Bilirubin 1.0 (0.2-1.3) mg/dL AST 29 (17-59) U/L ALT 32 (21-72) U/L Alkaline Phosphatase 85 (38-126) U/L Total Creatine Kinase 292 H (55-170) U/L CK-MB (CK-2) 4.7 H (0.0-2.4) ng/mL CK-MB (CK-2) Rel Index 1.6 Troponin I 0.031 (0.000-0.034) ng/mL NT-Pro-B Natriuret Pep pg/mL Total Protein 7.3 (6.3-8.2) g/dL Albumin 3.9 (3.5-5.0) g/dL 01/18/19 01/18/19 Range/Units 12:57 12:57 WBC (3.8-10.6) k/uL RBC (4.30-5.90) m/uL Hgb (13.0-17.5) gm/dL Hct (39.0-53.0) % MCV (80.0-100.0) fL MCH (25.0-35.0) pg MCHC (31.0-37.0) g/dL RDW (11.5-15.5) % Plt Count (150-450) k/uL Neutrophils % % Lymphocytes % % Monocytes % % Eosinophils % % Basophils % % Neutrophils # (1.3-7.7) k/uL Lymphocytes # (1.0-4.8) k/uL Monocytes # (0-1.0) k/uL Eosinophils # (0-0.7) k/uL Basophils # (0-0.2) k/uL Hypochromasia PT 10.6 (9.0-12.0) sec INR 1.0 (<1.2) APTT 22.0 (22.0-30.0) sec Sodium (137-145) mmol/L Potassium (3.5-5.1) mmol/L Chloride (98-107) mmol/L Carbon Dioxide (22-30) mmol/L Anion Gap mmol/L BUN (9-20) mg/dL Creatinine (0.66-1.25) mg/dL Est GFR (CKD-EPI)AfAm (>60 ml/min/1.73 sqM) Est GFR (CKD-EPI)NonAf (>60 ml/min/1.73 sqM) Glucose (74-99) mg/dL Calcium (8.4-10.2) mg/dL Magnesium (1.6-2.3) mg/dL Total Bilirubin (0.2-1.3) mg/dL AST (17-59) U/L ALT (21-72) U/L Alkaline Phosphatase (38-126) U/L Total Creatine Kinase (55-170) U/L CK-MB (CK-2) (0.0-2.4) ng/mL CK-MB (CK-2) Rel Index Troponin I (0.000-0.034) ng/mL NT-Pro-B Natriuret Pep 3330 pg/mL Total Protein (6.3-8.2) g/dL Albumin (3.5-5.0) g/dL Disposition Clinical Impression: CHF exacerbation, Pneumonia Disposition: ADMITTED IP TO THIS HOSP Condition: Critical Referrals: Ángel Cid MD [Primary Care Provider] - 1-2 days Decision Time: 14:14
[2019-01-18] MEDS ORDERED: NITROGLYCERIN SL TABS 0.4 MG TAB SUBLINGUAL STA (13:16)
[2019-01-18 13:18] LABS: Basophils % (A) 0 %; Eosinophils # (A) 0.1 k/uL (0-0.7); Eosinophils % (A) 0 %; HCT 36.8 % (39.0-53.0); HGB 11.7 gm/dL (13.0-17.5); Hypochromasia Slight; Lymphocytes # (A) 0.9 k/uL (1.0-4.8); Lymphocytes % (A) 5 %; MCH 29.2 pg (25.0-35.0); MCHC 31.8 g/dL (31.0-37.0); MCV 91.6 fL (80.0-100.0); Mean Platelet Volume 7.3; Monocytes # (A) 0.7 k/uL (0-1.0); Monocytes % (A) 4 %; Neutrophils # (A) 16.5 k/uL (1.3-7.7); Neutrophils % (A) 90 %; Platelet Count 442 k/uL (150-450); RBC 4.01 m/uL (4.30-5.90); RDW 15.2 % (11.5-15.5); WBC 18.3 k/uL (3.8-10.6)
[2019-01-18 13:28] LABS: ALT 32 U/L (21-72); AST 29 U/L (17-59); Albumin 3.9 g/dL (3.5-5.0); Alkaline Phosphatase 85 U/L (38-126); Anion Gap 15 mmol/L; Blood Urea Nitrogen 23 mg/dL (9-20); Calcium 9.8 mg/dL (8.4-10.2); Carbon Dioxide 19 mmol/L (22-30); Chloride 102 mmol/L (98-107); Glucose 392 mg/dL (74-99); Magnesium 1.9 mg/dL (1.6-2.3); Potassium 5.3 mmol/L (3.5-5.1); Sodium 136 mmol/L (137-145); Total Protein 7.3 g/dL (6.3-8.2)
[2019-01-18 13:43] LABS: Prothrombin Time 10.6 sec (9.0-12.0)
--- NOTE | 2019-01-18 13:48 | XR ---
EXAMINATION TYPE: XR chest 1V portable DATE OF EXAM: 01/18/2019 COMPARISON: 09/02/2018 HISTORY: Shortness of breath with history of congestive heart failure TECHNIQUE: Single frontal view of the chest is obtained. FINDINGS: There is an enlarged cardiac mediastinal silhouette. The previously seen confluent right u pper lung opacity has improved in the interim although a smaller right midlung opacity remains. No si zable pneumothorax. Trace pleural effusions blunt the costophrenic angles. IMPRESSION: Findings suggesting decompensating congestive heart failure with mild interstitial pulmo nary edema. Right midlung opacity may represent confluent pulmonary edema, underlying pulmonary nodul e or pneumonia and follow-up to resolution is recommended.
[2019-01-18 13:54] LABS: Creatine Kinase MB 4.7 ng/mL (0.0-2.4); Troponin I 0.031 ng/mL (0.000-0.034)
[2019-01-18] MEDS ORDERED: AZITHROMYCIN 500 MG in SODIUM CHLORIDE 0.9% 250 ML IVPB STA (14:07)
[2019-01-18] MEDS ORDERED: VANCOMYCIN IV PER PHARMACY 1 EACH MISC MISCELLANE PRN (15:55)
--- NOTE | 2019-01-18 16:04 | P.HPIM ---
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 The patient's this morning noticed the patient was increasingly tachypnea with some labored breathing with pulse oximetry at 88 despite increasing his baseline oxygen requirements of 2 L. The patient denies any chest pain, wheezes, palpitations. Patient also notes some purulent drainage from the wound on his left anterior tibial area. The patient's most recent hospitalization for right lower extremity cellulitis secondary to Enterobacter Clocae and strep agalactiae. Patient's most recent echocardiogram showed preserved LV EF of 55-60%. In the ER the patient have a comprehensive workup with noted lab abnormalities WBC count 18.3, NT proBNP 3330, serum potassium 5.3, blood sugar 392, EKG indicated sinus bradycardia with no suggestion of any acute ischemia Chest x-ray consistent with decompensated heart failure with mild pulmonary interstitial edema with a right mid lung opacity which could be edema versus infectious etiology. Patient was given a loading dose of Lasix placed on BiPAP and started on empiric IV antibiotics with Rocephin and azithromycin. Blood pressures are noted to be elevated in the ER 170-/100 Review of Systems Pertinent positives per HPI all other review of systems otherwise negative Past Medical History Past Medical History: Heart Failure, Diabetes Mellitus, Hypertension, Pneumonia , Vascular Disorder Additional Past Medical History / Comment(s): pt. 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 states he had a small heart attack did not need any stents, diabetic neuropathy, 02 2 liters n/c as needed Last Myocardial Infarction Date:: unknown History of Any Multi-Drug Resistant Organisms: None Reported Past Surgical History: Orthopedic Surgery Additional Past Surgical History / Comment(s): pt. had muscle taken from his back and put into his leg Past Anesthesia/Blood Transfusion Reactions: Motion Sickness Additional Past Anesthesia/Blood Transfusion Reaction / Comment(s): clausterphobia Smoking Status: Former smoker - Past Family History Mother Family Medical History: Cancer Father Family Medical History: Diabetes Mellitus, Renal Disease Medications and Allergies Home Medications Medication Instructions Recorded Confirmed Type INSULIN ASPART (NovoLOG) [NovoLOG 31 units SQ AC-TID 08/30/18 01/18/19 History (formulary)] Aspirin 81 mg PO DAILY #30 chew 09/06/18 01/18/19 Rx Ergocalciferol [Vitamin D2 50,000 unit PO FR #4 cap 09/06/18 01/18/19 Rx (DRISDOL)] Gabapentin [Neurontin] 100 mg PO BID #60 cap 09/06/18 01/18/19 Rx Lisinopril 40 mg PO DAILY #30 tablet 09/06/18 01/18/19 Rx Metoprolol Tartrate [Lopressor] 25 mg PO BID #60 tab 09/06/18 01/18/19 Rx amLODIPine [Norvasc] 10 mg PO DAILY #30 tab 09/06/18 01/18/19 Rx cloNIDine HCL [Catapres] 0.2 mg PO TID #90 tab 09/06/18 01/18/19 Rx metFORMIN HCL 1,000 mg PO BID #60 tablet 09/06/18 01/18/19 Rx Furosemide [Lasix] 20 mg PO BID 12/02/18 01/18/19 History Insulin Glargine,Hum.rec.anlog 25 units SQ DAILY 12/02/18 01/18/19 History [Lantus Solostar] Ipratropium/Albuterol Sulfate 2 puff INHALATION RT-QID PRN 12/02/18 01/18/19 History [Combivent Respimat Inhaler] Allergies Allergy/AdvReac Type Severity Reaction Status Date / Time Latex, Natural Rubber Allergy Rash/Hives Verified 01/18/19 14:15 Penicillins Allergy Unknown Verified 01/18/19 14:15 Childhood Sulfa (Sulfonamide Allergy Rash/Hives Verified 01/18/19 14:15 Antibiotics) Physical Exam Vitals: Vital Signs Temp Pulse Resp BP Pulse Ox 01/18/19 13:15 69 30 H 151/90 97 01/18/19 12:52 30 H 01/18/19 12:41 98.8 F 65 30 H 164/98 92 L Intake and Output 01/18/19 01/18/19 01/18/19 06:59 14:59 22:59 Other: Weight 113.398 kg Constitutional: Mild to moderate distress currently on BiPAP, conversant, pleasant Eyes: Anicteric sclerae, moist conjunctiva, no lid-lag, PERRLA ENMT: NC/AT,Oropharynx clear, no erythema, exudates Neck:Supple, FROM, no masses, or JVD, No carotid bruits; No thyromegaly Lungs: Bibasilar crackles, Clear to percussion, labored respirations accessory muscle use on BiPAP Cardiovascular: Heart regular in rate and rhythm, No murmurs, gallops, or rubs , + 3 bilateral lower extremity pitting edema Abdominal: Soft Nontender, nom distended, no guarding, no rebound or rigidity, Normoactive bowel sounds No hepatomegaly, No splenomegaly, No palpable mass No abdominal wall hernia noted Skin: Noted skin discoloration of both lower extremities, kerry sized anterior left leg lesion with purulent drainage noted Extremities:No digital cyanosis No clubbing, Pedal pulses intact and symmetrical Radial pulses intact and symmetrical Normal gait and station, No calf tenderness Psychiatric: Alert and oriented to person, place and time, Appropriate affect Intact judgement Neuro: Muscles Strength 5/5 in all 4 extremities, Sensation to light touch grossly present throughout, Cranial nerves II-XII grossly intact. No focal sensory deficits Results CBC & Chem 7: 01/18/19 12:57 01/19/19 06:05 Labs: Abnormal Lab Results - Last 24 Hours (Table) 01/18/19 01/18/19 01/18/19 Range/Units 12:57 12:57 12:57 WBC 18.3 H (3.8-10.6) k/uL RBC 4.01 L (4.30-5.90) m/uL Hgb 11.7 L (13.0-17.5) gm/dL Hct 36.8 L (39.0-53.0) % Neutrophils # 16.5 H (1.3-7.7) k/uL Lymphocytes # 0.9 L (1.0-4.8) k/uL Sodium 136 L (137-145) mmol/L Potassium 5.3 H (3.5-5.1) mmol/L Carbon Dioxide 19 L (22-30) mmol/L BUN 23 H (9-20) mg/dL Glucose 392 H (74-99) mg/dL Total Creatine Kinase 292 H (55-170) U/L CK-MB (CK-2) 4.7 H (0.0-2.4) ng/mL Assessment and Plan (1) Acute respiratory failure with hypoxia Current Visit: No Status: Acute Code(s): J96.01 - ACUTE RESPIRATORY FAILURE WITH HYPOXIA SNOMED Code(s): 65885725 (2) Acute on chronic diastolic CHF (congestive heart failure) Current Visit: Yes Status: Acute Code(s): I50.33 - ACUTE ON CHRONIC DIASTOLIC (CONGESTIVE) HEART FAILURE SNOMED Code(s): 937595942 (3) Cellulitis of right lower extremity Current Visit: No Status: Acute Code(s): L03.115 - CELLULITIS OF RIGHT LOWER LIMB SNOMED Code(s): 553221337 (4) Type 2 diabetes mellitus with hyperglycemia Current Visit: No Status: Chronic Code(s): E11.65 - TYPE 2 DIABETES MELLITUS WITH HYPERGLYCEMIA SNOMED Code(s): 005783262050794 (5) Hyperkalemia Current Visit: Yes Status: Acute Code(s): E87.5 - HYPERKALEMIA SNOMED Code (s): 43289165 (6) Essential hypertension Current Visit: Yes Status: Acute Code(s): I10 - ESSENTIAL (PRIMARY) HYPERTENSION SNOMED Code(s): 66073250 Plan: The patient is admitted to the cardiac floor anticipated greater than 2 midnight stay with acute on chronic respiratory failure with hypoxia secondary to acute CHF exacerbation likely diastolic superimposed on possible underlying pneumonia, continue the patient on BiPAP, consult pulmonology, start breathing treatments plans continue ongoing diuresis with Lasix, place on fluid restriction, strict I's and O's with daily weights, recheck echocardiogram, tsh consult cardiology. Continue empiric IV antibiotics with Levaquin and vancomycin, ID consult and for wound care and antibiotic guidance. Patient's blood pressure medical restart his home regimen. Also noted uncontrolled diabetes with hyperglycemia check an A1c resume home insulin regimen, continue Accu-Cheks with correctional scale insulin coverage. Continue to follow patient 's clinical course Surrogate decision-maker: CODE STATUS: Full code Anticipated discharge 2-3 days DVT prophylaxis heparin/GI prophylaxis protonix
[2019-01-18] MEDS: IPRATROPIUM-ALBUTEROL 3 ML NEB INHALATION SCH ×3 (16:28→23:21)
[2019-01-18] MEDS ORDERED: VANCOMYCIN 2,000 MG in SODIUM CHLORIDE 0.9% 500 ML 500 ML IVPB ONE (17:00)
[2019-01-18] MEDS: HEPARIN SODIUM,PORCINE 5,000 UNIT/ML 1 ML VIAL SQ SCH ×2 (18:12→23:05)
[2019-01-18] MEDS: cloNIDine HCL 0.2 MG TAB PO SCH ×2 (18:12→21:30)
[2019-01-18 18:18] LABS: Glucose,Whole Blood 344 mg/dL (75-99)
[2019-01-18] MEDS: INSULIN ASPART (NovoLOG) 100 UNIT/ML VIAL SQ SCH ×3 (19:11→21:30)
[2019-01-18] MEDS: LEVOFLOXACIN 750MG-D5W PMX 750 MG in DEXTROSE/WATER 1 150ML.BAG IVPB SCH (21:18)
[2019-01-18 21:21] LABS: Glucose,Whole Blood 216 mg/dL (75-99)
[2019-01-18] MEDS: METOPROLOL TARTRATE 25 MG TAB PO SCH (21:29)
[2019-01-18] MEDS: GABAPENTIN 100 MG CAP PO SCH (21:29)
[2019-01-18] MEDS: FUROSEMIDE 10 MG/ML 4 ML VIAL IV SCH (21:30)
[2019-01-18] MEDS: INSULIN DETEMIR (LEVEMIR) 100 UNIT/ML SYR SQ SCH (21:52)
[2019-01-18 21:56] LABS: Appearance,Urine Clear (Clear); Bilirubin,Urine Negative (Negative); Blood,Urine Negative (Negative); Color,Urine Yellow; Glucose,Urine (UA) 4+ (Negative); Ketones,Urine Negative (Negative); Leukocyte Esterase,Urine Negative (Negative); Nitrite,Urine Negative (Negative); Protein,Urine Trace (Negative); Specific Gravity,Urine 1.008 (1.001-1.035); Urobilinogen,Urine <2.0 mg/dL (<2.0)
[2019-01-19] MEDS: IPRATROPIUM-ALBUTEROL 3 ML NEB INHALATION SCH ×6 (03:23→23:08)
[2019-01-19 05:15] LABS: Glucose,Whole Blood 169 mg/dL (75-99)
[2019-01-19] MEDS: FUROSEMIDE 10 MG/ML 4 ML VIAL IV SCH (05:30)
[2019-01-19] MEDS: VANCOMYCIN 1,750 MG in SODIUM CHLORIDE 0.9% 500 ML 500 ML IVPB SCH ×2 (06:06→19:03)
--- NOTE | 2019-01-19 06:54 | XR ---
EXAM: XR Chest, 1 View CLINICAL HISTORY: ITS.REASON XR Reason: CHF TECHNIQUE: Frontal view of the chest. COMPARISON: 01/18/19 IMPRESSION: Cardiomediastinal silhouette remains prominent though likely unchanged allowing for differences in technique. Bilateral lung opacities which appear similar to the previous. Likely edema. Correlate for other infiltrates. There is blunting of the costophrenic angles. May represent summation with pleural effusions not excluded. The more confluent right mid lung opacity discussed on the previous likely unchanged allowing for differences in technique. Attention to follow-up.
[2019-01-19 07:00] LABS: Anion Gap 14 mmol/L; Blood Urea Nitrogen 27 mg/dL (9-20); Calcium 9.6 mg/dL (8.4-10.2); Carbon Dioxide 22 mmol/L (22-30); Chloride 105 mmol/L (98-107); Glucose 193 mg/dL (74-99); Potassium 4.3 mmol/L (3.5-5.1); Sodium 141 mmol/L (137-145)
--- NOTE | 2019-01-19 07:43 | CONS ---
CONSULTATION DATE OF SERVICE: 01/18/2019 REASON FOR CONSULTATION: Right lower extremity wound and cellulitis, antibiotic recommendation. HISTORY OF PRESENT ILLNESS: The patient is a 63-year-old male presenting to the ER at [facility] this afternoon with chief complaints of increasing shortness of breath. Apparently the patient's symptoms started today. However, did mention that has been getting worse for the last day or two before he presented to the hospital. Main symptom has been increasing shortness of breath. He did have very minimal cough, but not bringing up any sputum. The patient denies having any chest pain. No nausea, no vomiting and no abdominal pain or any diarrhea. The patient did have a previous history of right lower extremity wound with secondary cellulitis for which the patient was evaluated by myself and was [facility]. His wound has completely healed up, but now he has to 2 small wounds on his right leg and apparently due from evidence of purulent drainage. The patient did have history of PENICILLIN AND SULFA ALLERGY. The patient was started on broad-spectrum antibiotic in the form of vancomycin and Levaquin admitted to hospital. Infectious Disease was consulted for further recommendation regarding antibiotic therapy. REVIEW OF SYSTEMS: All positive points have been mentioned in HPI. Rest of the system has been negative. PAST MEDICAL HISTORY: Diabetes mellitus, hypertension, pneumonia, probably lower extremity cellulitis, diabetic neuropathy and heart failure. PAST SURGICAL HISTORY: Surgeries on his right leg along with debridement of the wound. SOCIAL HISTORY: The patient did have history of smoking, no drinking or drug use. FAMILY HISTORY: Father history of heart disease and diabetes. ALLERGIES: To PENICILLIN and SULFA with a rash. MEDICATIONS: The patient is currently on Norvasc, aspirin, DuoNeb, Catapres, Lasix, Neurontin, Levemir, levofloxacin, Ceftin, vancomycin 1750 q.12 hours. PHYSICAL EXAMINATION: Blood pressure is 136/54 with a pulse of 101, temperature 97.9, he is 95% on 5 L nasal cannula. General description is a middle-aged male up in the bed in no distress. No tachypnea or accessory muscle for respiration use. HEENT: Shows pallor, no scleral icterus. Oral mucosa is dry. No pharyngeal erythema pressure. NECK: Trachea central no thyromegaly. LUNGS: Unlabored breathing, clear to auscultation anteriorly. HEART: S1, S2. Regular rate and rhythm. ABDOMEN: Soft, no tenderness, no guarding or rigidity. EXTREMITIES: Right leg with swelling and redness and some superficial wound. No slough tissue, no foul smelling drainage. NEUROLOGICAL: The patient is awake, alert, oriented x3. Mood and affect normal. LABS: Hemoglobin 11.7, white count 15.2, BUN of 23, creatinine 0.99. DIAGNOSTIC IMPRESSION AND PLAN: 1. Patient admitted to the hospital with increasing shortness of breath, more likely due to underlying congestive heart failure in this patient who did have a history of recurrent lower extremity cellulitis and wound with diffuse swelling would be a streptococcal disease and MRSA infection is less likely but not entirely excluded. 2. Patient did have PENICILLIN and SULFA allergy that would limit the antibiotics that could be safely used. PLAN: 1. Local wound care to the right leg wound with Aquacel Silver dressing followed by an Mik wrap to be changed daily. 2. Vancomycin, pharmacy to dose. to continue for while waiting for his condition to finalize, cultures to finalize. 3. Will follow up on clinical condition and culture to further adjust medication if needed. Thank you for this consultation. Will follow this patient along with you. MMODL / IJN: [id number] /
--- NOTE | 2019-01-19 09:58 | P.CRDCN ---
History of Present Illness Consult date: 01/19/19 Requesting physician: Chato Tilley Consult reason: congestive heart failure Chief complaint: Shortness of breath History of present illness: This is a 63-year-old gentleman with known history of diabetes, morbid obesity, remote history of smoking when he was younger, hyperlipidemia, sleep apnea, noncompliant with therapy, history of polio syndrome in his childhood, chronic lymphedema and bilateral lower extremity cellulitis for which she follows with Dr. pena. He presents to the hospital on this occasion with symptoms of shortness of breath. According to the patient, on presentation here he states that he could hardly breathe at all. Patient has noticed a significant increase in peripheral edema and swelling in his lower extremities up to his scrotal area. Chest x-ray on admission here suggests decompensating congestive heart failure with mild interstitial pulmonary edema. Right midlung obesity may represent confluent pulmonary edema with underlying pulmonary nodule or pneumonia. EKG shows a sinus bradycardia with PACs. Left Bundle-branch block pattern. Blood pressure 147/70 heart rate in the 70s to 80s , 96% on BiPAP. White blood cell count 18.3, hemoglobin 11.7, platelet count 442. Sodium 136 on admission potassium 5.3, BUN 23 creatinine 0.9, blood glucose on admission 392. Sodium this morning 141, potassium 4.3, BUN 27 and creatinine 1.0. BNP level 3330. Troponin 0.031. TSH 2.7. Influenza A and B- . Patient was initiated on IV Lasix on arrival here, he is also on IV antibiotics. Since his admission here, patient has a documented 400 mL out, his current Pinzon catheter bag is full. Weight is down 1 kg. Past Medical History Past Medical History: Heart Failure, Diabetes Mellitus, Hypertension, Pneumonia , Vascular Disorder Additional Past Medical History / Comment(s): pt. 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 states he had a small heart attack did not need any stents, diabetic neuropathy, 02 2 liters n/c as needed Last Myocardial Infarction Date:: unknown History of Any Multi-Drug Resistant Organisms: None Reported Past Surgical History: Orthopedic Surgery Additional Past Surgical History / Comment(s): pt. had muscle taken from his back and put into his leg Past Anesthesia/Blood Transfusion Reactions: Motion Sickness Additional Past Anesthesia/Blood Transfusion Reaction / Comment(s): clausterphobia Smoking Status: Former smoker - Past Family History Mother Family Medical History: Cancer Father Family Medical History: Diabetes Mellitus, Renal Disease Medications and Allergies Home Medications Medication Instructions Recorded Confirmed Type INSULIN ASPART (NovoLOG) [NovoLOG 31 units SQ AC-TID 08/30/18 01/18/19 History (formulary)] Aspirin 81 mg PO DAILY #30 chew 09/06/18 01/18/19 Rx Ergocalciferol [Vitamin D2 50,000 unit PO FR #4 cap 09/06/18 01/18/19 Rx (DRISDOL)] Gabapentin [Neurontin] 100 mg PO BID #60 cap 09/06/18 01/18/19 Rx Lisinopril 40 mg PO DAILY #30 tablet 09/06/18 01/18/19 Rx Metoprolol Tartrate [Lopressor] 25 mg PO BID #60 tab 09/06/18 01/18/19 Rx amLODIPine [Norvasc] 10 mg PO DAILY #30 tab 09/06/18 01/18/19 Rx cloNIDine HCL [Catapres] 0.2 mg PO TID #90 tab 09/06/18 01/18/19 Rx metFORMIN HCL 1,000 mg PO BID #60 tablet 09/06/18 01/18/19 Rx Furosemide [Lasix] 20 mg PO BID 12/02/18 01/18/19 History Insulin Glargine,Hum.rec.anlog 25 units SQ DAILY 12/02/18 01/18/19 History [Lantus Solostar] Ipratropium/Albuterol Sulfate 2 puff INHALATION RT-QID PRN 12/02/18 01/18/19 History [Combivent Respimat Inhaler] Allergies Allergy/AdvReac Type Severity Reaction Status Date / Time Latex, Natural Rubber Allergy Rash/Hives Verified 01/18/19 14:15 Penicillins Allergy Unknown Verified 01/18/19 14:15 Childhood Sulfa (Sulfonamide Allergy Rash/Hives Verified 01/18/19 14:15 Antibiotics) Physical Exam Vitals: Vital Signs Temp Pulse Pulse Resp BP BP Pulse Ox 01/19/19 08:30 84 01/19/19 08:17 78 01/19/19 05:14 98.7 F 83 26 H 147/78 96 01/19/19 03:33 70 16 01/19/19 03:24 68 16 01/18/19 23:31 70 20 01/18/19 23:22 68 20 01/18/19 23:00 91 22 121/63 96 01/18/19 21:39 97.9 F 101 H 21 136/64 95 01/18/19 20:27 68 01/18/19 20:14 70 01/18/19 16:35 69 01/18/19 16:30 79 01/18/19 16:00 71 30 H 140/74 98 01/18/19 13:15 69 30 H 151/90 97 01/18/19 12:52 30 H 01/18/19 12:41 98.8 F 65 30 H 164/98 92 L Intake and Output 01/18/19 01/19/19 01/19/19 22:59 06:59 14:59 Intake Total 290 Output Total 400 Balance 290 -400 Intake: Oral 290 Output: Urine 400 Other: Voiding Method Urinal Weight 112.5 kg GENERAL EXAM: Alert, pleasant 63-year-old obese white male, on BiPAP support, dyspneic with conversation . HEAD: Normocephalic/atraumatic. EYES: Normal reaction of pupils, equal size. Conjunctiva pink, sclera white. NOSE: Clear with pink turbinates. THROAT: No erythema or exudates. NECK: No masses, elevated JVP, no thyroid enlargement, no adenopathy. CHEST: No chest wall deformity. Symmetrical expansion. LUNGS: Equal air entry with fine rales at bilateral bases, wheezing throughout CVS: Regular rate and rhythm, normal S1 and S2, no gallops, no murmurs, no rubs ABDOMEN: Soft, nontender. No hepatosplenomegaly, normal bowel sounds, no guarding or rigidity. EXTREMITIES: No clubbing, patient has nonpitting edema, bilateral lower extremity cellulitis, and open weeping areas on bilateral lower extremities, bilateral Mik wraps in place MUSCULOSKELETAL: Muscle strength and tone normal. SPINE: No scoliosis or deformity SKIN: No rashes CENTRAL NERVOUS SYSTEM: Alert and oriented -3. No focal deficits, tone is normal in all 4 extremities. PSYCHIATRIC: Alert and oriented -3. Appropriate affect. Intact judgment and insight. Results 01/18/19 12:57 01/19/19 06:05 Cardiac Enzymes 01/18/19 01/18/19 Range/Units 12:57 12:57 AST 29 (17-59) U/L CK-MB (CK-2) 4.7 H (0.0-2.4) ng/mL Troponin I 0.031 (0.000-0.034) ng/mL Coagulation 01/18/19 Range/Units 12:57 PT 10.6 (9.0-12.0) sec APTT 22.0 (22.0-30.0) sec CBC 01/18/19 Range/Units 12:57 WBC 18.3 H (3.8-10.6) k/uL RBC 4.01 L (4.30-5.90) m/uL Hgb 11.7 L (13.0-17.5) gm/dL Hct 36.8 L (39.0-53.0) % Plt Count 442 (150-450) k/uL Comprehensive Metabolic Panel 01/18/19 01/19/19 Range/Units 12:57 06:05 Sodium 136 L 141 (137-145) mmol/L Potassium 5.3 H 4.3 (3.5-5.1) mmol/L Chloride 102 105 (98-107) mmol/L Carbon Dioxide 19 L 22 (22-30) mmol/L BUN 23 H 27 H (9-20) mg/dL Creatinine 0.99 1.00 (0.66-1.25) mg/dL Glucose 392 H 193 H (74-99) mg/dL Calcium 9.8 9.6 (8.4-10.2) mg/dL AST 29 (17-59) U/L ALT 32 (21-72) U/L Alkaline Phosphatase 85 (38-126) U/L Total Protein 7.3 (6.3-8.2) g/dL Albumin 3.9 (3.5-5.0) g/dL Current Medications Generic Name Dose Route Start Last Admin Trade Name Freq PRN Reason Stop Dose Admin Albuterol/Ipratropium 3 ml 01/18/19 16:00 01/19/19 08:14 Duoneb 0.5 Mg-3 Mg/3 Ml Soln INHALATION 3 ml RT-Q4H LUIS F Administration Amlodipine Besylate 10 mg 01/19/19 09:00 Norvasc PO DAILY LUIS F Aspirin 81 mg 01/19/19 09:00 Aspirin PO DAILY [facility] Clonidine 0.2 mg 01/18/19 16:00 01/18/19 21:30 Catapres PO 0.2 mg TID LUIS F Administration Ergocalciferol 50,000 unit 01/21/19 12:00 Vitamin D2 PO FR LUIS F Furosemide 40 mg 01/18/19 20:00 01/19/19 05:30 Lasix IV 40 mg Q12H LUIS F Administration Gabapentin 100 mg 01/18/19 21:00 01/18/19 21:29 Neurontin PO 100 mg BID LUIS F Administration Heparin Sodium (Porcine) 5,000 unit 01/18/19 16:00 01/18/19 23:05 Heparin SQ 5,000 unit Q8HR LUIS F Administration Levofloxacin 750 mg/ IV 150 mls @ 100 mls/hr 01/18/19 21:00 01/18/19 21:18 Solution IVPB 100 mls/hr Q24H LUIS F Administration Vancomycin HCl 1,750 mg/ 500 mls @ 167 mls/hr 01/19/19 06:00 01/19/19 06:06 Sodium Chloride IVPB 167 mls/hr Q12H LUIS F Administration Insulin Aspart 31 unit 01/18/19 17:30 01/18/19 19:11 Novolog SQ 31 unit AC-TID LUIS F Administration Insulin Aspart 0 unit 01/18/19 17:30 01/18/19 21:30 Novolog SQ 4 unit ACHS LUIS F Administration Protocol Insulin Detemir 25 unit 01/18/19 21:00 01/18/19 21:52 Levemir SQ 25 unit HS LUIS F Administration Lisinopril 40 mg 01/19/19 09:00 Zestril PO DAILY [facility] Metoprolol Tartrate 25 mg 01/18/19 21:00 01/18/19 21:29 Lopressor PO 25 mg BID LUIS F Administration Intake and Output 01/18/19 01/19/19 01/19/19 22:59 06:59 14:59 Intake Total 290 Output Total 400 Balance 290 -400 Intake: Oral 290 Output: Urine 400 Other: Voiding Method Urinal Weight 112.5 kg 01/18/19 12:57 01/19/19 06:05 EKG Interpretations (text) EKG shows a sinus bradycardia with a left bundle-branch block pattern Assessment and Plan Plan: Assessment and plan #1 symptoms of severe shortness of breath with evidence of respiratory failure requiring BiPAP support, secondary to diastolic congestive heart failure and possible pneumonia. #2 bilateral lower extremity cellulitis was significant bilateral lower extremity edema #3 diabetes #4 COPD #5 sleep apnea, noncompliant with BiPAP #6 morbid obesity #7 hypertension #8 history of polio Plan From cardiology's perspective, we'll recommend to continue current dose of IV Lasix, monitor intake and output along with daily weights and daily lytes BUN and creatinine. Patient's most recent echocardiogram with Doppler study was performed in August of last year and showed an ejection fraction of 55-60%. We will repeat an echo this admission. Continue aspirin 81 mg daily, Norvasc 10 mg daily, clonidine, lisinopril, and metoprolol with current IV antibiotics. DNP note has been reviewed, I agree with a documented findings and plan of care. Patient was seen and examined.
[2019-01-19] MEDS: INSULIN ASPART (NovoLOG) 100 UNIT/ML VIAL SQ SCH ×7 (10:06→22:07)
[2019-01-19] MEDS: GABAPENTIN 100 MG CAP PO SCH ×2 (10:13→22:23)
[2019-01-19] MEDS: amLODIPine 10 MG TAB PO SCH (10:13)
[2019-01-19] MEDS: HEPARIN SODIUM,PORCINE 5,000 UNIT/ML 1 ML VIAL SQ SCH ×2 (10:13→16:19)
[2019-01-19] MEDS: cloNIDine HCL 0.2 MG TAB PO SCH ×3 (10:13→22:23)
[2019-01-19] MEDS: METOPROLOL TARTRATE 25 MG TAB PO SCH ×2 (10:13→22:23)
[2019-01-19] MEDS: ASPIRIN 81 MG PO SCH (10:13)
[2019-01-19] MEDS: LISINOPRIL 20 MG TAB PO SCH (10:14)
--- NOTE | 2019-01-19 11:40 | P.PN ---
Subjective Progress Note Date: 01/19/19 Patient reporting compliance with BiPAP overnight, reportedly had a good night but earlier this morning had an anxiety attack nurse reporting patient was in moderate distress with noted crackles on exam and was given his Lasix early. Patient now comfortable, reports improvement in his breathing since receiving Lasix, Pinzon catheter placed. Patient has had approximately a 1.4L diuresis weight is down 1 kg. Objective - Vital Signs Vital signs: Vital Signs Temp 98.2 F 01/19/19 08:10 Pulse 84 01/19/19 08:30 Resp 26 H 01/19/19 08:10 BP 169/71 01/19/19 08:10 Pulse Ox 94 L 01/19/19 08:10 Intake & Output 01/18/19 01/19/19 01/19/19 18:59 06:59 18:59 Intake Total 290 237 Output Total 400 850 Balance -110 -613 Weight 113.398 kg 112.5 kg 112.5 kg Intake: Oral 290 237 Output: Urine 400 850 Other: Voiding Method Urinal - Exam Constitutional: No acute distress, conversant, pleasant Eyes: Anicteric sclerae, moist conjunctiva, no lid-lag, PERRLA ENMT: NC/AT,Oropharynx clear, no erythema, exudates Neck:Supple, FROM, no masses, or JVD, No carotid bruits; No thyromegaly Lungs: Bibasilar crackles diminished in the bases currently on BiPAP Cardiovascular: Heart regular in rate and rhythm, No murmurs, gallops, or rubs no peripheral edema Abdominal: Soft Nontender, nom distended, no guarding, no rebound or rigidity, Normoactive bowel sounds No hepatomegaly, No splenomegaly, No palpable mass No abdominal wall hernia noted Skin: Normal temperature, tone, texture, turgor, No induration No subcutaneous nodules, No rash, lesions, No ulcers Extremities: Bilateral lower extremities wrapped with Mik wraps Psychiatric: Alert and oriented to person, place and time, Appropriate affect Intact judgement Neuro: Muscles Strength 5/5 in all 4 extremities, Sensation to light touch grossly present throughout, Cranial nerves II-XII grossly intact. No focal sensory deficits - Labs CBC & Chem 7: 01/18/19 12:57 01/19/19 06:05 Labs: Abnormal Lab Results - Last 24 Hours (Table) 02/01/18/19 01/18/19 Range/Units 12:57 12:57 12:57 WBC 18.3 H (3.8-10.6) k/uL RBC 4.01 L (4.30-5.90) m/uL Hgb 11.7 L (13.0-17.5) gm/dL Hct 36.8 L (39.0-53.0) % Neutrophils # 16.5 H (1.3-7.7) k/uL Lymphocytes # 0.9 L (1.0-4.8) k/uL Sodium 136 L (137-145) mmol/L Potassium 5.3 H (3.5-5.1) mmol/L Carbon Dioxide 19 L (22-30) mmol/L BUN 23 H (9-20) mg/dL Glucose 392 H (74-99) mg/dL POC Glucose (mg/dL) (75-99) mg/dL Total Creatine Kinase 292 H (55-170) U/L CK-MB (CK-2) 4.7 H (0.0-2.4) ng/mL Urine Protein (Negative) Urine Glucose (UA) (Negative) 01/18/19 01/18/19 01/18/19 Range/Units 18:11 18:49 21:20 WBC (3.8-10.6) k/uL RBC (4.30-5.90) m/uL Hgb (13.0-17.5) gm/dL Hct (39.0-53.0) % Neutrophils # (1.3-7.7) k/uL Lymphocytes # (1.0-4.8) k/uL Sodium (137-145) mmol/L Potassium (3.5-5.1) mmol/L Carbon Dioxide (22-30) mmol/L BUN (9-20) mg/dL Glucose (74-99) mg/dL POC Glucose (mg/dL) 344 H 216 H (75-99) mg/dL Total Creatine Kinase (55-170) U/L CK-MB (CK-2) (0.0-2.4) ng/mL Urine Protein Trace H (Negative) Urine Glucose (UA) 4+ H (Negative) 01/19/19 01/19/19 Range/Units 05:14 06:05 WBC (3.8-10.6) k/uL RBC (4.30-5.90) m/uL Hgb (13.0-17.5) gm/dL Hct (39.0-53.0) % Neutrophils # (1.3-7.7) k/uL Lymphocytes # (1.0-4.8) k/uL Sodium (137-145) mmol/L Potassium (3.5-5.1) mmol/L Carbon Dioxide (22-30) mmol/L BUN 27 H (9-20) mg/dL Glucose 193 H (74-99) mg/dL POC Glucose (mg/dL) 169 H (75-99) mg/dL Total Creatine Kinase (55-170) U/L CK-MB (CK-2) (0.0-2.4) ng/mL Urine Protein (Negative) Urine Glucose (UA) (Negative) Assessment and Plan (1) Acute and chronic respiratory failure with hypoxia Narrative/Plan: * Secondary to acute diastolic CHF exacerbation superimposed on possible underlying pneumonia * Patient currently on BiPAP we'll wean as tolerated * Pulmonary consultation requested * Continue with diuresis with Lasix 40 mg IV twice a day * Chest x-ray this morning indicating bilateral lung opacities Current Visit: Yes Status: Acute Code(s): J96.21 - ACUTE AND CHRONIC RESPIRATORY FAILURE WITH HYPOXIA SNOMED Code(s): 21048721 (2) Acute on chronic diastolic CHF (congestive heart failure) Narrative/Plan: * Echocardiogram pending * Continue diuresis with Lasix 40 mg IV twice a day, continue metoprolol, amlodipine and lisinopril * Continue with daily weights, 1.5 L fluid restriction with strict I's and O's Current Visit: Yes Status: Acute Code(s): I50.33 - ACUTE ON CHRONIC DIASTOLIC (CONGESTIVE) HEART FAILURE SNOMED Code(s): 840559484 (3) Cellulitis of right lower extremity Narrative/Plan: * Appreciate ID recommendations * Continue local wound care with Aquacel silver dressing with bilateral lower extremity Mik wraps daily * Continue with IV vancomycin and Levaquin Current Visit: No Status: Acute Code(s): L03.115 - CELLULITIS OF RIGHT LOWER LIMB SNOMED Code(s): 463601250 (4) Type 2 diabetes mellitus with hyperglycemia Narrative/Plan: * A1c pending blood sugars control improving * Continue current regimen with correctional scale coverage Current Visit: No Status: Chronic Code(s): E11.65 - TYPE 2 DIABETES MELLITUS WITH HYPERGLYCEMIA SNOMED Code(s): 562253253835304 (5) Essential hypertension Narrative/Plan: * Blood pressure improved * Continue to monitor * Continue current regimen Current Visit: Yes Status: Chronic Code(s): I10 - ESSENTIAL (PRIMARY) HYPERTENSION SNOMED Code(s): 99845167 (6) Hyperkalemia Narrative/Plan: * Resolved since initiating Lasix IV diuresis Current Visit: Yes Status: Resolved Code(s): E87.5 - HYPERKALEMIA SNOMED Code(s): 66395520 Plan: Disposition * Continue current treatment plan awaiting further recommendations to follow from consultants * Anticipated discharge 2-3 days
[2019-01-19 11:55] LABS: Glucose,Whole Blood 363 mg/dL (75-99)
[2019-01-19 13:27] LABS: Hemoglobin A1C 8.8 % (4.0-6.0)
[2019-01-19] MEDS: FUROSEMIDE 100 MG in SODIUM CHLORIDE 0.9% 90 ML IV SCH ×2 (13:37→22:24)
--- NOTE | 2019-01-19 15:22 | ECHOF ---
Referral Reason:CHF MEASUREMENTS -------- HEIGHT: 162.6 cm WEIGHT: 112.5 kg BP: 151/90 RVIDd: 2.8 cm (< 3.3) IVSd: 1.4 cm (0.6 - 1.1) LVIDd: 4.9 cm (3.9 - 5.3) LVPWd: 1.6 cm (0.6 - 1.1) IVSs: 1.6 cm LVIDs: 3.9 cm LVPWs: 1.6 cm LA Diam: 3.7 cm (2.7 - 3.8) LAESV Index (A-L): 24.46 ml/m Ao Diam: 3.5 cm (2.0 - 3.7) AV Cusp: 1.8 cm (1.5 - 2.6) MV EXCURSION: 20.824 mm (> 18.000) MV EF SLOPE: 197 mm/s (70 - 150) EPSS: 0.8 cm AV maxP.23 mmHg AV maxP.23 mmHg AV meanP.75 mmHg RAP: 15.00 mmHg RVSP: 38.94 mmHg FINDINGS -------- Atrial fibrillation. This was a technically difficult study with suboptimal views. The left ventricular size is normal. There is moderate concentric left ventricular hypertrophy. O verall left ventricular systolic function is moderate-severely impaired with, an EF between 30 - 35 % . The right ventricle is normal in size. Normal LA size by volume 22+/-6 ml/m2. The right atrium is normal in size. 5 ml of Lumason was utilized for enhancement of images. There is mild aortic valve sclerosis. There is mild aortic stenosis present. Peak/mean gradient a cross the Aortic Valve is 26.23mmHg / 15.75mmHg. The mitral valve leaflets are mildly thickened. Mild mitral annular calcification present. There is trace mitral regurgitation. Mild tricuspid regurgitation present. There is mild pulmonary hypertension. The right ventricular systolic pressure, as measured by Doppler, is 38.94mmHg. There is no pulmonic regurgitation present. The aortic root size is normal. The inferior vena cava is dilated with no significant inspiratory collapse which is consistent estima sabiha right atrial pressure of >20 mmHg. There is no pericardial effusion. CONCLUSIONS -------- 1. Atrial fibrillation. 2. This was a technically difficult study with suboptimal views. 3. The left ventricular size is normal. 4. There is moderate concentric left ventricular hypertrophy. 5. Overall left ventricular systolic function is moderate-severely impaired with, an EF between 30 - 35 %. 6. The right ventricle is normal in size. 7. Normal LA size by volume 22+/-6 ml/m2. 8. The right atrium is normal in size. 9. 5 ml of Lumason was utilized for enhancement of images. 10. There is mild aortic valve sclerosis. 11. There is mild aortic stenosis present. 12. Peak/mean gradient across the Aortic Valve is 26.23mmHg / 15.75mmHg. 13. The mitral valve leaflets are mildly thickened. 14. Mild mitral annular calcification present. 15. There is trace mitral regurgitation. 16. Mild tricuspid regurgitation present. 17. There is mild pulmonary hypertension. 18. The right ventricular systolic pressure, as measured by Doppler, is 38.94mmHg. 19. There is no pulmonic regurgitation present. 20. The aortic root size is normal. 21. The inferior vena cava is dilated with no significant inspiratory collapse which is consistent es timated right atrial pressure of >20 mmHg. 22. There is no pericardial effusion. TONE ARTIST APPRENTICE: Yaz Mary RDCS
[2019-01-19 16:01] LABS: Basophils % (A) 0 %; Eosinophils # (A) 0.3 k/uL (0-0.7); Eosinophils % (A) 2 %; HCT 37.3 % (39.0-53.0); HGB 11.5 gm/dL (13.0-17.5); Lymphocytes # (A) 1.1 k/uL (1.0-4.8); Lymphocytes % (A) 7 %; MCH 28.3 pg (25.0-35.0); MCV 91.4 fL (80.0-100.0); Mean Platelet Volume 7.2; Monocytes # (A) 0.5 k/uL (0-1.0); Monocytes % (A) 4 %; Neutrophils # (A) 13.4 k/uL (1.3-7.7); Neutrophils % (A) 86 %; Platelet Count 470 k/uL (150-450); RBC 4.08 m/uL (4.30-5.90); RDW 15.4 % (11.5-15.5); WBC 15.5 k/uL (3.8-10.6)
[2019-01-19 17:00] LABS: Glucose,Whole Blood 124 mg/dL (75-99)
[2019-01-19 20:21] LABS: Glucose,Whole Blood 96 mg/dL (75-99)
--- NOTE | 2019-01-19 20:38 | PN ---
PROGRESS NOTE DATE OF SERVICE: 01/19/2019 REASON FOR FOLLOWUP: Right leg wound with cellulitis. INTERVAL HISTORY: The patient is currently afebrile. He is still complaining of shortness of breath. Denies having any chest pain, though. He did have some cough, not bringing up any sputum. No nausea, no vomiting and no abdominal pain or any worsening pain to the right leg area. PHYSICAL EXAMINATION: Blood pressure 121/73 with a pulse of 84, temperature 98.4. He is 93% on BiPAP. General description is a middle-aged male up in the bed in no distress. RESPIRATORY SYSTEM: Unlabored breathing with decreased intensity of breath sounds. No wheeze. HEART: S1, S2. Regular rate and rhythm. ABDOMEN: Soft. No tenderness. Right leg is currently dressed up. No obvious drainage on the dressing. LABS: Hemoglobin 11.5, white count down to 15.5. BUN of 27, creatinine 1.0. DIAGNOSTIC IMPRESSION AND PLAN: Patient with acute right lower extremity cellulitis in this patient who did have diffuse swelling and redness and did have a wound on the right leg from a ruptured blister and does have ANTIBIOTIC ALLERGIES. Patient is currently covered with vancomycin and Levaquin; to continue while monitoring his clinical course closely. Continue with supportive care. MMODL / IJN: [id number] /
[2019-01-19] MEDS: INSULIN DETEMIR (LEVEMIR) 100 UNIT/ML SYR SQ SCH (22:23)
[2019-01-19] MEDS: LEVOFLOXACIN 750MG-D5W PMX 750 MG in DEXTROSE/WATER 1 150ML.BAG IVPB SCH (22:24)
[2019-01-20] MEDS: HEPARIN SODIUM,PORCINE 5,000 UNIT/ML 1 ML VIAL SQ SCH ×3 (00:45→17:13)
[2019-01-20] MEDS: IPRATROPIUM-ALBUTEROL 3 ML NEB INHALATION SCH ×6 (03:30→23:56)
[2019-01-20] MEDS: VANCOMYCIN 1,750 MG in SODIUM CHLORIDE 0.9% 500 ML 500 ML IVPB SCH ×2 (05:18→17:13)
[2019-01-20 06:18] LABS: Glucose,Whole Blood 186 mg/dL (75-99)
[2019-01-20 07:13] LABS: Anion Gap 13 mmol/L; Blood Urea Nitrogen 30 mg/dL (9-20); Calcium 9.3 mg/dL (8.4-10.2); Carbon Dioxide 27 mmol/L (22-30); Chloride 101 mmol/L (98-107); Glucose 190 mg/dL (74-99); Potassium 4.2 mmol/L (3.5-5.1); Sodium 141 mmol/L (137-145)
[2019-01-20] MEDS: INSULIN ASPART (NovoLOG) 100 UNIT/ML VIAL SQ SCH ×7 (09:45→21:25)
[2019-01-20] MEDS: LISINOPRIL 20 MG TAB PO SCH (09:46)
[2019-01-20] MEDS: METOPROLOL TARTRATE 25 MG TAB PO SCH (09:46)
[2019-01-20] MEDS: ASPIRIN 81 MG PO SCH (09:46)
[2019-01-20] MEDS: amLODIPine 10 MG TAB PO SCH (09:46)
[2019-01-20] MEDS: cloNIDine HCL 0.2 MG TAB PO SCH ×3 (09:47→21:22)
[2019-01-20] MEDS: GABAPENTIN 100 MG CAP PO SCH ×2 (09:47→21:22)
[2019-01-20] MEDS: FUROSEMIDE 100 MG in SODIUM CHLORIDE 0.9% 90 ML IV SCH ×2 (09:49→13:50)
--- NOTE | 2019-01-20 11:02 | P.PN ---
Subjective Progress Note Date: 01/20/19 Patient feels that his breathing is a little bit improved, just complaining of constipation and some scrotal swelling. Apparently was on nasal cannula 3 L overnight without need for BiPAP. Continues to diurese well, patient does maintain some generalized weakness. Otherwise no acute events overnight, echocardiogram results are back today indicating ejection fraction of 30-35% with moderate left ventricular hypertrophy Objective - Vital Signs Vital signs: Vital Signs Temp 97.8 F 01/20/19 07:56 Pulse 60 01/20/19 07:56 Resp 19 01/20/19 07:56 BP 130/62 01/20/19 07:56 Pulse Ox 97 01/20/19 07:56 Intake & Output 01/19/19 01/20/19 01/20/19 18:59 06:59 18:59 Intake Total 1357 1045.833 340 Output Total 850 2700 Balance 507 -1654.167 340 Weight 112.5 kg 116 kg Intake: Intake, IV Titration 580 687.833 100 Amount Furosemide 100 mg In 80 87.833 100 Sodium Chloride 0.9% 90 ml @ 10 MG/HR 10 mls/hr IV .Q10H LUIS F Rx#: [id number] Levofloxacin 750Mg-D5w 100 Pmx 750 mg In Dextrose/ Water 1 150ml.bag @ 100 mls/hr IVPB Q24H LUIS F Rx#: [id number] Vancomycin 1,750 mg In 500 500 Sodium Chloride 0.9% 500 ml 500 ml @ 167 mls/hr IVPB Q12H LUIS F Rx#: [id number] Oral 777 358 240 Output: Urine 850 2700 - Exam Constitutional: No acute distress, conversant, pleasant Eyes: Anicteric sclerae, moist conjunctiva, no lid-lag, PERRLA ENMT: NC/AT,Oropharynx clear, no erythema, exudates Neck:Supple, FROM, no masses, or JVD, No carotid bruits; No thyromegaly Lungs: Bibasilar crackles much improved still diminished in the bases currently on 3 L nasal cannula Cardiovascular: Heart regular in rate and rhythm, No murmurs, gallops, or rubs +2 pitting edema Abdominal: Soft Nontender, nom distended, no guarding, no rebound or rigidity, mild scrotal edema Skin: Normal temperature, tone, texture, turgor, No induration No subcutaneous nodules, No rash, lesions, No ulcers Extremities: Bilateral lower extremities wrapped with Mik wraps Psychiatric: Alert and oriented to person, place and time, Appropriate affect Intact judgement Neuro: Muscles Strength 5/5 in all 4 extremities, Sensation to light touch grossly present throughout, Cranial nerves II-XII grossly intact. No focal sensory deficits - Labs CBC & Chem 7: 01/19/19 15:22 01/20/19 05:50 Labs: Abnormal Lab Results - Last 24 Hours (Table) 01/19/19 01/19/19 01/19/19 Range/Units 06:05 11:49 15:22 WBC 15.5 H (3.8-10.6) k/uL RBC 4.08 L (4.30-5.90) m/uL Hgb 11.5 L (13.0-17.5) gm/dL Hct 37.3 L (39.0-53.0) % Plt Count 470 H (150-450) k/uL Neutrophils # 13.4 H (1.3-7.7) k/uL BUN (9-20) mg/dL Glucose (74-99) mg/dL POC Glucose (mg/dL) 363 H (75-99) mg/dL Hemoglobin A1c 8.8 H (4.0-6.0) % 01/19/19 01/20/19 01/20/19 Range/Units 16:56 05:50 06:16 WBC (3.8-10.6) k/uL RBC (4.30-5.90) m/uL Hgb (13.0-17.5) gm/dL Hct (39.0-53.0) % Plt Count (150-450) k/uL Neutrophils # (1.3-7.7) k/uL BUN 30 H (9-20) mg/dL Glucose 190 H (74-99) mg/dL POC Glucose (mg/dL) 124 H 186 H (75-99) mg/dL Hemoglobin A1c (4.0-6.0) % Assessment and Plan (1) Acute and chronic respiratory failure with hypoxia Narrative/Plan: * Secondary to acute diastolic CHF exacerbation superimposed on possible underlying pneumonia * Patient currently on 3 L nasal cannula planning to wean back down to his baseline of 2 L * Pulmonary consultation cancelled * Continue with diuresis with Lasix 40 mg IV twice a day * Chest x-ray this morning indicating bilateral lung opacities Current Visit: Yes Status: Acute Code(s): J96.21 - ACUTE AND CHRONIC RESPIRATORY FAILURE WITH HYPOXIA SNOMED Code(s): 04992995 (2) Acute on chronic combined systolic and diastolic CHF, NYHA class 3 Narrative/Plan: * Echocardiogram indicating ejection fraction of 30-35% * Continue diuresis with Lasix 40 mg IV twice a day, continue metoprolol, amlodipine and lisinopril * Continue with daily weights, 1.5 L fluid restriction with strict I's and O's Current Visit: Yes Status: Acute Code(s): I50.43 - ACUTE ON CHRONIC COMBINED SYSTOLIC AND DIASTOLIC HRT FAIL SNOMED Code(s): 027605603743455 (3) Cellulitis of right lower extremity Narrative/Plan: * Appreciate ID recommendations * Continue local wound care with Aquacel silver dressing with bilateral lower extremity Mik wraps daily * Continue with IV vancomycin and Levaquin Current Visit: No Status: Acute Code(s): L03.115 - CELLULITIS OF RIGHT LOWER LIMB SNOMED Code(s): 430667646 (4) Type 2 diabetes mellitus with hyperglycemia Narrative/Plan: * A1c pending blood sugars control improving * Continue current regimen with correctional scale coverage Current Visit: No Status: Chronic Code(s): E11.65 - TYPE 2 DIABETES MELLITUS WITH HYPERGLYCEMIA SNOMED Code(s): 437311187364510 (5) Essential hypertension Narrative/Plan: * Blood pressure improved * Continue to monitor * Continue current regimen Current Visit: Yes Status: Chronic Code(s): I10 - ESSENTIAL (PRIMARY) HYPERTENSION SNOMED Code(s): 09841106 (6) Hyperkalemia Narrative/Plan: * Resolved since initiating Lasix IV diuresis Current Visit: Yes Status: Resolved Code(s): E87.5 - HYPERKALEMIA SNOMED Code(s): 66549571 Plan: Disposition * Continue current treatment plan awaiting further recommendations to follow from consultants * Anticipated discharge 1-2 days
[2019-01-20 11:37] LABS: Glucose,Whole Blood 195 mg/dL (75-99)
[2019-01-20] MEDS: METOPROLOL SUCCINATE (ER) 50 MG TAB.ER.24H PO SCH (12:30)
--- NOTE | 2019-01-20 12:39 | PN ---
PROGRESS NOTE This patient is admitted with congestive cardiac failure. Patient is feeling much better. He has been diuresing fairly well and he slept very good. The swelling in the legs is improved. Blood pressure is 130/62 mmHg. First and second heart sounds are normal. Respirations reveal few scattered wheezes. The patient respirations are not labored. Oxygen saturation is 97%. The patient had negative fluid balance of 1147 yesterday. Creatinine is 1.01. We will continue the patient on the current medications. MMODL / IJN: [id number] /
[2019-01-20 16:30] LABS: Magnesium 1.8 mg/dL (1.6-2.3)
[2019-01-20 16:40] LABS: Glucose,Whole Blood 92 mg/dL (75-99)
[2019-01-20] MEDS ORDERED: VANCOMYCIN TROUGH DUE 1 EACH MISC MISCELLANE ONE (17:00)
[2019-01-20 20:16] LABS: Glucose,Whole Blood 170 mg/dL (75-99)
--- NOTE | 2019-01-20 20:45 | PN ---
PROGRESS NOTE DATE OF SERVICE: 01/20/2019. REASON FOR FOLLOWUP: Right leg wound and cellulitis. INTERVAL HISTORY: The patient is afebrile. The patient has been breathing more comfortably. Denies having any chest pain or any cough. No abdominal pain or any worsening pain in the right leg area. PHYSICAL EXAMINATION: Blood pressure 108/69 with a pulse of 82, temperature 98. He is 96% on 3 L nasal cannula. General description is a middle-aged male lying in bed in no distress. RESPIRATORY SYSTEM: Unlabored breathing. Clear to auscultation anteriorly. HEART: S1, S2. Regular rate and rhythm. ABDOMEN: Soft. No tenderness. Right leg is currently dressed up; no obvious drainage on the dressing. LABS: BUN of 30, creatinine 1.01. DIAGNOSTIC IMPRESSION AND PLAN: Patient with acute right lower extremity wound with secondary cellulitis. The patient is currently covered with vancomycin; to continue for now because of his ANTIBIOTIC ALLERGIES. Hopefully he will finish therapy with oral antibiotic. Continue with supportive care. MMODL / IJN: [id number] /
[2019-01-20] MEDS: INSULIN DETEMIR (LEVEMIR) 100 UNIT/ML SYR SQ SCH (21:22)
[2019-01-20] MEDS: LEVOFLOXACIN 750 MG TAB PO SCH (21:22)
[2019-01-21] MEDS: HEPARIN SODIUM,PORCINE 5,000 UNIT/ML 1 ML VIAL SQ SCH ×4 (00:12→23:29)
[2019-01-21] MEDS: FUROSEMIDE 100 MG in SODIUM CHLORIDE 0.9% 90 ML IV SCH ×2 (00:12→10:08)
[2019-01-21] MEDS: IPRATROPIUM-ALBUTEROL 3 ML NEB INHALATION SCH ×6 (03:05→23:35)
[2019-01-21] MEDS: INSULIN ASPART (NovoLOG) 100 UNIT/ML VIAL SQ SCH ×7 (06:58→21:59)
[2019-01-21 07:19] LABS: Basophils % (A) 0 %; Eosinophils # (A) 0.5 k/uL (0-0.7); Eosinophils % (A) 4 %; HCT 35.1 % (39.0-53.0); HGB 10.9 gm/dL (13.0-17.5); Lymphocytes # (A) 1.9 k/uL (1.0-4.8); Lymphocytes % (A) 17 %; MCH 28.5 pg (25.0-35.0); MCHC 31.2 g/dL (31.0-37.0); MCV 91.5 fL (80.0-100.0); Mean Platelet Volume 7.7; Monocytes # (A) 0.7 k/uL (0-1.0); Monocytes % (A) 6 %; Neutrophils # (A) 7.7 k/uL (1.3-7.7); Neutrophils % (A) 71 %; Platelet Count 529 k/uL (150-450); RBC 3.83 m/uL (4.30-5.90); RDW 15.3 % (11.5-15.5); WBC 10.9 k/uL (3.8-10.6)
[2019-01-21 07:41] LABS: Calcium 8.9 mg/dL (8.4-10.2); Potassium 4.2 mmol/L (3.5-5.1)
[2019-01-21] MEDS: ASPIRIN 81 MG PO SCH (08:31)
[2019-01-21] MEDS: METOPROLOL SUCCINATE (ER) 50 MG TAB.ER.24H PO SCH (08:32)
[2019-01-21] MEDS: amLODIPine 10 MG TAB PO SCH (08:32)
[2019-01-21] MEDS: cloNIDine HCL 0.2 MG TAB PO SCH (08:32)
[2019-01-21] MEDS: GABAPENTIN 100 MG CAP PO SCH ×2 (08:32→21:59)
[2019-01-21] MEDS: VANCOMYCIN 1,750 MG in SODIUM CHLORIDE 0.9% 500 ML 500 ML IVPB SCH (10:10)
[2019-01-21 11:55] LABS: Glucose,Whole Blood 217 mg/dL (75-99)
[2019-01-21 12:00] LABS: Glucose,Whole Blood 156 mg/dL (75-99)
[2019-01-21] MEDS ORDERED: ERGOCALCIFEROL 50,000 UNIT CAP PO SCH (12:00)
[2019-01-21 13:41] VITALS: BMI 43.7
--- NOTE | 2019-01-21 14:24 | P.PN ---
Subjective Progress Note Date: 01/21/19 Principal diagnosis: The patient is a morbidly obese 63-year-old male that was admitted with acute on chronic respiratory failure with hypoxia secondary to acute on chronic combined systolic and diastolic CHF exacerbation NYHA stage 3 superimposed on a probable pneumonia and right lower extremity cellulitis in the setting of chronic lower extremity edema. The patient was placed on BiPAP initially and initiated on aggressive IV diuresis with Lasix along with empiric IV antibiotic therapy with Levaquin and vancomycin and breathing treatments. Initial chest x-ray suggested decompensating CHF with mild pulmonary edema, pro BNP level was 3330 and EKG showed a sinus bradycardia with PACs. With aggressive diuresis and maintaining negative fluid balance with fluid restriction the patient's edema gradually improved and he was able to wean back down to his baseline O2 requirements at 2 L via nasal cannula. The patient is feeling much better today reports some constipation but notes that his scrotal edema is improved, I discussed options and the patient has elected to be discharged home tomorrow with plans for ongoing PT, patient reports his breathing is back to baseline. Continues to maintain negative fluid balance, currently on Lasix drip Objective - Vital Signs Vital signs: Vital Signs Temp 98.3 F 01/21/19 08:00 Pulse 60 01/21/19 11:11 Resp 18 01/21/19 08:00 BP 114/63 01/21/19 08:00 Pulse Ox 100 01/21/19 08:00 Intake & Output 01/20/19 01/21/19 01/21/19 18:59 06:59 18:59 Intake Total 1770.167 840 579.333 Output Total 1700 1800 1600 Balance 70.167 -960 -1020.667 Weight 116.5 kg 115.6 kg 115.6 kg Intake: Intake, IV Titration 1140.167 600 99.333 Amount Furosemide 100 mg In 140.167 100 99.333 Sodium Chloride 0.9% 90 ml @ 10 MG/HR 10 mls/hr IV .Q10H LUIS F Rx#: [id number] Vancomycin 1,750 mg In 500 Sodium Chloride 0.9% 500 ml 500 ml @ 167 mls/hr IVPB Q12H LUIS F Rx#: [id number] Vancomycin 1,750 mg In 500 500 Sodium Chloride 0.9% 500 ml 500 ml @ 167 mls/hr IVPB Q16H LUIS F Rx#: [id number] Oral 630 240 480 Output: Urine 1700 1800 1600 Other: Voiding Method Indwelling Catheter Indwelling Catheter Indwelling Catheter # Bowel Movements 2 - Exam Constitutional: No acute distress, conversant, pleasant Eyes: Anicteric sclerae, moist conjunctiva, no lid-lag, PERRLA ENMT: NC/AT,Oropharynx clear, no erythema, exudates Neck:Supple, FROM, no masses, or JVD, No carotid bruits; No thyromegaly Lungs: Diminished in the bases clear to auscultation currently on 2 L nasal cannula Cardiovascular: Heart regular in rate and rhythm, No murmurs, gallops, or rubs +2 pitting edema Abdominal: Soft Nontender, nom distended, no guarding, no rebound or rigidity, mild scrotal edema Skin: Normal temperature, tone, texture, turgor, No induration No subcutaneous nodules, No rash, lesions, No ulcers Extremities: Bilateral lower extremities wrapped with Mik wraps Psychiatric: Alert and oriented to person, place and time, Appropriate affect Intact judgement Neuro: Muscles Strength 5/5 in all 4 extremities, Sensation to light touch grossly present throughout, Cranial nerves II-XII grossly intact. No focal sensory deficits - Labs CBC & Chem 7: 01/21/19 05:57 01/21/19 05:57 Labs: Abnormal Lab Results - Last 24 Hours (Table) 01/20/19 01/21/19 01/21/19 Range/Units 20:14 05:52 05:57 WBC (3.8-10.6) k/uL RBC (4.30-5.90) m/uL Hgb (13.0-17.5) gm/dL Hct (39.0-53.0) % Plt Count (150-450) k/uL BUN 31 H (9-20) mg/dL Glucose 188 H (74-99) mg/dL POC Glucose (mg/dL) 170 H 217 H (75-99) mg/dL 01/21/19 01/21/19 Range/Units 05:57 11:11 WBC 10.9 H (3.8-10.6) k/uL RBC 3.83 L (4.30-5.90) m/uL Hgb 10.9 L (13.0-17.5) gm/dL Hct 35.1 L (39.0-53.0) % Plt Count 529 H (150-450) k/uL BUN (9-20) mg/dL Glucose (74-99) mg/dL POC Glucose (mg/dL) 156 H (75-99) mg/dL Assessment and Plan (1) Acute and chronic respiratory failure with hypoxia Narrative/Plan: * Secondary to acute combined systolic and diastolic CHF exacerbation superimposed on possible underlying pneumonia * Patient currently on 2 L nasal cannula and back to his baseline O2 requirements * Pulmonary consultation cancelled * Continue with diuresis with Lasix drip * Chest x-ray this morning indicating bilateral lung opacities Current Visit: Yes Status: Acute Code(s): J96.21 - ACUTE AND CHRONIC RESPIRATORY FAILURE WITH HYPOXIA SNOMED Code(s): 59822861 (2) Acute on chronic combined systolic and diastolic CHF, NYHA class 3 Narrative/Plan: * Echocardiogram indicating ejection fraction of 30-35% * Continue diuresis with Lasix drip, continue metoprolol, amlodipine and patient started on Entresto today * Continue with daily weights, 1.5 L fluid restriction with strict I's and O's Current Visit: Yes Status: Acute Code(s): I50.43 - ACUTE ON CHRONIC COMBINED SYSTOLIC AND DIASTOLIC HRT FAIL SNOMED Code(s): 815881154916454 (3) Cellulitis of right lower extremity Narrative/Plan: * Appreciate ID recommendations * Continue local wound care with Aquacel silver dressing with bilateral lower extremity Mik wraps daily * Continue with IV vancomycin and Levaquin Current Visit: No Status: Acute Code(s): L03.115 - CELLULITIS OF RIGHT LOWER LIMB SNOMED Code(s): 068137813 (4) Type 2 diabetes mellitus with hyperglycemia Narrative/Plan: * A1c 8.8 achieving great blood sugar control while hospitalized * Continue current regimen with correctional scale coverage Current Visit: No Status: Chronic Code(s): E11.65 - TYPE 2 DIABETES MELLITUS WITH HYPERGLYCEMIA SNOMED Code(s): 383888691429366 (5) Essential hypertension Narrative/Plan: * Blood pressure improved * Continue to monitor * Continue current regimen Current Visit: Yes Status: Chronic Code(s): I10 - ESSENTIAL (PRIMARY) HYPERTENSION SNOMED Code(s): 18630360 (6) Hyperkalemia Narrative/Plan: * Resolved since initiating Lasix IV diuresis Current Visit: Yes Status: Resolved Code(s): E87.5 - HYPERKALEMIA SNOMED Code(s): 02864023 Plan: Disposition * Continue current treatment plan awaiting further recommendations to follow from consultants * Anticipated discharge tomorrow
[2019-01-21] MEDS ORDERED: POLYETHYLENE GLYCOL 3350 17 GM POWD.PACK PO STA (14:25)
--- NOTE | 2019-01-21 14:37 | PN ---
PROGRESS NOTE This patient's medical records reviewed. Patient is admitted with acute on chronic heart failure with reduced ejection fraction. Patient is feeling fairly well. He has been diuresing well. Patient's weight is down to 115 kg. First and second heart sounds are heard. Lungs are clear to auscultation and percussion. We will repeat the chest x-ray tomorrow and subsequently discontinue the IV Lasix drip. Patient is tolerating his medications well. We will increase the dose of Entresto and reduced the Catapres. MMODL / IJN: [id number] /
[2019-01-21 16:25] LABS: Glucose,Whole Blood 112 mg/dL (75-99)
[2019-01-21 20:28] LABS: Glucose,Whole Blood 301 mg/dL (75-99)
[2019-01-21] MEDS: INSULIN DETEMIR (LEVEMIR) 100 UNIT/ML SYR SQ SCH (21:59)
[2019-01-21] MEDS: LEVOFLOXACIN 750 MG TAB PO SCH (21:59)
[2019-01-21] MEDS: SACUBITRIL/VALSARTAN 49 MG-51 MG TABLET PO SCH (21:59)
[2019-01-22] MEDS: VANCOMYCIN 1,750 MG in SODIUM CHLORIDE 0.9% 500 ML 500 ML IVPB SCH (03:05)
[2019-01-22] MEDS: FUROSEMIDE 100 MG in SODIUM CHLORIDE 0.9% 90 ML IV SCH (03:18)
[2019-01-22] MEDS: IPRATROPIUM-ALBUTEROL 3 ML NEB INHALATION SCH ×5 (03:27→19:26)
[2019-01-22 04:35] VITALS: RESP 18
[2019-01-22 05:29] LABS: Glucose,Whole Blood 189 mg/dL (75-99)
--- NOTE | 2019-01-22 06:01 | PN ---
PROGRESS NOTE DATE OF SERVICE: 01/21/2019. REASON FOR FOLLOWUP: Right lower extremity wound cellulitis. INTERVAL HISTORY: The patient is currently afebrile, has been breathing comfortably. Patient denies any chest pain or any cough. No abdominal pain. Right leg swelling and redness improved. PHYSICAL EXAMINATION: Blood pressure 172/96, pulse 54, temperature 97.7, he is 94% on room air. General description is a middle aged male up in the chair in no distress. Respiratory system: Unlabored breathing with decreased breath sounds in the base, with no wheeze. Heart S1, S2. Regular rate and rhythm. Abdomen soft. No tenderness. Right leg swelling which has improved. LABS: White count of 10.9 with a BUN of 21, creatinine is 1.12. DIAGNOSTIC IMPRESSION AND PLAN: Patient with right lower extremity cellulitis in this patient with overall improvement in the swelling and redness of the right leg. Currently Vanco will be continued for now. Transition to short course of oral antibiotic on discharge. Continue supportive care. MMODL / IJN: [id number] /
[2019-01-22] MEDS: INSULIN ASPART (NovoLOG) 100 UNIT/ML VIAL SQ SCH ×6 (07:10→17:21)
[2019-01-22 07:24] LABS: Calcium 9.2 mg/dL (8.4-10.2); Potassium 4.4 mmol/L (3.5-5.1)
--- NOTE | 2019-01-22 08:03 | XR ---
EXAMINATION TYPE: XR chest 2V DATE OF EXAM: 01/22/2019 COMPARISON: 01/19/2019 TECHNIQUE: PA and lateral views submitted. HISTORY: Shortness of breath FINDINGS: Bilateral subsegmental infiltrates and interstitial pattern noted. Given differences in technique fin dings are similar. No pneumothorax. Mild cardiomegaly noted. IMPRESSION: 1. Patchy bilateral infiltrates are stable correlate for pneumonia versus CHF
[2019-01-22] MEDS ORDERED: POLYETHYLENE GLYCOL 3350 17 GM POWD.PACK PO SCH (09:00)
[2019-01-22] MEDS ORDERED: SACUBITRIL/VALSARTAN 24 MG-26 MG TABLET PO SCH (09:00)
[2019-01-22] MEDS ORDERED: cloNIDine HCL 0.1 MG TAB PO SCH (09:00)
[2019-01-22] MEDS: SACUBITRIL/VALSARTAN 49 MG-51 MG TABLET PO SCH (10:06)
[2019-01-22] MEDS: ASPIRIN 81 MG PO SCH (10:06)
[2019-01-22] MEDS: FUROSEMIDE 40 MG TAB PO SCH ×2 (10:07→17:20)
[2019-01-22] MEDS: GABAPENTIN 100 MG CAP PO SCH (10:07)
[2019-01-22] MEDS: amLODIPine 10 MG TAB PO SCH (10:07)
[2019-01-22] MEDS: HEPARIN SODIUM,PORCINE 5,000 UNIT/ML 1 ML VIAL SQ SCH ×2 (10:07→17:20)
[2019-01-22] MEDS: METOPROLOL SUCCINATE (ER) 50 MG TAB.ER.24H PO SCH (10:08)
[2019-01-22 11:10] LABS: Glucose,Whole Blood 121 mg/dL (75-99)
--- NOTE | 2019-01-22 11:56 | P.DS ---
Providers Date of admission: 01/18/19 14:11 Expected date of discharge: 01/22/19 Attending physician: Nahomi Louie DO Consults: 01/18/19 15:46 Consult Physician Routine Consulting Provider: Merlyn Figueroa Consult Reason/Comments: CHF Do you want consulting provider notified?: Yes 01/18/19 15:47 Consult Physician Routine Consulting Provider: Nena Campuzano Consult Reason/Comments: wound care/cellulitis Do you want consulting provider notified?: Yes Primary care physician: Ángel Cid - Discharge Diagnosis(es) (1) Acute and chronic respiratory failure with hypoxia Current Visit: Yes Status: Acute (2) Acute on chronic combined systolic and diastolic CHF, NYHA class 3 Current Visit: Yes Status: Acute (3) Cellulitis of right lower extremity Current Visit: No Status: Acute (4) Type 2 diabetes mellitus with hyperglycemia Current Visit: No Status: Chronic (5) Essential hypertension Current Visit: Yes Status: Chronic (6) Hyperkalemia Current Visit: Yes Status: Resolved Hospital Course: The patient is a morbidly obese 63-year-old male that was admitted with acute on chronic respiratory failure with hypoxia secondary to acute on chronic combined systolic and diastolic CHF exacerbation NYHA stage 3 superimposed on a probable pneumonia and right lower extremity cellulitis in the setting of chronic lower extremity edema. The patient was placed on BiPAP initially and initiated on aggressive IV diuresis with Lasix dri[ along with empiric IV antibiotic therapy with Levaquin and vancomycin and breathing treatments. Initial chest x-ray suggested decompensating CHF with mild pulmonary edema, pro BNP level was 3330 and EKG showed a sinus bradycardia with PACs. With aggressive diuresis and maintaining negative fluid balance with fluid restriction the patient's edema gradually improved and he was able to wean back down to his baseline O2 requirements at 2 L via nasal cannula. 2-D echocardiogram performed was consistent with ejection fraction of 30-35% , with moderate concentric left ventricular hypertrophy The patient was seen by cardiology and was started on Entresto and he was gradually transitioned to oral Lasix at 40 mg by mouth twice a day. Patient was seen by infectious diseases for his lower extremity wound and infection with recommendations for Aquacel with Mik wraps dressing changes and was transitioned to oral clindamycin at discharge. The patient was subsequently discharged home in stable condition and told to follow-up with cardiology and infectious disease, case management was able to set up home health for PT and wound care. The patient's lisinopril and clonidine was discontinued. This discharge process took approximately 35 minutes Constitutional: No acute distress, conversant, pleasant Eyes: Anicteric sclerae, moist conjunctiva, no lid-lag, PERRLA ENMT: NC/AT,Oropharynx clear, no erythema, exudates Neck:Supple, FROM, no masses, or JVD, No carotid bruits; No thyromegaly Lungs: Diminished in the bases clear to auscultation currently on 2 L nasal cannula Cardiovascular: Heart regular in rate and rhythm, No murmurs, gallops, or rubs +1 pitting edema Abdominal: Soft Nontender, nom distended, no guarding, no rebound or rigidity, mild scrotal edema Skin: Normal temperature, tone, texture, turgor, No induration No subcutaneous nodules, No rash, lesions, No ulcers Extremities: Bilateral lower extremities wrapped with Mik wraps Psychiatric: Alert and oriented to person, place and time, Appropriate affect Intact judgement Neuro: Weakness of right lower extremity from the knee and below with a right foot drop secondary to his history of polio Patient Condition at Discharge: Good Plan - Discharge Summary Discharge Rx Participant: Yes New Discharge Prescriptions: New Clindamycin [Cleocin] 300 mg PO TID #15 cap Furosemide [Lasix] 40 mg PO BID@0900,1600 #60 tab Levofloxacin [Levaquin] 750 mg PO Q24H #5 tab Metoprolol Succinate (ER) [Toprol XL] 50 mg PO DAILY #30 tabcap Sacubitril/Valsartan [Entresto 97 mg-103 mg Tablet] 1 each PO BID #60 tablet Continue INSULIN ASPART (NovoLOG) [NovoLOG (formulary)] 31 units SQ AC-TID Aspirin 81 mg PO DAILY #30 chew amLODIPine [Norvasc] 10 mg PO DAILY #30 tab Ergocalciferol [Vitamin D2 (DRISDOL)] 50,000 unit PO FR #4 cap Gabapentin [Neurontin] 100 mg PO BID #60 cap metFORMIN HCL 1,000 mg PO BID #60 tablet Insulin Glargine,Hum.rec.anlog [Lantus Solostar] 25 units SQ DAILY Ipratropium/Albuterol Sulfate [Combivent Respimat Inhaler] 2 puff INHALATION RT-QID PRN PRN Reason: Shortness Of Breath Discontinued Metoprolol Tartrate [Lopressor] 25 mg PO BID #60 tab cloNIDine HCL [Catapres] 0.2 mg PO TID #90 tab Lisinopril 40 mg PO DAILY #30 tablet Furosemide [Lasix] 20 mg PO BID Discharge Medication List INSULIN ASPART (NovoLOG) [NovoLOG (formulary)] 31 units SQ AC-TID 08/30/18 [ History] Aspirin 81 mg PO DAILY #30 chew 09/06/18 [Rx] Ergocalciferol [Vitamin D2 (DRISDOL)] 50,000 unit PO FR #4 cap 09/06/18 [Rx] Gabapentin [Neurontin] 100 mg PO BID #60 cap 09/06/18 [Rx] amLODIPine [Norvasc] 10 mg PO DAILY #30 tab 09/06/18 [Rx] metFORMIN HCL 1,000 mg PO BID #60 tablet 09/06/18 [Rx] Insulin Glargine,Hum.rec.anlog [Lantus Solostar] 25 units SQ DAILY 12/02/18 [ History] Ipratropium/Albuterol Sulfate [Combivent Respimat Inhaler] 2 puff INHALATION RT- QID PRN 12/02/18 [History] Clindamycin [Cleocin] 300 mg PO TID #15 cap 01/22/19 [Rx] Furosemide [Lasix] 40 mg PO BID@0900,1600 #60 tab 01/22/19 [Rx] Levofloxacin [Levaquin] 750 mg PO Q24H #5 tab 01/22/19 [Rx] Metoprolol Succinate (ER) [Toprol XL] 50 mg PO DAILY #30 tabcap 01/22/19 [Rx] Sacubitril/Valsartan [Entresto 97 mg-103 mg Tablet] 1 each PO BID #60 tablet [Rx] Follow up Appointment(s)/Referral(s): Ángel Cid MD [Primary Care Provider] - 1-2 days [facility], [NON-STAFF] - Nena Campuzano MD [STAFF PHYSICIAN] - 1 Week Savi Turk MD [STAFF PHYSICIAN] - 1 Week Activity/Diet/Wound Care/Special Instructions: [facility] ordered with nursing, physical therapy, telehealth, and occupational therapy Discharge Disposition: HOME SELF-CARE
--- NOTE | 2019-01-22 14:11 | P.PN ---
Subjective This is a pleasant 63-year-old male past medical history significant for chronic systolic heart failure, hypertension and diabetes mellitus. He is seen and examined sitting up in the process of weaning off oxygen. His Lasix infusion has been discontinued per primary care he has been transitioned to oral diuretics. He states he continues to feel mildly short of breath with exertion and fatigue. He denies symptoms of chest pain, dizziness or palpitations. Laboratory data reviewed, sodium 141, potassium 4.4, creatinine 1.1. Blood pressure 141/63 heart rate 54 afebrile maintaining oxygen saturation on room air. Currently maintained on amlodipine, aspirin, Lasix by mouth, Toprol, clonidine and entresto. Repeat chest x-ray this morning reveals patchy bilateral infiltrates stable from previous exam. He continues to have significant urine output with a negative fluid balance. GENERAL: Well-appearing, well-nourished and in no acute distress. NECK: Supple without JVD or thyromegaly. LUNGS: Bibasilar rales, no rhonchi or wheezes. Respiration equal and unlabored. HEART: Regular rate and rhythm without murmurs, rubs or gallops. S1 and S2 heard. EXTREMITIES: Normal range of motion, bilateral lower extremity edema. No clubbing or cyanosis. Peripheral pulses intact. Mik wraps in place. ASSESSMENT Acute on chronic systolic heart failure Bilateral lower extremity cellulitis COPD Diabetes mellitus Hypertension Obstructive sleep apnea, noncompliant with BiPAP Morbid obesity History of polio PLAN Transitioned to oral diuretics. Increase entresto to 97/103 BID and discontinue clonidine. Expect he can be discharged home today or tomorrow depending on his progress with oxygen weaning. Nurse Practitioner note has been reviewed, I agree with a documented findings and plan of care. Patient was seen and examined. Objective - Vital Signs Vital signs: Vital Signs Temp 98.2 F 01/22/19 08:00 Pulse 60 01/22/19 12:51 Resp 18 01/22/19 08:00 BP 141/63 01/22/19 08:00 Pulse Ox 97 01/22/19 08:00 Intake & Output 01/21/19 01/22/19 01/22/19 18:59 06:59 18:59 Intake Total 819.989 464 2647 Output Total 4150 2300 800 Balance -3330.667 -2200 200 Weight 115.6 kg 114.2 kg Intake: Intake, IV Titration 99.333 100 Amount Furosemide 100 mg In 99.333 100 Sodium Chloride 0.9% 90 ml @ 10 MG/HR 10 mls/hr IV .Q10H [facility] Rx#: [id number] Oral 720 1000 Output: Urine 4150 2300 800 Uretheral (Pinzon) 1950 Other: Voiding Method Indwelling Catheter Urinal Urinal # Voids 1 6 3 # Bowel Movements 1 - Labs CBC & Chem 7: 01/21/19 05:57 01/22/19 05:49 Labs: Abnormal Lab Results - Last 24 Hours (Table) 01/21/19 01/21/19 01/22/19 Range/Units 16:21 20:27 05:27 BUN (9-20) mg/dL Glucose (74-99) mg/dL POC Glucose (mg/dL) 112 H 301 H 189 H (75-99) mg/dL 01/22/19 01/22/19 Range/Units 05:49 11:08 BUN 28 H (9-20) mg/dL Glucose 187 H (74-99) mg/dL POC Glucose (mg/dL) 121 H (75-99) mg/dL
[2019-01-22 14:16] VITALS: BP 156/66; PULSE 56; TEMP 98
[2019-01-22] MEDS ORDERED: CLINDAMYCIN 150 MG CAP PO SCH (16:00)
[2019-01-22 17:08] LABS: Glucose,Whole Blood 298 mg/dL (75-99)
--- NOTE | 2019-01-22 17:56 | PN ---
PROGRESS NOTE DATE OF SERVICE: 01/22/2019. REASON FOR CONSULTATION: Lower extremity cellulitis. INTERVAL HISTORY: The patient is afebrile. The patient is breathing comfortably. Denies having any chest pain or any cough. No abdominal pain. No pain to the right leg area. PHYSICAL EXAMINATION: Blood pressure 156/66 with a pulse of 56, temperature of 98. He is 97% on room air. General description is a middle-aged male up in the chair in no distress. Respiratory system: Unlabored breathing. Decreased breath sounds at the bases. No wheeze. Heart S1, S2. Regular rate and rhythm. ABDOMEN: Soft. No tenderness. LABS: BUN of 28, creatinine 1.10. No cultures were done this admission. DIAGNOSTIC IMPRESSION AND PLAN: Patient with acute right lower extremity cellulitis in this patient who did have diffuse swelling and redness. Patient seemed to have shown overall clinical improvement. We will finish therapy with short course of oral clindamycin. Continue with Mik wrap to keep the swelling down. Continue supportive care. MMODL / IJN: [id number] /
[2019-01-22] MEDS: LEVOFLOXACIN 750 MG TAB PO SCH (19:02)
[2019-01-22] MEDS ORDERED: SACUBITRIL/VALSARTAN 97 MG-103 MG TABLET PO SCH (21:00)
== END 2019-01-22 17:01 | disposition home health service (06) | DRG 291 ==
LOC: EC 12:41 → 3SCARD 14:11
PROVIDERS: ADMIT Internal Medicine; ATTEND Internal Medicine
PROC: 5A09357 Assistance with Respiratory Ventilation, Less than 24 Consecutive Hours, Continuous Positive Airway Pressure (ICD-10-PCS; principal; 2019-01-18)
DX: I11.0 Hypertensive heart disease with heart failure (principal); J96.21 Acute and chronic respiratory failure with hypoxia; J18.9 Pneumonia, unspecified organism; J44.0 Chronic obstructive pulmonary disease with (acute) lower respiratory infection; Z68.41 Body mass index [BMI] 40.0-44.9, adult; L03.115 Cellulitis of right lower limb; L03.116 Cellulitis of left lower limb; E11.42 Type 2 diabetes mellitus with diabetic polyneuropathy; E87.5 Hyperkalemia; E11.65 Type 2 diabetes mellitus with hyperglycemia; E66.01 Morbid (severe) obesity due to excess calories; G83.9 Paralytic syndrome, unspecified; I50.43 Acute on chronic combined systolic (congestive) and diastolic (congestive) heart failure; R00.1 Bradycardia, unspecified; F40.240 Claustrophobia; G47.33 Obstructive sleep apnea (adult) (pediatric); E78.5 Hyperlipidemia, unspecified; I44.7 Left bundle-branch block, unspecified; F41.1 Generalized anxiety disorder; K59.00 Constipation, unspecified; N50.89 Other specified disorders of the male genital organs; M21.371 Foot drop, right foot; B91 Sequelae of poliomyelitis; I25.2 Old myocardial infarction; Z71.3 Dietary counseling and surveillance; Z79.4 Long term (current) use of insulin; Z79.82 Long term (current) use of aspirin; Z79.899 Other long term (current) drug therapy; Z91.19 Patient's noncompliance with other medical treatment and regimen; Z87.891 Personal history of nicotine dependence; Z88.2 Allergy status to sulfonamides; Z88.0 Allergy status to penicillin; Z83.3 Family history of diabetes mellitus; Z82.49 Family history of ischemic heart disease and other diseases of the circulatory system; Z80.9 Family history of malignant neoplasm, unspecified
CPT/HCPCS: 36415; 71045; 71046; 80048; 80053; 80202; 81003; 82550; 82553; 83036; 83735; 83880; 84132; 84443; 84484; 85025; 85610; 85730; 87502; 93005; 93306; 94640; 94660; 94760; 96365; 96366; 96367; 96372; 96375; 96376; 99285

== ENCOUNTER 2019-05-25 04:50 | Inpatient (IN) | payer MEDICARE ==
--- NOTE | 2019-05-25 06:06 | ED ---
General Adult HPI - General Chief complaint: Upper Respiratory Infection Stated complaint: Leg Swelling Time Seen by Provider: 05/25/19 05:05 Source: patient, family Mode of arrival: ambulatory Limitations: no limitations - History of Present Illness Initial comments: Javi is a 63 yo male with PMH of IDDM, CHF who presents to the ER today for evaluation of progressively worsening cough, SOB, and lower extremity edema. Patient states he noticed his cough getting worse last week, he feels that it is getting productive. Patient and also note that his lower extremities have become acutely more swollen and are now weeping clear fluid. Patient reports he's been wrapping his legs despite this they remain edematous. On arrival patient is noted to be bradycardic, patient reports that he commonly has a slow heart rate and sometimes his heart rate gets as low as the 20s when he is at home. - Related Data Home Medications Medication Instructions Recorded Confirmed INSULIN ASPART (NovoLOG) [NovoLOG 31 units SQ AC-TID 08/30/18 01/18/19 (formulary)] Insulin Glargine,Hum.rec.anlog 25 units SQ DAILY 12/02/18 01/18/19 [Lantus Solostar] Ipratropium/Albuterol Sulfate 2 puff INHALATION RT-QID PRN 12/02/18 01/18/19 [Combivent Respimat Inhaler] Previous Rx's Medication Instructions Recorded Aspirin 81 mg PO DAILY #30 chew 09/06/18 Ergocalciferol [Vitamin D2 50,000 unit PO FR #4 cap 09/06/18 (DRISDOL)] Gabapentin [Neurontin] 100 mg PO BID #60 cap 09/06/18 amLODIPine [Norvasc] 10 mg PO DAILY #30 tab 09/06/18 metFORMIN HCL 1,000 mg PO BID #60 tablet 09/06/18 Clindamycin [Cleocin] 300 mg PO TID #15 cap 01/22/19 Furosemide [Lasix] 40 mg PO BID@0900,1600 #60 tab 01/22/19 Levofloxacin [Levaquin] 750 mg PO Q24H #5 tab 01/22/19 Metoprolol Succinate (ER) [Toprol 50 mg PO DAILY #30 tabcap 01/22/19 XL] Sacubitril/Valsartan [Entresto 97 1 each PO BID #60 tablet 01/22/19 mg-103 mg Tablet] Allergies Allergy/AdvReac Type Severity Reaction Status Date / Time Latex, Natural Rubber Allergy Rash/Hives Verified 01/18/19 14:15 Penicillins Allergy Unknown Verified 01/18/19 14:15 Childhood Sulfa (Sulfonamide Allergy Rash/Hives Verified 01/18/19 14:15 Antibiotics) Review of Systems ROS Statement: Those systems with pertinent positive or pertinent negative responses have been documented in the HPI. ROS Other: All systems not noted in ROS Statement are negative. Past Medical History Past Medical History: Heart Failure, Diabetes Mellitus, Hypertension, Pneumonia, Vascular Disorder Additional Past Medical History / Comment(s): pt. 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 states he had a small heart attack did not need any stents, diabetic neuropathy, 02 2 liters n/c as needed, Last Myocardial Infarction Date:: unknown History of Any Multi-Drug Resistant Organisms: None Reported Past Surgical History: Orthopedic Surgery Additional Past Surgical History / Comment(s): pt. had muscle taken from his back and put into his leg, Past Anesthesia/Blood Transfusion Reactions: Motion Sickness Additional Past Anesthesia/Blood Transfusion Reaction / Comment(s): clausterphobia Past Psychological History: Depression Smoking Status: Former smoker Past Alcohol Use History: None Reported Past Drug Use History: None Reported - Past Family History Mother Family Medical History: Cancer Father Family Medical History: Diabetes Mellitus, Renal Disease General Exam - General Exam Comments Initial Comments: Physical Exam GENERAL: Chronically ill-appearing, appears older than stated age HENT: Normocephalic, Atraumatic. EYES: PERRL, EOMI PULMONARY: Crackles at bilateral bases CARDIOVASCULAR: Bradycardic, regular ABDOMEN: Obese SKIN: Bilateral lower extremity weeping edema : Deferred NEUROLOGIC: Patient is alert and oriented x3. 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 There seems to be no co rrelation between P waves and QRS complexes. This is a ventricular rhythm versus sinus with complete heart block. Repeat EKG was obtained at 5:45 AM for reevaluation of dysrhythmia. Rate is 36 rhythm again appears to be sinus bradycardia with complete heart block as there is no correlation between P waves and QRS complexes. Medical Decision Making - Medical Decision Making The patient was seen and evaluated, history is obtained from the patient Patient appears to have significant CHF exacerbation Labs and imaging were ordered EKG is concerning for complete heart block Repeat EKG was obtained and again reveals complete heart block Despite bradycardia patient has hypertension is awake alert and oriented area cardiology was paged, Dr. Dobbs evaluated EKGs and came to patient bedside. He recommends admission to the ICU, IV Lasix, antibiotics for cellulitis of the lower extremity consult to infectious disease, he will follow-up on electrolytes and patient condition and consider a temporary pacemaker Has resulted with a critical hyperkalemia with potassium of 6.8 to find Lasix is arty been ordered Hyperkalemia protocol was ordered Patient care was discussed with Dr. Youngblood ICU attending who accepts the patient to the ICU - Lab Data Result diagrams: 05/25/19 05:34 05/25/19 05:34 Lab Results 05/25/19 05/25/19 05/25/19 Range/Units 05:34 05:34 05:34 WBC 13.0 H (3.8-10.6) k/uL RBC 4.01 L (4.30-5.90) m/uL Hgb 11.5 L (13.0-17.5) gm/dL Hct 35.7 L (39.0-53.0) % MCV 89.0 (80.0-100.0) fL MCH 28.6 (25.0-35.0) pg MCHC 32.2 (31.0-37.0) g/dL RDW 15.5 (11.5-15.5) % Plt Count 456 H (150-450) k/uL Neutrophils % 77 % Lymphocytes % 11 % Monocytes % 6 % Eosinophils % 3 % Basophils % 1 % Neutrophils # 10.0 H (1.3-7.7) k/uL Lymphocytes # 1.4 (1.0-4.8) k/uL Monocytes # 0.8 (0-1.0) k/uL Eosinophils # 0.4 (0-0.7) k/uL Basophils # 0.1 (0-0.2) k/uL Hypochromasia Slight PT 10.5 (9.0-12.0) sec INR 1.0 (<1.2) APTT 24.5 (22.0-30.0) sec Sodium 141 (137-145) mmol/L Potassium 6.8 H* (3.5-5.1) mmol/L Chloride 110 H (98-107) mmol/L Carbon Dioxide 21 L (22-30) mmol/L Anion Gap 10 mmol/L BUN 56 H (9-20) mg/dL Creatinine 1.49 H (0.66-1.25) mg/dL Est GFR (CKD-EPI)AfAm 58 (>60 ml/min/1.73 sqM) Est GFR (CKD-EPI)NonAf 50 (>60 ml/min/1.73 sqM) Glucose 89 (74-99) mg/dL Calcium 9.4 (8.4-10.2) mg/dL Magnesium 2.8 H (1.6-2.3) mg/dL Total Bilirubin 0.7 (0.2-1.3) mg/dL AST 29 (17-59) U/L ALT 22 (21-72) U/L Alkaline Phosphatase 90 (38-126) U/L Troponin I (0.000-0.034) ng/mL NT-Pro-B Natriuret Pep pg/mL Total Protein 7.5 (6.3-8.2) g/dL Albumin 3.8 (3.5-5.0) g/dL 05/25/19 05/25/19 Range/Units 05:34 05:34 WBC (3.8-10.6) k/uL RBC (4.30-5.90) m/uL Hgb (13.0-17.5) gm/dL Hct (39.0-53.0) % MCV (80.0-100.0) fL MCH (25.0-35.0) pg MCHC (31.0-37.0) g/dL RDW (11.5-15.5) % Plt Count (150-450) k/uL Neutrophils % % Lymphocytes % % Monocytes % % Eosinophils % % Basophils % % Neutrophils # (1.3-7.7) k/uL Lymphocytes # (1.0-4.8) k/uL Monocytes # (0-1.0) k/uL Eosinophils # (0-0.7) k/uL Basophils # (0-0.2) k/uL Hypochromasia PT (9.0-12.0) sec INR (<1.2) APTT (22.0-30.0) sec Sodium (137-145) mmol/L Potassium (3.5-5.1) mmol/L Chloride (98-107) mmol/L Carbon Dioxide (22-30) mmol/L Anion Gap mmol/L BUN (9-20) mg/dL Creatinine (0.66-1.25) mg/dL Est GFR (CKD-EPI)AfAm (>60 ml/min/1.73 sqM) Est GFR (CKD-EPI)NonAf (>60 ml/min/1.73 sqM) Glucose (74-99) mg/dL Calcium (8.4-10.2) mg/dL Magnesium (1.6-2.3) mg/dL Total Bilirubin (0.2-1.3) mg/dL AST (17-59) U/L ALT (21-72) U/L Alkaline Phosphatase (38-126) U/L Troponin I 0.015 (0.000-0.034) ng/mL NT-Pro-B Natriuret Pep 3180 pg/mL Total Protein (6.3-8.2) g/dL Albumin (3.5-5.0) g/dL Disposition Clinical Impression: Hyperkalemia, Heart block, Cellulitis of right lower extremity, Acute on chronic diastolic CHF (congestive heart failure) Disposition: ADMITTED IP TO THIS HOSP Condition: Serious Referrals: Ángel Cid MD [Primary Care Provider] - 1-2 days
[2019-05-25 06:22] LABS: Basophils # (A) 0.1 k/uL (0-0.2); Basophils % (A) 1 %; Eosinophils # (A) 0.4 k/uL (0-0.7); Eosinophils % (A) 3 %; HCT 35.7 % (39.0-53.0); HGB 11.5 gm/dL (13.0-17.5); Hypochromasia Slight; Lymphocytes # (A) 1.4 k/uL (1.0-4.8); Lymphocytes % (A) 11 %; MCH 28.6 pg (25.0-35.0); MCHC 32.2 g/dL (31.0-37.0); Mean Platelet Volume 7.5; Monocytes # (A) 0.8 k/uL (0-1.0); Monocytes % (A) 6 %; Neutrophils % (A) 77 %; Platelet Count 456 k/uL (150-450); RBC 4.01 m/uL (4.30-5.90); RDW 15.5 % (11.5-15.5)
[2019-05-25 06:28] LABS: Albumin 3.8 g/dL (3.5-5.0); Calcium 9.4 mg/dL (8.4-10.2); Total Bilirubin 0.7 mg/dL (0.2-1.3); Total Protein 7.5 g/dL (6.3-8.2)
[2019-05-25 06:36] LABS: Partial Thromboplastin Time 24.5 sec (22.0-30.0); Prothrombin Time 10.5 sec (9.0-12.0)
[2019-05-25] MEDS ORDERED: VANCOMYCIN IV PER PHARMACY 1 EACH MISC MISCELLANE PRN (06:40)
[2019-05-25] MEDS ORDERED: FUROSEMIDE 10 MG/ML 4 ML VIAL IV STA ×2 (06:40→09:00)
[2019-05-25] MEDS ORDERED: VANCOMYCIN 2,000 MG in SODIUM CHLORIDE 0.9% 500 ML 500 ML IVPB STA (06:50)
[2019-05-25 06:55] LABS: Magnesium 2.8 mg/dL (1.6-2.3); Potassium 6.8 mmol/L (3.5-5.1)
[2019-05-25] MEDS ORDERED: SODIUM BICARB 8.4% 50 ML SYR (1 MEQ/ML) IV ONE (07:00)
[2019-05-25] MEDS ORDERED: INSULIN REGULAR 100 UNIT/ML VIAL IV ONE (07:00)
[2019-05-25] MEDS ORDERED: ALBUTEROL NEB (CONC) 2.5 MG/0.5 ML INHALATION ONE (07:00)
[2019-05-25] MEDS ORDERED: SODIUM POLYSTYRENE SULFONATE 15 GM/60 ML BOTTLE PO ONE (07:00)
[2019-05-25] MEDS ORDERED: CALCIUM GLUCONATE 1 GM in SODIUM CHLORIDE 0.9% 100 ML IVPB ONE (07:00)
[2019-05-25] MEDS ORDERED: NALOXONE 0.4 MG/ML 1 ML VIAL IV PRN (07:04)
--- NOTE | 2019-05-25 07:05 | CONS ---
CONSULTATION Mr. Duff is a 63-year-old gentleman who is seen in the emergency room because of the slow heart rate. This patient came to the emergency room with a complaint of progressive shortness of breath and worsening cough and lower extremity edema. The patient says he has been having cough which is predominantly nonproductive for last one week and he feels short of breath. He did not have any fever or chills. Patient's also says his legs are more swollen. The patient has a history of chronic leg edema with a history of possible cellulitis in the past and has been evaluated by ID service in the past. The patient is being treated with diuretics and Mik bandage. The patient was admitted with congestive cardiac failure and COPD exacerbation in December of 2018, has been treated with medications. There is no definite previous history of myocardial infarction. MEDICATIONS: The patient's home medications included insulin, Lantus, Atrovent inhaler, amlodipine 10 mg daily, metformin 1000 mg , Cleocin 300 mg t.i.d., Lasix 40 mg b.i.d., Toprol XL 50 mg daily , Entresto 97-103 mg b.i.d. PAST MEDICAL HISTORY: Past medical history includes history of diabetes, hypertension, pneumonia, vascular disorder, history of polio, bilateral leg edema and orthopedic surgery. PHYSICAL EXAMINATION: Physical examination at present reveals a 63-year-old obesely built gentleman who is at present in no acute distress. The patient is afebrile. Heart rate is 35 per minute, blood pressure is 140/53 mmHg. HEAD/ENT: Examination is negative. Neck is supple. Jugular venous pressure is difficult to assess. Chest is symmetrical. HEART: The PMI is not felt. First and second heart sounds are normal. Lungs are clinically clear to auscultation and percussion. Abdomen is soft. Liver and spleen are not enlarged. EXTREMITIES: There is a 2+ leg edema with redness on the left leg. EKG shows complete heart block with underlying left bundle branch block. FINAL IMPRESSION: This patient is admitted with predominantly history of cough and shortness of breath. Chest x-ray does not show any significant failure. Patient has bilateral lower extremity edema, possible cellulitis in the left leg. The patient has evidence of complete heart block. At present, we do not have any electrolytes available. RECOMMENDATIONS: We will continue to observe the patient in the intensive care unit. Await the lab results. If there is no significant hyperkalemia, the patient will need a temporary pacemaker and subsequently patient should be evaluated for possible AICD placement in view of the previous echocardiogram showed impaired left ventricular systolic function with ejection fraction of 30% to 35%. The patient will need probably biventricular AICD. ALICIA / DAVID: [id number] /
--- NOTE | 2019-05-25 07:09 | XR ---
EXAMINATION TYPE: XR chest 1V portable DATE OF EXAM: 05/25/2019 Comparison: 01/22/2019 Clinical History: 63-year-old male with cough and CHF Findings: Heart remains borderline enlarged. Mild diffuse interstitial prominence similar. Aeration may be mini layla improved. Trace effusions seen previously on the lateral view are not demonstrated on the front al view. Impression: Similar to minimally improved mild pulmonary vascular congestion.
[2019-05-25] MEDS: DEXTROSE 50% SYRINGE 50 ML IVP ONE ×2 (07:36→14:29)
[2019-05-25 08:53] LABS: Glucose,Whole Blood 125 mg/dL (75-99)
[2019-05-25] MEDS: FUROSEMIDE 100 MG in SODIUM CHLORIDE 0.9% 90 ML IV SCH ×2 (09:10→18:14)
[2019-05-25] MEDS ORDERED: SODIUM POLYSTYRENE SULFONATE 15 GM/60 ML BOTTLE PO STA (09:33)
[2019-05-25] MEDS ORDERED: IPRATROPIUM-ALBUTEROL 3 ML NEB INHALATION PRN (09:50)
--- NOTE | 2019-05-25 10:18 | P.CNPUL ---
History of Present Illness Consult date: 05/25/19 Requesting physician: Akil Nix Reason for consult: cough Chief complaint: Cough, congestion, weakness of breath, lower extremity edema History of present illness: This is a 63-year-old white male patient of Dr. Cid, past medical history of diabetes mellitus, chronic congestive heart failure, morbid obesity, previous episode of myocardial infarction, remote history of smoking, hypertension, hyperlipidemia, polio syndrome during his childhood and patient has a sequela of lower extremity weakness. Patient has moderately severe impaired left ventricle systolic function with EF of 30-35%, mild tricuspid regurgitation, mild pulmonary hypertension with right-sided pressures of 38 mmHg. Patient is maintained on Entresto. Patient has open weeping wounds on his bilateral lower extremities, and cellulitis. Previously followed with Dr. Campuzano, received vancomycin infusions in the past, however he has not seen Dr. Campuzano in several months. Does wear home O2 at bedtime and on as-needed basis, does not have history of COPD or asthma. He states for the last week and a half he has been coming down with a cold, progressive cough and congestion, with production of yellow sputum. He denied fevers, but is positive for chills. Admitted of some chest heaviness intermittently, lasting about 5 minutes. Noted increasing lower extremity edema, redness, and weeping. Patient's insisted he come to the emergency room for evaluation last night. Chest x-ray was completed showing m ild pulmonary vascular congestion, mild diffuse interstitial prominence. The ER patient was noted to be in third-degree heart block, a cardiac with a rate in the 30s, his states it is common for the patient and his heart rate does get as low as 20s when he's at home. Lab work showed a white blood cell count of 13.0, hemoglobin of 11.5, platelet count is 456, INR is 1.0, sodium was 141, potassium was elevated at 6.8, chloride was 110, CO2 is 21, B1 is 56, creatinine is 1.49, proBNP was elevated at 3180, troponin was negative 1, LFTs were within normal limits. Patient was given a dose of IV Lasix, her Anemia was treated with 50% dextrose, calcium gluconate, insulin, repeat blood work is pending. Patient has been evaluated by cardiology, placed on Lasix drip at 10 mg per hour, echocardiogram is in progress. We can alert, he is being seen in the intensive care unit, lung sounds are clear, diminished at the bases, no significant wheezing or congestion, states at times to bring up whitish colored sputum. He is in third-degree heart block with a rate of 36, he is on Tuesdays of oxygen with a pulse ox of 97%, he is afebrile. he has been started on antibiotics in the form of vancomycin, we'll add Rocephin for gram-negative coverage and breathing treatments. Review of Systems All systems: negative Constitutional: Denies chills, Denies fever Eyes: denies blurred vision, denies pain Ears, nose, mouth and throat: Denies headache, Denies sore throat Cardiovascular: Reports decreased exercise tolerance, Reports leg edema, Denies chest pain, Denies shortness of breath Respiratory: Reports cough with sputum, Reports dyspnea, Reports home oxygen, Reports respiratory infections, Denies cough Gastrointestinal: Denies abdominal pain, Denies diarrhea, Denies nausea, Denies vomiting Musculoskeletal: Denies myalgias Musculoskeletal: bilateral: foot swelling Integumentary: Denies pruritus, Denies rash Neurological: Denies numbness, Denies weakness Psychiatric: Denies anxiety, Denies depression Endocrine: Denies fatigue, Denies weight change Past Medical History Past Medical History: Heart Failure, Diabetes Mellitus, Hypertension, Pneumonia, Vascular Disorder Additional Past Medical History / Comment(s): pt. 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 states he had a small heart attack did not need any stents, diabetic neuropathy, 02 2 liters n/c as needed, Last Myocardial Infarction Date:: unknown History of Any Multi-Drug Resistant Organisms: None Reported Past Surgical History: Orthopedic Surgery Additional Past Surgical History / Comment(s): pt. had muscle taken from his back and put into his leg, Past Anesthesia/Blood Transfusion Reactions: Motion Sickness Additional Past Anesthesia/Blood Transfusion Reaction / Comment(s): cla usterphobia Past Psychological History: Depression Smoking Status: Former smoker Past Alcohol Use History: None Reported Past Drug Use History: None Reported - Past Family History Mother Family Medical History: Cancer Father Family Medical History: Diabetes Mellitus, Renal Disease Medications and Allergies Home Medications Medication Instructions Recorded Confirmed Type INSULIN ASPART (NovoLOG) [NovoLOG See Protocol SQ AC-TID 08/30/18 05/25/19 History (formulary)] Aspirin 81 mg PO DAILY #30 chew 09/06/18 05/25/19 Rx Ergocalciferol [Vitamin D2 50,000 unit PO FR #4 cap 09/06/18 05/25/19 Rx (DRISDOL)] Gabapentin [Neurontin] 100 mg PO BID #60 cap 09/06/18 05/25/19 Rx metFORMIN HCL 1,000 mg PO BID #60 tablet 09/06/18 05/25/19 Rx Insulin Glargine,Hum.rec.anlog 30 units SQ BID 12/02/18 05/25/19 History [Lantus Solostar] Ipratropium/Albuterol Sulfate 2 puff INHALATION RT-QID PRN 12/02/18 05/25/19 History [Combivent Respimat Inhaler] Furosemide [Lasix] 40 mg PO BID@0900,1600 #60 tab 01/22/19 05/25/19 Rx Metoprolol Succinate (ER) [Toprol 50 mg PO DAILY #30 tabcap 01/22/19 05/25/19 Rx XL] Sacubitril/Valsartan [Entresto 97 1 tab PO BID 05/25/19 05/25/19 History mg-103 mg Tablet] amLODIPine [Norvasc] 10 mg PO HS 05/25/19 05/25/19 History Allergies Allergy/AdvReac Type Severity Reaction Status Date / Time Latex, Natural Rubber Allergy Rash/Hives Verified 05/25/19 07:31 Penicillins Allergy Unknown Verified 05/25/19 07:31 Childhood Sulfa (Sulfonamide Allergy Rash/Hives Verified 05/25/19 07:31 Antibiotics) Physical Exam Vitals: Vital Signs Temp Pulse Pulse Resp BP Pulse Ox 05/25/19 08:01 98.3 F 39 L 22 147/41 97 05/25/19 07:54 39 L 05/25/19 07:44 36 L 05/25/19 05:15 42 L 23 05/25/19 04:51 98.8 F 39 L 22 140/53 97 Intake and Output 05/24/19 05/25/19 05/25/19 22:59 06:59 14:59 Other: Weight 128.82 kg GENERAL EXAM: Alert, pleasant, 63-year-old obese white male, on 2 L of oxygen with a pulse ox of 97%, and dyspneic with conversation,but comfortable in no apparent distress. HEAD: Normocephalic/atraumatic. EYES: Normal reaction of pupils, equal size. Conjunctiva pink, sclera white. NOSE: Clear with pink turbinates. THROAT: No erythema or exudates. NECK: No masses, no JVD, no thyroid enlargement, no adenopathy. CHEST: No chest wall deformity. Symmetrical expansion. LUNGS: Equal air entry with diminished breath sounds at the bases, slightly congested cough CVS: Regular rate and rhythm, normal S1 and S2, no gallops, no murmurs, no rubs. Patient has bradycardia with a rate of 36, complete heart block on a monitor ABDOMEN: Soft, nontender. No hepatosplenomegaly, normal bowel sounds, no guard ing or rigidity. EXTREMITIES: No clubbing, significant erythema and edema of bilateral lower extremities, with open wounds on lower extremities, weeping clear drainage, wound borders are distinct and sharply demarcated, likely related to chronic venous stasis ulcers, no cyanosis, 2+ pulses and upper and lower extremities. MUSCULOSKELETAL: Muscle strength and tone normal. SPINE: No scoliosis or deformity SKIN: No rashes CENTRAL NERVOUS SYSTEM: Alert and oriented -3. No focal deficits, tone is n ormal in all 4 extremities. PSYCHIATRIC: Alert and oriented -3. Appropriate affect. Intact judgment and insight. Results - Laboratory Findings CBC and BMP: 05/25/19 05:34 05/25/19 05:34 PT/INR, D-dimer PT 10.5 sec (9.0-12.0) 05/25/19 05:34 INR 1.0 (<1.2) 05/25/19 05:34 Abnormal lab findings: Abnormal Labs 05/25/19 05/25/19 05/25/19 05:34 05:34 08:30 WBC 13.0 H RBC 4.01 L Hgb 11.5 L Hct 35.7 L Plt Count 456 H Neutrophils # 10.0 H Potassium 6.8 H* Chloride 110 H Carbon Dioxide 21 L BUN 56 H Creatinine 1.49 H POC Glucose (mg/dL) 125 H Magnesium 2.8 H - Diagnostic Findings Chest x-ray: report reviewed, image reviewed Assessment and Plan Plan: Assessment: #1. Acute exacerbation of chronic congestive heart failure with reduced ejection fraction, chest x-ray showed pattern of interstitial edema #2. Cough and congestion, shortness of breath, and increasing lower extremity edema related to the above, and likely a component of bronchitis #3. Complete heart block, bradycardia #4. Hyperkalemia, with serum potassium of 6.8, could be related to Entresto #5. Chronic pain lower extremity wounds and cellulitis #6. Chronic hypoxemic respiratory failure, he wears home O2 on a as needed basis, likely related to chronic congestive heart failure, and suspect a component of obstructive sleep apnea #7. Previous episode of myocardial infarction #8. Diabetes mellitus with diabetic neuropathy #9. Hypertension, hyperlipidemia #10. Morbid obesity #11. History of polio syndrome as a child, he has chronic weakness in lower extremities #12. Remote history of smoking, smoking at age of 26, smoked a pack a day for 10 years Plan: Continue with vancomycin, we'll add Rocephin, obtain a set of blood cultures, wound cultures, urinalysis, sputum culture. Cardiology is following, and patient has been started on Lasix drip. Add nebulized bronchodilators. Echocardiogram is pending. Patient's hyperkalemia has been treated with a combination of 50% dextrose, insulin, albuterol, calcium gluconate, and, repeat blood work is pending. Monitor fever pattern, vital signs, mentation, daily labs. DVT prophylaxis. We'll continue to follow I performed a history & physical examination of the patient and discussed their management with my nurse practitioner, Kandy Kelley. I reviewed the nurse practitioner's note and agree with the documented findings and plan of care. Lung sounds are positive for diminished breath sounds with limited rhonchi. The findings and the impression was discussed with the patient. I attest to the documentation by the nurse practitioner. Time with Patient: Greater than 30
[2019-05-25] MEDS: INSULIN DETEMIR (LEVEMIR) 100 UNIT/ML SYR SQ SCH ×2 (10:55→21:47)
[2019-05-25] MEDS: IPRATROPIUM-ALBUTEROL 3 ML NEB INHALATION SCH ×3 (11:11→19:42)
[2019-05-25] MEDS: ASPIRIN 81 MG PO SCH (11:12)
[2019-05-25 12:30] LABS: Glucose,Whole Blood 68 mg/dL (75-99)
[2019-05-25 12:32] LABS: Calcium 9.1 mg/dL (8.4-10.2); Magnesium 2.6 mg/dL (1.6-2.3); Potassium 5.1 mmol/L (3.5-5.1)
[2019-05-25 12:51] LABS: Glucose,Whole Blood 103 mg/dL (75-99)
--- NOTE | 2019-05-25 12:52 | P.NPCON ---
History of Present Illness - Reason for Consult acute renal failure - History of Present Illness Reason for consultation: Acute kidney injury and hyperkalemia History of present illness: Patient is a 63-year-old male seen in renal consultation for acute kidney injury and hyperkalemia. Patient presented to the hospital after he noticed low heart rate in the 30s. When patient came to the hospital he was noted to have potassium level of 6.8 which was medically treated. Repeat potassium level is 5.1. He also complains of edema in his lower extremities which has been progressively worsening over the last 2 weeks. Patient states he did increase the dose of Lasix to 60 mg twice daily with no improvement in his edema. Oral intake has been good. No vomiting or diarrhea. He does admit to a cough with clear phlegm. He has long-standing history of diabetes mellitus. Patient is noted to be in complete heart block and is being considered for pacemaker placement. He is currently maintained on Lasix drip. Patient has systolic CHF with ejection fraction of 30-35%. Patient states he's been on entresto for the last 6 months or so. He denies regular use of nonsteroidals. Denies family history of renal disease. Vital signs are stable. General: The patient appeared well nourished and normally developed. HEENT: Head exam is unremarkable. Neck is without jugular venous distension. LUNGS: Lungs are clear to auscultation and percussion. Breath sounds decreased. HEART: Bradycardic. ABDOMEN: Abdominal exam reveals normal bowel sounds. Non-tender and non- distended. Obese. EXTREMITITES: 2+ edema. Erythema noted. Past Medical History Past Medical History: Heart Failure, Diabetes Mellitus, Hypertension, Pneumonia, Vascular Disorder Additional Past Medical History / Comment(s): pt. 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 states he had a small heart attack did not need any stents, diabetic neuropathy, 02 2 liters n/c as needed, Last Myocardial Infarction Date:: unknown History of Any Multi-Drug Resistant Organisms: None Reported Past Surgical History: Orthopedic Surgery Additional Past Surgical History / Comment(s): pt. had muscle taken from his back and put into his leg, Past Anesthesia/Blood Transfusion Reactions: Motion Sickness Additional Past Anesthesia/Blood Transfusion Reaction / Comment(s): clausterphobia Past Psychological History: Depression Additional Psychological History / Comment(s): lives with tuyet.pt drives. currently uses crutches or w/c. has ramp at home. uses cpap machine and o2 2 liters n/c as needed. Smoking Status: Former smoker Past Alcohol Use History: None Reported Additional Past Alcohol Use History / Comment(s): started smoking at age 16 and quit age 26 smoked 1-2 ppd Past Drug Use History: None Reported - Past Family History Mother Family Medical History: Cancer Father Family Medical History: Diabetes Mellitus, Renal Disease Medications and Allergies Home Medications Medication Instructions Recorded Confirmed Type INSULIN ASPART (NovoLOG) [NovoLOG See Protocol SQ AC-TID 08/30/18 05/25/19 History (formulary)] Aspirin 81 mg PO DAILY #30 chew 09/06/18 05/25/19 Rx Ergocalciferol [Vitamin D2 50,000 unit PO FR #4 cap 09/06/18 05/25/19 Rx (DRISDOL)] Gabapentin [Neurontin] 100 mg PO BID #60 cap 09/06/18 05/25/19 Rx metFORMIN HCL 1,000 mg PO BID #60 tablet 09/06/18 05/25/19 Rx Insulin Glargine,Hum.rec.anlog 30 units SQ BID 12/02/18 05/25/19 History [Lantus Solostar] Ipratropium/Albuterol Sulfate 2 puff INHALATION RT-QID PRN 12/02/18 05/25/19 History [Combivent Respimat Inhaler] Furosemide [Lasix] 40 mg PO BID@0900,1600 #60 tab 01/22/19 05/25/19 Rx Metoprolol Succinate (ER) [Toprol 50 mg PO DAILY #30 tabcap 01/22/19 05/25/19 Rx XL] Sacubitril/Valsartan [Entresto 97 1 tab PO BID 05/25/19 05/25/19 History mg-103 mg Tablet] amLODIPine [Norvasc] 10 mg PO HS 05/25/19 05/25/19 History Allergies Allergy/AdvReac Type Severity Reaction Status Date / Time Latex, Natural Rubber Allergy Rash/Hives Verified 05/25/19 07:31 Penicillins Allergy Unknown Verified 05/25/19 07:31 Childhood Sulfa (Sulfonamide Allergy Rash/Hives Verified 05/25/19 07:31 Antibiotics) Physical Exam Vitals: Vital Signs Temp Pulse Pulse Resp BP Pulse Ox 05/25/19 11:21 94 05/25/19 11:12 98 05/25/19 11:00 35 L 17 151/52 93 L 05/25/19 10:00 40 L 14 141/88 96 05/25/19 09:00 98.5 F 39 L 20 126/89 98 05/25/19 08:01 98.3 F 39 L 22 147/41 97 05/25/19 07:54 39 L 05/25/19 07:44 36 L 05/25/19 05:15 42 L 23 05/25/19 04:51 98.8 F 39 L 22 140/53 97 Intake and Output 05/24/19 05/25/19 05/25/19 22:59 06:59 14:59 Intake Total 550 Output Total 950 Balance -400 Intake: IV 550 Vancomycin 2,000 mg In 500 Sodium Chloride 0.9% 500 ml 500 ml @ 167 mls/hr IVPB Q24H [facility] Rx#: [id number] [id number] 1 gm In 50 Sodium Chloride 0.9% 50 ml @ 100 mls/hr IVPB Q24HR [facility] Rx#:[id number] Output: Urine 950 Other: Voiding Method Indwelling Catheter Weight 128.82 kg Results - Lab Results Most recent lab results Calcium 9.1 mg/dL (8.4-10.2) 05/25/19 11:41 Magnesium 2.6 mg/dL (1.6-2.3) H 05/25/19 11:41 05/25/19 05:34 05/25/19 11:41 Assessment and Plan Plan: Assessment: 1. Acute kidney injury secondary to ATN secondary to bradycardia and cardiorenal syndrome. Creatinine was 1.49 on admission and is 1.3 today. Baseline creatinine near 1. 2. Hyperkalemia secondary to acute kidney injury, metabolic acidosis as well as entresto. Better with medical management. 3. Systolic CHF with ejection fraction of 30-35%. 4. Volume overload. 5. Insulin-dependent diabetes mellitus. 6. Metabolic acidosis secondary to acute kidney injury. 7. Lower extremity cellulitis maintained on IV antibiotics. 8. Benign hypertension. 9. Complete heart block secondary to hyperkalemia. Cardiology following. Plan: Maintain Lasix drip at 10 mL an hour. Check urinalysis. Expect bicarb to improve with diuresis. Continue to monitor renal function and urine output. Thank you for the consultation. I will continue to follow the patient with you during his hospital stay.
--- NOTE | 2019-05-25 12:58 | ECHOF ---
Referral Reason:LV Function MEASUREMENTS -------- HEIGHT: 162.6 cm WEIGHT: 128.8 kg BP: 149/91 RVIDd: 3.8 cm (< 3.3) IVSd: 1.3 cm (0.6 - 1.1) LVIDd: 5.3 cm (3.9 - 5.3) LVPWd: 1.3 cm (0.6 - 1.1) IVSs: 1.7 cm LVIDs: 3.7 cm LVPWs: 1.9 cm LA Diam: 4.0 cm (2.7 - 3.8) LAESV Index (A-L): 36.00 ml/m Ao Diam: 3.4 cm (2.0 - 3.7) AV Cusp: 2.5 cm (1.5 - 2.6) MV EXCURSION: 19.783 mm (> 18.000) MV EF SLOPE: 111 mm/s (70 - 150) EPSS: 0.6 cm MV E Mansoor: 1.52 m/s MV DecT: 259 ms MV A Mansoor: 0.70 m/s MV E/A Ratio: 2.17 AV maxP.62 mmHg AV meanP.57 mmHg RAP: 15.00 mmHg RVSP: 56.29 mmHg FINDINGS -------- Resting bradycardia (HR<60bpm). This was a technically difficult study with suboptimal apical views. The left ventricular size is normal. There is mild concentric left ventricular hypertrophy. Overa ll left ventricular systolic function is normal with, an EF between 55 - 60 %. There is paradoxical /dysynergic septal motion consistent with right ventricular volume overload and/or elevated right divya tricular end-diastolic pressure. Both the mean atrial pressure as well as the LV end diastolic pres sure is elevated {E/E'}. Septal wall motion is delayed, and consistent with conduction delay/bundle branch block. The right ventricle is mild to moderately enlarged. LA is moderately dilated 34-39 ml/m2 The right atrium is normal in size. 5 ml of Lumason was utilized for enhancement of images. Interatrial and interventricular septum intact. There is mild aortic valve sclerosis. There is mild aortic stenosis present. Peak/mean gradient a cross the Aortic Valve is 24.62mmHg / 11.57mmHg. The mitral valve leaflets are mildly thickened. Mild mitral annular calcification present. Mild tricuspid regurgitation present. There is severe pulmonary hypertension. The right ventricul ar systolic pressure, as measured by Doppler, is 56.29mmHg. The pulmonic valve was not well visualized. The aortic root size is normal. The inferior vena cava is dilated with no significant inspiratory collapse which is consistent estima sabiha right atrial pressure of >20 mmHg. There is no pericardial effusion. CONCLUSIONS -------- 1. Resting bradycardia (HR<60bpm). 2. This was a technically difficult study with suboptimal apical views. 3. The left ventricular size is normal. 4. There is mild concentric left ventricular hypertrophy. 5. Overall left ventricular systolic function is normal with, an EF between 55 - 60 %. 6. There is paradoxical/dysynergic septal motion consistent with right ventricular volume overload an d/or elevated right ventricular end-diastolic pressure. 7. Both the mean atrial pressure as well as the LV end diastolic pressure is elevated {E/E'}. 8. Septal wall motion is delayed, and consistent with conduction delay/bundle branch block. 9. The right ventricle is mild to moderately enlarged. 10. LA is moderately dilated 34-39 ml/m2 11. The right atrium is normal in size. 12. 5 ml of Lumason was utilized for enhancement of images. 13. Interatrial and interventricular septum intact. 14. There is mild aortic valve sclerosis. 15. There is mild aortic stenosis present. 16. Peak/mean gradient across the Aortic Valve is 24.62mmHg / 11.57mmHg. 17. The mitral valve leaflets are mildly thickened. 18. Mild mitral annular calcification present. 19. Mild tricuspid regurgitation present. 20. There is severe pulmonary hypertension. 21. The right ventricular systolic pressure, as measured by Doppler, is 56.29mmHg. 22. The pulmonic valve was not well visualized. 23. The aortic root size is normal. 24. The inferior vena cava is dilated with no significant inspiratory collapse which is consistent es timated right atrial pressure of >20 mmHg. 25. There is no pericardial effusion. CLERICAL ADMINISTRATIVE ASSISTANT: Yaz Mary RDCS
[2019-05-25 13:03] LABS: Glucose,Whole Blood 100 mg/dL (75-99)
[2019-05-25] MEDS: INSULIN ASPART (NovoLOG) 100 UNIT/ML VIAL SQ SCH ×2 (13:10→17:37)
[2019-05-25 13:25] LABS: Appearance,Urine Clear (Clear); Bilirubin,Urine Negative (Negative); Blood,Urine Negative (Negative); Color,Urine Light Yellow; Glucose,Urine (UA) Negative (Negative); Ketones,Urine Negative (Negative); Leukocyte Esterase,Urine Negative (Negative); Nitrite,Urine Negative (Negative); Protein,Urine Negative (Negative); Specific Gravity,Urine 1.007 (1.001-1.035); Urobilinogen,Urine <2.0 mg/dL (<2.0)
[2019-05-25 14:35] LABS: Glucose,Whole Blood 70 mg/dL (75-99)
[2019-05-25 15:09] LABS: Glucose,Whole Blood 93 mg/dL (75-99)
[2019-05-25] MEDS ORDERED: DEXTROSE 50% SYRINGE 50 ML IVP ONE (17:16)
[2019-05-25 17:25] LABS: Glucose,Whole Blood 66 mg/dL (75-99)
--- NOTE | 2019-05-25 17:37 | P.HPIM ---
History of Present Illness H&P Date: 05/25/19 Chief Complaint: Tired History of presenting complaint: This is a 63-year-old patient of Dr. Ángel Cid. Chronic stable medical conditions include diabetes, hypertension, diabetic peripheral neuropathy. 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 Patient has no movement but has some sensation. Patient has off-and-on lower extremity cellulitis and has followed by Dr. Campuzano from infectious disease. Hasn't intubated dressings. Patient now presents with worsening swelling of the lower extremity burning sensation. No fever and chills. Also has some blistering drainage. Decreased appetite times rundown. Patient in the ER was found to be hyperkalemic with potassium. Being 6.8. Patient admitted to the ICU. Patient also found to be in complete heart block. Patient is put on a Lasix drip also found to be in CHF. And also was made nothing by mouth. Patient does feel tired and rundown. Patient normally uses a wheelchair/ crutches or a walker to get about the house. Review of systems: GEN.: Tired EYES: None HEENT: None NECK: None RESPIRATORY: Some shortness of breath CARDIOVASCULAR: None GASTROINTESTINAL: None GENITOURINARY: None MUSCULOSKELETAL: None LYMPHATICS: None HEMATOLOGICAL: None PSYCHIATRY: None NEUROLOGICAL: Burning of the lower extremity. Weakness of the right leg. DERMATOLOGICAL: As abov Social history. Does not smoke or drink alcohol. . Does use a wheelchair, crutches and/or walker. Family history: Cancer type unknown Physical examination: VITAL SIGNS:, 98.8, 39, 22, 140/53, 97% room air GENERAL: BMI 48.7, propped up in bed, tired appearing. EYES: Pupils equal. Conjunctiva normal. HEENT: External appearance of nose and ears normal, oral cavity grossly normal. NECK: JVD unable to assess; masses not palpable. HEART: First and second heart sounds are normal; gross edema. LUNGS: Respiratory rate increased, decreased breath sounds. ABDOMEN: Soft, distended nontender, liver spleen not palpable, no masses palpable. LYMPHATICS: No lymph nodes palpable in the axilla and neck. PSYCH: [Alert and oriented x3; mood and affect tired l. NEUROLOGICAL: Cranial nerves grossly intact; no facial asymmetry, 0 polys right lower extremity, decreased sensation distally DERMATOLOGICAL redness in both lower extremity below the knee down to the foot with evidence of superficial skin D shannon on the right lower extremity causing some serous drainage Investigations, reviewed in the clinical context. White count 13 and hemoglobin 11.5, platelets 456, potassium 6. 8 repeat 5.1, bicarb 21, BUN 56, creatinine 1.49. Patient BUN and creatinine was 28/1.10 on 01/22/2019 Chest x-ray film personally reviewed by me portable some venous prominence EKG tracing on the monitor shows decreased heart rate 2-D echo-EF 55-60% Assessment: -Acute on chronic congestive heart exacerbation from diastolic dysfunction EF 55-60% -Diabetes mellitus type 2, chronically on insulin, uncontrolled with hypoglycemia from poor oral intake -Essential hypertension -Right lower extremity paralysis from polio as a child -Morbid obesity BMI 40.7 -Bilateral lower extremity cellulitis acute on chronic -Acute metabolic acidosis from renal failure -Acute kidney injury probably from ATN from hepatorenal syndrome -Complete heart block, the setting of severe hyperkalemia, follow closely -Severe hyperkalemia in the setting of acute renal failure and metabolic acidosis Plan: Patient is only started on Lasix drip. Did get a cocktail for hyperkalemia. Patient earlier was nothing by mouth. We'll put the patient on a full liquid diet and make the patient nothing by mouth after midnight in case patient goes to for a pacemaker. Repeat EKG in the morning and keep the patient on ICU and telemetry monitoring. The patient also noted antibiotics and infectious disease was also consulted. Patient also being seen by cardiology and nephrology. Care was discussed the patient. Questions were answered. Patient also received bicarbonate. Past Medical History Past Medical History: Heart Failure, Diabetes Mellitus, Hypertension, Pneumonia, Vascular Disorder Additional Past Medical History / Comment(s): pt. 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 states he had a small heart attack did not need any stents, diabetic neuropathy, 02 2 liters n/c as needed, Last Myocardial Infarction Date:: unknown History of Any Multi-Drug Resistant Organisms: None Reported Past Surgical History: Orthopedic Surgery Additional Past Surgical History / Comment(s): pt. had muscle taken from his back and put into his leg, Past Anesthesia/Blood Transfusion Reactions: Motion Sickness Additional Past Anesthesia/Blood Transfusion Reaction / Comment(s): clausterphobia Past Psychological History: Depression Additional Psychological History / Comment(s): lives with tuyet.pt drives. currently uses crutches or w/c. has ramp at home. uses cpap machine and o2 2 liters n/c as needed. Smoking Status: Former smoker Past Alcohol Use History: None Reported Additional Past Alcohol Use History / Comment(s): started smoking at age 16 and quit age 26 smoked 1-2 ppd Past Drug Use History: None Reported - Past Family History Mother Family Medical History: Cancer Father Family Medical History: Diabetes Mellitus, Renal Disease Medications and Allergies Home Medications Medication Instructions Recorded Confirmed Type INSULIN ASPART (NovoLOG) [NovoLOG See Protocol SQ AC-TID 08/30/18 05/25/19 History (formulary)] Aspirin 81 mg PO DAILY #30 chew 09/06/18 05/25/19 Rx Ergocalciferol [Vitamin D2 50,000 unit PO FR #4 cap 09/06/18 05/25/19 Rx (DRISDOL)] Gabapentin [Neurontin] 100 mg PO BID #60 cap 09/06/18 05/25/19 Rx metFORMIN HCL 1,000 mg PO BID #60 tablet 09/06/18 05/25/19 Rx Insulin Glargine,Hum.rec.anlog 30 units SQ BID 12/02/18 05/25/19 History [Lantus Solostar] Ipratropium/Albuterol Sulfate 2 puff INHALATION RT-QID PRN 12/02/18 05/25/19 History [Combivent Respimat Inhaler] Furosemide [Lasix] 40 mg PO BID@0900,1600 #60 tab 01/22/19 05/25/19 Rx Metoprolol Succinate (ER) [Toprol 50 mg PO DAILY #30 tabcap 01/22/19 05/25/19 Rx XL] Sacubitril/Valsartan [Entresto 97 1 tab PO BID 05/25/19 05/25/19 History mg-103 mg Tablet] amLODIPine [Norvasc] 10 mg PO HS 05/25/19 05/25/19 History Allergies Allergy/AdvReac Type Severity Reaction Status Date / Time Latex, Natural Rubber Allergy Rash/Hives Verified 05/25/19 07:31 Penicillins Allergy Unknown Verified 05/25/19 07:31 Childhood Sulfa (Sulfonamide Allergy Rash/Hives Verified 05/25/19 07:31 Antibiotics) Physical Exam Vitals: Vital Signs Temp Pulse Pulse Resp BP Pulse Ox 05/25/19 16:00 37 L 20 143/43 94 L 05/25/19 15:13 90 05/25/19 15:02 94 05/25/19 15:00 36 L 20 139/48 96 05/25/19 14:00 42 L 18 149/45 91 L 05/25/19 13:00 39 L 18 149/45 97 05/25/19 12:00 98.0 F 37 L 20 135/95 94 L 05/25/19 11:21 94 05/25/19 11:12 98 05/25/19 11:00 35 L 17 151/52 93 L 05/25/19 10:00 40 L 14 141/88 96 05/25/19 09:00 98.5 F 39 L 20 126/89 98 05/25/19 08:01 98.3 F 39 L 22 147/41 97 05/25/19 07:54 39 L 05/25/19 07:44 36 L 05/25/19 05:15 42 L 23 05/25/19 04:51 98.8 F 39 L 22 140/53 97 Intake and Output 05/25/19 05/25/19 05/25/19 06:59 14:59 22:59 Intake Total 550 Output Total 1750 550 Balance -1200 -550 Intake: IV 550 Vancomycin 2,000 mg In 500 Sodium Chloride 0.9% 500 ml 500 ml @ 167 mls/hr IVPB Q24H [facility] Rx#: [id number] cefTRIAXone 1 gm In 50 Sodium Chloride 0.9% 50 ml @ 100 mls/hr IVPB Q24HR [facility] Rx#:[id number] Output: Urine 1750 550 Other: Voiding Method Indwelling Catheter Indwelling Catheter Weight 128.82 kg Results CBC & Chem 7: 05/25/19 05:34 05/25/19 11:41 Labs: Abnormal Lab Results - Last 24 Hours (Table) 05/25/19 05/25/19 05/25/19 Range/Units 05:34 05:34 08:30 WBC 13.0 H (3.8-10.6) k/uL RBC 4.01 L (4.30-5.90) m/uL Hgb 11.5 L (13.0-17.5) gm/dL Hct 35.7 L (39.0-53.0) % Plt Count 456 H (150-450) k/uL Neutrophils # 10.0 H (1.3-7.7) k/uL Potassium 6.8 H* (3.5-5.1) mmol/L Chloride 110 H (98-107) mmol/L Carbon Dioxide 21 L (22-30) mmol/L BUN 56 H (9-20) mg/dL Creatinine 1.49 H (0.66-1.25) mg/dL POC Glucose (mg/dL) 125 H (75-99) mg/dL Magnesium 2.8 H (1.6-2.3) mg/dL 05/25/19 05/25/19 05/25/19 Range/Units 11:41 12:18 12:40 WBC (3.8-10.6) k/uL RBC (4.30-5.90) m/uL Hgb (13.0-17.5) gm/dL Hct (39.0-53.0) % Plt Count (150-450) k/uL Neutrophils # (1.3-7.7) k/uL Potassium (3.5-5.1) mmol/L Chloride 110 H (98-107) mmol/L Carbon Dioxide 20 L (22-30) mmol/L BUN 56 H (9-20) mg/dL Creatinine 1.38 H (0.66-1.25) mg/dL POC Glucose (mg/dL) 68 L 103 H (75-99) mg/dL Magnesium 2.6 H (1.6-2.3) mg/dL 05/25/19 05/25/19 Range/Units 12:51 14:23 WBC (3.8-10.6) k/uL RBC (4.30-5.90) m/uL Hgb (13.0-17.5) gm/dL Hct (39.0-53.0) % Plt Count (150-450) k/uL Neutrophils # (1.3-7.7) k/uL Potassium (3.5-5.1) mmol/L Chloride (98-107) mmol/L Carbon Dioxide (22-30) mmol/L BUN (9-20) mg/dL Creatinine (0.66-1.25) mg/dL POC Glucose (mg/dL) 100 H 70 L (75-99) mg/dL Magnesium (1.6-2.3) mg/dL Thrombosis Risk Factor Assmnt - Choose All That Apply Any of the Below Risk Factors Present?: Yes Each Factor Represents 1 point: Obesity (BMI >25) Other Risk Factors: Yes Each Risk Factor Represents 2 Points: Age 61-74 years Other congenital or acquired thrombophilia - If yes, enter type in comment: No Thrombosis Risk Factor Assessment Total Risk Factor Score: 3 Thrombosis Risk Factor Assessment Level: Moderate Risk
[2019-05-25 17:45] LABS: Glucose,Whole Blood 126 mg/dL (75-99)
[2019-05-25] MEDS: GABAPENTIN 100 MG CAP PO SCH (20:16)
[2019-05-25] MEDS: HEPARIN SODIUM,PORCINE 5,000 UNIT/ML 1 ML VIAL SQ SCH (20:17)
[2019-05-25] MEDS: amLODIPine 10 MG TAB PO SCH (22:06)
[2019-05-26] MEDS: INSULIN ASPART (NovoLOG) 100 UNIT/ML VIAL SQ SCH ×4 (00:24→18:55)
[2019-05-26 00:27] LABS: Glucose,Whole Blood 94 mg/dL (75-99)
[2019-05-26 02:41] LABS: Glucose,Whole Blood 83 mg/dL (75-99)
[2019-05-26 03:19] LABS: Glucose,Whole Blood 79 mg/dL (75-99)
[2019-05-26] MEDS: FUROSEMIDE 100 MG in SODIUM CHLORIDE 0.9% 90 ML IV SCH ×3 (03:57→21:33)
[2019-05-26 04:15] LABS: Glucose,Whole Blood 85 mg/dL (75-99)
[2019-05-26 05:30] LABS: Basophils % (A) 1 %; Eosinophils # (A) 0.3 k/uL (0-0.7); Eosinophils % (A) 3 %; HCT 34.2 % (39.0-53.0); HGB 10.4 gm/dL (13.0-17.5); Hypochromasia Slight; Lymphocytes # (A) 1.1 k/uL (1.0-4.8); Lymphocytes % (A) 12 %; MCH 27.5 pg (25.0-35.0); MCHC 30.3 g/dL (31.0-37.0); MCV 90.9 fL (80.0-100.0); Mean Platelet Volume 6.6; Monocytes # (A) 0.6 k/uL (0-1.0); Monocytes % (A) 7 %; Neutrophils # (A) 6.8 k/uL (1.3-7.7); Neutrophils % (A) 74 %; Platelet Count 414 k/uL (150-450); RBC 3.77 m/uL (4.30-5.90); RDW 14.9 % (11.5-15.5); WBC 9.2 k/uL (3.8-10.6)
[2019-05-26 05:38] LABS: Calcium 8.6 mg/dL (8.4-10.2); Magnesium 2.5 mg/dL (1.6-2.3); Potassium 4.4 mmol/L (3.5-5.1)
[2019-05-26] MEDS: VANCOMYCIN 2,000 MG in SODIUM CHLORIDE 0.9% 500 ML 500 ML IVPB SCH (05:54)
[2019-05-26 06:06] LABS: Glucose,Whole Blood 78 mg/dL (75-99)
--- NOTE | 2019-05-26 06:49 | P.CONS ---
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 patient also have congestive heart failure history of recurrent lower extremity cellulitis,patient was brought into the ER at with worsening lower extremity swelling that has been progressively getting worse for the last week or so the patient started having weeping from his life blister and s patient did have mild and dull aching pain to the leg intensity of 2-3 out of 10 and no radiation the patient also been complaining of increasing shortness of breath that has extended appointment with the short of breath at rest patient denies significant chest pain very minimal cough which is dry in nature no nausea no vomiting no abdominal pain or any diarrhea. The symptoms and the patient was evaluated by the ER physician on presentation hospital patient did have mildly elevated white count 13,000patient was afebrile he was noticed to be in third-degree heart block subsequently admitted to the ICU patient was started on vancomycin and Rocephin was added later on infectious disease was consulted for further recommendation regarding antibiotic therapy Review of Systems CONSTITUTIONAL: Positive for weakness. denies high-grade Fever EYES: No complaint. ENT:No complaint. RESPIRATORY: as per history of present illness CARDIOVASCULAR: as per history of present illness GENITOURINARY: No complaint. GASTROINTESTINAL: No complaint. MUSCULOSKELETAL: No complaint. INTEGUMENTARY: as per history of present illness PSYCHOLOGICAL: No complaint. ENDOCRINE: No complaint. NEUROLOGIC: No complaint. Past Medical History Past Medical History: Heart Failure, Diabetes Mellitus, Hypertension, Pneumonia, Vascular Disorder Additional Past Medical History / Comment(s): pt. 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 states he had a small heart attack did not need any stents, diabetic neuropathy, 02 2 liters n/c as needed, Last Myocardial Infarction Date:: unknown History of Any Multi-Drug Resistant Organisms: None Reported Past Surgical History: Orthopedic Surgery Additional Past Surgical History / Comment(s): pt. had muscle taken from his back and put into his leg, Past Anesthesia/Blood Transfusion Reactions: Motion Sickness Additional Past Anesthesia/Blood Transfusion Reaction / Comm: clausterphobia Past Psychological History: Depression Additional Psychological History / Comment(s): lives with tuyet.pt drives. currently uses crutches or w/c. has ramp at home. uses cpap machine and o2 2 liters n/c as needed. Smoking Status: Former smoker Past Alcohol Use History: None Reported Additional Past Alcohol Use History / Comment(s): started smoking at age 16 and quit age 26 smoked 1-2 ppd Past Drug Use History: None Reported - Past Family History Mother Family Medical History: Cancer Father Family Medical History: Diabetes Mellitus, Renal Disease Medications and Allergies Home Medications Medication Instructions Recorded Confirmed Type INSULIN ASPART (NovoLOG) [NovoLOG See Protocol SQ AC-TID 08/30/18 05/25/19 History (formulary)] Aspirin 81 mg PO DAILY #30 chew 09/06/18 05/25/19 Rx Ergocalciferol [Vitamin D2 50,000 unit PO FR #4 cap 09/06/18 05/25/19 Rx (DRISDOL)] Gabapentin [Neurontin] 100 mg PO BID #60 cap 09/06/18 05/25/19 Rx metFORMIN HCL 1,000 mg PO BID #60 tablet 09/06/18 05/25/19 Rx Insulin Glargine,Hum.rec.anlog 30 units SQ BID 12/02/18 05/25/19 History [Lantus Solostar] Ipratropium/Albuterol Sulfate 2 puff INHALATION RT-QID PRN 12/02/18 05/25/19 History [Combivent Respimat Inhaler] Furosemide [Lasix] 40 mg PO BID@0900,1600 #60 tab 01/22/19 05/25/19 Rx Metoprolol Succinate (ER) [Toprol 50 mg PO DAILY #30 tabcap 01/22/19 05/25/19 Rx XL] Sacubitril/Valsartan [Entresto 97 1 tab PO BID 05/25/19 05/25/19 History mg-103 mg Tablet] amLODIPine [Norvasc] 10 mg PO HS 05/25/19 05/25/19 History Allergies Allergy/AdvReac Type Severity Reaction Status Date / Time Latex, Natural Rubber Allergy Rash/Hives Verified 05/25/19 07:31 Penicillins Allergy Unknown Verified 05/25/19 07:31 Childhood Sulfa (Sulfonamide Allergy Rash/Hives Verified 05/25/19 07:31 Antibiotics) Physical Exam Vitals: Vital Signs Temp Pulse Pulse Resp BP Pulse Ox 05/25/19 11:21 94 05/25/19 11:12 98 05/25/19 11:00 35 L 17 151/52 93 L 05/25/19 10:00 40 L 14 141/88 96 05/25/19 09:00 98.5 F 39 L 20 126/89 98 05/25/19 08:01 98.3 F 39 L 22 147/41 97 05/25/19 07:54 39 L 05/25/19 07:44 36 L 05/25/19 05:15 42 L 23 05/25/19 04:51 98.8 F 39 L 22 140/53 97 Intake and Output 05/24/19 05/25/19 05/25/19 22:59 06:59 14:59 Intake Total 550 Output Total 950 Balance -400 Intake: IV 550 Vancomycin 2,000 mg In 500 Sodium Chloride 0.9% 500 ml 500 ml @ 167 mls/hr IVPB Q24H [facility] Rx#: [id number] cefTRIAXone 1 gm In 50 Sodium Chloride 0.9% 50 ml @ 100 mls/hr IVPB Q24HR [facility] Rx#:[id number] Output: Urine 950 Other: Voiding Method Indwelling Catheter Weight 128.82 kg GENERAL DESCRIPTION: Middle-aged male lying in bed, no distress. No tachypnea or accessory muscle of respiration use. HEENT: Shows Pallor , no scleral icterus. Oral mucous membrane is dry. No pharyngeal erythema or thrush NECK: Trachea central, no thyromegaly. LUNGS: Unlabored breathing. decreased sounds at the bases. No wheeze or crackle. HEART: S1, S2, regular rate and rhythm. No loud murmur ABDOMEN: Soft, no tenderness , guarding or rigidity, no organomegaly EXTREMITIES: diffuse swelling both lower extremity with some superficial ulceration erythema warm to touch no foul-smelling drainage. SKIN: No rash, no masses palpable. NEUROLOGICAL: The patient is awake, alert, oriented x3, mood and affect normal Results CBC & Chem 7: 05/26/19 04:41 05/26/19 04:41 Labs: Abnormal Lab Results - Last 24 Hours (Table) 05/25/19 05/25/19 05/25/19 Range/Units 05:34 05:34 08:30 WBC 13.0 H (3.8-10.6) k/uL RBC 4.01 L (4.30-5.90) m/uL Hgb 11.5 L (13.0-17.5) gm/dL Hct 35.7 L (39.0-53.0) % Plt Count 456 H (150-450) k/uL Neutrophils # 10.0 H (1.3-7.7) k/uL Potassium 6.8 H* (3.5-5.1) mmol/L Chloride 110 H (98-107) mmol/L Carbon Dioxide 21 L (22-30) mmol/L BUN 56 H (9-20) mg/dL Creatinine 1.49 H (0.66-1.25) mg/dL POC Glucose (mg/dL) 125 H (75-99) mg/dL Magnesium 2.8 H (1.6-2.3) mg/dL 05/25/19 05/25/19 05/25/19 Range/Units 11:41 12:18 12:40 WBC (3.8-10.6) k/uL RBC (4.30-5.90) m/uL Hgb (13.0-17.5) gm/dL Hct (39.0-53.0) % Plt Count (150-450) k/uL Neutrophils # (1.3-7.7) k/uL Potassium (3.5-5.1) mmol/L Chloride 110 H (98-107) mmol/L Carbon Dioxide 20 L (22-30) mmol/L BUN 56 H (9-20) mg/dL Creatinine 1.38 H (0.66-1.25) mg/dL POC Glucose (mg/dL) 68 L 103 H (75-99) mg/dL Magnesium 2.6 H (1.6-2.3) mg/dL 05/25/19 Range/Units 12:51 WBC (3.8-10.6) k/uL RBC (4.30-5.90) m/uL Hgb (13.0-17.5) gm/dL Hct (39.0-53.0) % Plt Count (150-450) k/uL Neutrophils # (1.3-7.7) k/uL Potassium (3.5-5.1) mmol/L Chloride (98-107) mmol/L Carbon Dioxide (22-30) mmol/L BUN (9-20) mg/dL Creatinine (0.66-1.25) mg/dL POC Glucose (mg/dL) 100 H (75-99) mg/dL Magnesium (1.6-2.3) mg/dL Assessment and Plan Assessment: 1-patient with diffuse lower extremity swelling and redness and superficial ulceration in this patient who did have congestive heart failure and fluid overload likely a streptococcal cellulitis though MRSA infection not entirely excluded 2-patient with third-degree heart block and possible need for a pacemaker 3-patient with multiple antibiotic ALLERGIES limiting the number of antibiotic safe to use (1) Bilateral lower leg cellulitis Current Visit: No Status: Acute Code(s): L03.116 - CELLULITIS OF LEFT LOWER LIMB; L03.115 - CELLULITIS OF RIGHT LOWER LIMB SNOMED Code(s): 323473337 Plan: 1-local wound are to both lower extremity wounds with Aquacel silver dressing--to the open sore followed by Mik wrap from just above the toe to below the knee 2-antibiotics in the form vancomycin pharmacy to dose for monitoring his kidney function closely and Rocephin to continue while waiting for his condition to stabilize 3-there'll be no contraindication to placement of a pacemaker as long as his blood culture remains to be negative, in view of his multiple morbidities he would be considered high risk for any infection we will follow up on clinical condition and cultures to further adjust medication if needed Thank you for this consultation will follow this patient along with you Time with Patient: Greater than 30
[2019-05-26] MEDS: IPRATROPIUM-ALBUTEROL 3 ML NEB INHALATION SCH ×4 (07:56→19:31)
[2019-05-26] MEDS: INSULIN DETEMIR (LEVEMIR) 100 UNIT/ML SYR SQ SCH ×3 (08:09→22:25)
[2019-05-26] MEDS: ASPIRIN 81 MG PO SCH (08:21)
[2019-05-26] MEDS: HEPARIN SODIUM,PORCINE 5,000 UNIT/ML 1 ML VIAL SQ SCH ×2 (08:21→21:33)
[2019-05-26] MEDS: GABAPENTIN 100 MG CAP PO SCH ×2 (08:21→21:33)
[2019-05-26] MEDS: FAMOTIDINE 20 MG/2 ML VIAL IV SCH (08:22)
--- NOTE | 2019-05-26 08:23 | XR ---
EXAMINATION TYPE: XR chest 1V DATE OF EXAM: 05/26/2019 COMPARISON: 05/25/2019 HISTORY: 63-year-old male cough and CHF TECHNIQUE: Single frontal view of the chest is obtained. FINDINGS: Heart borderline enlarged. Mild interstitial prominence is unchanged. No heather consolidation or sizab le effusion on the frontal view. IMPRESSION: Stable borderline heart size. Interstitial prominence is also similar and could reflect residual mild pulmonary vascular congestion, bronchitis, or asthma.
[2019-05-26 08:45] LABS: Glucose,Whole Blood 86 mg/dL (75-99)
--- NOTE | 2019-05-26 09:35 | PN ---
PROGRESS NOTE Mr. Duff is in a complete heart block. His hyperkalemia has resolved. This gentleman has history of diastolic heart failure. His systolic function is very good. He has been on a high dose of Entresto which caused hyperkalemia, presumably, but now the potassium is better. He remains in a complete heart block with a ventricular rate in the high 30s and low for 40s. He will benefit from Bi -V ICD mainly because he will be paced most of the time and also has an underlying QRS that is more than 140 milliseconds. His heart failure has improved. Oxygenation is better. His lower extremity has a lot of cellulitis type picture with some erythema. He is on antibiotics. Vitals are stable. JVD is evident. S1, S2 heard normally. Heart sounds are somewhat distant and bradycardia noted. Short systolic murmur noted. Lungs reveal diminished air entry. Abdomen is soft. Lower extremity edema has shown modest improvement with cellulitis type changes. I will talk to Dr. Nichols to see if a he will consider a biventricular pacemaker. Otherwise, in the interim, we will watch him closely. I will not do any temporary unless it is absolutely necessary. I discussed this with the patient. MMODL / IJN: [id number] /
--- NOTE | 2019-05-26 09:55 | P.PN ---
Subjective Patient is seen in follow-up for acute kidney injury. Baseline creatinine is 1. Renal function is stable. Currently maintained on Lasix drip. Edema gradually improving. He remains bradycardic with heart rate in the 30s. Denies chest pain or shortness of breath. Vital signs are stable. Heart rate is in the 30s. General: The patient appeared well nourished and normally developed. HEENT: Head exam is unremarkable. Neck is without jugular venous distension. LUNGS: Lungs are clear to auscultation and percussion. Breath sounds decreased. HEART: Bradycardic. First and second heart sounds normal. No murmurs, rubs or gallops. ABDOMEN: Abdominal exam reveals normal bowel sounds. Non-tender and non- distended. EXTREMITITES: 2+ edema. in lower extremities wrapped. No obvious drainage. Objective - Vital Signs Vital signs: Vital Signs Temp 99.0 F 05/26/19 04:00 Pulse 35 L 05/26/19 08:09 Resp 25 H 05/26/19 07:00 BP 156/47 05/26/19 07:00 Pulse Ox 96 05/26/19 07:00 Intake & Output 05/25/19 05/26/19 05/26/19 18:59 06:59 18:59 Intake Total 640.667 97.167 Output Total 2650 2560 Balance -2008.831 -5926.856 Weight 128.6 kg 127.7 kg Intake: IV 550 Vancomycin 2,000 mg In 500 Sodium Chloride 0.9% 500 ml 500 ml @ 167 mls/hr IVPB Q24H [facility] Rx#: [id number] cefTRIAXone 1 gm In 50 Sodium Chloride 0.9% 50 ml @ 100 mls/hr IVPB Q24HR [facility] Rx#:[id number] Intake, IV Titration 90.667 97.167 Amount Furosemide 100 mg In 90.667 97.167 Sodium Chloride 0.9% 90 ml @ 10 MG/HR 10 mls/hr IV .Q10H [facility] Rx#: [id number] Output: Urine 2650 2560 Other: Voiding Method Indwelling Catheter Indwelling Catheter - Labs CBC & Chem 7: 05/26/19 04:41 05/26/19 04:41 Labs: Abnormal Lab Results - Last 24 Hours (Table) 06/26/19 06/26/19 06/26/19 Range/Units 11:41 12:18 12:40 RBC (4.30-5.90) m/uL Hgb (13.0-17.5) gm/dL Hct (39.0-53.0) % MCHC (31.0-37.0) g/dL Chloride 110 H (98-107) mmol/L Carbon Dioxide 20 L (22-30) mmol/L BUN 56 H (9-20) mg/dL Creatinine 1.38 H (0.66-1.25) mg/dL Glucose (74-99) mg/dL POC Glucose (mg/dL) 68 L 103 H (75-99) mg/dL Magnesium 2.6 H (1.6-2.3) mg/dL 05/25/19 05/25/19 05/25/19 Range/Units 12:51 14:23 17:13 RBC (4.30-5.90) m/uL Hgb (13.0-17.5) gm/dL Hct (39.0-53.0) % MCHC (31.0-37.0) g/dL Chloride (98-107) mmol/L Carbon Dioxide (22-30) mmol/L BUN (9-20) mg/dL Creatinine (0.66-1.25) mg/dL Glucose (74-99) mg/dL POC Glucose (mg/dL) 100 H 70 L 66 L (75-99) mg/dL Magnesium (1.6-2.3) mg/dL 05/25/19 05/26/19 05/26/19 Range/Units 17:34 04:41 04:41 RBC 3.77 L (4.30-5.90) m/uL Hgb 10.4 L (13.0-17.5) gm/dL Hct 34.2 L (39.0-53.0) % MCHC 30.3 L (31.0-37.0) g/dL Chloride (98-107) mmol/L Carbon Dioxide (22-30) mmol/L BUN 46 H (9-20) mg/dL Creatinine 1.33 H (0.66-1.25) mg/dL Glucose 67 L (74-99) mg/dL POC Glucose (mg/dL) 126 H (75-99) mg/dL Magnesium 2.5 H (1.6-2.3) mg/dL Assessment and Plan Plan: Assessment: 1. Acute kidney injury secondary to ATN secondary to bradycardia and cardiorenal syndrome. Creatinine was 1.49 on admission and is 1.3 today. Baseline creatinine near 1. UA is benign. 2. Hyperkalemia secondary to acute kidney injury, metabolic acidosis as well as entresto. Better with medical management. 3. Systolic CHF with ejection fraction of 30-35%. 4. Volume overload. 5. Insulin-dependent diabetes mellitus. 6. Metabolic acidosis secondary to acute kidney injury. Better. 7. Lower extremity cellulitis maintained on IV antibiotics. 8. Benign hypertension. Stable. 9. Complete heart block secondary to hyperkalemia. Remains bradycardic despite normal potassium level. Plan: Maintain Lasix drip at 10 mL an hour. Continue to monitor renal function and urine output. Potential permanent pacemaker per cardiology.
--- NOTE | 2019-05-26 10:19 | P.PN ---
Subjective Progress Note Date: 05/26/19 Principal diagnosis: Exacerbation of chronic congestive heart failure with reduced ejection fraction This is a 63-year-old white male patient of Dr. Cid, past medical history of diabetes mellitus, chronic congestive heart failure, morbid obesity, previous episode of myocardial infarction, remote history of smoking, hypertension, hyperlipidemia, polio syndrome during his childhood and patient has a sequela of lower extremity weakness. Patient has moderately severe impaired left ventricle systolic function with EF of 30-35%, mild tricuspid regurgitation, mild pulmonary hypertension with right-sided pressures of 38 mmHg. Patient is maintained on Entresto. Patient has open weeping wounds on his bilateral lower extremities, and cellulitis. Previously followed with Dr. Campuzano, received vancomycin infusions in the past, however he has not seen Dr. Campuzano in several months. Does wear home O2 at bedtime and on as-needed basis, does not have history of COPD or asthma. He states for the last week and a half he has been coming down with a cold, progressive cough and congestion, with production of yellow sputum. He denied fevers, but is positive for chills. Admitted of some chest heaviness intermittently, lasting about 5 minutes. Noted increasing lower extremity edema, redness, and weeping. Patient's insisted he come to the emergency room for evaluation last night. Chest x-ray was completed showing mild pulmonary vascular congestion, mild diffuse interstitial prominence. The ER patient was noted to be in third-degree heart block, a cardiac with a rate in the 30s, his states it is common for the patient and his heart rate does get as low as 20s when he's at home. Lab work showed a white blood cell count of 13.0, hemoglobin of 11.5, platelet count is 456, INR is 1.0, sodium was 141, potassium was elevated at 6.8, chloride was 110, CO2 is 21, BUN is 56, creatinine is 1.49, proBNP was elevated at 3180, troponin was negative 1, LFTs were within normal limits. Patient was given a dose of IV Lasix, her Anemia was treated with 50% dextrose, calcium gluconate, insulin, repeat blood work is pending. Patient has been evaluated by cardiology, placed on Lasix drip at 10 mg per hour, echocardiogram is in progress. We can alert, he is being seen in the intensive care unit, lung sounds are clear, diminished at the bases, no significant wheezing or congestion, states at times to bring up whitish colored sputum. He is in third-degree heart block with a rate of 36, he is on Tuesdays of oxygen with a pulse ox of 97%, he is afebrile. he has been started on antibiotics in the form of vancomycin, we'll add Rocephin for gram-negative cov erage and breathing treatments. On 05/26/2019 patient seen in follow-up in the intensive care unit, he is awake and alert, oriented 3, looks calm and comfortable, no acute distress, denies any worsening shortness of breath, he is currently on 2 L of oxygen and pulse ox is 96%, low-grade temp this morning with a T-max of 99.0F, afebrile overnight. Remains in third-degree heart block with a rate of 36 BPM, pressures 131/40, with a mean of 70, patient is avoiding, he is nonoliguric. His labs have been reviewed, showing now with blood cell count of 9.2, hemoglobin of 10.4, platelet count was 414, electrolytes were within normal limits, BUN of 46, creatinine is 1.33. TSH was within normal limits at 1.940. Today's chest x-ray shows interstitial prominence, residual mild pulmonary vascular congestion. Patient has been started on IV Lasix drip, he is in -4472 mL fluid balance over the last 24 hours, he is weight is down 0.9 kg. Extremity edema is improved in appearance, lower extremities are Mik wrapped. Antibiotic coverage in the form of Rocephin and vancomycin, cultures are pending. Objective - Vital Signs Vital signs: Vital Signs Temp 99.0 F 05/26/19 04:00 Pulse 35 L 05/26/19 08:09 Resp 25 H 05/26/19 07:00 BP 156/47 05/26/19 07:00 Pulse Ox 96 05/26/19 07:00 Intake & Output 05/25/19 05/26/19 05/26/19 18:59 06:59 18:59 Intake Total 640.667 97.167 Output Total 2650 2560 Balance -2009.333 -2462.833 Weight 128.6 kg 127.7 kg Intake: IV 550 Vancomycin 2,000 mg In 500 Sodium Chloride 0.9% 500 ml 500 ml @ 167 mls/hr IVPB Q24H [facility] Rx#: [id number] cefTRIAXone 1 gm In 50 Sodium Chloride 0.9% 50 ml @ 100 mls/hr IVPB Q24HR [facility] Rx#:[id number] Intake, IV Titration 90.667 97.167 Amount Furosemide 100 mg In 90.667 97.167 Sodium Chloride 0.9% 90 ml @ 10 MG/HR 10 mls/hr IV .Q10H [facility] Rx#: [id number] Output: Urine 2650 2560 Other: Voiding Method Indwelling Catheter Indwelling Catheter - Exam GENERAL EXAM: Alert, pleasant, 63-year-old obese white male, on 2 L of oxygen with a pulse ox of 96%, comfortable in no apparent distress. HEAD: Normocephalic/atraumatic. EYES: Normal reaction of pupils, equal size. Conjunctiva pink, sclera white. NOSE: Clear with pink turbinates. THROAT: No erythema or exudates. NECK: No masses, no JVD, no thyroid enlargement, no adenopathy. CHEST: No chest wall deformity. Symmetrical expansion. LUNGS: Equal air entry with diminished breath sounds at the bases, slightly congested cough CVS: Regular rate and rhythm, normal S1 and S2, no gallops, no murmurs, no rubs. Patient has bradycardia with a rate of 36, complete heart block on a monitor ABDOMEN: Soft, nontender. No hepatosplenomegaly, normal bowel sounds, no guarding or rigidity. EXTREMITIES: No clubbing, significant erythema and edema of bilateral lower extremities, with open wounds on lower extremities, weeping clear drainage, wound borders are distinct and sharply demarcated, likely related to chronic venous stasis ulcers, no cyanosis, 2+ pulses and upper and lower extremities. Lower extremities are Mik wrapped MUSCULOSKELETAL: Muscle strength and tone normal. SPINE: No scoliosis or deformity SKIN: No rashes CENTRAL NERVOUS SYSTEM: Alert and oriented -3. No focal deficits, tone is normal in all 4 extremities. PSYCHIATRIC: Alert and oriented -3. Appropriate affect. Intact judgment and insight. - Labs CBC & Chem 7: 05/26/19 04:41 05/26/19 04:41 Labs: Abnormal Lab Results - Last 24 Hours (Table) 05/25/19 05/25/19 05/25/19 Range/Units 11:41 12:18 12:40 RBC (4.30-5.90) m/uL Hgb (13.0-17.5) gm/dL Hct (39.0-53.0) % MCHC (31.0-37.0) g/dL Chloride 110 H (98-107) mmol/L Carbon Dioxide 20 L (22-30) mmol/L BUN 56 H (9-20) mg/dL Creatinine 1.38 H (0.66-1.25) mg/dL Glucose (74-99) mg/dL POC Glucose (mg/dL) 68 L 103 H (75-99) mg/dL Magnesium 2.6 H (1.6-2.3) mg/dL 05/25/19 05/25/19 05/25/19 Range/Units 12:51 14:23 17:13 RBC (4.30-5.90) m/uL Hgb (13.0-17.5) gm/dL Hct (39.0-53.0) % MCHC (31.0-37.0) g/dL Chloride (98-107) mmol/L Carbon Dioxide (22-30) mmol/L BUN (9-20) mg/dL Creatinine (0.66-1.25) mg/dL Glucose (74-99) mg/dL POC Glucose (mg/dL) 100 H 70 L 66 L (75-99) mg/dL Magnesium (1.6-2.3) mg/dL 05/25/19 05/26/19 05/26/19 Range/Units 17:34 04:41 04:41 RBC 3.77 L (4.30-5.90) m/uL Hgb 10.4 L (13.0-17.5) gm/dL Hct 34.2 L (39.0-53.0) % MCHC 30.3 L (31.0-37.0) g/dL Chloride (98-107) mmol/L Carbon Dioxide (22-30) mmol/L BUN 46 H (9-20) mg/dL Creatinine 1.33 H (0.66-1.25) mg/dL Glucose 67 L (74-99) mg/dL POC Glucose (mg/dL) 126 H (75-99) mg/dL Magnesium 2.5 H (1.6-2.3) mg/dL Assessment and Plan Plan: Assessment: #1. Acute exacerbation of chronic congestive heart failure with reduced ejection fraction, chest x-ray showed pattern of interstitial edema #2. Cough and congestion, shortness of breath, and increasing lower extremity edema related to the above, and likely a component of bronchitis #3. Complete heart block, bradycardia #4. Hyperkalemia, with serum potassium of 6.8, could be related to Entresto, and ATN, improved, on today's labs potassium is 4.4 #5. Chronic pain lower extremity wounds and cellulitis #6. Chronic hypoxemic respiratory failure, he wears home O2 on a as needed basis, likely related to chronic congestive heart failure, and suspect a component of obstructive sleep apnea #7. Previous episode of myocardial infarction #8. Diabetes mellitus with diabetic neuropathy #9. Hypertension, hyperlipidemia #10. Morbid obesity #11. History of polio syndrome as a child, he has chronic weakness in lower extremities #12. Remote history of smoking, smoking at age of 26, smoked a pack a day for 10 years Plan: Continue with current medical treatment, continue Lasix drip, patient is diuresing, breathing easier, continue current antibiotic coverage, cultures are pending, no fever or chills. Remains in complete heart block with a rate of 36, will await further directions per cardiology in regards to placement of permanent pacemaker, clinically patient seems relatively asymptomatic. I performed a history & physical examination of the patient and discussed their management with my nurse practitioner, Kandy Kelley. I reviewed the nurse practitioner's note and agree with the documented findings and plan of care. Lung sounds are positive for diminished breath sounds with limited rhonchi. The findings and the impression was discussed with the patient. I attest to the documentation by the nurse practitioner. Time with Patient: Less than 30
[2019-05-26 12:15] LABS: Glucose,Whole Blood 78 mg/dL (75-99)
[2019-05-26 17:37] LABS: Glucose,Whole Blood 184 mg/dL (75-99)
--- NOTE | 2019-05-26 19:17 | P.CRDCN ---
History of Present Illness History of present illness: This is Dr. Nichols dictating an electrophysiology consult on this patient The patient was interviewed and examined by me IMPRESSION / ASSESSMENT: Sinus mechanism with complete heart block with alternating bundle branch block reflective of an unstable escape rhythm despite treatment of hyperkalemia and discontinuation of the 2 blockers Underlying type 2 diabetes Morbid obesity Hypertension Left ventricular ejection fraction referred to 60% RV volume overload Elevated left atrial pressures RV enlargement, dilated IVC PLAN: This patient needs permanent pacing. However he will pace the right ventricle 100% with a standard dual-chamber pacemaker He already has right ventricular cardiac myopathy with enlargement and right- sided failure In the past he has had a left-sided cardio myopathy and was treated with medications I would recommend a biventricular pacemaker but only after treatment of his lower extremity cellulitis which is quite prominent However in the interim he still requires permanent pacing his heart is of a slow. It is quite likely it'll take several weeks to treat his cellulitis I would recommend an externalized permanent pacemaker that they could use for at least a month or so This will be implanted on the right side The permanent pacemaker will be implanted from the left side I would avoid any intrajugular venous access or catheters, avoid any left lane bclavian access as well as avoid a PICC line on the left side If he needs a PICC line for IV antibiotics it should be placed on the right upper extremity, not the left upper extremity This was explained to the patient and to the patient's nurse HPI Patient presented to the emergency room with worsening shortness of breath cough and lower extremity edema He is found to have lower extremity bilateral cellulitis He was also noted to be bradycardic and the patient has noted that quite often he becomes bradycardic His heart rate would go down to the 30s His potassium was 6.8 BUN 56 creatinine 1.5 White count 13,000 Twelve-lead ECG showed sinus mechanism with complete heart block with a wide QRS escape rhythm with alternating right bundle branch block pattern/left anterior fascicular block and later a left bundle branch block pattern After his hyperkalemia was treated, 24 hours later he remains in sinus rhythm with complete heart block with heart rates in the 30s with a wide QRS escape Creatinine is 4.4 ROS: No fever chills or rigors, no cough, phlegm or expectoration, no nausea, vomiting or diarrhea, no hematuria, dysuria, no musculoskeletal complaints, no strokes or seizures, no skin lesions. EXAMINATION: Blood pressure 146/90 mmHg, respirations 16-18 Looks comfortable Pulse rate between 30 and 40 beats a minute Afebrile Breath sounds are reduced bilaterally Morbid obesity Bilateral lower extremity cellulitis inflamed and red angry almost up to the knees bilaterally Heart sounds are soft no this murmurs Abdomen is soft patient looks quite comfortable He denied any syncope REVIEW OF LABS, ECG & MEDICAL DATA Today's labs reveal normal potassium and normal TSH Sodium 141 BUN 46 creatinine 1.33 Hemoglobin 10.4 Past Medical History Past Medical History: Heart Failure, Diabetes Mellitus, Hypertension, Pneumonia, Vascular Disorder Additional Past Medical History / Comment(s): pt. 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 states he had a small heart attack did not need any stents, diabetic neuropathy, 02 2 liters n/c as needed, Last Myocardial Infarction Date:: unknown History of Any Multi-Drug Resistant Organisms: None Reported Past Surgical History: Orthopedic Surgery Additional Past Surgical History / Comment(s): pt. had muscle taken from his back and put into his leg, Past Anesthesia/Blood Transfusion Reactions: Motion Sickness Additional Past Anesthesia/Blood Transfusion Reaction / Comment(s): clausterphobia Past Psychological History: Depression Additional Psychological History / Comment(s): lives with tuyet.pt drives. currently uses crutches or w/c. has ramp at home. uses cpap machine and o2 2 liters n/c as needed. Smoking Status: Former smoker Past Alcohol Use History: None Reported Additional Past Alcohol Use History / Comment(s): started smoking at age 16 and quit age 26 smoked 1-2 ppd Past Drug Use History: None Reported - Past Family History Mother Family Medical History: Cancer Father Family Medical History: Diabetes Mellitus, Renal Disease Medications and Allergies Home Medications Medication Instructions Recorded Confirmed Type INSULIN ASPART (NovoLOG) [NovoLOG See Protocol SQ AC-TID 08/30/18 05/25/19 History (formulary)] Aspirin 81 mg PO DAILY #30 chew 09/06/18 05/25/19 Rx Ergocalciferol [Vitamin D2 50,000 unit PO FR #4 cap 09/06/18 05/25/19 Rx (DRISDOL)] Gabapentin [Neurontin] 100 mg PO BID #60 cap 09/06/18 05/25/19 Rx metFORMIN HCL 1,000 mg PO BID #60 tablet 09/06/18 05/25/19 Rx Insulin Glargine,Hum.rec.anlog 30 units SQ BID 12/02/18 05/25/19 History [Lantus Solostar] Ipratropium/Albuterol Sulfate 2 puff INHALATION RT-QID PRN 12/02/18 05/25/19 History [Combivent Respimat Inhaler] Furosemide [Lasix] 40 mg PO BID@0900,1600 #60 tab 01/22/19 05/25/19 Rx Metoprolol Succinate (ER) [Toprol 50 mg PO DAILY #30 tabcap 01/22/19 05/25/19 Rx XL] Sacubitril/Valsartan [Entresto 97 1 tab PO BID 05/25/19 05/25/19 History mg-103 mg Tablet] amLODIPine [Norvasc] 10 mg PO HS 05/25/19 05/25/19 History Allergies Allergy/AdvReac Type Severity Reaction Status Date / Time Latex, Natural Rubber Allergy Rash/Hives Verified 05/25/19 07:31 Penicillins Allergy Unknown Verified 05/25/19 07:31 Childhood Sulfa (Sulfonamide Allergy Rash/Hives Verified 05/25/19 07:31 Antibiotics) Physical Exam Vitals: Vital Signs Temp Pulse Resp BP Pulse Ox 05/26/19 18:00 39 L 13 144/43 94 L 05/26/19 17:00 40 L 27 H 129/69 95 05/26/19 16:00 98 F 40 L 12 146/90 96 05/26/19 15:54 40 L 05/26/19 15:46 44 L 05/26/19 15:09 13 05/26/19 15:00 37 L 13 162/62 98 05/26/19 14:00 39 L 16 122/52 94 L 05/26/19 13:00 38 L 9 L 150/47 100 05/26/19 12:00 98 F 37 L 17 141/46 97 05/26/19 11:56 36 L 05/26/19 11:44 35 L 05/26/19 11:05 18 05/26/19 11:00 34 L 18 145/43 96 05/26/19 10:00 33 L 18 147/49 95 05/26/19 09:00 34 L 24 130/41 96 05/26/19 08:09 35 L 05/26/19 08:00 98 F 36 L 18 135/48 98 05/26/19 07:56 35 L 05/26/19 07:00 37 L 25 H 156/47 96 05/26/19 06:00 36 L 21 125/46 97 05/26/19 05:00 36 L 21 131/40 95 05/26/19 04:00 99.0 F 38 L 16 141/49 93 L 05/26/19 03:00 37 L 15 141/49 95 05/26/19 02:00 36 L 12 134/46 97 05/26/19 01:00 37 L 19 147/53 96 05/26/19 00:00 98.2 F 36 L 11 L 140/48 97 05/25/19 23:40 36 L 19 140/48 95 05/25/19 23:00 37 L 19 137/50 95 05/25/19 22:00 38 L 18 132/61 92 L 05/25/19 21:00 40 L 13 138/44 96 05/25/19 20:00 98.1 F 40 L 24 152/40 96 05/25/19 19:51 38 L 05/25/19 19:42 38 L 97 Intake and Output 05/26/19 05/26/19 05/26/19 06:59 14:59 22:59 Intake Total 97.167 708.333 50 Output Total 1960 1412 1185 Balance -1862.833 -703.667 -1135 Intake: IV 277 50 Furosemide 100 mg In 60 50 Sodium Chloride 0.9% 90 ml @ 10 MG/HR 10 mls/hr IV .Q10H [facility] Rx#: [id number] Vancomycin 2,000 mg In 167 Sodium Chloride 0.9% 500 ml 500 ml @ 167 mls/hr IVPB Q24H [facility] Rx#: [id number] cefTRIAXone 1 gm In 50 Sodium Chloride 0.9% 50 ml @ 100 mls/hr IVPB Q24HR [facility] Rx#:[id number] Intake, IV Titration 97.167 81.333 Amount Furosemide 100 mg In 97.167 81.333 Sodium Chloride 0.9% 90 ml @ 10 MG/HR 10 mls/hr IV .Q10H [facility] Rx#: [id number] Tube Feeding 350 Output: Urine 1960 1412 1185 Other: Voiding Method Indwelling Catheter Indwelling Catheter Indwelling Catheter Weight 128.6 kg 127.7 kg Results 05/26/19 04:41 05/26/19 04:41 CBC 05/26/19 Range/Units 04:41 WBC 9.2 (3.8-10.6) k/uL RBC 3.77 L (4.30-5.90) m/uL Hgb 10.4 L (13.0-17.5) gm/dL Hct 34.2 L (39.0-53.0) % Plt Count 414 (150-450) k/uL Comprehensive Metabolic Panel 05/26/19 Range/Units 04:41 Sodium 141 (137-145) mmol/L Potassium 4.4 (3.5-5.1) mmol/L Chloride 105 (98-107) mmol/L Carbon Dioxide 25 (22-30) mmol/L BUN 46 H (9-20) mg/dL Creatinine 1.33 H (0.66-1.25) mg/dL Glucose 67 L (74-99) mg/dL Calcium 8.6 (8.4-10.2) mg/dL Current Medications Generic Name Dose Route Start Last Admin Trade Name Freq PRN Reason Stop Dose Admin Albuterol/Ipratropium 3 ml 05/25/19 12:00 05/26/19 15:45 Duoneb 0.5 Mg-3 Mg/3 Ml Soln INHALATION 3 ml RT-QID [facility] Administration Albuterol/Ipratropium 3 ml 05/25/19 09:50 Duoneb 0.5 Mg-3 Mg/3 Ml Soln INHALATION RT-Q2H PRN Shortness Of Breath Or Wheezing Amlodipine Besylate 10 mg 05/25/19 21:00 05/25/19 22:06 Norvasc PO Not Given HS [facility] Aspirin 81 mg 05/25/19 10:15 05/26/19 08:21 Aspirin PO 81 mg DAILY [facility] Administration Famotidine 20 mg 05/26/19 09:00 05/26/19 08:22 Pepcid IV 20 mg DAILY [facility] Administration Gabapentin 100 mg 05/25/19 21:00 05/26/19 08:21 Neurontin PO 100 mg BID [facility] Administration Heparin Sodium (Porcine) 5,000 unit 05/25/19 21:00 05/26/19 08:21 Heparin SQ 5,000 unit Q12HR [facility] Administration Vancomycin HCl 2,000 mg/ 500 mls @ 167 mls/hr 05/26/19 06:00 05/26/19 05:54 Sodium Chloride IVPB 167 mls/hr Q24H [facility] Administration Furosemide 100 mg/ Sodium 100 mls @ 10 mls/hr 05/25/19 09:00 05/26/19 12:05 Chloride IV 10 mg/hr .Q10H [facility] 10 mls/hr Administration 10 MG/HR Ceftriaxone Sodium 1 gm/ 50 mls @ 100 mls/hr 05/25/19 10:00 05/26/19 08:21 Sodium Chloride IVPB 100 mls/hr Q24HR [facility] Administration Insulin Aspart 0 unit 05/25/19 11:00 05/26/19 18:55 Novolog SQ Not Given Q6HR [facility] Protocol Insulin Detemir 20 unit 05/25/19 10:15 05/26/19 08:09 Levemir SQ Not Given BID [facility] Naloxone HCl 0.2 mg 05/25/19 07:04 Narcan IV Q2M PRN Opioid Reversal Intake and Output 05/26/19 05/26/19 05/26/19 06:59 14:59 22:59 Intake Total 97.167 708.333 50 Output Total 1959 1412 1185 Balance -[facility]2.833 -703.667 -1135 Intake: IV 277 50 Furosemide 100 mg In 60 50 Sodium Chloride 0.9% 90 ml @ 10 MG/HR 10 mls/hr IV .Q10H [facility] Rx#: [id number] Vancomycin 2,000 mg In 167 Sodium Chloride 0.9% 500 ml 500 ml @ 167 mls/hr IVPB Q24H [facility] Rx#: [id number] cefTRIAXone 1 gm In 50 Sodium Chloride 0.9% 50 ml @ 100 mls/hr IVPB Q24HR [facility] Rx#:[id number] Intake, IV Titration 97.167 81.333 Amount Furosemide 100 mg In 97.167 81.333 Sodium Chloride 0.9% 90 ml @ 10 MG/HR 10 mls/hr IV .Q10H [facility] Rx#: [id number] Tube Feeding 350 Output: Urine 1959 1412 1185 Other: Voiding Method Indwelling Catheter Indwelling Catheter Indwelling Catheter Weight 128.6 kg 127.7 kg Patient Weight 06/28/19 06:59 Weight 127.7 kg 05/26/19 04:41 05/26/19 04:41
[2019-05-26] MEDS: amLODIPine 10 MG TAB PO SCH (19:39)
[2019-05-26] MEDS ORDERED: SODIUM CHLORIDE 0.9% 250 ML IV ONE (19:45)
[2019-05-26] MEDS ORDERED: MIDAZOLAM 2 MG/2 ML VIAL ONE (19:45)
--- NOTE | 2019-05-26 19:47 | PN ---
PROGRESS NOTE DATE OF SERVICE: 05/26/2019. REASON FOR FOLLOWUP: Bilateral lower extremity venous stasis ulcer and cellulitis. INTERVAL HISTORY: The patient is afebrile. Still complains of some shortness of breath. No chest pain. No cough. No abdominal pain or any worsening pain to the lower extremity area. PHYSICAL EXAMINATION: Blood pressure is 146/90 with a pulse of 40, temperature 98. He is 93% on 2 L nasal cannula. General description is a middle-aged male lying in bed in no distress. Respiratory system: Unlabored breathing with decreased breath sounds at the bases. No wheeze. Heart S1, S2. Regular rate and rhythm. Abdomen is soft. No tenderness. Legs are currently wrapped up. No obvious drainage on the dressing. LABS: Hemoglobin 10.4, white count normalized to 9.2, BUN of 46, creatinine 1.33. Blood cultures have been negative. DIAGNOSTIC IMPRESSION AND PLAN: Patient with bilateral lower extremity venous stasis ulcer with secondary cellulitis. The patient seemed to have shown some clinical improvement. Patient to continue with local wound care with Aquacel Silver dressing, Mik wrap to keep the swelling down along with short course of IV antibiotic therapy in the form of vancomycin and Zosyn while watching his kidney function closely. Continue supportive care. MMODL / IJN: [id number] /
[2019-05-26] MEDS ORDERED: LIDOCAINE 1% INJ 10MG/ML (20 ML MDV) ONE (20:11)
[2019-05-26] MEDS ORDERED: IOPAMIDOL-250 50ML BTL IV ONE ×2 (20:19)
[2019-05-26] MEDS ORDERED: LIDOCAINE 1% INJ 10MG/ML (20 ML MDV) SQ ONE ×2 (20:25→20:27)
--- NOTE | 2019-05-26 21:18 | P.PCN ---
Preoperative Diagnosis: Diagnosis Sinus bradycardia secondary to complete heart block with alternating bundle branch block, despite resolution of hyperkalemia Bilateral lower extremity cellulitis currently on IV antibiotics Procedure performed Externalized permanent pacemaker wire right axillary vein Right upper extremity venogram was performed Axillary and subclavian veins on the right side patent Under. Precautions, axillary vein access was obtained A 7-Portuguese sheath was placed [employer] pacemaker lead, tendril STS, 2088 TC-58 Serial number [id number] Lead implanted in the low RV septum and screwed in Pacing threshold 0.75 V at 0.5 ms, pacing impedance 708 ohms Leads secured to the skin with 3 silk sutures Lead connected to the generator, pacemaker [place] [id number] This should have battery life of 3-4 years, impedance 4.4 k ohms, current 10 A Pacemaker programmed to VVI 60 Patient tolerated the procedure well without acute complications Plan Continue pacing for now Continue IV antibiotics From the right upper extremity Once cellulitis improves patient will need a biventricular pacemaker implantation from the left pectoral area No PICC line IV lines in the left upper extremity No central lines in the left subclavian vein
[2019-05-26] MEDS ORDERED: ACETAMINOPHEN IV (For NPO) 1,000 MG in EMPTY BAG 1 BAG IVPB ONE (21:30)
[2019-05-26 21:40] LABS: Glucose,Whole Blood 128 mg/dL (75-99)
--- NOTE | 2019-05-26 21:49 | P.PN ---
Progress Note - Text Progress Note Date: 05/26/19 Chief Complaint: Tired Interval history: This is a 63-year-old patient of Dr. Ángel Cid. Chronic stable medical conditions include diabetes, hypertension, diabetic peripheral neuropathy. 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 Patient has no movement but has some sensation. Patient has off-and-on lower extremity cellulitis and has followed by Dr. Campuzano from infectious disease. Hasn't intubated dressings. Patient now presents with worsening swelling of the lower extremity burning sensation. No fever and chills. Also has some blistering drainage. Decreased appetite times rundown. Patient in the ER was found to be hyperkalemic with potassium. Being 6.8. Patient admitted to the ICU. Patient also found to be in complete heart block. Patient is put on a Lasix drip also found to be in CHF. And also was made nothing by mouth. Patient does feel tired and rundown. Patient normally uses a wheelchair/crutches or a walker to get about the house. Today-in ICU. Propped up in bed. Did tolerate clear liquids. Patient on Lasix drip. Pending placement of external pacemaker. Review of systems: Was done for constitutional, cardiovascular, GI, pulmonary. relevant finding as above Current medications are reviewed and include: IV ceftriaxone, IV Lasix drip, IV vancomycin, Aquacel silver Physical examination: VITAL SIGNS:, 98, 36, 12, 135-48, 98% on 2 L GENERAL:, propped up in bed, moderately EYES: Pupils equal. Conjunctiva normal. HEENT: External appearance of nose and ears normal, oral cavity grossly normal. NECK: JVD unable to assess; masses not palpable. HEART: First and second heart sounds are normal; gross edema. LUNGS: Respiratory rate increased, decreased breath sounds. ABDOMEN: Soft, distended nontender, liver spleen not palpable, no masses palpable. LYMPHATICS: No lymph nodes palpable in the axilla and neck. DERMATOLOGICAL redness in both lower extremity below the knee down to the foot with evidence of superficial skin D shannon on the right lower extremity causing some serous drainage Investigations, reviewed in the clinical context. White count 9.2, hemoglobin 10.4, potassium 4.4, BUN 44, creatinine 1.33 TSH 1.9 Assessment: -Acute on chronic congestive heart exacerbation from diastolic dysfunction EF 55-60% -Diabetes mellitus type 2, chronically on insulin, uncontrolled with hypoglycemia from poor oral intake -Essential hypertension -Right lower extremity paralysis from polio as a child -Morbid obesity BMI 40.7 -Bilateral lower extremity venous stasis ulcers and acute on chronic cellulitis -Acute metabolic acidosis from renal failure -Acute kidney injury probably from ATN from hepatorenal syndrome -Complete heart block, the setting of severe hyperkalemia, follow closely -Severe hyperkalemia in the setting of acute renal failure and metabolic acidosis Plan: Patient remains on Lasix drip. Due for external pacemaker today. On clear liquid diet. . On antibiotics.. We'll decrease patient is does the Levemir to 15 units
[2019-05-27 00:17] LABS: Glucose,Whole Blood 128 mg/dL (75-99)
[2019-05-27] MEDS: INSULIN ASPART (NovoLOG) 100 UNIT/ML VIAL SQ SCH ×5 (00:42→21:50)
[2019-05-27 04:37] LABS: Glucose,Whole Blood 110 mg/dL (75-99)
[2019-05-27 05:13] LABS: Basophils % (A) 0 %; Eosinophils # (A) 0.7 k/uL (0-0.7); Eosinophils % (A) 6 %; HCT 37.4 % (39.0-53.0); HGB 12.1 gm/dL (13.0-17.5); Lymphocytes % (A) 9 %; MCH 28.6 pg (25.0-35.0); MCHC 32.4 g/dL (31.0-37.0); MCV 88.3 fL (80.0-100.0); Mean Platelet Volume 7.2; Monocytes # (A) 0.5 k/uL (0-1.0); Monocytes % (A) 4 %; Neutrophils # (A) 8.9 k/uL (1.3-7.7); Neutrophils % (A) 79 %; Platelet Count 406 k/uL (150-450); RBC 4.24 m/uL (4.30-5.90); RDW 15.9 % (11.5-15.5); WBC 11.3 k/uL (3.8-10.6)
[2019-05-27 05:41] LABS: Calcium 8.8 mg/dL (8.4-10.2)
[2019-05-27] MEDS: VANCOMYCIN 2,000 MG in SODIUM CHLORIDE 0.9% 500 ML 500 ML IVPB SCH (05:52)
[2019-05-27] MEDS: FUROSEMIDE 100 MG in SODIUM CHLORIDE 0.9% 90 ML IV SCH ×2 (07:33→18:28)
--- NOTE | 2019-05-27 08:15 | P.PN ---
Subjective Patient is seen in follow-up for acute kidney injury. Baseline creatinine is 1. Renal function is improving. Currently maintained on Lasix drip. Edema gradually improving. Patient had an external pacemaker placed on May 26. Denies chest pain or shortness of breath. Vital signs are stable. Heart rate is in the 30s. General: The patient appeared well nourished and normally developed. HEENT: Head exam is unremarkable. Neck is without jugular venous distension. LUNGS: Lungs are clear to auscultation and percussion. Breath sounds decreased. HEART: Bradycardic. First and second heart sounds normal. No murmurs, rubs or gallops. ABDOMEN: Abdominal exam reveals normal bowel sounds. Non-tender and non- distended. EXTREMITITES: 2+ edema. in lower extremities wrapped. No obvious drainage. Objective - Vital Signs Vital signs: Vital Signs Temp 98.4 F 05/27/19 04:00 Pulse 60 05/27/19 07:00 Resp 18 05/27/19 07:00 BP 143/59 05/27/19 07:00 Pulse Ox 95 05/27/19 07:00 Intake & Output 05/26/19 05/27/19 05/27/19 18:59 06:59 18:59 Intake Total 758.333 329.667 Output Total 2597 4725 Balance -1838.667 -4395.333 Weight 127.7 kg 124.6 kg Intake: IV 327 235 Furosemide 100 mg In 110 110 Sodium Chloride 0.9% 90 ml @ 10 MG/HR 10 mls/hr IV .Q10H LUIS F Rx#: [id number] Vancomycin 2,000 mg In 167 Sodium Chloride 0.9% 500 ml 500 ml @ 167 mls/hr IVPB Q24H LUIS F Rx#: [id number] cefTRIAXone 1 gm In 50 Sodium Chloride 0.9% 50 ml @ 100 mls/hr IVPB Q24HR LUIS F Rx#:[id number] Intake, IV Titration 81.333 94.667 Amount Furosemide 100 mg In 81.333 94.667 Sodium Chloride 0.9% 90 ml @ 10 MG/HR 10 mls/hr IV .Q10H LUIS F Rx#: [id number] Tube Feeding 350 Output: Urine 2597 4725 Other: Voiding Method Indwelling Catheter Indwelling Catheter - Labs CBC & Chem 7: 05/27/19 05:03 05/27/19 05:03 Labs: Abnormal Lab Results - Last 24 Hours (Table) 05/26/19 05/26/19 05/27/19 Range/Units 17:26 21:30 00:06 WBC (3.8-10.6) k/uL RBC (4.30-5.90) m/uL Hgb (13.0-17.5) gm/dL Hct (39.0-53.0) % RDW (11.5-15.5) % Neutrophils # (1.3-7.7) k/uL BUN (9-20) mg/dL Glucose (74-99) mg/dL POC Glucose (mg/dL) 184 H 128 H 128 H (75-99) mg/dL 05/27/19 05/27/19 05/27/19 Range/Units 04:26 05:03 05:03 WBC 11.3 H (3.8-10.6) k/uL RBC 4.24 L (4.30-5.90) m/uL Hgb 12.1 L (13.0-17.5) gm/dL Hct 37.4 L (39.0-53.0) % RDW 15.9 H (11.5-15.5) % Neutrophils # 8.9 H (1.3-7.7) k/uL BUN 35 H (9-20) mg/dL Glucose 118 H (74-99) mg/dL POC Glucose (mg/dL) 110 H (75-99) mg/dL Microbiology - Last 24 Hours (Table) 05/25/19 11:22 Blood Culture - Preliminary Blood No Growth after 24 hours 05/25/19 11:41 Blood Culture - Preliminary Blood No Growth after 24 hours Assessment and Plan Plan: Assessment: 1. Acute kidney injury secondary to ATN secondary to bradycardia and cardiorenal syndrome. Creatinine was 1.49 on admission and is 1.11 today. Baseline creatinine near 1. UA is benign. 2. Hyperkalemia secondary to acute kidney injury, metabolic acidosis as well as entresto. Better with medical management. 3. Systolic CHF with ejection fraction of 30-35%. 4. Volume overload. Improving with diuresis. Weight trending down. 5. Insulin-dependent diabetes mellitus. 6. Metabolic acidosis secondary to acute kidney injury. Resolved. 7. Lower extremity cellulitis maintained on IV antibiotics. 8. Benign hypertension. Stable. 9. Complete heart block secondary to hyperkalemia. Remained bradycardic despite normal potassium level. Status post external pacemaker on May 26. Plan: Maintain Lasix drip at 10 mL an hour. Continue to monitor renal function and urine output.
--- NOTE | 2019-05-27 08:46 | XR ---
EXAMINATION TYPE: XR chest 1V portable DATE OF EXAM: 05/27/2019 HISTORY: Lead placement check COMPARISON: 05/26/2019 TECHNIQUE: Single view of the chest is submitted. FINDINGS: Single lead right-sided pacer device is noted with its distal tip within the right ventricle. No evid ence for pneumothorax. Demonstrated are scattered senescent parenchymal change. There is no evidence for focal infiltrate. The heart is stable. Hilar and mediastinal structures are within normal limits. Degenerative changes are seen of the dorsal spine. IMPRESSION: 1. Chronic changes without evidence for acute pulmonary disease.
[2019-05-27] MEDS: IPRATROPIUM-ALBUTEROL 3 ML NEB INHALATION SCH ×4 (08:48→19:55)
--- NOTE | 2019-05-27 09:52 | P.PN ---
Subjective Progress Note Date: 05/27/19 Principal diagnosis: Exacerbation of chronic congestive heart failure with reduced ejection fraction This is a 63-year-old white male patient of Dr. Cid, past medical history of diabetes mellitus, chronic congestive heart failure, morbid obesity, previous episode of myocardial infarction, remote history of smoking, hypertension, hyperlipidemia, polio syndrome during his childhood and patient has a sequela of lower extremity weakness. Patient has moderately severe impaired left ventricle systolic function with EF of 30-35%, mild tricuspid regurgitation, mild pulmonary hypertension with right-sided pressures of 38 mmHg. Patient is maintained on Entresto. Patient has open weeping wounds on his bilateral lower extremities, and cellulitis. Previously followed with Dr. Campuzano, received vancomycin infusions in the past, however he has not seen Dr. Campuzano in several months. Does wear home O2 at bedtime and on as-needed basis, does not have history of COPD or asthma. He states for the last week and a half he has been coming down with a cold, progressive cough and congestion, with production of yellow sputum. He denied fevers, but is positive for chills. Admitted of some chest heaviness intermittently, lasting about 5 minutes. Noted increasing lower extremity edema, redness, and weeping. Patient's insisted he come to the emergency room for evaluation last night. Chest x-ray was completed showing mild pulmonary vascular congestion, mild diffuse interstitial prominence. The ER patient was noted to be in third-degree heart block, a cardiac with a rate in the 30s, his states it is common for the patient and his heart rate does get as low as 20s when he's at home. Lab work showed a white blood cell count of 13.0, hemoglobin of 11.5, platelet count is 456, INR is 1.0, sodium was 141, potassium was elevated at 6.8, chloride was 110, CO2 is 21, BUN is 56, creatinine is 1.49, proBNP was elevated at 3180, troponin was negative 1, LFTs were within normal limits. Patient was given a dose of IV Lasix, her Anemia was treated with 50% dextrose, calcium gluconate, insulin, repeat blood work is pending. Patient has been evaluated by cardiology, placed on Lasix drip at 10 mg per hour, echocardiogram is in progress. We can alert, he is being seen in the intensive care unit, lung sounds are clear, diminished at the bases, no significant wheezing or congestion, states at times to bring up whitish colored sputum. He is in third-degree heart block with a rate of 36, he is on Tuesdays of oxygen with a pulse ox of 97%, he is afebrile. he has been started on antibiotics in the form of vancomycin, we'll add Rocephin for gram-negative cov erage and breathing treatments. On 05/26/2019 patient seen in follow-up in the intensive care unit, he is awake and alert, oriented 3, looks calm and comfortable, no acute distress, denies any worsening shortness of breath, he is currently on 2 L of oxygen and pulse ox is 96%, low-grade temp this morning with a T-max of 99.0F, afebrile overnight. Remains in third-degree heart block with a rate of 36 BPM, pressures 131/40, with a mean of 70, patient is avoiding, he is nonoliguric. His labs have been reviewed, showing now with blood cell count of 9.2, hemoglobin of 10.4, platelet count was 414, electrolytes were within normal limits, BUN of 46, creatinine is 1.33. TSH was within normal limits at 1.940. Today's chest x-ray shows interstitial prominence, residual mild pulmonary vascular congestion. Patient has been started on IV Lasix drip, he is in -4472 mL fluid balance over the last 24 hours, he is weight is down 0.9 kg. Extremity edema is improved in appearance, lower extremities are Mik wrapped. Antibiotic coverage in the form of Rocephin and vancomycin, cultures are pending. On 05/27/2019 patient seen in follow-up in the intensive care unit, yesterday patient received externalized permanent pacemaker for third-degree AV block. Pacemaker programmed to VVI 60. Patient is a paced rhythm at 60 on the monitor today. Awake and alert, resting comfortably in bed, eating breakfast this morning. Denies any shortness of breath or chest pain. Vital signs are stable, he is on 2 L of oxygen with a pulse ox of 95%, afebrile, hemodynamically stable, Lasix drip continues at 10 mg per hour, no other drips. She is in -6234 mL fluid balance over the last 24 hours, he is weight is down 4 kg in the last 24 hours. Cultures showed no growth. Serum edema is improving, patient states that warmth and redness in his right leg seemed to be going up and into his right upper thigh, on inspection the redness does not seem to have spread past the knee. Infectious disease is following, patient is on a combination of Rocephin and vancomycin. Lung sounds are positive for some coarse breath sounds, overall improved, less congested since admission. Objective - Vital Signs Vital signs: Vital Signs Temp 98.4 F 05/27/19 04:00 Pulse 64 05/27/19 09:00 Resp 18 05/27/19 07:00 BP 143/59 05/27/19 07:00 Pulse Ox 95 05/27/19 07:00 Intake & Output 05/26/19 05/27/19 05/27/19 18:59 06:59 18:59 Intake Total 758.333 329.667 Output Total 2597 4725 Balance -1838.667 -4395.333 Weight 127.7 kg 124.6 kg Intake: IV 327 235 Furosemide 100 mg In 110 110 Sodium Chloride 0.9% 90 ml @ 10 MG/HR 10 mls/hr IV .Q10H LUIS F Rx#: [id number] Vancomycin 2,000 mg In 167 Sodium Chloride 0.9% 500 ml 500 ml @ 167 mls/hr IVPB Q24H LUIS F Rx#: [id number] cefTRIAXone 1 gm In 50 Sodium Chloride 0.9% 50 ml @ 100 mls/hr IVPB Q24HR LUIS F Rx#:[id number] Intake, IV Titration 81.333 94.667 Amount Furosemide 100 mg In 81.333 94.667 Sodium Chloride 0.9% 90 ml @ 10 MG/HR 10 mls/hr IV .Q10H LUIS F Rx#: [id number] Tube Feeding 350 Output: Urine 2597 4725 Other: Voiding Method Indwelling Catheter Indwelling Catheter - Exam GENERAL EXAM: Alert, pleasant, 63-year-old obese white male, on 2 L of oxygen with a pulse ox of 96%, comfortable in no apparent distress. HEAD: Normocephalic/atraumatic. EYES: Normal reaction of pupils, equal size. Conjunctiva pink, sclera white. NOSE: Clear with pink turbinates. THROAT: No erythema or exudates. NECK: No masses, no JVD, no thyroid enlargement, no adenopathy. CHEST: No chest wall deformity. Symmetrical expansion. Right upper chest external eyes pacemaker LUNGS: Equal air entry with diminished breath sounds at the bases, slightly congested cough CVS: Regular rate and rhythm, normal S1 and S2, no gallops, no murmurs, no rubs. Patient is a paced rhythm at a rate of 60 on the monitor ABDOMEN: Soft, nontender. No hepatosplenomegaly, normal bowel sounds, no guarding or rigidity. EXTREMITIES: No clubbing, significant erythema and edema of bilateral lower extremities, with open wounds on lower extremities, weeping clear drainage, woun d borders are distinct and sharply demarcated, likely related to chronic venous stasis ulcers, no cyanosis, 2+ pulses and upper and lower extremities. Lower extremities are Mik wrapped MUSCULOSKELETAL: Muscle strength and tone normal. SPINE: No scoliosis or deformity SKIN: No rashes CENTRAL NERVOUS SYSTEM: Alert and oriented -3. No focal deficits, tone is normal in all 4 extremities. PSYCHIATRIC: Alert and oriented -3. Appropriate affect. Intact judgment and insight. - Labs CBC & Chem 7: 05/27/19 05:03 05/27/19 05:03 Labs: Abnormal Lab Results - Last 24 Hours (Table) 05/26/19 05/26/19 05/27/19 Range/Units 17:26 21:30 00:06 WBC (3.8-10.6) k/uL RBC (4.30-5.90) m/uL Hgb (13.0-17.5) gm/dL Hct (39.0-53.0) % RDW (11.5-15.5) % Neutrophils # (1.3-7.7) k/uL BUN (9-20) mg/dL Glucose (74-99) mg/dL POC Glucose (mg/dL) 184 H 128 H 128 H (75-99) mg/dL 05/27/19 05/27/19 05/27/19 Range/Units 04:26 05:03 05:03 WBC 11.3 H (3.8-10.6) k/uL RBC 4.24 L (4.30-5.90) m/uL Hgb 12.1 L (13.0-17.5) gm/dL Hct 37.4 L (39.0-53.0) % RDW 15.9 H (11.5-15.5) % Neutrophils # 8.9 H (1.3-7.7) k/uL BUN 35 H (9-20) mg/dL Glucose 118 H (74-99) mg/dL POC Glucose (mg/dL) 110 H (75-99) mg/dL Microbiology - Last 24 Hours (Table) 05/25/19 11:22 Blood Culture - Preliminary Blood No Growth after 24 hours 05/25/19 11:41 Blood Culture - Preliminary Blood No Growth after 24 hours Assessment and Plan Plan: Assessment: #1. Acute exacerbation of chronic congestive heart failure with reduced ejection fraction, chest x-ray showed pattern of interstitial edema #2. Cough and congestion, shortness of breath, and increasing lower extremity edema related to the above, and likely a component of bronchitis #3. Complete heart block, bradycardia #4. Hyperkalemia, with serum potassium of 6.8, could be related to Entresto, and ATN, improved, on today's labs potassium is 4.4 #5. Chronic pain lower extremity wounds and cellulitis #6. Chronic hypoxemic respiratory failure, he wears home O2 on a as needed basis, likely related to chronic congestive heart failure, and suspect a component of obstructive sleep apnea #7. Previous episode of myocardial infarction #8. Diabetes mellitus with diabetic neuropathy #9. Hypertension, hyperlipidemia #10. Morbid obesity #11. History of polio syndrome as a child, he has chronic weakness in lower extremities #12. Remote history of smoking, smoking at age of 26, smoked a pack a day for 10 years Plan: We will continue with current medical treatment, patient is diuresing well, continues on IV Lasix, eating easier, will continue current antibiotics, so far blood cultures are negative. Send blood cultures. continue breathing treatments. Encourage deep breathing and coughing, GI and DVT prophylaxis, patient is doing better, no complains of dyspnea or chest pain. Patient is stable for transfer to selective care unit today. I performed a history & physical examination of the patient and discussed their management with my nurse practitioner, Kandy Kelley. I reviewed the nurse practitioner's note and agree with the documented findings and plan of care. Lung sounds are positive for diminished breath sounds with limited rhonchi. The findings and the impression was discussed with the patient. I attest to the documentation by the nurse practitioner. Time with Patient: Less than 30
[2019-05-27] MEDS: HEPARIN SODIUM,PORCINE 5,000 UNIT/ML 1 ML VIAL SQ SCH ×2 (09:55→21:48)
[2019-05-27] MEDS: ASPIRIN 81 MG PO SCH (09:55)
[2019-05-27] MEDS: FAMOTIDINE 20 MG/2 ML VIAL IV SCH (09:55)
[2019-05-27] MEDS: GABAPENTIN 100 MG CAP PO SCH ×2 (09:55→21:48)
[2019-05-27 11:54] LABS: Glucose,Whole Blood 148 mg/dL (75-99)
--- NOTE | 2019-05-27 13:01 | PN ---
PROGRESS NOTE DATE OF SERVICE: 05/27/2019 REASON FOR FOLLOWUP: Bilateral lower extremity wound and cellulitis. INTERVAL HISTORY: The patient is currently afebrile. The patient has been breathing comfortably. The patient denies having any chest pain. Breathing has improved. No nausea, no vomiting. No abdominal pain and no pain to the lower extremity wound area. PHYSICAL EXAMINATION: On examination, blood pressure 154/57 with pulse of 56, temperature 98. He is 95% on 2 L nasal cannula. General description is a middle aged male lying in bed in no distress. RESPIRATORY SYSTEM: Unlabored breathing, clear to auscultation anteriorly. HEART: S1, S2. Regular rate and rhythm. ABDOMEN: Soft. LABS: Hemoglobin is 12.1, white count 11.3. BUN of 35, creatinine 1.11. DIAGNOSTIC IMPRESSION AND PLAN: Patient with bilateral lower extremity venous stasis ulcer with secondary cellulitis. The patient is currently on vancomycin and Rocephin. Continue local wound care with Aquacel Silver dressing and an Mik wrap to keep the swelling down and continue supportive care. MMODL / IJN: [id number] /
--- NOTE | 2019-05-27 16:04 | PN ---
PROGRESS NOTE DATE OF SERVICE: Mr. Javi Duff came in with complete heart block and hyperkalemia. He still remains in complete heart block as of yesterday. Last evening Dr. Nichols performed a single-chamber pacemaker which was externalized, and later on after his cellulitis and infection of the lower extremities are resolved he will have most likely a biventricular pacemaker. LV systolic function is well preserved. He has an underlying QRS of 140 milliseconds. Blood pressure is 110/70. Pulse rate is 60 per minute, which is paced rhythm. The pacer site is clean and dry. Heart exam reveals S1, S2 with a short systolic murmur. Lungs reveal diminished air entry. Abdomen is soft, nontender. Lower extremities reveal diminished pulses. Edema has improved but still persists. RECOMMENDATIONS: I am recommending that we continue the diuresis and use amlodipine for his blood pressure control. He is on subcutaneous heparin, which will be continued, and antibiotics. He can be moved to the telemetry unit. MMJULES / HENNYN: [id number] /
[2019-05-27 17:37] LABS: Glucose,Whole Blood 235 mg/dL (75-99)
--- NOTE | 2019-05-27 18:54 | P.PN ---
Progress Note - Text Progress Note Date: 05/27/19 Chief Complaint: Tired Interval history: This is a 63-year-old patient of Dr. Ángel Cid. Chronic stable medical conditions include diabetes, hypertension, diabetic peripheral neuropathy. 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 Patient has no movement but has some sensation. Patient has off-and-on lower extremity cellulitis and has followed by Dr. Campuzano from infectious disease. Hasn't intubated dressings. Patient now presents with worsening swelling of the lower extremity burning sensation. No fever and chills. Also has some blistering drainage. Decreased appetite times rundown. Patient in the ER was found to be hyperkalemic with potassium. Being 6.8. Patient admitted to the ICU. Patient also found to be in complete heart block. Patient is put on a Lasix drip also found to be in CHF. And also was made nothing by mouth. Patient does feel tired and rundown. Patient normally uses a wheelchair/crutches or a walker to get about the house. Today-in ICU. Last night had a external pacemaker placed. Remains a Lasix drip at 10 mics an hour. Following a diet. Overall sitting up. Nasal cannula in place. Review of systems: Was done for constitutional, cardiovascular, GI, pulmonary. relevant finding as above Current medications are reviewed and include: IV ceftriaxone, IV Lasix drip, IV vancomycin, Aquacel silver Physical examination: VITAL SIGNS:, 99.1, 60, 16, 152/48, 96% room air GENERAL:, Sitting up in bed, awake EYES: Pupils equal. Conjunctiva normal. HEENT: External appearance of nose and ears normal, oral cavity grossly normal. NECK: JVD unable to assess; masses not palpable. HEART: First and second heart sounds are normal; gross edema. LUNGS: Respiratory rate increased, decreased breath sounds. ABDOMEN: Soft, distended nontender, liver spleen not palpable, no masses palpab le. LYMPHATICS: No lymph nodes palpable in the axilla and neck. DERMATOLOGICAL r dressing of both lower extremities e Investigations, reviewed in the clinical context. White count 11.3 hemoglobin 12.1 platelets. 406 potassium 4 (35 creatinine 1.1 Accu-Cheks 148-235 Assessment: -Acute on chronic congestive heart exacerbation from diastolic dysfunction EF 55-60%, remains on IV Lasix drip -Diabetes mellitus type 2, chronically on insulin, uncontrolled with hypoglycemia from poor oral intake -Essential hypertension -Right lower extremity paralysis from polio as a child -Morbid obesity BMI 40.7 -Bilateral lower extremity venous stasis ulcers and acute on chronic cellulitis -Acute metabolic acidosis from renal failure -Acute kidney injury probably from ATN from hepatorenal syndrome -Complete heart block, the setting of severe hyperkalemia, follow closely -Severe hyperkalemia in the setting of acute renal failure and metabolic acidosis Plan: Overall appearance of it better. There was a Lasix drip. Follows I's and O's closely. Wound care to continue per ID. Patient will be moved out of the ICU.
[2019-05-27 21:23] LABS: Glucose,Whole Blood 187 mg/dL (75-99)
[2019-05-27] MEDS: amLODIPine 10 MG TAB PO SCH (21:48)
[2019-05-27] MEDS: INSULIN DETEMIR (LEVEMIR) 100 UNIT/ML SYR SQ SCH (21:49)
[2019-05-28 02:17] LABS: Glucose,Whole Blood 141 mg/dL (75-99)
[2019-05-28] MEDS ORDERED: VANCOMYCIN TROUGH DUE 1 EACH MISC MISCELLANE ONE (05:00)
[2019-05-28] MEDS: VANCOMYCIN 2,000 MG in SODIUM CHLORIDE 0.9% 500 ML 500 ML IVPB SCH (06:47)
[2019-05-28 07:43] LABS: Calcium 8.7 mg/dL (8.4-10.2); Potassium 3.6 mmol/L (3.5-5.1)
[2019-05-28] MEDS: FUROSEMIDE 100 MG in SODIUM CHLORIDE 0.9% 90 ML IV SCH ×2 (07:57→15:14)
[2019-05-28 08:10] LABS: Glucose,Whole Blood 231 mg/dL (75-99)
[2019-05-28] MEDS: GABAPENTIN 100 MG CAP PO SCH ×2 (08:17→21:17)
[2019-05-28] MEDS: HEPARIN SODIUM,PORCINE 5,000 UNIT/ML 1 ML VIAL SQ SCH ×2 (08:17→21:17)
[2019-05-28] MEDS: ASPIRIN 81 MG PO SCH (08:17)
[2019-05-28] MEDS: FAMOTIDINE 20 MG/2 ML VIAL IV SCH (08:17)
[2019-05-28] MEDS: INSULIN ASPART (NovoLOG) 100 UNIT/ML VIAL SQ SCH ×4 (08:21→21:17)
--- NOTE | 2019-05-28 08:23 | P.PN ---
Subjective Progress Note Date: 05/28/19 Seen and examined for the follow-up of acute kidney injury. Feels better. Complaining of some blurry vision with diuretics. Objective - Vital Signs Vital signs: Vital Signs Temp 98.1 F 05/28/19 08:00 Pulse 59 L 05/28/19 08:00 Resp 16 05/28/19 08:00 BP 129/61 05/28/19 08:00 Pulse Ox 94 L 05/28/19 08:00 Intake & Output 05/27/19 05/28/19 05/28/19 18:59 06:59 18:59 Intake Total 677 550 Output Total 3100 3200 Balance -2423 -2650 Weight 119 kg Intake: IV 237 Furosemide 100 mg In 20 Sodium Chloride 0.9% 90 ml @ 10 MG/HR 10 mls/hr IV .Q10H [facility] Rx#: [id number] Vancomycin 2,000 mg In 167 Sodium Chloride 0.9% 500 ml 500 ml @ 167 mls/hr IVPB Q24H [facility] Rx#: [id number] cefTRIAXone 1 gm In 50 Sodium Chloride 0.9% 50 ml @ 100 mls/hr IVPB Q24HR [facility] Rx#:[id number] Intake, IV Titration 200 100 Amount Furosemide 100 mg In 200 100 Sodium Chloride 0.9% 90 ml @ 10 MG/HR 10 mls/hr IV .Q10H [facility] Rx#: [id number] Oral 240 450 Output: Urine 3100 3200 Other: Voiding Method Indwelling Catheter Indwelling Catheter - Exam No acute distress S1-S2 heard Decreased breath sounds Edema - Labs CBC & Chem 7: 05/27/19 05:03 05/28/19 04:50 Labs: Abnormal Lab Results - Last 24 Hours (Table) 05/27/19 05/27/19 05/27/19 Range/Units 11:41 17:26 21:11 BUN (9-20) mg/dL Glucose (74-99) mg/dL POC Glucose (mg/dL) 148 H 235 H 187 H (75-99) mg/dL 05/28/19 05/28/19 05/28/19 Range/Units 02:05 04:50 07:58 BUN 25 H (9-20) mg/dL Glucose 123 H (74-99) mg/dL POC Glucose (mg/dL) 141 H 231 H (75-99) mg/dL Microbiology - Last 24 Hours (Table) 05/25/19 11:22 Blood Culture - Preliminary Blood No Growth after 48 hours 05/25/19 11:41 Blood Culture - Preliminary Blood No Growth after 48 hours Assessment and Plan Assessment: #1 nonoliguric acute kidney injury secondary to ischemic ATN and cardiorenal syndrome. #2 hyperkalemia resolved currently low normal #3 CHF with systolic dysfunction EF of 30-35% #4 volume overload improving with diuresis #5 metabolic alkalosis with hypokalemia secondary to diuretics #6 complete heart block secondary to hyperkalemia status post pacemaker Plan: #1 consider changing Lasix from drip to 40 IV twice a day. #2 avoid nephrotoxic agents and hypotensive episodes #3 replace potassium #4 labs in the morning
[2019-05-28] MEDS: IPRATROPIUM-ALBUTEROL 3 ML NEB INHALATION SCH ×4 (08:29→19:37)
--- NOTE | 2019-05-28 10:29 | PN ---
PROGRESS NOTE Mr. Duff is in paced rhythm with a ventricular paced rhythm of 60 beats per minute. Blood pressure is good. His weight is down substantially. Edema is decreased. This patient has anasarca. History of heart failure and accelerated hypertension on high dose of Entresto, came in with hyperkalemia, bradycardia, and later on complete heart block persisted. He has external pacemaker. He has cellulitis on both his lower extremities which are improving. He is on antibiotics. I am recommending that we continue current medications including Lasix drip, move him to telemetry and see how he does. He will have a permanent pacemaker when his cellulitis issues are resolved. Blood pressure control is good with amlodipine. His ejection fraction is good on echocardiogram. Vital signs are stable. Blood pressure 130/80, pulse rate 60 per minute. JVD 1 cm. Heart exam reveals S1, S2. Distant heart sounds. Lungs reveal improved air entry. Abdomen is soft. Lower extremity edema has improved. MMODL / IJN: [id number] /
--- NOTE | 2019-05-28 11:01 | P.PN ---
Subjective Progress Note Date: 05/28/19 Principal diagnosis: Acute exacerbation of chronic congestive heart failure, systolic in nature, reduced ejection fraction This is a 63-year-old white male patient of Dr. Cid, past medical history of diabetes mellitus, chronic congestive heart failure, morbid obesity, previous episode of myocardial infarction, remote history of smoking, hypertension, hyperlipidemia, polio syndrome during his childhood and patient has a sequela of lower extremity weakness. Patient has moderately severe impaired left ventricle systolic function with EF of 30-35%, mild tricuspid regurgitation, mild pulmonary hypertension with right-sided pressures of 38 mmHg. Patient is maintained on Entresto. Patient has open weeping wounds on his bilateral lower extremities, and cellulitis. Previously followed with Dr. Campuzano, received vancomycin infusions in the past, however he has not seen Dr. Campuzano in several months. Does wear home O2 at bedtime and on as-needed basis, does not have hist ory of COPD or asthma. He states for the last week and a half he has been coming down with a cold, progressive cough and congestion, with production of yellow sputum. He denied fevers, but is positive for chills. Admitted of some chest heaviness intermittently, lasting about 5 minutes. Noted increasing lower extremity edema, redness, and weeping. Patient's insisted he come to the emergency room for evaluation last night. Chest x-ray was completed showing mild pulmonary vascular congestion, mild diffuse interstitial prominence. The ER patient was noted to be in third-degree heart block, a cardiac with a rate in the 30s, his states it is common for the patient and his heart rate does get as low as 20s when he's at home. Lab work showed a white blood cell count of 13.0, hemoglobin of 11.5, platelet count is 456, INR is 1.0, sodium was 141, potassium was elevated at 6.8, chloride was 110, CO2 is 21, BUN is 56, creatinine is 1.49, proBNP was elevated at 3180, troponin was negative 1, LFTs were within normal limits. Patient was given a dose of IV Lasix, her Anemia was treated with 50% dextrose, calcium gluconate, insulin, repeat blood work is pending. Patient has been evaluated by cardiology, placed on Lasix drip at 10 mg per hour, echocardiogram is in progress. We can alert, he is being seen in the intensive care unit, lung sounds are clear, diminished at the bases, no significant wheezing or congestion, states at times to bring up whitish colored sputum. He is in third-degree heart block with a rate of 36, he is on Tuesdays of oxygen with a pulse ox of 97%, he is afebrile. he has been started on antibiotics in the form of vancomycin, we'll add Rocephin for gram-negative coverage and breathing treatments. On 05/26/2019 patient seen in follow-up in the intensive care unit, he is awake and alert, oriented 3, looks calm and comfortable, no acute distress, denies any worsening shortness of breath, he is currently on 2 L of oxygen and pulse ox is 96%, low-grade temp this morning with a T-max of 99.0F, afebrile overnight. Remains in third-degree heart block with a rate of 36 BPM, pressures 131/40, with a mean of 70, patient is avoiding, he is nonoliguric. His labs have been reviewed, showing now with blood cell count of 9.2, hemoglobin of 10.4, platelet count was 414, electrolytes were within normal limits, BUN of 46, creatinine is 1.33. TSH was within normal limits at 1.940. Today's chest x-ray shows interstitial prominence, residual mild pulmonary vascular congestion. Patient has been started on IV Lasix drip, he is in -4472 mL fluid balance over the last 24 hours, he is weight is down 0.9 kg. Extremity edema is improved in appe arance, lower extremities are Mik wrapped. Antibiotic coverage in the form of Rocephin and vancomycin, cultures are pending. On 05/27/2019 patient seen in follow-up in the intensive care unit, yesterday patient received externalized permanent pacemaker for third-degree AV block. Pacemaker programmed to VVI 60. Patient is a paced rhythm at 60 on the monitor today. Awake and alert, resting comfortably in bed, eating breakfast this morning. Denies any shortness of breath or chest pain. Vital signs are stable, he is on 2 L of oxygen with a pulse ox of 95%, afebrile, hemodynamically stable, Lasix drip continues at 10 mg per hour, no other drips. She is in -6234 mL fluid balance over the last 24 hours, he is weight is down 4 kg in the last 24 hours. Cultures showed no growth. Serum edema is improving, patient states that warmth and redness in his right leg seemed to be going up and into his right upper thigh, on inspection the redness does not seem to have spread past the knee. Infectious disease is following, patient is on a combination of Rocephin and vancomycin. Lung sounds are positive for some coarse breath sounds, overall improved, less congested since admission. The patient is seen today 05/28/2019 in follow-up in the intensive care unit. He is awake and alert in no acute distress. Denies any worsening shortness of breath, cough or congestion. He is maintaining good O2 saturations in the 90s on 2 L/m per nasal cannula. He is afebrile. He is on Lasix drip at 10 mg per hour. Remains in a negative balance. He remains on vancomycin and Rocephin. Temporary pacemaker in place. Blood cultures reveal no growth. Creatinine 1.09. He denies any chest pain, palpitations lightheadedness or dizziness. Objective - Vital Signs Vital signs: Vital Signs Temp 98.1 F 05/28/19 08:00 Pulse 60 05/28/19 08:41 Resp 16 05/28/19 08:00 BP 129/61 05/28/19 08:00 Pulse Ox 94 L 05/28/19 08:00 Intake & Output 05/27/19 05/28/19 05/28/19 18:59 06:59 18:59 Intake Total 677 550 290 Output Total 3100 3200 355 Balance -2423 -2650 -65 Weight 119 kg Intake: IV 237 Furosemide 100 mg In 20 Sodium Chloride 0.9% 90 ml @ 10 MG/HR 10 mls/hr IV .Q10H [facility] Rx#: [id number] Vancomycin 2,000 mg In 167 Sodium Chloride 0.9% 500 ml 500 ml @ 167 mls/hr IVPB Q24H [facility] Rx#: [id number] cefTRIAXone 1 gm In 50 Sodium Chloride 0.9% 50 ml @ 100 mls/hr IVPB Q24HR [facility] Rx#:[id number] Intake, IV Titration 200 100 50 Amount Furosemide 100 mg In 200 100 Sodium Chloride 0.9% 90 ml @ 10 MG/HR 10 mls/hr IV .Q10H [facility] Rx#: [id number] cefTRIAXone 1 gm In 50 Sodium Chloride 0.9% 50 ml @ 100 mls/hr IVPB Q24HR [facility] Rx#:[id number] Oral 240 450 240 Output: Urine 3100 3200 355 Other: Voiding Method Indwelling Catheter Indwelling Catheter Indwelling Catheter - Exam GENERAL EXAM: Alert, pleasant, 63-year-old male, on 2 L of oxygen with a pulse ox of 94%, comfortable in no apparent distress. HEAD: Normocephalic/atraumatic. EYES: Normal reaction of pupils, equal size. Conjunctiva pink, sclera white. NOSE: Clear with pink turbinates. THROAT: No erythema or exudates. NECK: No masses, no JVD, no thyroid enlargement, no adenopathy. CHEST: No chest wall deformity. Symmetrical expansion. Right upper chest external temporary pacemaker LUNGS: Equal air entry with diminished breath sounds at the bases, slightly congested cough CVS: Regular rate and rhythm, normal S1 and S2, no gallops, no murmurs, no rubs. Patient is a paced rhythm at a rate of 60 on the monitor ABDOMEN: Soft, nontender. No hepatosplenomegaly, normal bowel sounds, no gua rding or rigidity. EXTREMITIES: No clubbing, significant erythema and edema of bilateral lower extremities, with open wounds on lower extremities, weeping clear drainage, wound borders are distinct and sharply demarcated, likely related to chronic venous stasis ulcers, no cyanosis, 2+ pulses and upper and lower extremities. Lower extremities are Mik wrapped MUSCULOSKELETAL: Muscle strength and tone normal. SPINE: No scoliosis or deformity SKIN: No rashes CENTRAL NERVOUS SYSTEM: No focal deficits, tone is normal in all 4 extremities. PSYCHIATRIC: Alert and oriented -3. Appropriate affect. Intact judgment and insight. - Labs CBC & Chem 7: 05/27/19 05:03 05/28/19 04:50 Labs: Abnormal Lab Results - Last 24 Hours (Table) 05/27/19 05/27/19 05/27/19 Range/Units 11:41 17:26 21:11 BUN (9-20) mg/dL Glucose (74-99) mg/dL POC Glucose (mg/dL) 148 H 235 H 187 H (75-99) mg/dL 05/28/19 05/28/19 05/28/19 Range/Units 02:05 04:50 07:58 BUN 25 H (9-20) mg/dL Glucose 123 H (74-99) mg/dL POC Glucose (mg/dL) 141 H 231 H (75-99) mg/dL Microbiology - Last 24 Hours (Table) 05/25/19 11:22 Blood Culture - Preliminary Blood No Growth after 48 hours 05/25/19 11:41 Blood Culture - Preliminary Blood No Growth after 48 hours Assessment and Plan Assessment: Assessment: #1. Acute exacerbation of chronic congestive heart failure with reduced ejection fraction, chest x-ray showed pattern of interstitial edema and currently on a Lasix drip. #2. Cough and congestion, shortness of breath, and increasing lower extremity edema related to the above, and likely a component of bronchitis #3. Complete heart block, bradycardia external temporary pacer in place. #4. Hyperkalemia, with serum potassium of 6.8, could be related to Entresto, and ATN, improved, on today's labs potassium is 3.6 #5. Chronic pain lower extremity wounds and cellulitis #6. Chronic hypoxemic respiratory failure, he wears home O2 on a as needed basis, likely related to chronic congestive heart failure, and suspect a component of obstructive sleep apnea #7. Previous episode of myocardial infarction #8. Diabetes mellitus with diabetic neuropathy #9. Hypertension, hyperlipidemia #10. Morbid obesity #11. History of polio syndrome as a child, he has chronic weakness in lower extremities #12. Remote history of smoking, smoking at age of 26, smoked a pack a day for 10 years Plan: Patient was seen and evaluated by Dr. Nix. He is currently stable from the pulmonary and critical care standpoint. We'll continue with the current treatment plan. Awaiting permanent pacemaker implantation once the cellulitis is cleared. We'll continue to follow make further recommendations based on his clinical status. I, the cosigning physician, performed a history & physical examination of the patient. Lungs sounds crackles in the posterior bases. Maintaining good O2 saturations in the 90s on 2 L/m per nasal cannula. I discussed the assessment and plan of care with my nurse practitioner, Jayshree Nice. I attest to the above note as dictated by her.
[2019-05-28 12:07] LABS: Glucose,Whole Blood 206 mg/dL (75-99)
[2019-05-28 15:59] LABS: Glucose,Whole Blood 240 mg/dL (75-99)
[2019-05-28 17:20] LABS: Glucose,Whole Blood 173 mg/dL (75-99)
[2019-05-28] MEDS: INSULIN DETEMIR (LEVEMIR) 100 UNIT/ML SYR SQ SCH (21:17)
[2019-05-28] MEDS: amLODIPine 10 MG TAB PO SCH (21:17)
[2019-05-28 21:26] LABS: Glucose,Whole Blood 205 mg/dL (75-99)
[2019-05-29] MEDS: FUROSEMIDE 100 MG in SODIUM CHLORIDE 0.9% 90 ML IV SCH ×2 (03:03→17:18)
[2019-05-29 05:42] LABS: Basophils # (A) 0.1 k/uL (0-0.2); Basophils % (A) 1 %; Eosinophils # (A) 0.7 k/uL (0-0.7); Eosinophils % (A) 7 %; HCT 40.8 % (39.0-53.0); HGB 12.7 gm/dL (13.0-17.5); Hypochromasia Slight; Lymphocytes # (A) 1.8 k/uL (1.0-4.8); Lymphocytes % (A) 17 %; MCHC 31.2 g/dL (31.0-37.0); MCV 89.7 fL (80.0-100.0); Mean Platelet Volume 6.5; Monocytes # (A) 0.7 k/uL (0-1.0); Monocytes % (A) 7 %; Neutrophils # (A) 6.9 k/uL (1.3-7.7); Neutrophils % (A) 66 %; Platelet Count 527 k/uL (150-450); RBC 4.55 m/uL (4.30-5.90); RDW 14.6 % (11.5-15.5); WBC 10.5 k/uL (3.8-10.6)
[2019-05-29 05:47] LABS: African American GFR (CKD) >90 (>60 ml/min/1.73 sqM); Albumin 3.6 g/dL (3.5-5.0); Anion Gap 9 mmol/L; Blood Urea Nitrogen 20 mg/dL (9-20); Calcium 8.6 mg/dL (8.4-10.2); Carbon Dioxide 29 mmol/L (22-30); Chloride 101 mmol/L (98-107); Glucose 140 mg/dL (74-99); Sodium 139 mmol/L (137-145); Total Bilirubin 0.6 mg/dL (0.2-1.3); Total Protein 7.2 g/dL (6.3-8.2)
[2019-05-29 05:49] LABS: ALT 19 U/L (21-72); AST 45 U/L (17-59); Alkaline Phosphatase 83 U/L (38-126)
[2019-05-29 07:09] LABS: Glucose,Whole Blood 151 mg/dL (75-99)
[2019-05-29] MEDS: VANCOMYCIN 2,000 MG in SODIUM CHLORIDE 0.9% 500 ML 500 ML IVPB SCH (07:29)
[2019-05-29] MEDS: INSULIN ASPART (NovoLOG) 100 UNIT/ML VIAL SQ SCH ×4 (07:29→21:55)
[2019-05-29] MEDS: IPRATROPIUM-ALBUTEROL 3 ML NEB INHALATION SCH ×4 (08:32→19:18)
[2019-05-29] MEDS: FAMOTIDINE 20 MG TAB PO SCH (09:19)
[2019-05-29] MEDS: HEPARIN SODIUM,PORCINE 5,000 UNIT/ML 1 ML VIAL SQ SCH ×2 (09:19→20:18)
[2019-05-29] MEDS: GABAPENTIN 100 MG CAP PO SCH ×2 (09:19→20:18)
--- NOTE | 2019-05-29 09:19 | P.PN ---
Subjective Progress Note Date: 05/29/19 Seen and examined for the follow-up of acute kidney injury. Feels better, no nausea vomiting or diarrhea Objective - Vital Signs Vital signs: Vital Signs Temp 98.4 F 05/29/19 00:00 Pulse 60 05/29/19 08:44 Resp 18 05/29/19 06:00 BP 152/61 05/29/19 06:00 Pulse Ox 96 05/29/19 06:00 Intake & Output 05/28/19 05/29/19 05/29/19 18:59 06:59 18:59 Intake Total 842.833 200 Output Total 2255 1585 Balance -1412.167 -1385 Weight 119 kg 124.3 kg Intake: Intake, IV Titration 122.833 100 Amount Furosemide 100 mg In 72.833 100 Sodium Chloride 0.9% 90 ml @ 10 MG/HR 10 mls/hr IV .Q10H [facility] Rx#: [id number] cefTRIAXone 1 gm In 50 Sodium Chloride 0.9% 50 ml @ 100 mls/hr IVPB Q24HR [facility] Rx#:[id number] Oral 720 100 Output: Urine 2255 1585 Other: Voiding Method Indwelling Catheter Indwelling Catheter - Exam No acute distress S1-S2 heard Decreased breath sounds Edema - Labs CBC & Chem 7: 05/29/19 04:39 05/29/19 04:39 Labs: Abnormal Lab Results - Last 24 Hours (Table) 05/28/19 05/28/19 05/28/19 Range/Units 11:56 15:48 17:08 Hgb (13.0-17.5) gm/dL Plt Count (150-450) k/uL Glucose (74-99) mg/dL POC Glucose (mg/dL) 206 H 240 H 173 H (75-99) mg/dL ALT (21-72) U/L 05/28/19 05/29/19 05/29/19 Range/Units 21:14 04:39 04:39 Hgb 12.7 L (13.0-17.5) gm/dL Plt Count 527 H (150-450) k/uL Glucose 140 H (74-99) mg/dL POC Glucose (mg/dL) 205 H (75-99) mg/dL ALT 19 L (21-72) U/L 05/29/19 Range/Units 07:08 Hgb (13.0-17.5) gm/dL Plt Count (150-450) k/uL Glucose (74-99) mg/dL POC Glucose (mg/dL) 151 H (75-99) mg/dL ALT (21-72) U/L Microbiology - Last 24 Hours (Table) 05/28/19 05:30 Gram Stain - Preliminary Leg - Right Wound Culture - Preliminary 05/28/19 05:30 Gram Stain - Preliminary Leg - Left Wound Culture - Preliminary 05/25/19 11:22 Blood Culture - Preliminary Blood No Growth after 72 hours 05/25/19 11:41 Blood Culture - Preliminary Blood No Growth after 72 hours Assessment and Plan Assessment: #1 nonoliguric acute kidney injury secondary to ischemic ATN and cardiorenal syndrome. Creatinine back to baseline #2 hyperkalemia resolved currently low normal. #3 CHF with systolic dysfunction EF of 30-35% #4 volume overload improving with diuresis #5 metabolic alkalosis with hypokalemia secondary to diuretics #6 complete heart block secondary to hyperkalemia status post pacemaker Plan: #1 continue with diuretics as per cardiology. #2 avoid nephrotoxic agents and hypotensive episodes #3 replace potassium #4 labs in the morning
--- NOTE | 2019-05-29 09:27 | P.PN ---
Subjective Progress Note Date: 05/29/19 Principal diagnosis: Exacerbation of chronic congestive heart failure with reduced ejection fraction This is a 63-year-old white male patient of Dr. Cid, past medical history of diabetes mellitus, chronic congestive heart failure, morbid obesity, previous episode of myocardial infarction, remote history of smoking, hypertension, hyperlipidemia, polio syndrome during his childhood and patient has a sequela of lower extremity weakness. Patient has moderately severe impaired left ventricle systolic function with EF of 30-35%, mild tricuspid regurgitation, mild pulmonary hypertension with right-sided pressures of 38 mmHg. Patient is maintained on Entresto. Patient has open weeping wounds on his bilateral lower extremities, and cellulitis. Previously followed with Dr. Campuzano, received vancomycin infusions in the past, however he has not seen Dr. Campuzano in several months. Does wear home O2 at bedtime and on as-needed basis, does not have history of COPD or asthma. He states for the last week and a half he has been coming down with a cold, progressive cough and congestion, with production of yellow sputum. He denied fevers, but is positive for chills. Admitted of some chest heaviness intermittently, lasting about 5 minutes. Noted increasing lower extremity edema, redness, and weeping. Patient's insisted he come to the emergency room for evaluation last night. Chest x-ray was completed showing mild pulmonary vascular congestion, mild diffuse interstitial prominence. The ER patient was noted to be in third-degree heart block, a cardiac with a rate in the 30s, his states it is common for the patient and his heart rate does get as low as 20s when he's at home. Lab work showed a white blood cell count of 13.0, hemoglobin of 11.5, platelet count is 456, INR is 1.0, sodium was 141, potassium was elevated at 6.8, chloride was 110, CO2 is 21, BUN is 56, creatinine is 1.49, proBNP was elevated at 3180, troponin was negative 1, LFTs were within normal limits. Patient was given a dose of IV Lasix, her Anemia was treated with 50% dextrose, calcium gluconate, insulin, repeat blood work is pending. Patient has been evaluated by cardiology, placed on Lasix drip at 10 mg per hour, echocardiogram is in progress. We can alert, he is being seen in the intensive care unit, lung sounds are clear, diminished at the bases, no significant wheezing or congestion, states at times to bring up whitish colored sputum. He is in third-degree heart block with a rate of 36, he is on Tuesdays of oxygen with a pulse ox of 97%, he is afebrile. he has been started on antibiotics in the form of vancomycin, we'll add Rocephin for gram-negative cov erage and breathing treatments. On 05/26/2019 patient seen in follow-up in the intensive care unit, he is awake and alert, oriented 3, looks calm and comfortable, no acute distress, denies any worsening shortness of breath, he is currently on 2 L of oxygen and pulse ox is 96%, low-grade temp this morning with a T-max of 99.0F, afebrile overnight. Remains in third-degree heart block with a rate of 36 BPM, pressures 131/40, with a mean of 70, patient is avoiding, he is nonoliguric. His labs have been reviewed, showing now with blood cell count of 9.2, hemoglobin of 10.4, platelet count was 414, electrolytes were within normal limits, BUN of 46, creatinine is 1.33. TSH was within normal limits at 1.940. Today's chest x-ray shows interstitial prominence, residual mild pulmonary vascular congestion. Patient has been started on IV Lasix drip, he is in -4472 mL fluid balance over the last 24 hours, he is weight is down 0.9 kg. Extremity edema is improved in appearance, lower extremities are Mik wrapped. Antibiotic coverage in the form of Rocephin and vancomycin, cultures are pending. On 05/27/2019 patient seen in follow-up in the intensive care unit, yesterday patient received externalized permanent pacemaker for third-degree AV block. Pacemaker programmed to VVI 60. Patient is a paced rhythm at 60 on the monitor today. Awake and alert, resting comfortably in bed, eating breakfast this morning. Denies any shortness of breath or chest pain. Vital signs are stable, he is on 2 L of oxygen with a pulse ox of 95%, afebrile, hemodynamically stable, Lasix drip continues at 10 mg per hour, no other drips. She is in -6234 mL fluid balance over the last 24 hours, he is weight is down 4 kg in the last 24 hours. Cultures showed no growth. Serum edema is improving, patient states that warmth and redness in his right leg seemed to be going up and into his right upper thigh, on inspection the redness does not seem to have spread past the knee. Infectious disease is following, patient is on a combination of Rocephin and vancomycin. Lung sounds are positive for some coarse breath sounds, overall improved, less congested since admission. On 05/29/2019 patient seen in follow-up in intensive care unit. His been awaiting a bed on selective care unit, he is been an overflow status for last couple of days. He is awake and alert, oriented 3, hemodynamically patient is stable, he is on 2 L of oxygen with a pulse ox of 96%, afebrile. Blood cultures and wound cultures are pending, pulmonary Gram stain from the left leg weeping wounds positive for moderate gram-negative bacilli, and rare gram-positive cocci, final cultures pending. Patient remains with the external part a pacemaker in his right chest. No worsening shortness of breath, lung sounds are clear on today's exam, no wheezing or rhonchi, his labs have been reviewed, showing white blood cell, 10.5, hemoglobin of 12.7, platelet count is 527, electrolytes and renal profile are within normal limits. Lower extremities are Mik wrapped, and lower extremity edema has significantly improved, patient remains on Lasix drip at 10 mg per hour, no other drips. Net fluid balance is - 2797 mL over the last 24 hours. Objective - Vital Signs Vital signs: Vital Signs Temp 98.4 F 05/29/19 00:00 Pulse 60 05/29/19 08:44 Resp 18 05/29/19 06:00 BP 152/61 05/29/19 06:00 Pulse Ox 96 05/29/19 06:00 Intake & Output 05/28/19 05/29/19 05/29/19 18:59 06:59 18:59 Intake Total 842.833 200 Output Total 2255 1585 Balance -1412.167 -1385 Weight 119 kg 124.3 kg Intake: Intake, IV Titration 122.833 100 Amount Furosemide 100 mg In 72.833 100 Sodium Chloride 0.9% 90 ml @ 10 MG/HR 10 mls/hr IV .Q10H [facility] Rx#: [id number] cefTRIAXone 1 gm In 50 Sodium Chloride 0.9% 50 ml @ 100 mls/hr IVPB Q24HR [facility] Rx#:[id number] Oral 720 100 Output: Urine 2255 1585 Other: Voiding Method Indwelling Catheter Indwelling Catheter - Exam GENERAL EXAM: Alert, pleasant, 63-year-old obese white male, on 2 L of oxygen with a pulse ox of 96%, comfortable in no apparent distress. HEAD: Normocephalic/atraumatic. EYES: Normal reaction of pupils, equal size. Conjunctiva pink, sclera white. NOSE: Clear with pink turbinates. THROAT: No erythema or exudates. NECK: No masses, no JVD, no thyroid enlargement, no adenopathy. CHEST: No chest wall deformity. Symmetrical expansion. Right upper chest external eyes pacemaker LUNGS: Equal air entry with diminished breath sounds at the bases, slightly congested cough CVS: Regular rate and rhythm, normal S1 and S2, no gallops, no murmurs, no rubs. Patient is a paced rhythm at a rate of 60 on the monitor ABDOMEN: Soft, nontender. No hepatosplenomegaly, normal bowel sounds, no guarding or rigidity. EXTREMITIES: No clubbing, significant erythema and edema of bilateral lower extremities, with open wounds on lower extremities, weeping clear drainage, wound borders are distinct and sharply demarcated, likely related to chronic venous stasis ulcers, no cyanosis, 2+ pulses and upper and lower extremities. Lower extremities are Mik wrapped MUSCULOSKELETAL: Muscle strength and tone normal. SPINE: No scoliosis or deformity SKIN: No rashes CENTRAL NERVOUS SYSTEM: Alert and oriented -3. No focal deficits, tone is normal in all 4 extremities. PSYCHIATRIC: Alert and oriented -3. Appropriate affect. Intact judgment and insight. - Labs CBC & Chem 7: 05/29/19 04:39 05/29/19 04:39 Labs: Abnormal Lab Results - Last 24 Hours (Table) 05/28/19 05/28/19 05/28/19 Range/Units 11:56 15:48 17:08 Hgb (13.0-17.5) gm/dL Plt Count (150-450) k/uL Glucose (74-99) mg/dL POC Glucose (mg/dL) 206 H 240 H 173 H (75-99) mg/dL ALT (21-72) U/L 05/28/19 05/29/19 05/29/19 Range/Units 21:14 04:39 04:39 Hgb 12.7 L (13.0-17.5) gm/dL Plt Count 527 H (150-450) k/uL Glucose 140 H (74-99) mg/dL POC Glucose (mg/dL) 205 H (75-99) mg/dL ALT 19 L (21-72) U/L 05/29/19 Range/Units 07:08 Hgb (13.0-17.5) gm/dL Plt Count (150-450) k/uL Glucose (74-99) mg/dL POC Glucose (mg/dL) 151 H (75-99) mg/dL ALT (21-72) U/L Microbiology - Last 24 Hours (Table) 05/28/19 05:30 Gram Stain - Preliminary Leg - Right Wound Culture - Preliminary 05/28/19 05:30 Gram Stain - Preliminary Leg - Left Wound Culture - Preliminary 05/25/19 11:22 Blood Culture - Preliminary Blood No Growth after 72 hours 05/25/19 11:41 Blood Culture - Preliminary Blood No Growth after 72 hours Assessment and Plan Plan: Assessment: #1. Acute exacerbation of chronic congestive heart failure with reduced ej ection fraction, chest x-ray showed pattern of interstitial edema #2. Cough and congestion, shortness of breath, and increasing lower extremity edema related to the above, and likely a component of bronchitis #3. Complete heart block, bradycardia #4. Hyperkalemia, with serum potassium of 6.8, could be related to Entresto, and ATN, improved, on today's labs potassium is 4.4 #5. Chronic pain lower extremity wounds and cellulitis #6. Chronic hypoxemic respiratory failure, he wears home O2 on a as needed basis, likely related to chronic congestive heart failure, and suspect a component of obstructive sleep apnea #7. Previous episode of myocardial infarction #8. Diabetes mellitus with diabetic neuropathy #9. Hypertension, hyperlipidemia #10. Morbid obesity #11. History of polio syndrome as a child, he has chronic weakness in lower extremities #12. Remote history of smoking, smoking at age of 26, smoked a pack a day for 10 years Plan: Continue with current treatment, Lasix infusion per nephrology service. Patient is maintaining negative fluid balance. Lower extremity edema is improving, breathing easier. Hemodynamically stable, no fever or chills, culture data is pending, patient remains on antibiotic coverage in the form of Rocephin and vancomycin. He is stable to go out of intensive care unit. I performed a history & physical examination of the patient and discussed their management with my nurse practitioner, Kandy Kelley. I reviewed the nurse practitioner's note and agree with the documented findings and plan of care. Lung sounds are positive for diminished breath sounds with limited rhonchi. The findings and the impression was discussed with the patient. I attest to the documentation by the nurse practitioner. Time with Patient: Less than 30
--- NOTE | 2019-05-29 09:39 | PN ---
PROGRESS NOTE Mr. Duff is in a paced rhythm at 60 beats per minute. He is doing remarkably well. His edema is improved. Weight is down. Blood pressure is excellent on Norvasc 10 mg daily. Ejection fraction by echo is good. Vital signs stable. S1-S2 heard normally. Short systolic murmur noted. Lungs reveal improved air entry. Abdomen is soft. Lower extremity reveals that edema is less and his cellulitis looks less angry. Plan is to continue antibiotics and he has externalized pacemaker for now and he will have a dual-chamber pacemaker or a probably a biventricular pacemaker once his infection is resolved. Patient can be moved to the telemetry unit or to the med surg with telemetry. Discussed my thoughts in detail with the patient. S1, S2 heard normally. Short systolic murmur noted. Lungs reveal improved air entry. Abdomen is soft. Lower extremity edema is improved. MMODL / IJN: [id number] /
[2019-05-29 12:01] LABS: Glucose,Whole Blood 201 mg/dL (75-99)
[2019-05-29] MEDS: ASPIRIN 81 MG PO SCH (12:08)
[2019-05-29 17:07] LABS: Glucose,Whole Blood 210 mg/dL (75-99)
--- NOTE | 2019-05-29 17:15 | P.PN ---
Progress Note - Text Progress Note Date: 05/28/19 Chief Complaint: Tired Interval history: This is a 63-year-old patient of Dr. Ángel Cid. Chronic stable medical conditions include diabetes, hypertension, diabetic peripheral neuropathy. 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 Patient has no movement but has some sensation. Patient has off-and-on lower extremity cellulitis and has followed by Dr. Campuzano from infectious disease. Hasn't intubated dressings. Patient now presents with worsening swelling of the lower extremity burning sensation. No fever and chills. Also has some blistering drainage. Decreased appetite times rundown. Patient in the ER was found to be hyperkalemic with potassium. Being 6.8. Patient admitted to the ICU. complete heart block. found to be in CHF. . Patient normally uses a wheelchair/crutches or a walker to get about the house. Today-sitting up. Has been tolerating his meals. Remains on Lasix drip. Good urine output. Lower extremity edema is going down Review of systems: Was done for constitutional, cardiovascular, GI, pulmonary. relevant finding as above Current medications are reviewed and include: IV ceftriaxone, IV Lasix drip, IV vancomycin, Aquacel silver Physical examination: VITAL SIGNS:, 98.8, 60, 15, 139/62, 97% on 2 L GENERAL:, Propped up in bed, looking more comfortable EYES: Pupils equal. Conjunctiva normal. HEENT: External appearance of nose and ears normal, oral cavity grossly normal. NECK: JVD unable to assess; masses not palpable. HEART: First and second heart sounds are normal; decreased lower extremity edema. LUNGS: Respiratory rate increased, decreased breath sounds. ABDOMEN: Soft, distended nontender, liver spleen not palpable, no masses palpable. DERMATOLOGICAL dressing of both lower extremities Investigations, reviewed in the clinical context. Potassium 3.6, creatinine 1.09, Accu-Cheks 231, 206 Wounds ocmhnrvy-cqfv-ksmmuhss bacilli Assessment: -Acute on chronic congestive heart exacerbation from diastolic dysfunction EF 55-60%, remains on IV Lasix drip -Diabetes mellitus type 2, chronically on insulin, uncontrolled with hypoglycemia from poor oral intake -Essential hypertension -Right lower extremity paralysis from polio as a child -Morbid obesity BMI 40.7 -Bilateral lower extremity venous stasis ulcers and acute on chronic cellulitis -Acute metabolic acidosis from renal failure -Acute kidney injury probably from ATN from hepatorenal syndrome -Complete heart block, the setting of severe hyperkalemia, follow closely -Severe hyperkalemia in the setting of acute renal failure - metabolic acidosis Plan: Doing somewhat better. Remains on Lasix drip. Follow I's and O's. Follow electrolytes closely waiting for patient to move to the medical floor. Care was discussed with patient..
[2019-05-29] MEDS: amLODIPine 10 MG TAB PO SCH (20:18)
[2019-05-29] MEDS: INSULIN DETEMIR (LEVEMIR) 100 UNIT/ML SYR SQ SCH (21:55)
--- NOTE | 2019-05-29 22:00 | P.PN ---
Progress Note - Text Progress Note Date: 05/29/19 Chief Complaint: Tired Interval history: This is a 63-year-old patient of Dr. Ángel Cid. Chronic stable medical conditions include diabetes, hypertension, diabetic peripheral neuropathy. 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 Patient has no movement but has some sensation. Patient has off-and-on lower extremity cellulitis and has followed by Dr. Campuzano from infectious disease. Hasn't intubated dressings. Patient now presents with worsening swelling of the lower extremity burning sensation. No fever and chills. Also has some blistering drainage. Decreased appetite times rundown. Patient in the ER was found to be hyperkalemic with potassium. Being 6.8. Patient admitted to the ICU. complete heart block. found to be in CHF. . Patient normally uses a wheelchair/crutches or a walker to get about the house. Today-propped up in bed. Putting a diet. Edema continues to go down. Remains on IV Lasix drip. We'll be moved out of the ICU today. Remains on external pacemaker. Review of systems: Was done for constitutional, cardiovascular, GI, pulmonary. relevant finding as above Current medications are reviewed and include: IV ceftriaxone, IV Lasix drip, IV vancomycin, Aquacel silver Physical examination: VITAL SIGNS:, 98.2, 60, 13, 133/54, 93% on 2 L GENERAL:, Propped up in bed, comfortable EYES: Pupils equal. Conjunctiva normal. HEENT: External appearance of nose and ears normal, oral cavity grossly normal. NECK: JVD unable to assess; masses not palpable. HEART: First and second heart sounds are normal; decreased lower extremity edema. LUNGS: Respiratory rate increased, decreased breath sounds. ABDOMEN: Soft, distended nontender, liver spleen not palpable, no masses palpable. DERMATOLOGICAL dressing of both lower extremities MUSCULOSKELETAL: Short right leg from previous polio Investigations, reviewed in the clinical context. White count 10.5, hemoglobin 12.7, potassium 4.0, BNP 20, creatinine 0.99 [id number], 201 Wounds pcxprrsb-rsdh-bluvspcl bacilli Assessment: -Acute on chronic congestive heart exacerbation from diastolic dysfunction EF 55-60%, remains on IV Lasix drip -Diabetes mellitus 2, chronically on insulin, uncontrolled with hypoglycemia from poor oral intake, improved now -Essential hypertension -Right lower extremity paralysis from polio as a child -Morbid obesity BMI 40.7 -Bilateral lower extremity venous stasis ulcers and acute on chronic cellulitis -Acute metabolic acidosis from renal failure -Acute kidney injury probably from ATN from hepatorenal syndrome, resolved -Complete heart block, now with external t pacemaker, pending infection to settle down before permanent pacemaker can be done -Severe hyperkalemia in the setting of acute renal failure , corrected - metabolic acidosis, corrected Plan: Continue Lasix drip. Overall much better. Will be moving out of the ICU. Antibiotics per Dr. campuzano. Care is discussed with the patient.. Increase Levemir to 20 units
[2019-05-29 22:05] LABS: Glucose,Whole Blood 331 mg/dL (75-99)
[2019-05-29] MEDS ORDERED: INSULIN DETEMIR (LEVEMIR) 100 UNIT/ML SYR SQ SCH (22:15)
[2019-05-30] MEDS: FUROSEMIDE 100 MG in SODIUM CHLORIDE 0.9% 90 ML IV SCH ×3 (05:56→16:21)
[2019-05-30] MEDS: VANCOMYCIN 2,000 MG in SODIUM CHLORIDE 0.9% 500 ML 500 ML IVPB SCH (05:58)
[2019-05-30 07:05] LABS: Glucose,Whole Blood 177 mg/dL (75-99)
[2019-05-30] MEDS: INSULIN ASPART (NovoLOG) 100 UNIT/ML VIAL SQ SCH ×4 (08:42→22:21)
[2019-05-30] MEDS: HEPARIN SODIUM,PORCINE 5,000 UNIT/ML 1 ML VIAL SQ SCH ×2 (08:42→22:21)
[2019-05-30] MEDS: GABAPENTIN 100 MG CAP PO SCH ×2 (08:43→22:21)
[2019-05-30] MEDS: ASPIRIN 81 MG PO SCH (08:43)
[2019-05-30] MEDS: FAMOTIDINE 20 MG TAB PO SCH (08:43)
[2019-05-30] MEDS: IPRATROPIUM-ALBUTEROL 3 ML NEB INHALATION SCH ×4 (08:50→20:15)
[2019-05-30 11:39] LABS: Glucose,Whole Blood 230 mg/dL (75-99)
--- NOTE | 2019-05-30 14:49 | P.PN ---
Subjective This is a pleasant 63-year-old male seen and examined sitting up in bed on the surgical unit. He has an external pacemaker in place on the right anterior chest wall covered with a dressing. Currently maintained on Lasix infusion. No new lab values from today. Blood pressure 165/55 heart rate 68 afebrile maintaining oxygen saturation on room air. Ongoing lower extremity edema, bilateral Mik wraps in place. Weight is down 4 kg from admission. Maintaining a negative fluid balance. Currently pacing at a rate of 60. Denies chest pain, shortness of breath, dizziness or palpitations. [place] tinge noted to urine draining to dependent drainage bag. GENERAL: Well-appearing, well-nourished and in no acute distress. Morbidly obese. NECK: Supple without JVD or thyromegaly. LUNGS: Breath sounds clear to auscultation bilaterally. Respiration equal and unlabored. No wheezes, rales or rhonchi. Diminished bilaterally. HEART: Regular rate and rhythm with systolic ejection murmur at the base, no rubs or gallops. S1 and S2 heard. EXTREMITIES: Normal range of motion, bilateral Mik wraps in place with underlying edema. No clubbing or cyanosis. Peripheral pulses intact. ASSESSMENT Acute on chronic systolic heart failure. EF 12/2018 30-35% has improved to 55-60% on medical therapy Bilateral lower extremity cellulitis Chronic hypoxic respiratory failure Complete heart block status post external permanent pacemaker Hyperkalemia on admission, resolved Acute kidney injury, resolved Hypertension Diabetes mellitus Morbid obesity, BMI 47 PLAN Continue current medical regimen. Follow renal function and electrolytes tomorrow. Will require internal permanent pacemaker implantation when cellulitus has resolved. Nurse Practitioner note has been reviewed, I agree with a documented findings and plan of care. Patient was seen and examined. Objective - Vital Signs Vital signs: Vital Signs Temp 98.4 F 05/30/19 14:02 Pulse 60 05/30/19 14:02 Resp 20 05/30/19 14:02 BP 165/55 05/30/19 14:02 Pulse Ox 91 L 05/30/19 14:02 Intake & Output 05/29/19 05/30/19 05/30/19 18:59 06:59 18:59 Intake Total 700 500 267 Output Total 4205 0585 Balance -3500 -2806 267 Weight 124.3 kg Intake: Intake, IV Titration 100 100 267 Amount Furosemide 100 mg In 100 100 Sodium Chloride 0.9% 90 ml @ 10 MG/HR 10 mls/hr IV .Q10H [facility] Rx#: [id number] Vancomycin 2,000 mg In 167 Sodium Chloride 0.9% 500 ml 500 ml @ 167 mls/hr IVPB Q24H [facility] Rx#: [id number] cefTRIAXone 1 gm In 100 Sodium Chloride 0.9% 50 ml @ 100 mls/hr IVPB Q24HR [facility] Rx#:[id number] Oral 600 400 Output: Urine 4200 3075 Uretheral ([place]) 1200 1400 Other: Voiding Method Indwelling Catheter Indwelling Catheter Indwelling Catheter # Bowel Movements 1 - Labs CBC & Chem 7: 05/29/19 04:39 05/29/19 04:39 Labs: Abnormal Lab Results - Last 24 Hours (Table) 05/29/19 05/29/19 05/30/19 Range/Units 16:55 21:53 06:49 POC Glucose (mg/dL) 210 H 331 H 177 H (75-99) mg/dL 05/30/19 Range/Units 11:37 POC Glucose (mg/dL) 230 H (75-99) mg/dL Microbiology - Last 24 Hours (Table) 05/25/19 11:22 Blood Culture - Preliminary Blood No Growth after 120 hours 05/25/19 11:41 Blood Culture - Preliminary Blood No Growth after 120 hours
[2019-05-30 14:58] VITALS: BMI 47.0
--- NOTE | 2019-05-30 16:37 | P.PN ---
Subjective Progress Note Date: 05/30/19 Principal diagnosis: Exacerbation of chronic congestive heart failure with reduced ejection fraction This is a 63-year-old white male patient of Dr. Cid, past medical history of diabetes mellitus, chronic congestive heart failure, morbid obesity, previous episode of myocardial infarction, remote history of smoking, hypertension, hyperlipidemia, polio syndrome during his childhood and patient has a sequela of lower extremity weakness. Patient has moderately severe impaired left ventricle systolic function with EF of 30-35%, mild tricuspid regurgitation, mild pulmonary hypertension with right-sided pressures of 38 mmHg. Patient is maintained on Entresto. Patient has open weeping wounds on his bilateral lower extremities, and cellulitis. Previously followed with Dr. Campuzano, received vancomycin infusions in the past, however he has not seen Dr. Campuzano in several months. Does wear home O2 at bedtime and on as-needed basis, does not have history of COPD or asthma. He states for the last week and a half he has been coming down with a cold, progressive cough and congestion, with production of yellow sputum. He denied fevers, but is positive for chills. Admitted of some chest heaviness intermittently, lasting about 5 minutes. Noted increasing lower extremity edema, redness, and weeping. Patient's insisted he come to the emergency room for evaluation last night. Chest x-ray was completed showing mild pulmonary vascular congestion, mild diffuse interstitial prominence. The ER patient was noted to be in third-degree heart block, a cardiac with a rate in the 30s, his states it is common for the patient and his heart rate does get as low as 20s when he's at home. Lab work showed a white blood cell count of 13.0, hemoglobin of 11.5, platelet count is 456, INR is 1.0, sodium was 141, potassium was elevated at 6.8, chloride was 110, CO2 is 21, BUN is 56, creatinine is 1.49, proBNP was elevated at 3180, troponin was negative 1, LFTs were within normal limits. Patient was given a dose of IV Lasix, her Anemia was treated with 50% dextrose, calcium gluconate, insulin, repeat blood work is pending. Patient has been evaluated by cardiology, placed on Lasix drip at 10 mg per hour, echocardiogram is in progress. We can alert, he is being seen in the intensive care unit, lung sounds are clear, diminished at the bases, no significant wheezing or congestion, states at times to bring up whitish colored sputum. He is in third-degree heart block with a rate of 36, he is on Tuesdays of oxygen with a pulse ox of 97%, he is afebrile. he has been started on antibiotics in the form of vancomycin, we'll add Rocephin for gram-negative cov erage and breathing treatments. On 05/26/2019 patient seen in follow-up in the intensive care unit, he is awake and alert, oriented 3, looks calm and comfortable, no acute distress, denies any worsening shortness of breath, he is currently on 2 L of oxygen and pulse ox is 96%, low-grade temp this morning with a T-max of 99.0F, afebrile overnight. Remains in third-degree heart block with a rate of 36 BPM, pressures 131/40, with a mean of 70, patient is avoiding, he is nonoliguric. His labs have been reviewed, showing now with blood cell count of 9.2, hemoglobin of 10.4, platelet count was 414, electrolytes were within normal limits, BUN of 46, creatinine is 1.33. TSH was within normal limits at 1.940. Today's chest x-ray shows interstitial prominence, residual mild pulmonary vascular congestion. Patient has been started on IV Lasix drip, he is in -4472 mL fluid balance over the last 24 hours, he is weight is down 0.9 kg. Extremity edema is improved in appearance, lower extremities are Mik wrapped. Antibiotic coverage in the form of Rocephin and vancomycin, cultures are pending. On 05/27/2019 patient seen in follow-up in the intensive care unit, yesterday patient received externalized permanent pacemaker for third-degree AV block. Pacemaker programmed to VVI 60. Patient is a paced rhythm at 60 on the monitor today. Awake and alert, resting comfortably in bed, eating breakfast this morning. Denies any shortness of breath or chest pain. Vital signs are stable, he is on 2 L of oxygen with a pulse ox of 95%, afebrile, hemodynamically stable, Lasix drip continues at 10 mg per hour, no other drips. She is in -6234 mL fluid balance over the last 24 hours, he is weight is down 4 kg in the last 24 hours. Cultures showed no growth. Serum edema is improving, patient states that warmth and redness in his right leg seemed to be going up and into his right upper thigh, on inspection the redness does not seem to have spread past the knee. Infectious disease is following, patient is on a combination of Rocephin and vancomycin. Lung sounds are positive for some coarse breath sounds, overall improved, less congested since admission. On 05/29/2019 patient seen in follow-up in intensive care unit. His been awaiting a bed on selective care unit, he is been an overflow status for last couple of days. He is awake and alert, oriented 3, hemodynamically patient is stable, he is on 2 L of oxygen with a pulse ox of 96%, afebrile. Blood cultures and wound cultures are pending, pulmonary Gram stain from the left leg weeping wounds positive for moderate gram-negative bacilli, and rare gram-positive cocci, final cultures pending. Patient remains with the external part a pacemaker in his right chest. No worsening shortness of breath, lung sounds are clear on today's exam, no wheezing or rhonchi, his labs have been reviewed, showing white blood cell, 10.5, hemoglobin of 12.7, platelet count is 527, electrolytes and renal profile are within normal limits. Lower extremities are Mik wrapped, and lower extremity edema has significantly improved, patient remains on Lasix drip at 10 mg per hour, no other drips. Net fluid balance is - 2797 mL over the last 24 hours. On 05/30/2019 patient seen in follow-up on medical surgical floor. He is calm and comfortable, resting comfortably in bed, lung sounds are clear, diminished at the bases, denies any shortness of breath, no completed chest pain. Room air pulse ox is 91%, afebrile, hemodynamically stable, patient is on Lasix drip at 10 [place] per hour, continues to diurese significantly, and patient is in -6075 ML of net fluid balance for the last 24 hours, fluid volume status is improving, lower extremity edema in general is edema are improving. No fever or chills, he is on a combination of of Rocephin and vancomycin, and wound culture from the left leg showed pseudomonas aeruginosa. Was switched to ceftriaxone to cefepime. Lung sounds are essentially clear to auscultation, patient has per manent pacemaker externally placed, is 100% paced on the monitor. Lower extremity wounds are covered with dressings, also silver dressing to open ulcerations on the anterior shins on bilateral lower extremities. Objective - Vital Signs Vital signs: Vital Signs Temp 98.4 F 05/30/19 14:02 Pulse 61 05/30/19 16:26 Resp 16 05/30/19 16:26 BP 165/55 05/30/19 14:02 Pulse Ox 95 05/30/19 16:26 Intake & Output 05/29/19 05/30/19 05/30/19 18:59 06:59 18:59 Intake Total 700 500 367 Output Total 4200 3075 Balance -3500 -2575 367 Weight 124.3 kg 124.3 kg Intake: Intake, IV Titration 100 100 367 Amount Furosemide 100 mg In 100 100 100 Sodium Chloride 0.9% 90 ml @ 10 MG/HR 10 mls/hr IV .Q10H [facility] F Rx#: [id number] Vancomycin 2,000 mg In 167 Sodium Chloride 0.9% 500 ml 500 ml @ 167 mls/hr IVPB Q24H [facility] F Rx#: [id number] cefTRIAXone 1 gm In 100 Sodium Chloride 0.9% 50 ml @ 100 mls/hr IVPB Q24HR [facility] F Rx#:[id number] Oral 600 400 Output: Urine 4200 3075 Uretheral ([place]) 1200 1400 Other: Voiding Method Indwelling Catheter Indwelling Catheter Indwelling Catheter # Bowel Movements 1 - Exam GENERAL EXAM: Alert, pleasant, 63-year-old obese white male, on 2 L of oxygen with a pulse ox of 96%, comfortable in no apparent distress. HEAD: Normocephalic/atraumatic. EYES: Normal reaction of pupils, equal size. Conjunctiva pink, sclera white. NOSE: Clear with pink turbinates. THROAT: No erythema or exudates. NECK: No masses, no JVD, no thyroid enlargement, no adenopathy. CHEST: No chest wall deformity. Symmetrical expansion. Right upper chest external eyes pacemaker LUNGS: Equal air entry with diminished breath sounds at the bases, slightly congested cough CVS: Regular rate and rhythm, normal S1 and S2, no gallops, no murmurs, no rubs. Patient is a paced rhythm at a rate of 60 on the monitor ABDOMEN: Soft, nontender. No hepatosplenomegaly, normal bowel sounds, no guarding or rigidity. EXTREMITIES: No clubbing, improved erythema and minimal edema of left lower extremity and no edema in right lower leg, with open wounds on lower extremities, weeping clear drainage, wound borders are distinct and sharply demarcated, likely related to chronic venous stasis ulcers, no cyanosis, 2+ pulses and upper and lower extremities. Lower extremities are Mik wrapped MUSCULOSKELETAL: Muscle strength and tone normal. SPINE: No scoliosis or deformity SKIN: No rashes CENTRAL NERVOUS SYSTEM: Alert and oriented -3. No focal deficits, tone is normal in all 4 extremities. PSYCHIATRIC: Alert and oriented -3. Appropriate affect. Intact judgment and insight. - Labs CBC & Chem 7: 05/29/19 04:39 05/29/19 04:39 Labs: Abnormal Lab Results - Last 24 Hours (Table) 05/29/19 05/29/19 05/30/19 Range/Units 16:55 21:53 06:49 POC Glucose (mg/dL) 210 H 331 H 177 H (75-99) mg/dL 05/30/19 Range/Units 11:37 POC Glucose (mg/dL) 230 H (75-99) mg/dL Microbiology - Last 24 Hours (Table) 05/28/19 05:30 Gram Stain - Final Leg - Left Wound Culture - Final Pseudomonas aeruginosa 05/28/19 05:30 Gram Stain - Final Leg - Right Wound Culture - Final 05/25/19 11:22 Blood Culture - Preliminary Blood No Growth after 120 hours 05/25/19 11:41 Blood Culture - Preliminary Blood No Growth after 120 hours Assessment and Plan Plan: Assessment: #1. Acute exacerbation of chronic congestive heart failure with reduced ejection fraction, chest x-ray showed pattern of interstitial edema #2. Cough and congestion, shortness of breath, and increasing lower extremity edema related to the above, and likely a component of bronchitis #3. Complete heart block, bradycardia #4. Hyperkalemia, with serum potassium of 6.8, could be related to Entresto, and ATN, improved, on today's labs potassium is 4.4 #5. Chronic pain lower extremity wounds and cellulitis #6. Chronic hypoxemic respiratory failure, he wears home O2 on a as needed basis, likely related to chronic congestive heart failure, and suspect a component of obstructive sleep apnea #7. Previous episode of myocardial infarction #8. Diabetes mellitus with diabetic neuropathy #9. Hypertension, hyperlipidemia #10. Morbid obesity #11. History of polio syndrome as a child, he has chronic weakness in lower extremities #12. Remote history of smoking, smoking at age of 26, smoked a pack a day for 10 years #13. Pseudomonal infection in the left lower extremity cellulitis wound Plan: Repeat BMP in the morning, which antibiotic coverage from Rocephin to cefepime, continue with vancomycin, wound care culture per ID service recommendations. Continue with Lasix drip, nebulized bronchodilators, is maintaining negative fluid balance, he is on room air, no worsening shortness of breath, complex chest pain. Hemodynamically stable. We'll continue to follow. I performed a history & physical examination of the patient and discussed their management with my nurse practitioner, Kandy Kelley. I reviewed the nurse practitioner's note and agree with the documented findings and plan of care. Lung sounds are positive for diminished breath sounds with limited rhonchi. The findings and the impression was discussed with the patient. I attest to the documentation by the nurse practitioner. Time with Patient: Less than 30
[2019-05-30 16:43] LABS: Glucose,Whole Blood 326 mg/dL (75-99)
[2019-05-30 16:50] LABS: Amorphous Sediment,Urine Rare /hpf; Appearance,Urine Cloudy (Clear); Bilirubin,Urine Negative (Negative); Blood,Urine Large (Negative); Color,Urine Light Red; Glucose,Urine (UA) Trace (Negative); Ketones,Urine Negative (Negative); Leukocyte Esterase,Urine Moderate (Negative); Nitrite,Urine Negative (Negative); Protein,Urine 2+ (Negative); RBC,Urine >182 /hpf (0-5); Specific Gravity,Urine 1.016 (1.001-1.035); Squamous Epithelial Cell,Urine 3 /hpf (0-4); Urobilinogen,Urine <2.0 mg/dL (<2.0); WBC,Urine 22 /hpf (0-5)
--- NOTE | 2019-05-30 18:31 | P.PN ---
Subjective 63-year-old gentleman comes into the ER for leg swelling and burning sensation. He was also having some blistering drainage from his bilateral lower extremities. Labwork done in the ER showed that he was hyperkalemic with a potassium of 6.8. He was also having complete heart block. External pacers were placed. Potassium was corrected patient was admitted to ICU. Patient was started on Lasix drip. Infectious disease was consulted and he is on antibioticsfor cellulitis. Today the patient says that he's feeling better. Shortness of breath and swelling in the lower Ixodes or better. He does not complain of any chest pain. No fever no chills no abdominal pain, nausea and vomiting, or diarrhea constipation. Objective - Vital Signs Vital signs: Vital Signs Temp 98.4 F 05/30/19 14:02 Pulse 60 05/30/19 16:36 Resp 16 05/30/19 16:36 BP 165/55 05/30/19 14:02 Pulse Ox 95 05/30/19 16:26 Intake & Output 05/29/19 05/30/19 05/30/19 18:59 06:59 18:59 Intake Total 700 500 367 Output Total 4200 3075 Balance -3500 -2575 367 Weight 124.3 kg 124.3 kg Intake: Intake, IV Titration 100 100 367 Amount Furosemide 100 mg In 100 100 100 Sodium Chloride 0.9% 90 ml @ 10 MG/HR 10 mls/hr IV .Q10H [facility] F Rx#: [id number] Vancomycin 2,000 mg In 167 Sodium Chloride 0.9% 500 ml 500 ml @ 167 mls/hr IVPB Q24H [facility] F Rx#: [id number] cefTRIAXone 1 gm In 100 Sodium Chloride 0.9% 50 ml @ 100 mls/hr IVPB Q24HR [facility] F Rx#:[id number] Oral 600 400 Output: Urine 4200 3075 Uretheral ([place]) 1200 1400 Other: Voiding Method Indwelling Catheter Indwelling Catheter Indwelling Catheter # Bowel Movements 1 - Exam On exam, alert and oriented x3. HEENT: Conjunctivae normal. eyes normal. NECK: No JVD. No thyroid enlargement. No LNs CARDIOVASCULAR: assessment positive RESPIRATION: Breath sounds diminished in the bases. No rhonchi or crackles. No bronchial breathing. ABDOMEN: Soft, nontender . No guarding. no masses palpable. No ascites, No hepatosplenomegaly.Bowel sounds heard. LEGS: the lateral lower extremities swelling. Dressing applied NERVOUS SYSTEM: Cranial N 2-12 grossly normal. Moves all 4 limbs. No focal deficits. No sensory deficit. No signs of cerebellar dysfucntion. Skin: no ulcer no rash - Labs CBC & Chem 7: 05/29/19 04:39 05/29/19 04:39 Labs: Abnormal Lab Results - Last 24 Hours (Table) 05/29/19 05/30/19 05/30/19 Range/Units 21:53 06:49 11:37 POC Glucose (mg/dL) 331 H 177 H 230 H (75-99) mg/dL Urine Protein (Negative) Urine Glucose (UA) (Negative) Urine Blood (Negative) Ur Leukocyte Esterase (Negative) Urine RBC (0-5) /hpf Urine WBC (0-5) /hpf Amorphous Sediment (None) /hpf 05/30/19 05/30/19 Range/Units 16:00 16:31 POC Glucose (mg/dL) 326 H (75-99) mg/dL Urine Protein 2+ H (Negative) Urine Glucose (UA) Trace H (Negative) Urine Blood Large H (Negative) Ur Leukocyte Esterase Moderate H (Negative) Urine RBC >182 H (0-5) /hpf Urine WBC 22 H (0-5) /hpf Amorphous Sediment Rare H (None) /hpf Microbiology - Last 24 Hours (Table) 05/28/19 05:30 Gram Stain - Final Leg - Left Wound Culture - Final Pseudomonas aeruginosa 05/28/19 05:30 Gram Stain - Final Leg - Right Wound Culture - Final 05/25/19 11:22 Blood Culture - Preliminary Blood No Growth after 120 hours 05/25/19 11:41 Blood Culture - Preliminary Blood No Growth after 120 hours Assessment and Plan Assessment: - acute on chronic CHF exacerbation - Bilateral lower Ixodes cellulitis - Hyperkalemia - Complete heart block on external pacemakers - AK I secondary to cardiorenal syndrome - Obesity - 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
[2019-05-30 21:13] LABS: Glucose,Whole Blood 337 mg/dL (75-99)
[2019-05-30] MEDS: amLODIPine 10 MG TAB PO SCH (22:21)
[2019-05-30] MEDS: INSULIN DETEMIR (LEVEMIR) 100 UNIT/ML SYR SQ SCH (22:21)
--- NOTE | 2019-05-30 22:33 | PN ---
PROGRESS NOTE DATE OF SERVICE: 05/30/2019. REASON FOR FOLLOWUP: Bilateral lower extremity cellulitis and wound. INTERVAL HISTORY: The patient is currently afebrile. The patient has been breathing comfortably. Denies having any chest pain or cough. No nausea, no vomiting. No abdominal pain or any diarrhea. PHYSICAL EXAMINATION: Blood pressure is 155/55 with a pulse of 80, temperature 98.4. He is 95% on 3 L nasal cannula. General description is a middle-aged male lying in bed in no distress. Respiratory system: Unlabored breathing, clear to auscultation anteriorly. HEART: S1, S2. Regular rate and rhythm. Abdomen soft, no tenderness. Lower extremity wounds are healing and redness is much improved. LABS: BUN of 20, creatinine 0.99. Urine is positive. DIAGNOSTIC IMPRESSION AND PLAN: Patient with bilateral extremity venous stasis ulcer with secondary cellulitis. Wound culture showing Pseudomonas aeruginosa, antibiotic has been adjusted to cefepime, vancomycin discontinued. Local care to continue with Aquacel Silver dressing and Mik wrap. Continue supportive care. MMODL / IJN: [id number] /
[2019-05-31] MEDS: CEFEPIME 2 GM in SODIUM CHLORIDE 0.9% 100 ML IVPB SCH ×5 (00:12→23:12)
[2019-05-31] MEDS: FUROSEMIDE 100 MG in SODIUM CHLORIDE 0.9% 90 ML IV SCH ×3 (02:09→23:44)
[2019-05-31] MEDS ORDERED: VANCOMYCIN TROUGH DUE 1 EACH MISC MISCELLANE ONE (05:00)
[2019-05-31 06:07] LABS: African American GFR (CKD) >90 (>60 ml/min/1.73 sqM); Anion Gap 10 mmol/L; Blood Urea Nitrogen 23 mg/dL (9-20); Carbon Dioxide 29 mmol/L (22-30); Chloride 101 mmol/L (98-107); Glucose 217 mg/dL (74-99); Potassium 3.7 mmol/L (3.5-5.1); Sodium 140 mmol/L (137-145)
[2019-05-31 06:59] LABS: Glucose,Whole Blood 200 mg/dL (75-99)
[2019-05-31] MEDS: INSULIN ASPART (NovoLOG) 100 UNIT/ML VIAL SQ SCH ×4 (07:57→21:05)
[2019-05-31] MEDS: FAMOTIDINE 20 MG TAB PO SCH (07:59)
[2019-05-31] MEDS: GABAPENTIN 100 MG CAP PO SCH ×2 (07:59→21:05)
[2019-05-31] MEDS: ASPIRIN 81 MG PO SCH (07:59)
[2019-05-31] MEDS: HEPARIN SODIUM,PORCINE 5,000 UNIT/ML 1 ML VIAL SQ SCH ×2 (07:59→21:05)
[2019-05-31] MEDS: IPRATROPIUM-ALBUTEROL 3 ML NEB INHALATION SCH ×4 (08:29→20:15)
[2019-05-31 09:15] LABS: Basophils # (A) 0.1 k/uL (0-0.2); Basophils % (A) 1 %; Eosinophils # (A) 0.7 k/uL (0-0.7); Eosinophils % (A) 7 %; HCT 42.7 % (39.0-53.0); HGB 13.3 gm/dL (13.0-17.5); Lymphocytes # (A) 1.8 k/uL (1.0-4.8); Lymphocytes % (A) 17 %; MCH 27.6 pg (25.0-35.0); MCHC 31.3 g/dL (31.0-37.0); MCV 88.2 fL (80.0-100.0); Mean Platelet Volume 7.4; Monocytes # (A) 0.7 k/uL (0-1.0); Monocytes % (A) 7 %; Neutrophils % (A) 66 %; Platelet Count 502 k/uL (150-450); RBC 4.83 m/uL (4.30-5.90); RDW 14.5 % (11.5-15.5); WBC 10.6 k/uL (3.8-10.6)
[2019-05-31 11:22] LABS: Glucose,Whole Blood 259 mg/dL (75-99)
--- NOTE | 2019-05-31 13:53 | P.PN ---
Subjective This is a pleasant 63-year-old male seen and examined sitting up in bed on the surgical unit. He has an external pacemaker in place on the right anterior chest wall covered with a dressing. Currently maintained on Lasix infusion. No new lab values from today. Blood pressure 165/55 heart rate 68 afebrile maintaining oxygen saturation on room air. Ongoing lower extremity edema, bilateral Mik wraps in place. Weight is down 4 kg from admission. Maintaining a negative fluid balance. Currently pacing at a rate of 60. Denies chest pain, shortness of breath, dizziness or palpitations. [place] tinge noted to urine draining to dependent drainage bag. 05/31/2019 Pt is seen and examined sitting up in bed with at the bedside. Denies any worsening shortness of breath, no chest, dizziness or palpitations. Continues to be paced 100%. Site is covered with tegaderm, no redness or drainage noted. Blood pressure 137/64 heart rate 60 afebrile and maintaining oxygen saturation on nasal cannula. Weight is down significantly since admission. Urine output has decreased in the previous 24 hours, however approximately 1500cc of urine is in his suarez bag not yet documented in the chart. Laboratory data reviewed, WBC 10.6, hemoglobin 13.3, platelets 502, sodium 140, potassium 3.7, creatinine 0.95. GENERAL: Well-appearing, well-nourished and in no acute distress. Morbidly obese. NECK: Supple without JVD or thyromegaly. LUNGS: Breath sounds clear to auscultation bilaterally. Respiration equal and unlabored. No wheezes, rales or rhonchi. Diminished bilaterally. HEART: Regular rate and rhythm with systolic ejection murmur at the base, no rubs or gallops. S1 and S2 heard. EXTREMITIES: Normal range of motion, bilateral Mik wraps in place with underlying edema that is improved slightly from yesterday's exam. No clubbing or cyanosis. Peripheral pulses intact. ASSESSMENT Acute on chronic systolic heart failure. EF 12/2018 30-35% has improved to 55-60% on medical therapy Bilateral lower extremity cellulitis Chronic hypoxic respiratory failure Complete heart block status post external permanent pacemaker Hyperkalemia on admission, resolved Acute kidney injury, resolved Hypertension Diabetes mellitus Morbid obesity, BMI 47 PLAN Continue lasix infusion for another 24 hours. If he requires outpatient antibiotics, no PICC line in the left extremity. Ongoing I&O documentation, follow kidney function and electrolytes in the morning. We will continue to follow and make recommendations accordingly. Nurse Practitioner note has been reviewed, I agree with a documented findings and plan of care. Patient was seen and examined. Objective - Vital Signs Vital signs: Vital Signs Temp 98.3 F 05/31/19 07:30 Pulse 64 05/31/19 12:18 Resp 16 05/31/19 07:30 BP 137/64 05/31/19 07:30 Pulse Ox 95 05/31/19 07:30 Intake & Output 05/30/19 05/31/19 05/31/19 18:59 06:59 18:59 Intake Total 847 938 320 Output Total 1300 Balance 847 -362 320 Weight 124.3 kg 113 kg Intake: Intake, IV Titration 367 248 Amount Cefepime 2 gm In Sodium 100 Chloride 0.9% 100 ml @ 200 mls/hr IVPB Q8HR [facility] Rx#:[id number] Furosemide 100 mg In 100 98 Sodium Chloride 0.9% 90 ml @ 10 MG/HR 10 mls/hr IV .Q10H [facility] Rx#: [id number] Vancomycin 2,000 mg In 167 Sodium Chloride 0.9% 500 ml 500 ml @ 167 mls/hr IVPB Q24H [facility] Rx#: [id number] cefTRIAXone 1 gm In 100 50 Sodium Chloride 0.9% 50 ml @ 100 mls/hr IVPB Q24HR [facility] Rx#:[id number] Oral 480 690 320 Output: Urine 1300 Other: Voiding Method Indwelling Catheter Indwelling Catheter Indwelling Catheter # Bowel Movements 1 - Labs CBC & Chem 7: 05/31/19 05:33 05/31/19 05:33 Labs: Abnormal Lab Results - Last 24 Hours (Table) 05/30/19 05/30/19 05/30/19 Range/Units 16:00 16:31 21:10 Plt Count (150-450) k/uL BUN (9-20) mg/dL Glucose (74-99) mg/dL POC Glucose (mg/dL) 326 H 337 H (75-99) mg/dL Urine Protein 2+ H (Negative) Urine Glucose (UA) Trace H (Negative) Urine Blood Large H (Negative) Ur Leukocyte Esterase Moderate H (Negative) Urine RBC >182 H (0-5) /hpf Urine WBC 22 H (0-5) /hpf Amorphous Sediment Rare H (None) /hpf 05/31/19 05/31/19 05/31/19 Range/Units 05:33 05:33 06:58 Plt Count 502 H (150-450) k/uL BUN 23 H (9-20) mg/dL Glucose 217 H (74-99) mg/dL POC Glucose (mg/dL) 200 H (75-99) mg/dL Urine Protein (Negative) Urine Glucose (UA) (Negative) Urine Blood (Negative) Ur Leukocyte Esterase (Negative) Urine RBC (0-5) /hpf Urine WBC (0-5) /hpf Amorphous Sediment (None) /hpf 05/31/19 Range/Units 11:21 Plt Count (150-450) k/uL BUN (9-20) mg/dL Glucose (74-99) mg/dL POC Glucose (mg/dL) 259 H (75-99) mg/dL Urine Protein (Negative) Urine Glucose (UA) (Negative) Urine Blood (Negative) Ur Leukocyte Esterase (Negative) Urine RBC (0-5) /hpf Urine WBC (0-5) /hpf Amorphous Sediment (None) /hpf Microbiology - Last 24 Hours (Table) 05/28/19 05:30 Gram Stain - Final Leg - Left Wound Culture - Final Pseudomonas aeruginosa 05/28/19 05:30 Gram Stain - Final Leg - Right Wound Culture - Final 05/25/19 11:22 Blood Culture - Preliminary Blood No Growth after 120 hours 05/25/19 11:41 Blood Culture - Preliminary Blood No Growth after 120 hours
--- NOTE | 2019-05-31 14:00 | P.PN ---
Subjective Progress Note Date: 05/31/19 Principal diagnosis: Acute exacerbation of chronic congestive heart failure, systolic in nature, reduced ejection fraction This is a 63-year-old white male patient of Dr. Cid, past medical history of diabetes mellitus, chronic congestive heart failure, morbid obesity, previous episode of myocardial infarction, remote history of smoking, hypertension, hyperlipidemia, polio syndrome during his childhood and patient has a sequela of lower extremity weakness. Patient has moderately severe impaired left ventricle systolic function with EF of 30-35%, mild tricuspid regurgitation, mild pulmonary hypertension with right-sided pressures of 38 mmHg. Patient is maintained on Entresto. Patient has open weeping wounds on his bilateral lower extremities, and cellulitis. Previously followed with Dr. Campuzano, received vancomycin infusions in the past, however he has not seen Dr. Campuzano in several months. Does wear home O2 at bedtime and on as-needed basis, does not have hist ory of COPD or asthma. He states for the last week and a half he has been coming down with a cold, progressive cough and congestion, with production of yellow sputum. He denied fevers, but is positive for chills. Admitted of some chest heaviness intermittently, lasting about 5 minutes. Noted increasing lower extremity edema, redness, and weeping. Patient's insisted he come to the emergency room for evaluation last night. Chest x-ray was completed showing mild pulmonary vascular congestion, mild diffuse interstitial prominence. The ER patient was noted to be in third-degree heart block, a cardiac with a rate in the 30s, his states it is common for the patient and his heart rate does get as low as 20s when he's at home. Lab work showed a white blood cell count of 13.0, hemoglobin of 11.5, platelet count is 456, INR is 1.0, sodium was 141, potassium was elevated at 6.8, chloride was 110, CO2 is 21, BUN is 56, creatinine is 1.49, proBNP was elevated at 3180, troponin was negative 1, LFTs were within normal limits. Patient was given a dose of IV Lasix, her Anemia was treated with 50% dextrose, calcium gluconate, insulin, repeat blood work is pending. Patient has been evaluated by cardiology, placed on Lasix drip at 10 mg per hour, echocardiogram is in progress. We can alert, he is being seen in the intensive care unit, lung sounds are clear, diminished at the bases, no significant wheezing or congestion, states at times to bring up whitish colored sputum. He is in third-degree heart block with a rate of 36, he is on Tuesdays of oxygen with a pulse ox of 97%, he is afebrile. he has been started on antibiotics in the form of vancomycin, we'll add Rocephin for gram-negative coverage and breathing treatments. On 05/26/2019 patient seen in follow-up in the intensive care unit, he is awake and alert, oriented 3, looks calm and comfortable, no acute distress, denies any worsening shortness of breath, he is currently on 2 L of oxygen and pulse ox is 96%, low-grade temp this morning with a T-max of 99.0F, afebrile overnight. Remains in third-degree heart block with a rate of 36 BPM, pressures 131/40, with a mean of 70, patient is avoiding, he is nonoliguric. His labs have been reviewed, showing now with blood cell count of 9.2, hemoglobin of 10.4, platelet count was 414, electrolytes were within normal limits, BUN of 46, creatinine is 1.33. TSH was within normal limits at 1.940. Today's chest x-ray shows interstitial prominence, residual mild pulmonary vascular congestion. Patient has been started on IV Lasix drip, he is in -4472 mL fluid balance over the last 24 hours, he is weight is down 0.9 kg. Extremity edema is improved in appe arance, lower extremities are Mik wrapped. Antibiotic coverage in the form of Rocephin and vancomycin, cultures are pending. On 05/27/2019 patient seen in follow-up in the intensive care unit, yesterday patient received externalized permanent pacemaker for third-degree AV block. Pacemaker programmed to VVI 60. Patient is a paced rhythm at 60 on the monitor today. Awake and alert, resting comfortably in bed, eating breakfast this morning. Denies any shortness of breath or chest pain. Vital signs are stable, he is on 2 L of oxygen with a pulse ox of 95%, afebrile, hemodynamically stable, Lasix drip continues at 10 mg per hour, no other drips. She is in -6234 mL fluid balance over the last 24 hours, he is weight is down 4 kg in the last 24 hours. Cultures showed no growth. Serum edema is improving, patient states that warmth and redness in his right leg seemed to be going up and into his right upper thigh, on inspection the redness does not seem to have spread past the knee. Infectious disease is following, patient is on a combination of Rocephin and vancomycin. Lung sounds are positive for some coarse breath sounds, overall improved, less congested since admission. The patient is seen today 05/28/2019 in follow-up in the intensive care unit. He is awake and alert in no acute distress. Denies any worsening shortness of breath, cough or congestion. He is maintaining good O2 saturations in the 90s on 2 L/m per nasal cannula. He is afebrile. He is on Lasix drip at 10 mg per hour. Remains in a negative balance. He remains on vancomycin and Rocephin. Temporary pacemaker in place. Blood cultures reveal no growth. Creatinine 1.09. He denies any chest pain, palpitations lightheadedness or dizziness. On 05/29/2019 patient seen in follow-up in intensive care unit. His been awaiting a bed on selective care unit, he is been an overflow status for last couple of days. He is awake and alert, oriented 3, hemodynamically patient is stable, he is on 2 L of oxygen with a pulse ox of 96%, afebrile. Blood cultures and wound cultures are pending, pulmonary Gram stain from the left leg weeping wounds positive for moderate gram-negative bacilli, and rare gram-positive cocci, final cultures pending. Patient remains with the external part a pacemaker in his right chest. No worsening shortness of breath, lung sounds are clear on today's exam, no wheezing or rhonchi, his labs have been reviewed, showing white blood cell, 10.5, hemoglobin of 12.7, platelet count is 527, electrolytes and renal profile are within normal limits. Lower extremities are Mik wrapped, and lower extremity edema has significantly improved, patient remains on Lasix drip at 10 mg per hour, no other drips. Net fluid balance is - 2797 mL over the last 24 hours. On 05/30/2019 patient seen in follow-up on medical surgical floor. He is calm and comfortable, resting comfortably in bed, lung sounds are clear, diminished at the bases, denies any shortness of breath, no completed chest pain. Room air pulse ox is 91%, afebrile, hemodynamically stable, patient is on Lasix drip at 10 [place] per hour, continues to diurese significantly, and patient is in -6075 ML of net fluid balance for the last 24 hours, fluid volume status is improving, lower extremity edema in general is edema are improving. No fever or chills, he is on a combination of of Rocephin and vancomycin, and wound culture from the left leg showed pseudomonas aeruginosa. Was switched to ceftriaxone to cefepime. Lung sounds are essentially clear to auscultation, patient has permanent pacemaker externally placed, is 100% paced on the monitor. Lower extremity wounds are covered with dressings, also silver dressing to open ulcerations on the anterior shins on bilateral lower extremities. The patient is seen today 05/31/2019 in follow-up on the regular medical floor. He is currently sitting up at the bedside. Awake and alert in no acute distress. He denies any worsening shortness of breath, cough or congestion. Currently maintaining good O2 saturations in the mid 90s on 3 L/m per nasal cannula. He's been afebrile. Hemodynamically stable. Wound culture was positive for pseudomonas aeruginosa. Blood cultures were negative. White count 10.6. Hemoglobin 13.3. Creatinine 0.95. Currently on DuoNeb inhalations, antibiotics in the form of cefepime. He remains on a Lasix drip at 10 mg per hour. Currently in a negative balance. Objective - Vital Signs Vital signs: Vital Signs Temp 98.3 F 05/31/19 07:30 Pulse 64 05/31/19 12:18 Resp 16 05/31/19 07:30 BP 137/64 05/31/19 07:30 Pulse Ox 95 05/31/19 07:30 Intake & Output 05/30/19 05/31/19 05/31/19 18:59 06:59 18:59 Intake Total 847 938 320 Output Total 1300 Balance 847 -362 320 Weight 124.3 kg 113 kg Intake: Intake, IV Titration 367 248 Amount Cefepime 2 gm In Sodium 100 Chloride 0.9% 100 ml @ 200 mls/hr IVPB Q8HR [facility] Rx#:[id number] Furosemide 100 mg In 100 98 Sodium Chloride 0.9% 90 ml @ 10 MG/HR 10 mls/hr IV .Q10H [facility] Rx#: [id number] Vancomycin 2,000 mg In 167 Sodium Chloride 0.9% 500 ml 500 ml @ 167 mls/hr IVPB Q24H [facility] Rx#: [id number] cefTRIAXone 1 gm In 100 50 Sodium Chloride 0.9% 50 ml @ 100 mls/hr IVPB Q24HR [facility] Rx#:[id number] Oral 480 690 320 Output: Urine 1300 Other: Voiding Method Indwelling Catheter Indwelling Catheter Indwelling Catheter # Bowel Movements 1 - Exam GENERAL EXAM: Alert, pleasant, 63-year-old male, on 3 L of oxygen with a pulse ox of 95%, comfortable in no apparent distress. HEAD: Normocephalic/atraumatic. EYES: Normal reaction of pupils, equal size. Conjunctiva pink, sclera white. NOSE: Clear with pink turbinates. THROAT: No erythema or exudates. NECK: No masses, no JVD, no thyroid enlargement, no adenopathy. CHEST: No chest wall deformity. Symmetrical expansion. Right upper chest external temporary pacemaker LUNGS: Equal air entry with diminished breath sounds at the bases, crackles in the bilateral bases CVS: Regular rate and rhythm, normal S1 and S2, no gallops, no murmurs, no rubs. Patient is a paced rhythm at a rate of 60 on the monitor ABDOMEN: Soft, nontender. No hepatosplenomegaly, normal bowel sounds, no guarding or rigidity. EXTREMITIES: No clubbing, significant erythema and edema of bilateral lower extremities, with open wounds on lower extremities, weeping clear drainage, wound borders are distinct and sharply demarcated, likely related to chronic venous stasis ulcers, no cyanosis, 2+ pulses and upper and lower extremities. Lower extremities are Mik wrapped MUSCULOSKELETAL: Muscle strength and tone normal. SPINE: No scoliosis or deformity SKIN: No rashes CENTRAL NERVOUS SYSTEM: No focal deficits, tone is normal in all 4 extremities. PSYCHIATRIC: Alert and oriented -3. Appropriate affect. Intact judgment and insight. - Labs CBC & Chem 7: 05/31/19 05:33 05/31/19 05:33 Labs: Abnormal Lab Results - Last 24 Hours (Table) 05/30/19 05/30/19 05/30/19 Range/Units 16:00 16:31 21:10 Plt Count (150-450) k/uL BUN (9-20) mg/dL Glucose (74-99) mg/dL POC Glucose (mg/dL) 326 H 337 H (75-99) mg/dL Urine Protein 2+ H (Negative) Urine Glucose (UA) Trace H (Negative) Urine Blood Large H (Negative) Ur Leukocyte Esterase Moderate H (Negative) Urine RBC >182 H (0-5) /hpf Urine WBC 22 H (0-5) /hpf Amorphous Sediment Rare H (None) /hpf 05/31/19 05/31/19 05/31/19 Range/Units 05:33 05:33 06:58 Plt Count 502 H (150-450) k/uL BUN 23 H (9-20) mg/dL Glucose 217 H (74-99) mg/dL POC Glucose (mg/dL) 200 H (75-99) mg/dL Urine Protein (Negative) Urine Glucose (UA) (Negative) Urine Blood (Negative) Ur Leukocyte Esterase (Negative) Urine RBC (0-5) /hpf Urine WBC (0-5) /hpf Amorphous Sediment (None) /hpf 05/31/19 Range/Units 11:21 Plt Count (150-450) k/uL BUN (9-20) mg/dL Glucose (74-99) mg/dL POC Glucose (mg/dL) 259 H (75-99) mg/dL Urine Protein (Negative) Urine Glucose (UA) (Negative) Urine Blood (Negative) Ur Leukocyte Esterase (Negative) Urine RBC (0-5) /hpf Urine WBC (0-5) /hpf Amorphous Sediment (None) /hpf Microbiology - Last 24 Hours (Table) 05/28/19 05:30 Gram Stain - Final Leg - Left Wound Culture - Final Pseudomonas aeruginosa 05/28/19 05:30 Gram Stain - Final Leg - Right Wound Culture - Final 05/25/19 11:22 Blood Culture - Preliminary Blood No Growth after 120 hours 05/25/19 11:41 Blood Culture - Preliminary Blood No Growth after 120 hours Assessment and Plan Assessment: Assessment: #1. Acute exacerbation of chronic congestive heart failure with reduced ejection fraction, chest x-ray showed pattern of interstitial edema and currently on a Lasix drip at 10 mg per hour. #2. Cough and congestion, shortness of breath, and increasing lower extremity edema related to the above, and likely a component of bronchitis #3. Complete heart block, bradycardia external temporary pacer in place. #4. Hyperkalemia, with serum potassium of 6.8, could be related to Entresto, and ATN, improved, on today's labs potassium is 3.6 #5. Chronic pain lower extremity wounds and cellulitis #6. Chronic hypoxemic respiratory failure, he wears home O2 on a as needed basis, likely related to chronic congestive heart failure, and suspect a component of obstructive sleep apnea #7. Previous episode of myocardial infarction #8. Diabetes mellitus with diabetic neuropathy #9. Hypertension, hyperlipidemia #10. Morbid obesity #11. History of polio syndrome as a child, he has chronic weakness in lower extremities #12. Remote history of smoking, smoking at age of 26, smoked a pack a day for 1 0 years Plan: Patient was seen and evaluated by Dr. Carrion. We'll continue with the current treatment plan. Awaiting permanent pacemaker implantation once the cellulitis is cleared. He remains on cefepime. He remains on a Lasix drip. We'll repeat a chest x-ray in the a.m. We'll continue to follow make further recommendations based on his clinical status. I, the cosigning physician, performed a history & physical examination of the patient. Lungs sounds crackles in the posterior bases. Maintaining good O2 saturations in the 90s on 3 L/m per nasal cannula. I discussed the assessment and plan of care with my nurse practitioner, Jayshree Nice. I attest to the above note as dictated by her.
--- NOTE | 2019-05-31 14:44 | P.GSCN ---
History of Present Illness Consult date: 05/31/19 Reason for Consult: Gross hematuria History of present illness: Patient is a 63-year-old male with a history of congestive heart failure, hyper tension and diabetes who was admitted on 05/25 due to shortness of breath and a cough coupled with increasing leg edema and erythema of the legs. At the time of admission the patient was also noted to be bradycardic. He has been treated with placement of a pacemaker. He was started on vancomycin and Rocephin due to the possibility of cellulitis in his legs. The voided urinalysis on admission was unremarkable. A Pinzon catheter was placed and the patient has been treated with an IV furosemide drip. Yesterday he was noted to have blood-tinged urine draining from the Pinzon catheter. I was asked to see the patient for further evaluation. The patient has no previous history of gross hematuria. He believes he may have passed a kidney stone one or 2 years ago. He says he usually voids every 2-3 hours during the day and once or twice at night. The force of his urine flow varies but he usually feels he voids completely. Urine draining from his Pinzon catheter today is grossly clear. Review of Systems - Constitutional Reports fatigue - Cardiovascular Reports shortness of breath - Gastrointestinal Denies abdominal pain - Genitourinary Reports as per HPI Past Medical History Past Medical History: Heart Failure, Diabetes Mellitus, Hypertension, Pneumonia, Vascular Disorder Additional Past Medical History / Comment(s): pt. 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 states he had a small heart attack did not need any stents, diabetic neuropathy, 02 2 liters n/c as needed, Last Myocardial Infarction Date:: unknown History of Any Multi-Drug Resistant Organisms: None Reported Past Surgical History: Orthopedic Surgery Additional Past Surgical History / Comment(s): pt. had muscle taken from his back and put into his leg, Past Anesthesia/Blood Transfusion Reactions: Motion Sickness Additional Past Anesthesia/Blood Transfusion Reaction / Comm: clausterphobia Past Psychological History: Depression Additional Psychological History / Comment(s): lives with tuyet.pt drives. currently uses crutches or w/c. has ramp at home. uses cpap machine and o2 2 liters n/c as needed. Smoking Status: Former smoker Past Alcohol Use History: None Reported Additional Past Alcohol Use History / Comment(s): started smoking at age 16 and quit age 26 smoked 1-2 ppd Past Drug Use History: None Reported - Past Family History Mother Family Medical History: Cancer Father Family Medical History: Diabetes Mellitus, Renal Disease Medications and Allergies Home Medications Medication Instructions Recorded Confirmed Type INSULIN ASPART (NovoLOG) [NovoLOG See Protocol SQ AC-TID 08/30/18 05/25/19 History (formulary)] Aspirin 81 mg PO DAILY #30 chew 09/06/18 05/25/19 Rx Ergocalciferol [Vitamin D2 50,000 unit PO FR #4 cap 09/06/18 05/25/19 Rx (DRISDOL)] Gabapentin [Neurontin] 100 mg PO BID #60 cap 09/06/18 05/25/19 Rx metFORMIN HCL 1,000 mg PO BID #60 tablet 09/06/18 05/25/19 Rx Insulin Glargine,Hum.rec.anlog 30 units SQ BID 12/02/18 05/25/19 History [Lantus Solostar] Ipratropium/Albuterol Sulfate 2 puff INHALATION RT-QID PRN 12/02/18 05/25/19 History [Combivent Respimat Inhaler] Furosemide [Lasix] 40 mg PO BID@0900,1600 #60 tab 01/22/19 05/25/19 Rx Metoprolol Succinate (ER) [Toprol 50 mg PO DAILY #30 tabcap 01/22/19 05/25/19 Rx XL] Sacubitril/Valsartan [Entresto 97 1 tab PO BID 05/25/19 05/25/19 History mg-103 mg Tablet] amLODIPine [Norvasc] 10 mg PO HS 05/25/19 05/25/19 History Allergies Allergy/AdvReac Type Severity Reaction Status Date / Time Latex, Natural Rubber Allergy Rash/Hives Verified 05/25/19 07:31 Penicillins Allergy Unknown Verified 05/25/19 07:31 Childhood Sulfa (Sulfonamide Allergy Rash/Hives Verified 05/25/19 07:31 Antibiotics) Surgical - Exam Vital Signs Temp Pulse Resp BP Pulse Ox 98.8 F 39 L 22 140/53 97 05/25/19 04:51 05/25/19 04:51 05/25/19 04:51 05/25/19 04:51 05/25/19 04:51 - General well developed, well nourished, no distress, obese - ENT no hearing loss - Neck no masses, no lymphadectomy - Respiratory normal respiratory effort - Abdomen Abdomen: soft, non tender, no organomegaly Hernia: none - Genitourinary normal penis with no external lesions, testicles non-tender, other (Moderate scrotal edema-no evidence of scrotal . Pinzon catheter is draining clear urine) Results - Labs 05/31/19 05:33 05/31/19 05:33 Abnormal Lab Results - Last 24 Hours (Table) 05/30/19 05/30/19 05/30/19 Range/Units 16:00 16:31 21:10 Plt Count (150-450) k/uL BUN (9-20) mg/dL Glucose (74-99) mg/dL POC Glucose (mg/dL) 326 H 337 H (75-99) mg/dL Urine Protein 2+ H (Negative) Urine Glucose (UA) Trace H (Negative) Urine Blood Large H (Negative) Ur Leukocyte Esterase Moderate H (Negative) Urine RBC >182 H (0-5) /hpf Urine WBC 22 H (0-5) /hpf Amorphous Sediment Rare H (None) /hpf 05/31/19 05/31/19 05/31/19 Range/Units 05:33 05:33 06:58 Plt Count 502 H (150-450) k/uL BUN 23 H (9-20) mg/dL Glucose 217 H (74-99) mg/dL POC Glucose (mg/dL) 200 H (75-99) mg/dL Urine Protein (Negative) Urine Glucose (UA) (Negative) Urine Blood (Negative) Ur Leukocyte Esterase (Negative) Urine RBC (0-5) /hpf Urine WBC (0-5) /hpf Amorphous Sediment (None) /hpf 05/31/19 Range/Units 11:21 Plt Count (150-450) k/uL BUN (9-20) mg/dL Glucose (74-99) mg/dL POC Glucose (mg/dL) 259 H (75-99) mg/dL Urine Protein (Negative) Urine Glucose (UA) (Negative) Urine Blood (Negative) Ur Leukocyte Esterase (Negative) Urine RBC (0-5) /hpf Urine WBC (0-5) /hpf Amorphous Sediment (None) /hpf Microbiology - Last 24 Hours (Table) 05/25/19 11:22 Blood Culture - Final Blood No Growth after 144 hours 05/25/19 11:41 Blood Culture - Final Blood No Growth after 144 hours 05/28/19 05:30 Gram Stain - Final Leg - Left Wound Culture - Final Pseudomonas aeruginosa 05/28/19 05:30 Gram Stain - Final Leg - Right Wound Culture - Final Diabetes panel 05/31/19 Range/Units 05:33 Sodium 140 (137-145) mmol/L Potassium 3.7 (3.5-5.1) mmol/L Chloride 101 (98-107) mmol/L Carbon Dioxide 29 (22-30) mmol/L BUN 23 H (9-20) mg/dL Creatinine 0.95 (0.66-1.25) mg/dL Glucose 217 H (74-99) mg/dL Calcium 9.0 (8.4-10.2) mg/dL Calcium panel 05/31/19 Range/Units 05:33 Calcium 9.0 (8.4-10.2) mg/dL Pituitary panel 05/31/19 Range/Units 05:33 Sodium 140 (137-145) mmol/L Potassium 3.7 (3.5-5.1) mmol/L Chloride 101 (98-107) mmol/L Carbon Dioxide 29 (22-30) mmol/L BUN 23 H (9-20) mg/dL Creatinine 0.95 (0.66-1.25) mg/dL Glucose 217 H (74-99) mg/dL Calcium 9.0 (8.4-10.2) mg/dL Adrenal panel 05/31/19 Range/Units 05:33 Sodium 140 (137-145) mmol/L Potassium 3.7 (3.5-5.1) mmol/L Chloride 101 (98-107) mmol/L Carbon Dioxide 29 (22-30) mmol/L BUN 23 H (9-20) mg/dL Creatinine 0.95 (0.66-1.25) mg/dL Glucose 217 H (74-99) mg/dL Calcium 9.0 (8.4-10.2) mg/dL Assessment and Plan Assessment: The patient's gross hematuria is most likely related to irritation of his bladder from his Pinzon catheter and the use of low-dose aspirin. The gross hematuria has resolved over the last 12 hours and in view of this no further evaluation is necessary as the patient had no evidence of hematuria prior to placement of the catheter. (1) Gross hematuria Current Visit: Yes Status: Acute Code(s): R31.0 - GROSS HEMATURIA SNOMED Code(s): 989751820
--- NOTE | 2019-05-31 16:09 | P.PN ---
Subjective 63-year-old gentleman comes into the ER for leg swelling and burning sensation. He was also having some blistering drainage from his bilateral lower extremities. Labwork done in the ER showed that he was hyperkalemic with a potassium of 6.8. He was also having complete heart block. External pacers were placed. Potassium was corrected patient was admitted to ICU. Patient was started on Lasix drip. Infectious disease was consulted and he is on antibioticsfor cellulitis. 05/30/2019 Today the patient says that he's feeling better. Shortness of breath and swelling in the lower extremities or better. He does not complain of any chest pain. No fever no chills no abdominal pain, nausea and vomiting, or diarrhea constipation. 05/31/2019 Patient doing better on Lasix drip. His swelling is down. He is in negative fluid balance. Doesn't complain of any chest pain racing heart Objective - Vital Signs Vital signs: Vital Signs Temp 97.8 F 05/31/19 14:41 Pulse 62 05/31/19 16:02 Resp 16 05/31/19 16:02 BP 152/66 05/31/19 14:41 Pulse Ox 98 05/31/19 14:41 Intake & Output 05/30/19 05/31/19 05/31/19 18:59 06:59 18:59 Intake Total 694 057 5079 Output Total 1300 1250 Balance 847 -362 -230 Weight 124.3 kg 113 kg Intake: Intake, IV Titration 367 248 100 Amount Cefepime 2 gm In Sodium 100 100 Chloride 0.9% 100 ml @ 200 mls/hr IVPB Q8HR LUIS F Rx#:[id number] Furosemide 100 mg In 100 98 Sodium Chloride 0.9% 90 ml @ 10 MG/HR 10 mls/hr IV .Q10H LUIS F Rx#: [id number] Vancomycin 2,000 mg In 167 Sodium Chloride 0.9% 500 ml 500 ml @ 167 mls/hr IVPB Q24H LUIS F Rx#: [id number] cefTRIAXone 1 gm In 100 50 Sodium Chloride 0.9% 50 ml @ 100 mls/hr IVPB Q24HR LUIS F Rx#:[id number] Oral 480 690 920 Output: Urine 1300 1250 Uretheral (Pinzon) 1250 Other: Voiding Method Indwelling Catheter Indwelling Catheter Indwelling Catheter # Bowel Movements 1 - Exam On exam, alert and oriented x3. HEENT: Conjunctivae normal. eyes normal. NECK: No JVD. No thyroid enlargement. No LNs CARDIOVASCULAR: assessment positive RESPIRATION: Breath sounds diminished in the bases. No rhonchi or crackles. No bronchial breathing. ABDOMEN: Soft, nontender . No guarding. no masses palpable. No ascites, No hepatosplenomegaly.Bowel sounds heard. LEGS: the lateral lower extremities swelling. Dressing applied NERVOUS SYSTEM: Cranial N 2-12 grossly normal. Moves all 4 limbs. No focal deficits. No sensory deficit. No signs of cerebellar dysfucntion. Skin: no ulcer no rash - Labs CBC & Chem 7: 05/31/19 05:33 05/31/19 05:33 Labs: Abnormal Lab Results - Last 24 Hours (Table) 05/30/19 05/30/19 05/30/19 Range/Units 16:00 16:31 21:10 Plt Count (150-450) k/uL BUN (9-20) mg/dL Glucose (74-99) mg/dL POC Glucose (mg/dL) 326 H 337 H (75-99) mg/dL Urine Protein 2+ H (Negative) Urine Glucose (UA) Trace H (Negative) Urine Blood Large H (Negative) Ur Leukocyte Esterase Moderate H (Negative) Urine RBC >182 H (0-5) /hpf Urine WBC 22 H (0-5) /hpf Amorphous Sediment Rare H (None) /hpf 05/31/19 05/31/19 05/31/19 Range/Units 05:33 05:33 06:58 Plt Count 502 H (150-450) k/uL BUN 23 H (9-20) mg/dL Glucose 217 H (74-99) mg/dL POC Glucose (mg/dL) 200 H (75-99) mg/dL Urine Protein (Negative) Urine Glucose (UA) (Negative) Urine Blood (Negative) Ur Leukocyte Esterase (Negative) Urine RBC (0-5) /hpf Urine WBC (0-5) /hpf Amorphous Sediment (None) /hpf 05/31/19 Range/Units 11:21 Plt Count (150-450) k/uL BUN (9-20) mg/dL Glucose (74-99) mg/dL POC Glucose (mg/dL) 259 H (75-99) mg/dL Urine Protein (Negative) Urine Glucose (UA) (Negative) Urine Blood (Negative) Ur Leukocyte Esterase (Negative) Urine RBC (0-5) /hpf Urine WBC (0-5) /hpf Amorphous Sediment (None) /hpf Microbiology - Last 24 Hours (Table) 05/25/19 11:22 Blood Culture - Final Blood No Growth after 144 hours 05/25/19 11:41 Blood Culture - Final Blood No Growth after 144 hours 05/28/19 05:30 Gram Stain - Final Leg - Left Wound Culture - Final Pseudomonas aeruginosa 05/28/19 05:30 Gram Stain - Final Leg - Right Wound Culture - Final Assessment and Plan Assessment: - acute on chronic CHF exacerbation - Bilateral lower Ixodes cellulitis - Hyperkalemia - Complete heart block on external pacemakers - AK I secondary to cardiorenal syndrome - Obesity - 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 He has external pacemaker - Continue to monitor the patient
[2019-05-31 17:00] LABS: Glucose,Whole Blood 325 mg/dL (75-99)
[2019-05-31 20:42] LABS: Glucose,Whole Blood 306 mg/dL (75-99)
--- NOTE | 2019-05-31 20:57 | PN ---
PROGRESS NOTE DATE OF SERVICE: 05/31/2019 REASON FOR FOLLOWUP: Bilateral lower extremity wound with secondary cellulitis and pseudomonas infection. INTERVAL HISTORY: The patient is currently afebrile. Patient has been breathing comfortably. The patient denies having any chest pain. Occasional cough. No abdominal pain and no pain to the lower extremity. PHYSICAL EXAMINATION: Blood pressure 152/66, pulse of 60, temperature 97.8. He is 98% on 3 L nasal cannula. General description is a middle-aged male lying in bed in no distress. RESPIRATORY SYSTEM: Unlabored breathing. Clear to auscultation anteriorly. HEART: S1, S2. Regular rate and rhythm. ABDOMEN: Soft. No tenderness. Legs are currently wrapped up. No obvious drainage on the dressing. LABS: Hemoglobin is 13.3, white count of 10.6, BUN of 26, creatinine 0.95. DIAGNOSTIC IMPRESSION AND PLAN: Patient with bilateral lower extremity venostasis ulcers with some cellulitis. Local wound has been positive for pseudomonas. Patient currently on cefepime. Local wound care to continue with Aquacel Silver dressing and Mik wrap. Continue with supportive care. MMODL / IJN: [id number] /
[2019-05-31] MEDS: INSULIN DETEMIR (LEVEMIR) 100 UNIT/ML SYR SQ SCH (21:05)
[2019-05-31] MEDS: amLODIPine 10 MG TAB PO SCH (21:05)
--- NOTE | 2019-05-31 21:27 | PN ---
PROGRESS NOTE Patient is seen for followup for acute kidney injury which was mainly cardiorenal. Currently patient is maintained on Lasix drip. His renal function has improved significantly. He has had good urine output. Volume status also seems to be improving. Creatinine is down to 0.95 from 1.49 on initial admission. Patient has had blood in his urine in the Pinzon bag. His previous UA on initial admission did not have any hematuria. This is likely traumatic. On examination this morning, blood pressure was 137/64, heart rate 60 per minute. Patient is afebrile. EXAMINATION OF THE HEART: S1 and S2. EXAMINATION OF LUNGS: Bilateral breath sounds are heard. Decreased breath sounds in bases. ABDOMEN: Soft, obese. Examination of lower extremities shows bilateral extremities to be wrapped. Discoloration of the toes is noted. Labs show hemoglobin of 13.3, sodium 140, potassium 3.7, BUN 23, serum creatinine 0.95. ASSESSMENT: 1. Acute kidney injury, cardiorenal, currently improving. May continue with the Lasix drip for now. 2. Congestive heart failure, acute on top of chronic, mainly diastolic. 3. Cardiomyopathy. Left atrium is moderately dilated. EF is 55% to 60%. 4. Hematuria which is traumatic from Pinzon catheter, as initial UA was completely benign. Hematuria seems to be improving. 5. Metabolic alkalosis with hypokalemia secondary to diuretics. 6. Heart block secondary to hyperkalemia, status post pacemaker. PLAN: Continue with Lasix drip. Monitor electrolytes. Repeat labs in a.m. MMODL / IJN: [id number] /
[2019-05-31] MEDS: ACETAMINOPHEN TAB 325 MG TAB PO PRN (23:26)
[2019-06-01 07:51] LABS: HCT 40.9 % (39.0-53.0); HGB 12.8 gm/dL (13.0-17.5); Hypochromasia Slight; MCH 27.7 pg (25.0-35.0); MCHC 31.4 g/dL (31.0-37.0); MCV 88.5 fL (80.0-100.0); Mean Platelet Volume 6.9; Platelet Count 593 k/uL (150-450); RBC 4.62 m/uL (4.30-5.90); RDW 15.3 % (11.5-15.5); WBC 11.6 k/uL (3.8-10.6)
[2019-06-01 07:51] LABS: Glucose,Whole Blood 231 mg/dL (75-99)
[2019-06-01 08:01] LABS: Calcium 9.3 mg/dL (8.4-10.2); Potassium 4.1 mmol/L (3.5-5.1)
[2019-06-01] MEDS: FAMOTIDINE 20 MG TAB PO SCH (08:11)
[2019-06-01] MEDS: ASPIRIN 81 MG PO SCH (08:11)
[2019-06-01] MEDS: HEPARIN SODIUM,PORCINE 5,000 UNIT/ML 1 ML VIAL SQ SCH ×2 (08:11→20:44)
[2019-06-01] MEDS: GABAPENTIN 100 MG CAP PO SCH ×2 (08:11→20:44)
[2019-06-01] MEDS: INSULIN ASPART (NovoLOG) 100 UNIT/ML VIAL SQ SCH ×4 (08:12→20:44)
[2019-06-01] MEDS: IPRATROPIUM-ALBUTEROL 3 ML NEB INHALATION SCH ×4 (08:49→20:02)
[2019-06-01] MEDS: CEFEPIME 2 GM in SODIUM CHLORIDE 0.9% 100 ML IVPB SCH ×3 (08:56→23:25)
--- NOTE | 2019-06-01 09:48 | P.PN ---
Subjective This is a pleasant 63-year-old male seen and examined sitting up in bed on the surgical unit. He has an external pacemaker in place on the right anterior chest wall covered with a dressing. Currently maintained on Lasix infusion. No new lab values from today. Blood pressure 165/55 heart rate 68 afebrile maintaining oxygen saturation on room air. Ongoing lower extremity edema, bilateral Mik wraps in place. Weight is down 4 kg from admission. Maintaining a negative fluid balance. Currently pacing at a rate of 60. Denies chest pain, shortness of breath, dizziness or palpitations. [place] tinge noted to urine draining to dependent drainage bag. 05/31/2019 Pt is seen and examined sitting up in bed with at the bedside. Denies any worsening shortness of breath, no chest, dizziness or palpitations. Continues to be paced 100%. Site is covered with tegaderm, no redness or drainage noted. Blood pressure 137/64 heart rate 60 afebrile and maintaining oxygen saturation on nasal cannula. Weight is down significantly since admission. Urine output has decreased in the previous 24 hours, however approximately 1500cc of urine is in his suarez bag not yet documented in the chart. Laboratory data reviewed, WBC 10.6, hemoglobin 13.3, platelets 502, sodium 140, potassium 3.7, creatinine 0.95. 06/01/2019 Seen and examined sitting up in bed in no acute distress. He denies chest pain, shortness of breath, dizziness or palpitations. He is complaining of significant amount of burning in his right lower extremity. Currently has ice packs applied for comfort. He is maintaining a negative fluid balance of 1305 for the previous 24 hours. Blood pressure 156/52 heart rate 61 afebrile and maintaining oxygen saturation on nasal cannula. Laboratory data reviewed, WBC 11.6, hgb 12.8, plt 593, sodium 140, potassium 4.1, creatinine 1.04. Telemetry tracings reviewed, continues to remain 100% paced. GENERAL: Well-appearing, well-nourished and in no acute distress. Morbidly obese. NECK: Supple without JVD or thyromegaly. LUNGS: Breath sounds clear to auscultation bilaterally. Respiration equal and unlabored. No wheezes, rales or rhonchi. Diminished bilaterally. External pacemaker site right anterior chest wall is clean and dry with no signs of redness or drainage. HEART: Regular rate and rhythm with systolic ejection murmur at the base, no rubs or gallops. S1 and S2 heard. EXTREMITIES: Normal range of motion, bilateral Mik wraps in place with underlying edema continues to improve daily. No clubbing or cyanosis. Peripheral pulses intact. ASSESSMENT Acute on chronic systolic heart failure. EF 12/2018 30-35% has improved to 55-60% on medical therapy Bilateral lower extremity cellulitis Chronic hypoxic respiratory failure Complete heart block status post external permanent pacemaker Hyperkalemia on admission, resolved Acute kidney injury, resolved Hypertension Diabetes mellitus Morbid obesity, BMI 47 PLAN Discontinue lasix infusion and transition to oral. Resume toprol 50 mg daily. Clinically stable from a cardiac perspective. Ongoing medical management. Follow up with Dr. Nichols in the office in 1 week after discharge. Nurse Practitioner note has been reviewed, I agree with a documented findings and plan of care. Patient was seen and examined. Objective - Vital Signs Vital signs: Vital Signs Temp 98.4 F 06/01/19 06:45 Pulse 61 06/01/19 09:00 Resp 12 06/01/19 06:45 BP 156/52 06/01/19 06:45 Pulse Ox 93 L 06/01/19 08:49 Intake & Output 05/31/19 06/01/19 06/01/19 18:59 06:59 18:59 Intake Total 1120 100 Output Total 1250 1275 Balance -130 -1175 Intake: Intake, IV Titration 200 100 Amount Cefepime 2 gm In Sodium 100 Chloride 0.9% 100 ml @ 200 mls/hr IVPB Q8HR [facility]IS F Rx#:[id number] Furosemide 100 mg In 100 100 Sodium Chloride 0.9% 90 ml @ 10 MG/HR 10 mls/hr IV .Q10H LUIS F Rx#: [id number] Oral 920 Output: Urine 1250 1275 Uretheral (Suarez) 1250 Other: Voiding Method Indwelling Catheter Indwelling Catheter # Bowel Movements 1 1 - Labs CBC & Chem 7: 06/01/19 07:00 06/01/19 07:00 Labs: Abnormal Lab Results - Last 24 Hours (Table) 05/31/19 05/31/19 05/31/19 Range/Units 05:33 11:21 16:57 WBC (3.8-10.6) k/uL Hgb (13.0-17.5) gm/dL Plt Count 502 H (150-450) k/uL Carbon Dioxide (22-30) mmol/L BUN (9-20) mg/dL Glucose (74-99) mg/dL POC Glucose (mg/dL) 259 H 325 H (75-99) mg/dL 05/31/19 06/01/19 06/01/19 Range/Units 20:40 07:00 07:00 WBC 11.6 H (3.8-10.6) k/uL Hgb 12.8 L (13.0-17.5) gm/dL Plt Count 593 H (150-450) k/uL Carbon Dioxide 31 H (22-30) mmol/L BUN 23 H (9-20) mg/dL Glucose 228 H (74-99) mg/dL POC Glucose (mg/dL) 306 H (75-99) mg/dL 06/01/19 Range/Units 07:48 WBC (3.8-10.6) k/uL Hgb (13.0-17.5) gm/dL Plt Count (150-450) k/uL Carbon Dioxide (22-30) mmol/L BUN (9-20) mg/dL Glucose (74-99) mg/dL POC Glucose (mg/dL) 231 H (75-99) mg/dL Microbiology - Last 24 Hours (Table) 05/25/19 11:22 Blood Culture - Final Blood No Growth after 144 hours 05/25/19 11:41 Blood Culture - Final Blood No Growth after 144 hours
[2019-06-01] MEDS: METOPROLOL SUCCINATE (ER) 50 MG TAB.ER.24H PO SCH (10:49)
[2019-06-01 12:50] LABS: Glucose,Whole Blood 257 mg/dL (75-99)
--- NOTE | 2019-06-01 13:59 | PN ---
PROGRESS NOTE DATE OF SERVICE: 06/01/2019 REASON FOR FOLLOW UP VISIT: Bilateral lower extremity wound cellulitis, pseudomonas. INTERVAL HISTORY: The patient is currently afebrile. Patient has been breathing comfortably. Denies having any chest pain or any cough. Some abdominal discomfort and constipation. No diarrhea. No pain to the leg area. PHYSICAL EXAMINATION: Blood pressure 156/52 with a pulse of 60, temperature 98.4, he is 97% on 3 L nasal cannula. General description is a middle-aged male, up in the bed in no distress. RESPIRATORY SYSTEM: Unlabored breathing. Decreased breath sounds at the bases, no wheeze. HEART: S1, S2. Regular rate and rhythm. ABDOMEN: Soft. No tenderness. Legs are currently wrapped. No obvious drainage on the dressing. LABS: Hemoglobin is 12.8, white count 11.6, BUN of 23, creatinine 1.4. DIAGNOSTIC IMPRESSION AND PLAN: Patient with bilateral lower extremity wound with secondary cellulitis. Local culture has been positive for Pseudomonas aeruginosa, patiently current covered with cefepime. Local wound care to continue with Aquacel Silver dressing and Mik wrap. Finish therapy with oral antibiotic on discharge. Continue supportive care. MMODL / IJN: [id number] /
--- NOTE | 2019-06-01 14:32 | P.PN ---
Subjective Progress Note Date: 06/01/19 Principal diagnosis: Exacerbation of chronic congestive heart failure with reduced ejection fraction This is a 63-year-old white male patient of Dr. Cid, past medical history of diabetes mellitus, chronic congestive heart failure, morbid obesity, previous episode of myocardial infarction, remote history of smoking, hypertension, hyperlipidemia, polio syndrome during his childhood and patient has a sequela of lower extremity weakness. Patient has moderately severe impaired left ventricle systolic function with EF of 30-35%, mild tricuspid regurgitation, mild pulmonary hypertension with right-sided pressures of 38 mmHg. Patient is maintained on Entresto. Patient has open weeping wounds on his bilateral lower extremities, and cellulitis. Previously followed with Dr. Campuzano, received vancomycin infusions in the past, however he has not seen Dr. Campuzano in several months. Does wear home O2 at bedtime and on as-needed basis, does not have history of COPD or asthma. He states for the last week and a half he has been coming down with a cold, progressive cough and congestion, with production of yellow sputum. He denied fevers, but is positive for chills. Admitted of some chest heaviness intermittently, lasting about 5 minutes. Noted increasing lower extremity edema, redness, and weeping. Patient's insisted he come to the emergency room for evaluation last night. Chest x-ray was completed showing mild pulmonary vascular congestion, mild diffuse interstitial prominence. The ER patient was noted to be in third-degree heart block, a cardiac with a rate in the 30s, his states it is common for the patient and his heart rate does get as low as 20s when he's at home. Lab work showed a white blood cell count of 13.0, hemoglobin of 11.5, platelet count is 456, INR is 1.0, sodium was 141, potassium was elevated at 6.8, chloride was 110, CO2 is 21, BUN is 56, creatinine is 1.49, proBNP was elevated at 3180, troponin was negative 1, LFTs were within normal limits. Patient was given a dose of IV Lasix, her Anemia was treated with 50% dextrose, calcium gluconate, insulin, repeat blood work is pending. Patient has been evaluated by cardiology, placed on Lasix drip at 10 mg per hour, echocardiogram is in progress. We can alert, he is being seen in the intensive care unit, lung sounds are clear, diminished at the bases, no significant wheezing or congestion, states at times to bring up whitish colored sputum. He is in third-degree heart block with a rate of 36, he is on Tuesdays of oxygen with a pulse ox of 97%, he is afebrile. he has been started on antibiotics in the form of vancomycin, we'll add Rocephin for gram-negative cov erage and breathing treatments. On 05/26/2019 patient seen in follow-up in the intensive care unit, he is awake and alert, oriented 3, looks calm and comfortable, no acute distress, denies any worsening shortness of breath, he is currently on 2 L of oxygen and pulse ox is 96%, low-grade temp this morning with a T-max of 99.0F, afebrile overnight. Remains in third-degree heart block with a rate of 36 BPM, pressures 131/40, with a mean of 70, patient is avoiding, he is nonoliguric. His labs have been reviewed, showing now with blood cell count of 9.2, hemoglobin of 10.4, platelet count was 414, electrolytes were within normal limits, BUN of 46, creatinine is 1.33. TSH was within normal limits at 1.940. Today's chest x-ray shows interstitial prominence, residual mild pulmonary vascular congestion. Patient has been started on IV Lasix drip, he is in -4472 mL fluid balance over the last 24 hours, he is weight is down 0.9 kg. Extremity edema is improved in appearance, lower extremities are Mik wrapped. Antibiotic coverage in the form of Rocephin and vancomycin, cultures are pending. On 05/27/2019 patient seen in follow-up in the intensive care unit, yesterday patient received externalized permanent pacemaker for third-degree AV block. Pacemaker programmed to VVI 60. Patient is a paced rhythm at 60 on the monitor today. Awake and alert, resting comfortably in bed, eating breakfast this morning. Denies any shortness of breath or chest pain. Vital signs are stable, he is on 2 L of oxygen with a pulse ox of 95%, afebrile, hemodynamically stable, Lasix drip continues at 10 mg per hour, no other drips. She is in -6234 mL fluid balance over the last 24 hours, he is weight is down 4 kg in the last 24 hours. Cultures showed no growth. Serum edema is improving, patient states that warmth and redness in his right leg seemed to be going up and into his right upper thigh, on inspection the redness does not seem to have spread past the knee. Infectious disease is following, patient is on a combination of Rocephin and vancomycin. Lung sounds are positive for some coarse breath sounds, overall improved, less congested since admission. On 05/29/2019 patient seen in follow-up in intensive care unit. His been awaiting a bed on selective care unit, he is been an overflow status for last couple of days. He is awake and alert, oriented 3, hemodynamically patient is stable, he is on 2 L of oxygen with a pulse ox of 96%, afebrile. Blood cultures and wound cultures are pending, pulmonary Gram stain from the left leg weeping wounds positive for moderate gram-negative bacilli, and rare gram-positive cocci, final cultures pending. Patient remains with the external part a pacemaker in his right chest. No worsening shortness of breath, lung sounds are clear on today's exam, no wheezing or rhonchi, his labs have been reviewed, showing white blood cell, 10.5, hemoglobin of 12.7, platelet count is 527, electrolytes and renal profile are within normal limits. Lower extremities are Mik wrapped, and lower extremity edema has significantly improved, patient remains on Lasix drip at 10 mg per hour, no other drips. Net fluid balance is - 2797 mL over the last 24 hours. On 05/30/2019 patient seen in follow-up on medical surgical floor. He is calm and comfortable, resting comfortably in bed, lung sounds are clear, diminished at the bases, denies any shortness of breath, no completed chest pain. Room air pulse ox is 91%, afebrile, hemodynamically stable, patient is on Lasix drip at 10 [place] per hour, continues to diurese significantly, and patient is in -6075 ML of net fluid balance for the last 24 hours, fluid volume status is improving, lower extremity edema in general is edema are improving. No fever or chills, he is on a combination of of Rocephin and vancomycin, and wound culture from the left leg showed pseudomonas aeruginosa. Was switched to ceftriaxone to cefepime. Lung sounds are essentially clear to auscultation, patient has per manent pacemaker externally placed, is 100% paced on the monitor. Lower extremity wounds are covered with dressings, also silver dressing to open ulcerations on the anterior shins on bilateral lower extremities. On 06/01/2019 patient seen in follow-up on medical surgical floor. He is up in the recliner today, in no acute distress, remains on 4 L of oxygen with a pulse ox of 99%, this can probably be weaned down, patient is afebrile, hemodynamically stable, IV Lasix drip has been transitioned to Lasix 60 mg IV every 12 hours, patient continues to diurese, in -1305 ML fluid balance. Fluid on status is improving, lower extremity edema is improving, no complaints of difficulty breathing, or chest pain. Wound cultures from his left leg showed pseudomonas aeruginosa, and patient is currently on cefepime, vancomycin was discontinued, ID service is following. The patient is receiving local wound treatments to his ulcerated open cellulitis on lower extremities. Objective - Vital Signs Vital signs: Vital Signs Temp 98.7 F 06/01/19 14:17 Pulse 60 06/01/19 14:17 Resp 20 06/01/19 14:17 BP 157/83 06/01/19 14:17 Pulse Ox 99 06/01/19 14:17 Intake & Output 05/31/19 06/01/19 06/01/19 18:59 06:59 18:59 Intake Total 1120 100 320 Output Total 1250 1275 800 Balance -130 -1175 -480 Intake: Intake, IV Titration 200 100 Amount Cefepime 2 gm In Sodium 100 Chloride 0.9% 100 ml @ 200 mls/hr IVPB Q8HR LUIS F Rx#:[id number] Furosemide 100 mg In 100 100 Sodium Chloride 0.9% 90 ml @ 10 MG/HR 10 mls/hr IV .Q10H LUIS F Rx#: [id number] Oral 920 320 Output: Urine 1250 1275 800 Uretheral (Pinzon) 1250 Other: Voiding Method Indwelling Catheter Indwelling Catheter Indwelling Catheter # Bowel Movements 1 1 - Exam GENERAL EXAM: Alert, pleasant, 63-year-old obese white male, on 4 L of oxygen with a pulse ox of 96%, comfortable in no apparent distress. HEAD: Normocephalic/atraumatic. EYES: Normal reaction of pupils, equal size. Conjunctiva pink, sclera white. NOSE: Clear with pink turbinates. THROAT: No erythema or exudates. NECK: No masses, no JVD, no thyroid enlargement, no adenopathy. CHEST: No chest wall deformity. Symmetrical expansion. Right upper chest external eyes pacemaker LUNGS: Equal air entry with diminished breath sounds at the bases, no rhonchi, no wheezes CVS: Regular rate and rhythm, normal S1 and S2, no gallops, no murmurs, no rubs. Patient is a paced rhythm at a rate of 60 on the monitor ABDOMEN: Soft, nontender. No hepatosplenomegaly, normal bowel sounds, no guarding or rigidity. EXTREMITIES: No clubbing, improved erythema and minimal edema of left lower extremity and no edema in right lower leg, with open wounds on lower extremities, weeping clear drainage, wound borders are distinct and sharply demarcated, likely related to chronic venous stasis ulcers, no cyanosis, 2+ pulses and upper and lower extremities. Lower extremities are Mik wrapped MUSCULOSKELETAL: Muscle strength and tone normal. SPINE: No scoliosis or deformity SKIN: No rashes CENTRAL NERVOUS SYSTEM: Alert and oriented -3. No focal deficits, tone is normal in all 4 extremities. PSYCHIATRIC: Alert and oriented -3. Appropriate affect. Intact judgment and insight. - Labs CBC & Chem 7: 06/01/19 07:00 06/01/19 07:00 Labs: Abnormal Lab Results - Last 24 Hours (Table) 05/31/19 05/31/19 06/01/19 Range/Units 16:57 20:40 07:00 WBC (3.8-10.6) k/uL Hgb (13.0-17.5) gm/dL Plt Count (150-450) k/uL Carbon Dioxide 31 H (22-30) mmol/L BUN 23 H (9-20) mg/dL Glucose 228 H (74-99) mg/dL POC Glucose (mg/dL) 325 H 306 H (75-99) mg/dL 06/01/19 06/01/19 06/01/19 Range/Units 07:00 07:48 11:22 WBC 11.6 H (3.8-10.6) k/uL Hgb 12.8 L (13.0-17.5) gm/dL Plt Count 593 H (150-450) k/uL Carbon Dioxide (22-30) mmol/L BUN (9-20) mg/dL Glucose (74-99) mg/dL POC Glucose (mg/dL) 231 H 257 H (75-99) mg/dL Microbiology - Last 24 Hours (Table) 05/25/19 11:22 Blood Culture - Final Blood No Growth after 144 hours 05/25/19 11:41 Blood Culture - Final Blood No Growth after 144 hours Assessment and Plan Plan: Assessment: #1. Acute exacerbation of chronic congestive heart failure with reduced ejection fraction, chest x-ray showed pattern of interstitial edema #2. Cough and congestion, shortness of breath, and increasing lower extremity edema related to the above, and likely a component of bronchitis #3. Complete heart block, bradycardia #4. Hyperkalemia, with serum potassium of 6.8, could be related to Entresto, and ATN, improved, on today's labs potassium is 4.4 #5. Chronic pain lower extremity wounds and cellulitis #6. Chronic hypoxemic respiratory failure, he wears home O2 on a as needed basis, likely related to chronic congestive heart failure, and suspect a component of obstructive sleep apnea #7. Previous episode of myocardial infarction #8. Diabetes mellitus with diabetic neuropathy #9. Hypertension, hyperlipidemia #10. Morbid obesity #11. History of polio syndrome as a child, he has chronic weakness in lower extremities #12. Remote history of smoking, smoking at age of 26, smoked a pack a day for 10 years #13. Pseudomonal infection in the left lower extremity cellulitis wound Plan: Continue with current medical treatment, patient continues to diurese, fluid line sepsis is improving, breathing easier, no acute events overnight, no fever or chills, continues on cefepime for pseudomonal infection in his lower extremities. ID service is following. Continue breathing treatments. I performed a history & physical examination of the patient and discussed their management with my nurse practitioner, Kandy Kelley. I reviewed the nurse practitioner's note and agree with the documented findings and plan of care. Lung sounds are positive for diminished breath sounds with limited rhonchi. The findings and the impression was discussed with the patient. I attest to the documentation by the nurse practitioner. Time with Patient: Less than 30
--- NOTE | 2019-06-01 14:45 | P.PN ---
Subjective 63-year-old gentleman comes into the ER for leg swelling and burning sensation. He was also having some blistering drainage from his bilateral lower extremities. Labwork done in the ER showed that he was hyperkalemic with a potassium of 6.8. He was also having complete heart block. External pacers were placed. Potassium was corrected patient was admitted to ICU. Patient was started on Lasix drip. Infectious disease was consulted and he is on antibioticsfor cellulitis. 05/30/2019 Today the patient says that he's feeling better. Shortness of breath and swelling in the lower extremities or better. He does not complain of any chest pain. No fever no chills no abdominal pain, nausea and vomiting, or diarrhea constipation. 05/31/2019 Patient doing better on Lasix drip. His swelling is down. He is in negative fluid balance. Doesn't complain of any chest pain racing heart 06/01/2019 Lasix drip discontinued today and started on IV Lasix. Patient says that he's feeling better no cough no shortness of breath no chest pain racing heart Objective - Vital Signs Vital signs: Vital Signs Temp 98.7 F 06/01/19 14:17 Pulse 60 06/01/19 14:17 Resp 20 06/01/19 14:17 BP 157/83 06/01/19 14:17 Pulse Ox 99 06/01/19 14:17 Intake & Output 05/31/19 06/01/19 06/01/19 18:59 06:59 18:59 Intake Total 1120 100 320 Output Total 1250 1275 800 Balance -130 -1175 -480 Intake: Intake, IV Titration 200 100 Amount Cefepime 2 gm In Sodium 100 Chloride 0.9% 100 ml @ 200 mls/hr IVPB Q8HR LUIS F Rx#:[id number] Furosemide 100 mg In 100 100 Sodium Chloride 0.9% 90 ml @ 10 MG/HR 10 mls/hr IV .Q10H LUIS F Rx#: [id number] Oral 920 320 Output: Urine 1250 1275 800 Uretheral (Pinzon) 1250 Other: Voiding Method Indwelling Catheter Indwelling Catheter Indwelling Catheter # Bowel Movements 1 1 - Exam On exam, alert and oriented x3. HEENT: Conjunctivae normal. eyes normal. NECK: No JVD. No thyroid enlargement. No LNs CARDIOVASCULAR: assessment positive RESPIRATION: Breath sounds diminished in the bases. No rhonchi or crackles. No bronchial breathing. ABDOMEN: Soft, nontender . No guarding. no masses palpable. No ascites, No hepatosplenomegaly.Bowel sounds heard. LEGS: the lateral lower extremities swelling. Dressing applied NERVOUS SYSTEM: Cranial N 2-12 grossly normal. Moves all 4 limbs. No focal deficits. No sensory deficit. No signs of cerebellar dysfucntion. Skin: no ulcer no rash - Labs CBC & Chem 7: 06/01/19 07:00 06/01/19 07:00 Labs: Abnormal Lab Results - Last 24 Hours (Table) 05/31/19 05/31/19 06/01/19 Range/Units 16:57 20:40 07:00 WBC (3.8-10.6) k/uL Hgb (13.0-17.5) gm/dL Plt Count (150-450) k/uL Carbon Dioxide 31 H (22-30) mmol/L BUN 23 H (9-20) mg/dL Glucose 228 H (74-99) mg/dL POC Glucose (mg/dL) 325 H 306 H (75-99) mg/dL 06/01/19 06/01/19 06/01/19 Range/Units 07:00 07:48 11:22 WBC 11.6 H (3.8-10.6) k/uL Hgb 12.8 L (13.0-17.5) gm/dL Plt Count 593 H (150-450) k/uL Carbon Dioxide (22-30) mmol/L BUN (9-20) mg/dL Glucose (74-99) mg/dL POC Glucose (mg/dL) 231 H 257 H (75-99) mg/dL Microbiology - Last 24 Hours (Table) 05/25/19 11:22 Blood Culture - Final Blood No Growth after 144 hours 05/25/19 11:41 Blood Culture - Final Blood No Growth after 144 hours Assessment and Plan Assessment: - acute on chronic CHF exacerbation - Bilateral lower Ixodes cellulitis - Hyperkalemia - Complete heart block on external pacemakers - [place] I secondary to cardiorenal syndrome - Gross hematuria - Obesity - 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 He has external pacemaker - Continue to monitor the patient 06/01/2019 - Continue Lasix push as per nephrology - Patient on antibiotics dictated by ID - Has external pacemaker. Cardiology repair. The plan is for him to have a permanent pacemaker which will take place when the sepsis picture results - Urology following the patient for gross hematuria which is improving at this time as a starter due to irritation or trauma due to Pinzon catheter - We'll continue to follow the patient will
[2019-06-01] MEDS: ACETAMINOPHEN TAB 325 MG TAB PO PRN (14:55)
[2019-06-01 16:43] LABS: Glucose,Whole Blood 273 mg/dL (75-99)
--- NOTE | 2019-06-01 17:47 | PN ---
PROGRESS NOTE Patient is seen for followup for acute kidney injury and volume overload. He had been maintained on Lasix drip which was discontinued this morning. The patient is feeling better, although he continues to have significant edema. I will change him to IV push Lasix. PHYSICAL EXAMINATION: This morning, blood pressure was 156/52, heart rate of 60 per minute. Patient is afebrile. Examination of the heart S1, S2. Examination of the lungs, bilateral breath sounds are heard. Abdomen is soft, nontender. Exam of lower extremities shows edema 2+ bilaterally. Both extremities are currently wrapped. LAB: Show sodium 140, potassium 4.1, BUN 23, serum creatinine 1.04, hemoglobin 12.8, g/dL. ASSESSMENT: 1. Acute kidney injury, cardiorenal, currently significantly improved. 2. Volume overload, currently improving. Change Lasix to 60 mg IV q.12 hours and we can likely switch to p.o. Lasix tomorrow. 3. Cardiomyopathy, ejection fraction 55-60 percent with moderately dilated left atrium. 4. Hematuria, which is traumatic. 5. Metabolic alkalosis associated with hypokalemia secondary to diuretics. 6. Heart block from hyperkalemia on initial admission. PLAN: Change Lasix to 60 mg IV q.12 hours. Switch to p.o. Lasix tomorrow and repeat labs in a.m. [id number] / HENNYN: [id number] /
[2019-06-01 20:27] LABS: Glucose,Whole Blood 328 mg/dL (75-99)
[2019-06-01] MEDS: amLODIPine 10 MG TAB PO SCH (20:44)
[2019-06-01] MEDS: FUROSEMIDE 10 MG/ML 10 ML VIAL IV SCH (20:44)
[2019-06-01] MEDS: INSULIN DETEMIR (LEVEMIR) 100 UNIT/ML SYR SQ SCH (20:44)
[2019-06-02] MEDS: INSULIN ASPART (NovoLOG) 100 UNIT/ML VIAL SQ SCH ×4 (06:51→22:59)
[2019-06-02 06:56] LABS: Glucose,Whole Blood 213 mg/dL (75-99)
[2019-06-02 07:57] LABS: African American GFR (CKD) >90 (>60 ml/min/1.73 sqM)
[2019-06-02] MEDS: IPRATROPIUM-ALBUTEROL 3 ML NEB INHALATION SCH ×4 (08:13→20:27)
[2019-06-02] MEDS: GABAPENTIN 100 MG CAP PO SCH ×2 (09:40→22:33)
[2019-06-02] MEDS: HEPARIN SODIUM,PORCINE 5,000 UNIT/ML 1 ML VIAL SQ SCH ×2 (09:40→22:33)
[2019-06-02] MEDS: FAMOTIDINE 20 MG TAB PO SCH (09:40)
[2019-06-02] MEDS: METOPROLOL SUCCINATE (ER) 50 MG TAB.ER.24H PO SCH (09:40)
[2019-06-02] MEDS: FUROSEMIDE 10 MG/ML 10 ML VIAL IV SCH ×2 (09:41→22:34)
[2019-06-02] MEDS: ASPIRIN 81 MG PO SCH (09:42)
[2019-06-02] MEDS: CEFEPIME 2 GM in SODIUM CHLORIDE 0.9% 100 ML IVPB SCH ×2 (09:42→17:23)
[2019-06-02 12:03] LABS: Glucose,Whole Blood 260 mg/dL (75-99)
[2019-06-02 16:34] LABS: Glucose,Whole Blood 377 mg/dL (75-99)
--- NOTE | 2019-06-02 18:49 | P.PN ---
Subjective 63-year-old gentleman comes into the ER for leg swelling and burning sensation. He was also having some blistering drainage from his bilateral lower extremities. Labwork done in the ER showed that he was hyperkalemic with a potassium of 6.8. He was also having complete heart block. External pacers were placed. Potassium was corrected patient was admitted to ICU. Patient was started on Lasix drip. Infectious disease was consulted and he is on antibioticsfor cellulitis. 05/30/2019 Today the patient says that he's feeling better. Shortness of breath and swelling in the lower extremities or better. He does not complain of any chest pain. No fever no chills no abdominal pain, nausea and vomiting, or diarrhea constipation. 05/31/2019 Patient doing better on Lasix drip. His swelling is down. He is in negative fluid balance. Doesn't complain of any chest pain racing heart 06/01/2019 Lasix drip discontinued today and started on IV Lasix. Patient says that he's feeling better no cough no shortness of breath no chest pain racing heart 06/02/2019 Pt says he is doing better Weight done down nicely No chest pain, no racing heart, no cough, no sob Objective - Vital Signs Vital signs: Vital Signs Temp 98.4 F 06/02/19 14:20 Pulse 64 06/02/19 16:21 Resp 16 06/02/19 14:20 BP 130/58 06/02/19 14:20 Pulse Ox 95 06/02/19 16:10 Intake & Output 06/01/19 06/02/19 06/02/19 18:59 06:59 18:59 Intake Total 560 505 Output Total 950 1420 700 Balance -390 -915 -700 Weight 111.5 kg Intake: IV 25 Sodium Chloride 0.9% 500 25 ml @ 10 mls/hr Oral 560 480 Output: Urine 950 1420 700 Uretheral (Pinzon) 150 Other: Voiding Method Indwelling Catheter # Voids 3 3 # Bowel Movements 1 1 - Exam On exam, alert and oriented x3. HEENT: Conjunctivae normal. eyes normal. NECK: No JVD. No thyroid enlargement. No LNs CARDIOVASCULAR: assessment positive RESPIRATION: Breath sounds diminished in the bases. No rhonchi or crackles. No bronchial breathing. ABDOMEN: Soft, nontender . No guarding. no masses palpable. No ascites, No hepatosplenomegaly.Bowel sounds heard. LEGS: the lateral lower extremities swelling. Dressing applied NERVOUS SYSTEM: Cranial N 2-12 grossly normal. Moves all 4 limbs. No focal deficits. No sensory deficit. No signs of cerebellar dysfucntion. 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 He has external pacemaker - Continue to monitor the patient 06/01/2019 - Continue Lasix push as per nephrology - Patient on antibiotics dictated by ID - Has external pacemaker. Cardiology recommends him to have a permanent pacemaker which will take place when the sepsis picture resolves - Urology following the patient for gross hematuria which is improving at this time as a starter due to irritation or trauma due to Pinzon catheter - We'll continue to follow the patient 06/02/2019 - will continue iv lasix for today and will change to oral lasix tomorrow - Continue iv cefepime while in the hospital, can be changed to oral at the time of dc - Anticipate dc to rehab, barbara healy on the case
[2019-06-02] MEDS ORDERED: INSULIN DETEMIR (LEVEMIR) 100 UNIT/ML SYR SQ SCH (21:00)
[2019-06-02] MEDS: amLODIPine 10 MG TAB PO SCH (22:33)
[2019-06-02 22:53] LABS: Glucose,Whole Blood 299 mg/dL (75-99)
[2019-06-03] MEDS: CEFEPIME 2 GM in SODIUM CHLORIDE 0.9% 100 ML IVPB SCH ×3 (01:09→15:48)
[2019-06-03 03:20] VITALS: PULSE 60
[2019-06-03 07:25] LABS: Glucose,Whole Blood 201 mg/dL (75-99)
[2019-06-03] MEDS: IPRATROPIUM-ALBUTEROL 3 ML NEB INHALATION SCH ×2 (08:15→11:46)
[2019-06-03 08:48] LABS: HCT 39.8 % (39.0-53.0); HGB 12.5 gm/dL (13.0-17.5); Hypochromasia Slight; MCH 27.7 pg (25.0-35.0); MCHC 31.4 g/dL (31.0-37.0); MCV 88.2 fL (80.0-100.0); Mean Platelet Volume 6.9; Platelet Count 545 k/uL (150-450); RBC 4.51 m/uL (4.30-5.90); RDW 14.8 % (11.5-15.5); WBC 12.8 k/uL (3.8-10.6)
[2019-06-03 09:05] LABS: African American GFR (CKD) >90 (>60 ml/min/1.73 sqM); Anion Gap 8 mmol/L; Blood Urea Nitrogen 27 mg/dL (9-20); Calcium 9.2 mg/dL (8.4-10.2); Carbon Dioxide 30 mmol/L (22-30); Chloride 102 mmol/L (98-107); Glucose 191 mg/dL (74-99); Potassium 4.2 mmol/L (3.5-5.1); Sodium 140 mmol/L (137-145)
[2019-06-03] MEDS ORDERED: TORSEMIDE 20 MG TAB PO SCH (09:15)
[2019-06-03] MEDS: FUROSEMIDE 10 MG/ML 10 ML VIAL IV SCH (09:53)
[2019-06-03] MEDS: ASPIRIN 81 MG PO SCH (10:15)
[2019-06-03] MEDS: GABAPENTIN 100 MG CAP PO SCH (10:15)
[2019-06-03] MEDS: INSULIN ASPART (NovoLOG) 100 UNIT/ML VIAL SQ SCH ×2 (10:15→12:21)
[2019-06-03] MEDS: METOPROLOL SUCCINATE (ER) 50 MG TAB.ER.24H PO SCH (10:15)
[2019-06-03] MEDS: HEPARIN SODIUM,PORCINE 5,000 UNIT/ML 1 ML VIAL SQ SCH (10:15)
[2019-06-03] MEDS: FAMOTIDINE 20 MG TAB PO SCH (10:15)
[2019-06-03 11:29] LABS: Glucose,Whole Blood 343 mg/dL (75-99)
--- NOTE | 2019-06-03 14:35 | P.DS ---
Providers Date of admission: 05/25/19 07:04 Expected date of discharge: 06/03/19 Attending physician: Nayan Mathews Consults: 05/25/19 07:04 Consult Physician Stat Consulting Provider: Savi Turk Consult Reason/Comments: heart block Do you want consulting provider notified?: Already Contacted Consult Physician Stat Consulting Provider: Akil Nix Consult Reason/Comments: ICU management Do you want consulting provider notified?: Already Contacted 05/25/19 07:05 Consult Physician Routine Consulting Provider: Nena Denson Consult Reason/Comments: lower ext cellulitis Do you want consulting provider notified?: Yes 05/25/19 10:14 Consult Physician Routine Consulting Provider: Jhony Souza Consult Reason/Comments: ankit Do you want consulting provider notified?: Yes 05/30/19 18:57 Consult Physician Routine Consulting Provider: Lobo Bernard Consult Reason/Comments: gross hematuria Do you want consulting provider notified?: Yes Primary care physician: Ángel Cid Hospital Course: Discharge diagnosis - acute on chronic CHF exacerbation - Bilateral lower Ixodes cellulitis - Hyperkalemia - Complete heart block on external pacemakers - ANKIT secondary to cardiorenal syndrome - Gross hematuria - Obesity - 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 Ángel Cid. Medical conditions include diabetes, hypertension, diabetic peripheral neuropathy. 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 Patient has no movement but has some sensation. Patient has off-and-on lower extremity cellulitis and has followed by Dr. Denson from infectious disease. Patient now presents with worsening swelling of the lower extremity burning sensation. No fever and chills. Also has some blistering drainage. Decreased appetite times rundown. Patient in the ER was found to be hyperkalemic with potassium being 6.8. Patient admitted to the ICU. Patient also found to be in complete heart block. Patient is put on a Lasix drip also found to be in CHF. And also was made nothing by mouth. Patient does feel tired and rundown. Patient normally uses a wheelchair/crutches or a walker to get about the house. Patient was continued on Lasix drip. He lost significant amount of weight and his swelling improved a lot. He was put on IV antibiotics. All cultures came back positive for Pseudomonas. His antibiotics changed to cefepime. Infectious disease was following the patient. Nephrology was also following the patient. On 06/03/2019 On exam, alert and oriented x3. HEENT: Conjunctivae normal. eyes normal. NECK: No JVD. No thyroid enlargement. No LNs CARDIOVASCULAR: assessment positive RESPIRATION: Breath sounds diminished in the bases. No rhonchi or crackles. No bronchial breathing. ABDOMEN: Soft, nontender . No guarding. no masses palpable. No ascites, No hepatosplenomegaly.Bowel sounds heard. LEGS: the lateral lower extremities swelling. Dressing applied NERVOUS SYSTEM: Cranial N 2-12 grossly normal. Moves all 4 limbs. No focal deficits. No sensory deficit. No signs of cerebellar dysfucntion. Patient's Lasix drip was eventually changed to 60 mg IV Lasix twice a day. Nephrology recommended to change the diuretics to oral and he was put on torsemide 40 mg daily for better bioavailability. Patient is also put on ciprofloxacin by infectious disease to complete a course. Patient is to follow with cardiology in a week for possible permanent pacemaker placement. Patient is cleared by infectious disease to have the pacemaker placed. Patient needs to have regular blood work. He is also requested to check his weight regularly. Patient Condition at Discharge: Serious Plan - Discharge Summary New Discharge Prescriptions: New Ciprofloxacin HCl [Cipro] 500 mg PO Q12HR #10 tablet Torsemide [Demadex] 40 mg PO DAILY #30 tab Continue INSULIN ASPART (NovoLOG) [NovoLOG (formulary)] See Protocol SQ AC-TID Aspirin 81 mg PO DAILY #30 chew Ergocalciferol [Vitamin D2 (DRISDOL)] 50,000 unit PO FR #4 cap Gabapentin [Neurontin] 100 mg PO BID #60 cap metFORMIN HCL 1,000 mg PO BID #60 tablet Insulin Glargine,Hum.rec.anlog [Lantus Solostar] 30 units SQ BID Ipratropium/Albuterol Sulfate [Combivent Respimat Inhaler] 2 puff INHALATION RT-QID PRN PRN Reason: Shortness Of Breath Metoprolol Succinate (ER) [Toprol XL] 50 mg PO DAILY #30 tabcap amLODIPine [Norvasc] 10 mg PO HS Sacubitril/Valsartan [Entresto 97 mg-103 mg Tablet] 1 tab PO BID Discontinued Furosemide [Lasix] 40 mg PO BID@0900,1600 #60 tab Discharge Medication List INSULIN ASPART (NovoLOG) [NovoLOG (formulary)] See Protocol SQ AC-TID 08/30/18 [History] Aspirin 81 mg PO DAILY #30 chew 09/06/18 [Rx] Ergocalciferol [Vitamin D2 (DRISDOL)] 50,000 unit PO FR #4 cap 09/06/18 [Rx] Gabapentin [Neurontin] 100 mg PO BID #60 cap 09/06/18 [Rx] metFORMIN HCL 1,000 mg PO BID #60 tablet 09/06/18 [Rx] Insulin Glargine,Hum.rec.anlog [Lantus Solostar] 30 units SQ BID 12/02/18 [History] Ipratropium/Albuterol Sulfate [Combivent Respimat Inhaler] 2 puff INHALATION RT- QID PRN 12/02/18 [History] Metoprolol Succinate (ER) [Toprol XL] 50 mg PO DAILY #30 tabcap 01/22/19 [Rx] Sacubitril/Valsartan [Entresto 97 mg-103 mg Tablet] 1 tab PO BID 05/25/19 [History] amLODIPine [Norvasc] 10 mg PO HS 05/25/19 [History] Ciprofloxacin HCl [Cipro] 500 mg PO Q12HR #10 tablet 06/03/19 [Rx] Torsemide [Demadex] 40 mg PO DAILY #30 tab 06/03/19 [Rx] Follow up Appointment(s)/Referral(s): Mark Nichols MD [STAFF PHYSICIAN] - 1 Week Ángel Cid MD [Primary Care Provider] - 1-2 days Activity/Diet/Wound Care/Special Instructions: follow up with Dr denson in the wound care in 1 week
[2019-06-03 15:11] VITALS: BP 152/59; RESP 16; TEMP 98.2
--- NOTE | 2019-06-04 13:27 | P.PN ---
Progress Note - Text Progress Note Date: 06/03/19 REASON FOR FOLLOW UP VISIT: Bilateral lower extremity wound cellulitis, pseudomonas. INTERVAL HISTORY: The patient remains to be afebrile. Patient is breathing comfortably. the patient denies having any chest pain or any cough. Some abdominal discomfort and constipation. No diarrhea. No pain to the leg area. PHYSICAL EXAMINATION: Blood pressure 150/50 with a pulse of 65, temperature 98.4, he is 97% on 3 L nasal cannula. General description is a middle-aged male, up in the bed in no distress. RESPIRATORY SYSTEM: Unlabored breathing. Decreased breath sounds at the bases, no wheeze. HEART: S1, S2. Regular rate and rhythm. ABDOMEN: Soft. No tenderness. Legs are currently wrapped. left leg dressing was removed 2 of the 3 wounds currently healed Lower wound with no slough tissue and no redness LABS: reviewed DIAGNOSTIC IMPRESSION AND PLAN: Patient with bilateral lower extremity wound with secondary cellulitis. Local culture has been positive for Pseudomonas aeruginosa, patiently current covered with cefepime. plan to switch him over to oral Cipro 500 mgtwice a day for another week to finish his course of therapy Local wound care to continue with Aquacel Silver dressing and Mik wrap.
--- NOTE | 2019-06-04 13:28 | P.PN ---
Progress Note - Text Progress Note Date: 06/02/19 REASON FOR FOLLOW UP VISIT: Bilateral lower extremity wound cellulitis, pseudomonas. INTERVAL HISTORY: The patient denies any fever or chills. Patient has been breathing comfortably. Denies having any chest pain or any cough. Some abdominal discomfort and constipation. No diarrhea. No pain to the leg area. PHYSICAL EXAMINATION: Blood pressure 146/50with a pulse of 60, temperature 98.4, he is 97% on 3 L nasal cannula. General description is a middle-aged male, up in the bed in no distress. RESPIRATORY SYSTEM: Unlabored breathing. Decreased breath sounds at the bases, no wheeze. HEART: S1, S2. Regular rate and rhythm. ABDOMEN: Soft. No tenderness. Legs are currently wrapped. No obvious drainage on the dressing. LABS:review of DIAGNOSTIC IMPRESSION AND PLAN: Patient with bilateral lower extremity wound with secondary cellulitis. Local culture has been positive for Pseudomonas aeruginosa, patiently current covered with cefepime. Local wound care to continue with Aquacel Silver dressing and Mik wrap. Continue supportive care.
--- NOTE | 2019-06-04 13:29 | P.PN ---
Progress Note - Text Progress Note Date: 05/29/19 REASON FOR FOLLOW UP VISIT: Bilateral lower extremity wound cellulitis INTERVAL HISTORY: The patient is currently afebrile. Patient has been breathing comfortably. the patient denies having any chest pain or any cough. Some abdominal discomfort and constipation. No diarrhea. No pain to the leg area. PHYSICAL EXAMINATION: Blood pressure 150/52 with a pulse of 60, temperature 98.4, he is 97% on 3 L nasal cannula. General description is a middle-aged male, up in the bed in no distress. RESPIRATORY SYSTEM: Unlabored breathing. Decreased breath sounds at the bases, no wheeze. HEART: S1, S2. Regular rate and rhythm. ABDOMEN: Soft. No tenderness. Legs are currently wrapped. No obvious drainage on the dressing. LABS: last saw reviewed DIAGNOSTIC IMPRESSION AND PLAN: Patient with bilateral lower extremity wound with secondary cellulitis. Local culture has been positive for Pseudomonas aeruginosa, patiently current covered with cefepime. Local wound care to continue with Aquacel Silver dressing and Mik wrap.and continue supportive care.
== END 2019-06-03 16:37 | DRG 260 ==
LOC: EC 04:50 → 2SICU 07:04 → 4SSUR 05-29 23:28
PROVIDERS: ADMIT Hospitalist; ATTEND Hospitalist
PROC: B51M1ZZ Fluoroscopy of Right Upper Extremity Veins using Low Osmolar Contrast (ICD-10-PCS; 2019-05-26)
PROC: 02HK3JZ Insertion of Pacemaker Lead into Right Ventricle, Percutaneous Approach (ICD-10-PCS; principal; 2019-05-26 19:45)
DX: I11.0 Hypertensive heart disease with heart failure (principal); K76.7 Hepatorenal syndrome; N17.0 Acute kidney failure with tubular necrosis; E87.4 Mixed disorder of acid-base balance; I44.2 Atrioventricular block, complete; J96.11 Chronic respiratory failure with hypoxia; L03.115 Cellulitis of right lower limb; L03.116 Cellulitis of left lower limb; Z68.42 Body mass index [BMI] 45.0-49.9, adult; I50.33 Acute on chronic diastolic (congestive) heart failure; E11.42 Type 2 diabetes mellitus with diabetic polyneuropathy; E11.649 Type 2 diabetes mellitus with hypoglycemia without coma; I27.20 Pulmonary hypertension, unspecified; I07.1 Rheumatic tricuspid insufficiency; E66.01 Morbid (severe) obesity due to excess calories; E87.5 Hyperkalemia; I42.9 Cardiomyopathy, unspecified; E78.5 Hyperlipidemia, unspecified; E87.6 Hypokalemia; F32.9 Major depressive disorder, single episode, unspecified; B96.5 Pseudomonas (aeruginosa) (mallei) (pseudomallei) as the cause of diseases classified elsewhere; G14 Postpolio syndrome; G83.11 Monoplegia of lower limb affecting right dominant side; G89.29 Other chronic pain; I25.2 Old myocardial infarction; I87.2 Venous insufficiency (chronic) (peripheral); J40 Bronchitis, not specified as acute or chronic; K59.00 Constipation, unspecified; R31.0 Gross hematuria; T50.2X5A Adverse effect of carbonic-anhydrase inhibitors, benzothiadiazides and other diuretics, initial encounter; T50.995A Adverse effect of other drugs, medicaments and biological substances, initial encounter; F40.240 Claustrophobia; G47.33 Obstructive sleep apnea (adult) (pediatric); Z79.4 Long term (current) use of insulin; Z79.82 Long term (current) use of aspirin; Z79.899 Other long term (current) drug therapy; Z79.890 Hormone replacement therapy; Z88.0 Allergy status to penicillin; Z88.2 Allergy status to sulfonamides; Z87.01 Personal history of pneumonia (recurrent); Z91.040 Latex allergy status; Z88.1 Allergy status to other antibiotic agents; Z87.891 Personal history of nicotine dependence; Z87.442 Personal history of urinary calculi; Z83.3 Family history of diabetes mellitus; Z84.1 Family history of disorders of kidney and ureter
CPT/HCPCS: 33210; 36415; 71045; 80048; 80053; 80202; 81001; 81003; 82565; 83735; 83880; 84443; 84484; 85025; 85027; 85610; 85730; 87040; 87070; 87077; 87186; 87205; 93005; 93306; 94640; 94760; 96374; 96375; 99291

== ENCOUNTER → 2019-06-23 | Day surgery (SDC) | payer MEDICARE | DX: T81.31XA Disruption of external operation (surgical) wound, not elsewhere classified, initial encounter (principal) | CPT/HCPCS: 12020 ==

== ENCOUNTER 2019-07-26 08:14 | Day surgery (SDC) | payer MEDICARE ==
[2019-07-22 15:04] VITALS: BMI 42.7
[~2019-07-26 08:14] MED LIST: HYDROmorphone 0.5 MG/0.5 ML SYRINGE IVP PRN; MIDAZOLAM 2 MG/2 ML VIAL IV PRN; VANCOMYCIN 1,000 MG in SODIUM CHLORIDE 0.9% IRRIGATIO 1,000 ML IRRIGATION ONE; VANCOMYCIN 1,750 MG in SODIUM CHLORIDE 0.9% 500 ML 500 ML IVPB STA
[2019-07-26] MEDS ORDERED: VANCOMYCIN IV PER PHARMACY 1 EACH MISC MISCELLANE PRN (08:30)
[2019-07-26 08:49] LABS: Glucose,Whole Blood 162 mg/dL (75-99)
[2019-07-26] MEDS ORDERED: VANCOMYCIN 1,000 MG VIAL IVPB ONE (09:15)
[2019-07-26 09:27] LABS: Basophils # (A) 0.1 k/uL (0-0.2); Basophils % (A) 1 %; Eosinophils # (A) 0.4 k/uL (0-0.7); Eosinophils % (A) 3 %; HCT 40.8 % (39.0-53.0); HGB 13.5 gm/dL (13.0-17.5); Lymphocytes % (A) 22 %; MCH 28.6 pg (25.0-35.0); MCHC 33.1 g/dL (31.0-37.0); MCV 86.4 fL (80.0-100.0); Mean Platelet Volume 6.4; Monocytes # (A) 0.7 k/uL (0-1.0); Monocytes % (A) 5 %; Neutrophils # (A) 9.3 k/uL (1.3-7.7); Neutrophils % (A) 68 %; Platelet Count 470 k/uL (150-450); RBC 4.72 m/uL (4.30-5.90); RDW 15.6 % (11.5-15.5); WBC 13.7 k/uL (3.8-10.6)
[2019-07-26 09:43] LABS: Calcium 9.6 mg/dL (8.4-10.2)
[2019-07-26] MEDS: SODIUM CHLORIDE 0.9% 1,000 ML IV SCH ×4 (09:44→23:28)
[2019-07-26 09:45] LABS: Potassium 5.1 mmol/L (3.5-5.1)
[2019-07-26] MEDS ORDERED: FUROSEMIDE 10 MG/ML 4 ML VIAL IV STA (14:19)
[2019-07-26] MEDS ORDERED: VANCOMYCIN 1,000 MG in SODIUM CHLORIDE 0.9% IRRIGATIO 1,000 ML IRRIGATION ONE (15:30)
[2019-07-26] MEDS ORDERED: fentaNYL (PF) 50 MCG/ML 2 ML AMP ONE (15:44)
[2019-07-26] MEDS ORDERED: MIDAZOLAM 2 MG/2 ML VIAL ONE (15:44)
[2019-07-26] MEDS ORDERED: KETAMINE 10 MG/ML 20 ML VIAL ONE (15:44)
[2019-07-26] MEDS ORDERED: GLYCOPYRROLATE 0.2 MG/ML 2 ML VIAL ONE (15:44)
[2019-07-26] MEDS ORDERED: diphenhydrAMINE 50 MG/ML 1 ML VIAL ONE (15:44)
[2019-07-26] MEDS: IOPAMIDOL-250 100ML BTL IV ONE ×2 (16:11→17:30)
[2019-07-26] MEDS ORDERED: HYDROcodone/APAP 5-325MG 1 EACH TAB PO PRN (16:31)
[2019-07-26] MEDS ORDERED: ACETAMINOPHEN IV (For NPO) 1,000 MG in EMPTY BAG 1 BAG IVPB ONE (16:31)
[2019-07-26] MEDS ORDERED: ACETAMINOPHEN TAB 325 MG TAB PO PRN (16:31)
[2019-07-26] MEDS ORDERED: LIDOCAINE 1% INJ 10MG/ML (20 ML MDV) ONE ×2 (16:33→18:26)
[2019-07-26] MEDS: LIDOCAINE 1% INJ 10MG/ML (20 ML MDV) SQ ONE ×2 (16:45→18:32)
--- NOTE | 2019-07-26 17:00 | ECHOF ---
Referral Reason:LV function MEASUREMENTS -------- HEIGHT: 165.1 cm WEIGHT: 116.6 kg BP: IVSd: 1.4 cm (0.6 - 1.1) LVIDd: 5.0 cm (3.9 - 5.3) LVPWd: 1.4 cm (0.6 - 1.1) IVSs: 1.7 cm LVIDs: 3.2 cm LVPWs: 1.9 cm RVIDd: 2.8 cm (< 3.3) Ao Diam: 3.3 cm (2.0 - 3.7) LA Diam: 3.8 cm (2.7 - 3.8) AV Cusp: 1.4 cm (1.5 - 2.6) EPSS: 0.4 cm MV E Mansoor: 1.12 m/s MV DecT: 228 ms MV A Mansoor: 0.73 m/s MV E/A Ratio: 1.52 AV maxP.05 mmHg AV meanP.21 mmHg RAP: 5.00 mmHg RVSP: 21.88 mmHg MV EF SLOPE: 41.46 mm/s (70 - 150) MV EXCURSION: 1.75 cm (> 18.000) FINDINGS -------- Paced rhythm. This was a technically difficult study with suboptimal views. The left ventricular size is normal. There is moderate concentric left ventricular hypertrophy. O verall left ventricular systolic function is mildly impaired with, an EF between 45 - 50 %. ANTERIOR SEPTAL AND APICAL AKINESIS The right ventricle is normal in size. The left atrial size is normal. The right atrial size is normal. Lumason used Aortic valve is trileaflet and is mildly thickened. There is mild aortic stenosis present. Peak/m elijah gradient across the valve is 18.05mmHg / 11.21mmHg. The mitral valve is normal. Mild mitral regurgitation is present. The tricuspid valve appears structurally normal. Mild tricuspid regurgitation present. Right vent ricular systolic pressure is normal at < 35 mmHg. The aortic root size is normal. The inferior vena cava was not well visualized. There is no pericardial effusion. CONCLUSIONS -------- 1. Paced rhythm. 2. This was a technically difficult study with suboptimal views. 3. The left ventricular size is normal. 4. There is moderate concentric left ventricular hypertrophy. 5. Overall left ventricular systolic function is mildly impaired with, an EF between 45 - 50 %. 6. The right ventricle is normal in size. 7. The left atrial size is normal. 8. The right atrial size is normal. 9. Lumason used 10. Aortic valve is trileaflet and is mildly thickened. 11. Peak/mean gradient across the valve is 18.05mmHg / 11.21mmHg. 12. The mitral valve is normal. 13. Mild mitral regurgitation is present. 14. The tricuspid valve appears structurally normal. 15. Mild tricuspid regurgitation present. 16. Right ventricular systolic pressure is normal at < 35 mmHg. 17. The aortic root size is normal. 18. The inferior vena cava was not well visualized. 19. There is no pericardial effusion. DESPATCH CLERK: Shante Bowen RDCS
[2019-07-26] MEDS ORDERED: SODIUM CHLORIDE 0.9% 500 ML 500 ML IV ONE (17:24)
[2019-07-26 19:39] LABS: Glucose,Whole Blood 150 mg/dL (75-99)
[2019-07-26] MEDS: LACTATED RINGERS 1,000 ML IV SCH (20:23)
[2019-07-26] MEDS: INSULIN ASPART (NovoLOG) 100 UNIT/ML VIAL SQ SCH (20:25)
[2019-07-26] MEDS: CARVEDILOL 12.5 MG TAB PO SCH (20:35)
[2019-07-26] MEDS: GABAPENTIN 100 MG CAP PO SCH (20:35)
[2019-07-26] MEDS: INSULIN DETEMIR (LEVEMIR) 100 UNIT/ML SYR SQ SCH (20:36)
[2019-07-26] MEDS: CLINDAMYCIN 900 MG in DEXTROSE 5% IN WATER 50 ML IVPB SCH ×2 (20:36)
[2019-07-26 20:57] LABS: Glucose,Whole Blood 146 mg/dL (75-99)
[2019-07-26] MEDS ORDERED: VANCOMYCIN 1,750 MG in SODIUM CHLORIDE 0.9% 500 ML 500 ML IVPB ONE (21:00)
--- NOTE | 2019-07-26 22:18 | PCN ---
PROCEDURE NOTE Mr. Javi Duff is a 64-year-old male patient who presented to the hospital with complete heart block about 6 to 8 weeks back. However, he had severe cellulitis of both lower extremities and he received long-term IV antibiotics. Hence, instead of a permanent pacemaker being implanted at that time, an externalized permanent pacemaker was placed. He was brought in for implantation of a biventricular system, since he has complete heart block, symptoms of heart failure, and a left ventricular ejection fraction of 45%. Previously his left ventricular ejection fraction was about 30% to 35%, but this has shown an improvement and we repeated his 2D echo this morning. This showed a left ventricular ejection fraction of 45% with anteroseptal and apical akinesis. Definity contrast was used to delay the LV endocardial borders. Therefore a biventricular device was implanted for heart failure management since his ejection fraction was less than 50% and he has bradycardia due to complete heart block as well as congestive heart failure with bilateral lower extremity edema and is on p.o. Lasix. The patient was brought to the EP lab in a fasting state. Written informed consent was obtained prior to the procedure. IV antibiotics, vancomycin, was administered prior to the procedure. The left pectoral area was prepped and draped as per protocol. Lidocaine 1% was used for local anesthesia. A 4 cm incision was made parallel to the deltopectoral groove, about 1.5 cm medial to it. The incision was carried down to the level of the pectoralis muscle. A subfascial pocket was made. Hemostasis was assured. The left axillary vein was accessed at 3 separate points under fluoroscopy, and via appropriately sized introducer sheaths, 3 leads were positioned in the right heart. The atrial lead was a Medtronic model #5076, 52 cm in length, and serial #[id number]. This was screwed into the right atrial appendage. The P waves were 4.5 mV, pacing impedance 1103 ohms, and threshold was 2 V at 0.5 milliseconds. Ten-volt test was negative. The RV lead was a Medtronic model #6935, 65 cm in length, and serial #[id number]. This was positioned in the RV apex. R-waves were 5.6 mV, pacing impedance 865 ohms, and pacing threshold 0.6 V at 0.5 milliseconds. Ten-volt test was negative. The LV lead was positioned in the anterolateral LV vein. Pacing impedance from LV2-LV3 was 473 ohms, pacing threshold 1.9 V at 0.5 milliseconds. However, diaphragmatic stimulation was noted when pacing all bipoles, and therefore finally the device in the end was programmed to LV3- to avoid diaphragmatic stimulation. The entire LV vein had diaphragmatic stimulation above 3-4 V pacing threshold. About 3-4 V pacing. The leads were secured to the underlying pectoralis fascia using 2 nonabsorbable sutures. Pocket was irrigated with antibiotic solution. The device was connected. This was a [employer] W4TR02, serial #[id number]. The leads and the generator were then placed in the subfascial pocket. The wound was closed in 3 layers. The lead was secured to the underlying pectoralis muscle. Wound was closed in 3 layers and dressed per protocol. RESULT: Successful implantation of a biventricular device for management of congestive heart failure, left ventricular ejection fraction of 45% and complete heart block resulting in bradycardia. The device was programmed to DDD mode at 50 to 130 bpm. The patient has a right-sided externalized pacemaker. The area was cleaned and draped as per protocol. The sutures were removed. The lead was unscrewed and extracted from the RV septum. The device was also removed from the skin and the wound was dressed. RESULT: Successful extraction of a single pacemaker lead that was implanted in the month of April from the right side as an externalized permanent pacing system while the patient was receiving IV antibiotics for bilateral lower extremity cellulitis. PLAN: Clindamycin 900 mg every 6 hours for 4 more doses. MMODL / IJN: [id number] /
[2019-07-27] MEDS: CLINDAMYCIN 900 MG in DEXTROSE 5% IN WATER 50 ML IVPB SCH ×4 (01:45→08:57)
[2019-07-27 06:44] LABS: Glucose,Whole Blood 165 mg/dL (75-99)
--- NOTE | 2019-07-27 07:26 | P.PRLE ---
RE: Javi Duff Dear Ágnel Mr. Duff has complete heart block with a left radical ejection fraction 45% with septal and apical akinesis. He also has heart failure symptoms. He underwent implantation of a biventricular pacemaker and removal of the externalized right-sided pacemaker for management of complete heart block in the setting of a mildly reduced LV systolic function In addition I have stopped her amlodipine and metoprolol and instead started carvedilol 12.5 mg twice daily for management of heart failure and cardio myopathy He will continue all his other cardiac medications and will continue to see you and Dr. Villagomez as before Thank you for entrusting me with the care of the patient Warm regards Sincerely Mark Nichols
--- NOTE | 2019-07-27 07:46 | P.DS ---
Providers Attending physician: Mark Nichols Primary care physician: [facility] Hospital Course: Patient is doing well. Other than some incisional pain he has no other discomfort. No palpitations no shortness of breath no dizziness lightheadedness no breathing trouble His vitals are stable he is afebrile 98.4F, blood pressure 128/57 mmHg pulse rate in the 80s and 90s Breath sounds are clear no rhonchi no crackles Heart sounds are normal The pacemaker, biventricular site is healing well. There is mild tenderness. There is no hematoma The right-sided extraction site is healing well without any bleeding Abdomen soft nontender No lower extremity edema Patient is lying comfortably in bed Impression Complete heart block with bradycardia Mild coronary myopathy ejection fraction 45% septal and apical akinesis Systolic congestive heart failure, chronic Type 2 diabetes Status post biventricular device Plan Stop amlodipine, stop metoprolol, start carvedilol 12.5 mg twice daily and maximize dose as an outpatient Device interrogation within one week Plan - Discharge Summary Discharge Rx Participant: No New Discharge Prescriptions: New Carvedilol [Coreg*] 12.5 mg PO BID #90 tablet Discontinued Metoprolol Succinate (ER) [Toprol XL] 50 mg PO DAILY #30 tabcap amLODIPine [Norvasc] 10 mg PO HS No Action INSULIN ASPART (NovoLOG) [NovoLOG (formulary)] See Protocol SQ AC-TID Aspirin 81 mg PO DAILY #30 chew Ergocalciferol [Vitamin D2 (DRISDOL)] 50,000 unit PO FR #4 cap Gabapentin [Neurontin] 100 mg PO BID #60 cap metFORMIN HCL 1,000 mg PO BID #60 tablet Insulin Glargine,Hum.rec.anlog [Lantus Solostar] 30 units SQ BID Ipratropium/Albuterol Sulfate [Combivent Respimat Inhaler] 2 puff INHALATION RT-QID PRN PRN Reason: Shortness Of Breath Torsemide [Demadex] 40 mg PO DAILY #30 tab Discharge Medication List INSULIN ASPART (NovoLOG) [NovoLOG (formulary)] See Protocol SQ AC-TID 08/30/18 [History] Aspirin 81 mg PO DAILY #30 chew 09/06/18 [Rx] Ergocalciferol [Vitamin D2 (DRISDOL)] 50,000 unit PO FR #4 cap 10/08/18 [Rx] Gabapentin [Neurontin] 100 mg PO BID #60 cap 09/06/18 [Rx] metFORMIN HCL 1,000 mg PO BID #60 tablet 09/06/18 [Rx] Insulin Glargine,Hum.rec.anlog [Lantus Solostar] 30 units SQ BID 12/02/18 [History] Ipratropium/Albuterol Sulfate [Combivent Respimat Inhaler] 2 puff INHALATION RT- QID PRN 12/02/18 [History] Torsemide [Demadex] 40 mg PO DAILY #30 tab 06/03/19 [Rx] Carvedilol [Coreg*] 12.5 mg PO BID #90 tablet 07/26/19 [Rx] Follow up Appointment(s)/Referral(s): Sheldon Britt MD [STAFF PHYSICIAN] - 1 Week (Follow-up with the device clinic in 5 days Follow-up with Dr. Britt within 3-4 months or as previously scheduled) Activity/Diet/Wound Care/Special Instructions: PATIENT EDUCATION MATERIAL Instructions following a heart rhythm device implant. 1. Keep dressing DRY for 5 DAYS. You may cover the area with Saran or Cling Wrap, prior to a shower. 2. The dressing will be removed in the Device Clinic at [facility]. Absorbable sutures were used to close the wound. 3. Avoid raising the left arm above the shoulder level. 4 week restriction 4. Avoid arm movements, like backscratching, rubbing the head, or pulling on a cord. 4 weeks restriction 5. Gentle range of motion movements of the shoulder, closest to the incision should be performed to avoid a frozen shoulder. (Pendulum exercises of the shoulder) 6. The opposite arm may be used freely. 7. Avoid driving for 7 days. 8. Avoid activities such as golfing, swimming, weed whacking, lifting more than 10 pounds weight, bowling, gymnastics and weight training/lifting. (6 weeks restriction) 9. Activities such as wood chopping with an axe, pull-ups in the gymnasium, power lifting, arc-welding, being close to home induction cooktops will always be a problem. 10. Arm sling is only a reminder not to raise the arm above the head. You do not need to keep the arm completely immobilized. Your free to move the arm and use it and for normal activities. In case of any problems, please call [facility], Jocelyne Gleason, @ [phone], Attention: Device Clinic Device clinic follow-up in 5 days Follow-up with primary insurance broker in 2-3 months Stop amlodipine and metoprolol, start carvedilol 12.5 mg twice a day Oral clindamycin 600 mg 4 times a day for 24 hours as an outpatient and then stop
[2019-07-27] MEDS: IPRATROPIUM-ALBUTEROL 3 ML NEB INHALATION PRN ×2 (08:08→13:18)
--- NOTE | 2019-07-27 08:18 | XR ---
EXAMINATION TYPE: XR chest 2V DATE OF EXAM: 07/27/2019 COMPARISON: 05/27/2019 HISTORY: 64-year-old male lead placement check TECHNIQUE: AP and lateral views FINDINGS: Left anterior chest wall ICD generator with right atrial, right ventricular, and coronary sinus leads . Heart upper limits of normal in size. Mild interstitial prominence appears chronic. Left basilar at electasis. No consolidation or sizable effusion. No pneumothorax identified. IMPRESSION: New left-sided AICD with 3 leads. Otherwise, chronic changes without acute process seen.
[2019-07-27 08:25] VITALS: TEMP 98.5
[2019-07-27] MEDS: CARVEDILOL 12.5 MG TAB PO SCH (08:51)
[2019-07-27] MEDS: INSULIN DETEMIR (LEVEMIR) 100 UNIT/ML SYR SQ SCH (08:51)
[2019-07-27] MEDS: LACTATED RINGERS 1,000 ML IV SCH (08:52)
[2019-07-27] MEDS: INSULIN ASPART (NovoLOG) 100 UNIT/ML VIAL SQ SCH ×2 (08:52→12:21)
[2019-07-27] MEDS: GABAPENTIN 100 MG CAP PO SCH (08:53)
[2019-07-27] MEDS ORDERED: TORSEMIDE 20 MG TAB PO SCH (09:00)
[2019-07-27] MEDS ORDERED: ASPIRIN 81 MG PO SCH (09:00)
[2019-07-27 11:59] LABS: Glucose,Whole Blood 210 mg/dL (75-99)
[2019-07-27 12:12] VITALS: BP 149/75; RESP 18
[2019-07-27 13:21] VITALS: PULSE 88
[2019-07-28] MEDS ORDERED: metFORMIN 500 MG TAB PO SCH (17:30)
== END 2019-07-27 14:36 ==
LOC: CATHEP 08:14 → 1SOBS 19:10 → CATHEP 07-27 14:36
PROVIDERS: ATTEND Internal Medicine Clinical Cardiac Electrophysiology
DX: I44.2 Atrioventricular block, complete (principal); I11.0 Hypertensive heart disease with heart failure; I42.0 Dilated cardiomyopathy; E11.9 Type 2 diabetes mellitus without complications; I50.22 Chronic systolic (congestive) heart failure; Z88.0 Allergy status to penicillin; Z88.2 Allergy status to sulfonamides; Z91.040 Latex allergy status; Z79.82 Long term (current) use of aspirin; Z79.4 Long term (current) use of insulin; Z86.19 Personal history of other infectious and parasitic diseases
CPT/HCPCS: 33225; 33208; 94640 ×2; 80048; 85025; 71046; C8929; C1769 ×4; C1892 ×2; C1730; C1898; C1895; C1900; C2621; J2250; J3370; J1200; J1940; J2001; J3010; Q9950; Q9966; 93306

== ENCOUNTER 2021-05-20 | Inpatient (IN) | payer MEDICARE, OTHER | END 2021-05-30 18:16 | disposition home health service (06) | DRG 871 | PROVIDERS: ADMIT Family Medicine | PROC: B44FZZZ Ultrasonography of Right Lower Extremity Arteries (ICD-10-PCS; 2021-05-20) | PROC: B24BZZ4 Ultrasonography of Heart with Aorta, Transesophageal (ICD-10-PCS; principal; 2021-05-27) | PROC: 02HV33Z Insertion of Infusion Device into Superior Vena Cava, Percutaneous Approach (ICD-10-PCS; 2021-05-30) | CPT/HCPCS: 36415; 36573; 71045; 72040; 74177; 78315; 80048; 80053; 80202; 81001; 82565; 83036; 83605; 83735; 84484; 85025; 85027; 85610; 85652; 85730; 86140; 87040; 87070; 87075; 87077; 87186; 87205; 87636; 93005; 93306; 93312; 93325; 93922; 99285 ==

== ENCOUNTER → 2021-08-12 | Outpatient (CLI) | payer MEDICARE ==
[2021-08-12 20:48] LABS: HCT 28.5 % (39.6-50.0); HGB 8.4 g/dL (13.0-17.0); MCH 26.9 pg (27.0-32.0); MCHC 29.5 g/dL (32.0-37.0); MCV 91.3 fL (80.0-97.0); Mean Platelet Volume 9.4 fL (9.5-12.2); Platelet Count 407 X 10*3/uL (140-440); RBC 3.12 X 10*6/uL (4.40-5.60); RDW 18.4 % (11.5-14.5); WBC 13.15 X 10*3/uL (4.50-10.00)
[2021-08-12 21:42] LABS: Basophils # (A) 0.07 X 10*3/uL (0.00-0.10); Basophils % (A) 0.5 %; Eosinophils # (A) 0.67 X 10*3/uL (0.04-0.35); Eosinophils % (A) 5.1 %; Lymphocytes # (A) 2.25 X 10*3/uL (0.90-5.00); Lymphocytes % (A) 17.1 %; Monocytes # (A) 0.67 X 10*3/uL (0.20-1.00); Monocytes % (A) 5.1 %; Neutrophils # (A) 9.38 X 10*3/uL (1.80-7.70); Neutrophils % (A) 71.4 %
== END | disposition home or self-care (01) ==
LOC: LABWHC1 12:53
PROVIDERS: ATTEND Internal Medicine Infectious Disease
DX: E34.9 Endocrine disorder, unspecified (principal)
CPT/HCPCS: 36415; 85025; 86140; 87040

== ENCOUNTER 2021-12-16 14:06 | Inpatient (IN) | payer MEDICAID ==
[2021-12-16] MEDS ORDERED: HALOPERIDOL LACTATE 5 MG/ML 1 ML VIAL IM PRN (14:18)
[2021-12-16] MEDS ORDERED: LORazepam 2 MG/ML INJ IV PRN (14:18)
[2021-12-16] MEDS ORDERED: ATROPINE OPHTH SOLN 1% 5ML BTL SUBLINGUAL PRN (14:18)
[2021-12-16] MEDS ORDERED: MORPHINE SULFATE 2 MG/ML SYRINGE IV PRN (14:18)
[2021-12-16] MEDS ORDERED: ONDANSETRON 4 MG/2 ML VIAL IVP PRN (14:18)
[2021-12-16] MEDS ORDERED: ACETAMINOPHEN SUPPOSITORY 650 MG SUPP RECTAL PRN (14:18)
[2021-12-16] MEDS ORDERED: GLYCOPYRROLATE 0.2 MG/ML 2 ML VIAL IVP PRN (14:18)
[2021-12-16] MEDS ORDERED: HYOSCYAMINE ORAL DROPS 1.875 MG/15 ML BOTTLE PO PRN (14:20)
[2021-12-16] MEDS ORDERED: SCOPOLAMINE 1.5MG/72HR PATCH TRANSDERM SCH (14:30)
[2021-12-16] MEDS ORDERED: MORPHINE SULFATE (100 MG/2 ML) 100 MG in SODIUM CHLORIDE 0.9% 100 ML IV SCH (14:30)
[2021-12-16 18:37] VITALS: PULSE 73; RESP 24
== END 2021-12-16 20:14 | disposition expired | DRG 951 ==
LOC: 3SCARD 14:32
PROVIDERS: ADMIT Family Medicine; ATTEND Family Medicine
DX: Z51.5 Encounter for palliative care (principal); A41.81 Sepsis due to Enterococcus; I21.4 Non-ST elevation (NSTEMI) myocardial infarction; I33.9 Acute and subacute endocarditis, unspecified; I50.33 Acute on chronic diastolic (congestive) heart failure; E11.9 Type 2 diabetes mellitus without complications; I11.0 Hypertensive heart disease with heart failure; I35.1 Nonrheumatic aortic (valve) insufficiency; I48.91 Unspecified atrial fibrillation; Z79.899 Other long term (current) drug therapy; Z79.4 Long term (current) use of insulin; Z95.810 Presence of automatic (implantable) cardiac defibrillator